=== PATIENT | male | born 1955 | race Caucasian/White ===

== ENCOUNTER 2016-10-07 | Outpatient (CLI) | payer MEDICARE, MEDICAID | END 2016-10-07 17:14 | disposition EMS.NT ==

== ENCOUNTER 2016-11-05 09:55 | Outpatient (CLI) | payer MEDICARE, MEDICAID ==
[2016-11-05] MEDS ORDERED: REGADENOSON 0.4 MG/5 ML SYRINGE IVP ONE (12:13)
== END 2016-11-05 09:56 | disposition home or self-care (01) ==
DX: R93.1 Abnormal findings on diagnostic imaging of heart and coronary circulation (principal); I25.2 Old myocardial infarction; I69.359 Hemiplegia and hemiparesis following cerebral infarction affecting unspecified side; E11.9 Type 2 diabetes mellitus without complications; I10 Essential (primary) hypertension; E78.5 Hyperlipidemia, unspecified; Z87.891 Personal history of nicotine dependence
CPT/HCPCS: 78452; 93017; A9500; J2785

== ENCOUNTER 2017-01-11 21:34 | Outpatient (CLI) | payer MEDICARE, MEDICAID | END 2017-01-11 21:35 | disposition critical access hospital (66) | DX: K59.00 Constipation, unspecified (principal); R11.10 Vomiting, unspecified | CPT/HCPCS: A0425; A0427 ==

== ENCOUNTER 2017-01-11 21:49 | Inpatient (IN) | payer MEDICARE, MEDICAID ==
[2017-01-11] MEDS ORDERED: SODIUM CHLORIDE 0.9% 1,000 ML IV ONE ×2 (21:57→22:25)
[2017-01-11] MEDS ORDERED: ONDANSETRON 4 MG/2 ML VIAL IVP STA (21:57)
[2017-01-11] MEDS ORDERED: INSULIN REGULAR HUMAN 100 UNIT/1 ML 10 ML MDV IVP STA (21:58)
[2017-01-11] MEDS ORDERED: ONDANSETRON 4 MG/2 ML VIAL ONE (22:18)
[2017-01-11] MEDS ORDERED: INSULIN REGULAR HUMAN 100 UNIT/1 ML 10 ML MDV ONE ×2 (22:20→22:33)
[2017-01-11] MEDS ORDERED: INSULIN REGULAR HUMAN 100 UNIT in SODIUM CHLORIDE 0.9% 100ML 99 ML IV STA (22:31)
[2017-01-11] MEDS ORDERED: PIPERACILLIN/TAZOBACTAM 4.5 GM in SODIUM CHLORIDE 0.9% MINIBAG 100 ML IV STA (23:13)
[2017-01-11] MEDS ORDERED: VANCOMYCIN INJ 1 GM in SODIUM CHLORIDE 0.9% 250 ML IV STA (23:14)
[2017-01-11] MEDS ORDERED: PANTOPRAZOLE 80 MG in SODIUM CHLORIDE 0.9% 100ML 100 ML IV STA (23:28)
[2017-01-11] MEDS ORDERED: PANTOPRAZOLE 40 MG VIAL IVP STA (23:28)
[2017-01-11] MEDS ORDERED: PANTOPRAZOLE 40 MG VIAL ONE ×2 (23:44→23:45)
[2017-01-12] MEDS ORDERED: VANCOMYCIN 1 GM VIAL ONE (00:07)
[2017-01-12] MEDS ORDERED: SODIUM CHLORIDE 0.9% 1,000 ML IV ONE (00:17)
[2017-01-12] MEDS ORDERED: ALBUTEROL NEB 2.5 MG/3 ML INH PRN (00:29)
[2017-01-12] MEDS ORDERED: ONDANSETRON 4 MG/2 ML VIAL IVP PRN (00:29)
[2017-01-12] MEDS ORDERED: SODIUM CHLORIDE FLUSH 0.9% 10 ML SYRINGE IVP PRN (00:29)
[2017-01-12] MEDS ORDERED: SODIUM CHLORIDE 0.9% 1,000 ML IV SCH (01:00)
[2017-01-12] MEDS ORDERED: INSULIN REGULAR HUMAN 100 UNIT in SODIUM CHLORIDE 0.9% 100ML 99 ML IV SCH (01:00)
[2017-01-12] MEDS: PANTOPRAZOLE 80 MG in SODIUM CHLORIDE 0.9% 100ML 100 ML IV SCH ×2 (01:32→10:50)
[2017-01-12] MEDS ORDERED: POTASSIUM CHLORIDE INJ 40 MEQ in SODIUM CHLORIDE 0.9% 1,000 ML IV SCH (02:00)
[2017-01-12] MEDS: MORPHINE 2 MG/ML SYRINGE IVP PRN ×4 (02:05→08:10)
[2017-01-12] MEDS: PIPERACILLIN/TAZOBACTAM 4.5 GM in SODIUM CHLORIDE 0.9% MINIBAG 100 ML IV SCH ×2 (02:31→10:55)
[2017-01-12] MEDS ORDERED: NS W/20 MEQ KCL 1,000 ML IV SCH (03:00)
[2017-01-12] MEDS: SODIUM CHLORIDE FLUSH 0.9% 10 ML SYRINGE IVP SCH ×2 (04:56→11:44)
[2017-01-12] MEDS ORDERED: DEXTROSE 5%-0.45% NACL 1,000 ML IV ONE (05:59)
[2017-01-12] MEDS ORDERED: PIPERACILLIN/TAZOBACTAM 4.5 GM in SODIUM CHLORIDE 0.9% MINIBAG 100 ML IV SCH (06:00)
[2017-01-12] MEDS: POTASSIUM CHLOR 10 MEQ/100 ML 100 ML IV SCH ×4 (06:08→09:13)
[2017-01-12] MEDS ORDERED: POTASSIUM PHOSPHATE 21 MMOL in SODIUM CHLORIDE 0.9% 250 ML IV ONE (06:27)
[2017-01-12] MEDS ORDERED: INSULIN GLARGINE 300 UNIT/3 ML PEN SUBQ SCH (08:00)
[2017-01-12] MEDS ORDERED: VANCOMYCIN PER PHARMACY 1 GM in SODIUM CHLORIDE 0.9% 250 ML IV SCH (08:00)
[2017-01-12] MEDS: INSULIN ASPART 300 UNIT/3 ML PEN SUBQ SCH ×4 (08:09→11:41)
[2017-01-12] MEDS ORDERED: LISINOPRIL 5 MG TABLET PO STA (08:50)
[2017-01-12] MEDS ORDERED: ASPIRIN 325 MG TABLET PO STA (08:50)
[2017-01-12] MEDS ORDERED: ATORVASTATIN 40 MG TABLET PO STA (08:59)
[2017-01-12] MEDS ORDERED: METOPROLOL SUCCINATE 50 MG TABLET PO ONE (09:30)
[2017-01-12] MEDS ORDERED: PANTOPRAZOLE 40 MG VIAL IV SCH (12:00)
[2017-01-12] MEDS ORDERED: VANCOMYCIN INJ 1 GM in SODIUM CHLORIDE 0.9% 250 ML IV SCH (17:00)
[2017-01-12] MEDS ORDERED: VANCOMYCIN INJ 0.75 GM in SODIUM CHLORIDE 0.9% 250 ML IV SCH (23:00)
== END 2017-01-12 12:18 | disposition short-term general hospital (02) | DRG 637 ==
DX: E10.10 Type 1 diabetes mellitus with ketoacidosis without coma (principal); D72.829 Elevated white blood cell count, unspecified; E86.0 Dehydration; I21.4 Non-ST elevation (NSTEMI) myocardial infarction; A41.9 Sepsis, unspecified organism; K92.0 Hematemesis; I69.354 Hemiplegia and hemiparesis following cerebral infarction affecting left non-dominant side; G89.29 Other chronic pain; N17.9 Acute kidney failure, unspecified; I11.0 Hypertensive heart disease with heart failure; E03.9 Hypothyroidism, unspecified; F41.8 Other specified anxiety disorders; G89.4 Chronic pain syndrome; Z86.73 Personal history of transient ischemic attack (TIA), and cerebral infarction without residual deficits; K21.9 Gastro-esophageal reflux disease without esophagitis; I25.10 Atherosclerotic heart disease of native coronary artery without angina pectoris; I95.9 Hypotension, unspecified; I50.9 Heart failure, unspecified; K59.00 Constipation, unspecified; F17.200 Nicotine dependence, unspecified, uncomplicated; Z79.891 Long term (current) use of opiate analgesic; Z79.4 Long term (current) use of insulin; Z79.82 Long term (current) use of aspirin; Z98.1 Arthrodesis status

== ENCOUNTER 2017-01-12 12:18 | Outpatient (CLI) | payer MEDICARE, MEDICAID | END 2017-01-12 12:19 | disposition short-term general hospital (02) | DX: E13.10 Other specified diabetes mellitus with ketoacidosis without coma (principal); R79.89 Other specified abnormal findings of blood chemistry | CPT/HCPCS: A0425; A0426 ==

== ENCOUNTER 2017-01-30 19:35 | Outpatient (CLI) | payer MEDICARE, MEDICAID | END 2017-01-30 19:36 | disposition critical access hospital (66) | DX: R53.83 Other fatigue (principal) | CPT/HCPCS: A0425; A0427 ==

== ENCOUNTER 2017-01-30 19:52 | Emergency (ER) | payer MEDICARE, MEDICAID ==
[2017-01-30] MEDS ORDERED: SODIUM CHLORIDE 0.9% 1,000 ML IV ONE ×2 (20:04)
--- NOTE | 2017-01-30 20:07 | ED Physician Documentation ---
History of Present Illness - Stated complaint Stated Complaint: WEAKNESS - Chief complaint Chief Complaint: Neuro - History obtained from History obtained from: Patient, EMS - History of Present Illness Timing: Other (61-year-old gentleman with history of diabetes, CVA, coronary disease. He's living at home now and presents by ambulance, he's fell 2 days ago and has a lot of pain in the ankle on the right there is a concern for DKA. He was admitted with DKA a few weeks ago. He ruled in. He was transferred to [facility]. I'm not sure what happened there. His blood sugar now is high. He denies injuries other than his right ankle, but he is slightly somnolence and generally an unreliable historian.) Review of Systems Unable to obtain: Confused PD PAST MEDICAL HISTORY - Past Medical History Cardiovascular: Hypertension, Coronary artery disease Respiratory: None Neuro: CVA Endocrine/Autoimmune: Type 1 diabetes, HyPOthyroidism GI: GERD, GI bleed, Chronic constipation : None HEENT: None Psych: Depression, Anxiety Musculoskeletal: Chronic back pain Derm: None - Past Surgical History Past Surgical History: Yes Ortho: Spine surgery, Other - Present Medications Home Medications: Ambulatory Orders Medication Instructions Recorded Confirmed Insulin Glargine,Hum.rec.anlog 36 units SUBQ DAILY 03/19/14 01/30/17 [Lantus] Levothyroxine [Synthroid] 50 mcg PO DAILY 03/19/14 01/30/17 Omeprazole [PriLOSEC] 20 mg PO BID PRN 03/19/14 01/30/17 Oxycodone HCl 20 - 30 mg PO Q4HR PRN MDD 150 MG 03/19/14 01/30/17 Metoprolol Succinate 75 mg PO DAILY 06/27/16 01/30/17 Atorvastatin [Lipitor] 80 mg PO QPM #30 tablet 07/01/16 01/30/17 Aspirin [Maria De Jesus] 325 mg PO DAILYWM 09/14/16 01/30/17 Docusate Sodium 250Mg Capsule 250 mg PO BID PRN 09/14/16 01/30/17 [Colace 250Mg Capsule] Insulin Aspart [NovoLOG] 12 units SUBQ TIDWM 09/14/16 01/30/17 Senna [Senokot] 17.2 mg PO BID PRN 09/14/16 01/30/17 Ipratropium [place] 1 - 2 sprays NS TID PRN 01/12/17 01/30/17 [place]-3 Acid Ethyl Esters [Lovaza] 3 gm PO DAILY 01/12/17 01/30/17 Promethazine [Phenergan] 25 mg PO Q4H PRN MDD 100 mg 01/12/17 01/30/17 - Allergies Allergies/Adverse Reactions: Allergies Allergy/AdvReac Type Severity Reaction Status Date / Time No Known Drug Allergies Allergy Verified 01/30/17 20:17 - Social History Does the pt smoke?: No Smoking Status: Current every day smoker Does the pt drink ETOH?: No Does the pt have substance abuse?: No - Family History Family history: reports: Non contributory - Immunizations Immunizations are current?: No - POLST Patient has POLST: No PD ED PE NORMAL - Vitals Vital signs reviewed: Yes - General General: Other (Chronically ill-appearing man laying in bed on his right side, he appears to be in pain he is somewhat somnolence.) - HEENT HEENT: PERRL, EOMI, Other (ppoor dentition) - Neck Neck: Supple, no meningeal sign, No bony TTP, Other (carotid endarterectomy scar ) - Cardiac Cardiac: RRR, No murmur - Respiratory Respiratory: No respiratory distress, Clear bilaterally - Abdomen Abdomen: Normal bowel sounds, Soft, Non tender - Extremities Extremities: No deformity, No tenderness to palpate, Other (Both legs are edematous with venous stasis changes that are mild and some mottling, they are cold but the nurse is able to Doppler pulses in both feet. He is mildly tender and swollen especially around the right ankle and proximal right foot. No deformity.) - Neuro Neuro: No motor deficit, No sensory deficit Results - Vitals Vitals: Vital Signs - 24 hr 01/30/17 01/30/17 01/30/17 19:53 20:15 20:42 Temperature 36.6 C Heart Rate 114 H 114 H 119 H Respiratory 20 18 16 Rate Blood Pressure 129/72 160/83 H 147/113 H O2 Saturation 96 99 99 01/30/17 01/30/17 01/30/17 21:00 21:28 21:52 Temperature Heart Rate 120 H 120 H 125 H Respiratory 21 17 17 Rate Blood Pressure 158/101 H 166/84 H 130/78 O2 Saturation 99 99 98 01/30/17 01/30/17 01/30/17 22:29 22:44 23:33 Temperature 36.5 C Heart Rate 124 H 123 H 122 H Respiratory 16 15 20 Rate Blood Pressure 158/78 H 114/93 H 141/69 H O2 Saturation 100 99 100 Oxygen O2 Source Room air - EKG (time done) 2034 Rate: Rate (enter#) (120) Rhythm: Sinus tachycardia [place]: Normal Intervals: Normal CA QRS: Normal Ischemia: Non specific changes Computer interpretation: Agree with computer - Labs Labs: Laboratory Tests 01/30/17 01/30/17 01/30/17 20:05 20:05 20:05 WBC 20.3 H RBC 4.48 L Hgb 12.8 L Hct 40.9 L MCV 91.2 MCH 28.5 MCHC 31.3 L RDW 13.8 Plt Count 386 MPV 9.6 Neut # Not Reportable Lymph # Not Reportable [place] # Not Reportable Eos # Not Reportable Baso # Not Reportable Absolute Nucleated RBC Not Reportable Band Neuts % (Manual) 2 Metamyelocytes % 1 H Neutrophils # (Manual) 18.3 H Lymphocytes # (Manual) 0.2 L Monocytes # (Manual) 1.6 H Nucleated RBCs Not Reportable Platelet Estimate NORMAL (130-450,000) RBC Morph Micro Appear NORMAL APPEARANCE PT 11.5 INR 1.0 VBG pH VBG pCO2 VBG pO2 VBG HCO3 VBG Total CO2 VBG O2 Saturation VBG Base Excess Sodium 129 L Potassium 5.6 H Chloride 87 L Carbon Dioxide 20 L Anion Gap 22.0 H BUN 63 H Creatinine 2.0 H Estimated GFR (MDRD) 34 L Glucose 759 H* Calcium 10.0 Phosphorus 6.6 H Magnesium 2.2 Total Bilirubin 1.0 AST 76 H ALT 42 Alkaline Phosphatase 139 H Total Creatine Kinase 4730 H* CK-MB (CK-2) Troponin I Total Protein 7.4 Albumin 3.7 Globulin 3.7 Albumin/Globulin Ratio 1.0 Lipase 10 L Ethyl Alcohol < 5.0 Serum Ketones LARGE H 01/30/17 01/30/17 20:05 20:05 WBC RBC Hgb Hct MCV MCH MCHC RDW Plt Count MPV Neut # Lymph # [place] # Eos # Baso # Absolute Nucleated RBC Band Neuts % (Manual) Metamyelocytes % Neutrophils # (Manual) Lymphocytes # (Manual) Monocytes # (Manual) Nucleated RBCs Platelet Estimate RBC Morph Micro Appear PT INR VBG pH 7.188 L VBG pCO2 53.3 H VBG pO2 44.2 VBG HCO3 19.8 L VBG Total CO2 21.4 L VBG O2 Saturation 70.9 VBG Base Excess -8.7 L Sodium Potassium Chloride Carbon Dioxide Anion Gap BUN Creatinine Estimated GFR (MDRD) Glucose Calcium Phosphorus Magnesium Total Bilirubin AST ALT Alkaline Phosphatase Total Creatine Kinase CK-MB (CK-2) 22.5 H Troponin I 0.04 Total Protein Albumin Globulin Albumin/Globulin Ratio Lipase Ethyl Alcohol Serum Ketones - Rads (name of study) R foot/R Ankle XRs Radiology: EMP read contemporaneously (Osteopenia and soft tissue swelling without fracture) R hip 2v Radiology: EMP read contemporaneously (intertroch frx) R knee 4v Radiology: EMP read contemporaneously (Soft tissue swelling, no frx.) PD MEDICAL DECISION MAKING - ED course ED course: 61-year-old gentleman with history of diabetes, living at home. Fell 2 days ago and injured his ankle and now shows evidence of DKA, acute renal failure. Recent transfer to [facility] for non-STEMI, unclear at the outset what transpired there, but will get the discharge summary for the hospitalist. He was given IV fluids and started on an insulin drip here. Spoke with Dr. Vera for admission at 915 p.m. He also has evidence of rhabdomyolysis, the CK isn't that high but given the evidence of acute renal failure and is medically frail gentleman I will start a bicarbonate drip. I am told by the house sup though that due to staffing issues we cannot admit him here and [facility] was called for poss xfer at 2133 [facility] was full and sammie was called Spoke with Dr Eastman at [facility], does not need ICU Accepted to [facility] ICU by Dr Blue at 029, he requests impoved blood sugar before transport, <500, (currently still >600), so bolused 10 units reg and increased gtt - Critical Care Time(min): 43 Time Includes: Direct patient care, Review records, Reassess patient, Document care, Coordinate care, Medical consult Data interpretation: Labs, Pulse ox Procedures included in critical care time: Peripheral IV Procedures excluded from critical care time: EKG Departure - Departure Disposition: 02 Transfer Acute Care Hosp Clinical Impression: Diabetic ketoacidosis Qualifiers: Diabetes mellitus type: type 1 Diabetes mellitus complication detail: without coma Qualified Code(s): E10.10 - Type 1 diabetes mellitus with ketoacidosis without coma Leukocytosis Qualifiers: Leukocytosis type: leukemoid reaction Qualified Code(s): D72.823 - Leukemoid reaction Right ankle sprain Qualifiers: Encounter type: initial encounter Involved ligament of ankle: unspecified ligament Qualified Code(s): S93.401A - Sprain of unspecified ligament of right ankle, initial encounter Right foot sprain Qualifiers: Encounter type: initial encounter Qualified Code(s): S93.601A - Unspecified sprain of right foot, initial encounter Rhabdomyolysis Qualifiers: Rhabdomyolysis type: non-traumatic Qualified Code(s): M62.82 - Rhabdomyolysis Intertrochanteric fracture of right femur Qualifiers: Encounter type: initial encounter Fracture type: closed Qualified Code(s): S72.141A - Displaced intertrochanteric fracture of right femur, initial encounter for closed fracture Condition: Serious
[2017-01-30 20:19] LABS: BASOPHILS % (AUTO) 1.1 %; HCT - HEMATOCRIT 40.9 % (42.0-52.0); HGB - HEMOGLOBIN 12.8 g/dL (14.0-18.0); LYMPHOCYTES % (AUTO) 2.1 %; MEAN CORPUSCULAR HEMOGLOBIN 28.5 pg (27.0-31.0); MEAN CORPUSCULAR HGB CONC 31.3 g/dL (32.0-36.0); MEAN CORPUSCULAR VOLUME 91.2 fL (80.0-94.0); MEAN PLATELET VOLUME 9.6 fL (7.4-11.4); MONOCYTES % (AUTO) 3.5 %; NEUTROPHILS % (AUTO) 93.3 %; RED BLOOD COUNT 4.48 10^6/uL (4.70-6.10); RED CELL DISTRIBUTION WIDTH 13.8 % (12.0-15.0); UNCORRECTED WHITE BLOOD COUNT 20.3 x10^3/uL; WHITE BLOOD COUNT 20.3 x10^3/uL (4.8-10.8)
[2017-01-30 20:25] LABS: VBG PH 7.188 (7.31-7.41)
[2017-01-30 20:26] LABS: VBG BASE EXCESS -8.7 mmol/L (-2 - +2); VBG OXYGEN SATURATION 70.9 % (60-80); VBG TOTAL CO2 21.4 mmol/L (24-29)
[2017-01-30 20:34] LABS: PT - PROTHROMBIN TIME 11.5 secs (9.9-12.6)
[2017-01-30 20:39] LABS: TROPONIN I 0.04 ng/mL (<0.49)
[2017-01-30 20:41] LABS: CREATINE KINASE MB 22.5 ng/mL (0.6-6.3)
--- NOTE | 2017-01-30 20:46 | XRAY Preliminary Report ---
Exam: XR Foot 3 View RT IMPRESSION: 1. The bones are osteopenic. No fracture. 2. Soft tissue swelling along the dorsal aspect of the forefoot. [facility] SITE ID: [id number]
--- NOTE | 2017-01-30 20:46 | XRAY Preliminary Report ---
Exam: XR Ankle 3 View RT IMPRESSION: 1. No fracture identified. 2. Soft tissue swelling along the lateral aspect of the ankle is concerning for soft tissue injury. [facility] SITE ID: [id number]
--- NOTE | 2017-01-30 20:48 | XRAY Report ---
EXAM: RIGHT FOOT RADIOGRAPHY EXAM DATE: 01/30/2017 08:11 PM. CLINICAL HISTORY: Ground level fall with pain and swelling in right foot. COMPARISON: None. TECHNIQUE: 3 views. FINDINGS: Bones: The bones are osteopenic. No fracture. Joints: Normal. No subluxations. Soft Tissues: Soft tissue swelling along the dorsal aspect of the forefoot. IMPRESSION: 1. The bones are osteopenic. No fracture. 2. Soft tissue swelling along the dorsal aspect of the forefoot. [facility] Referring Provider Line: [phone] SITE ID: [id number]
--- NOTE | 2017-01-30 20:49 | XRAY Report ---
EXAM: RIGHT ANKLE RADIOGRAPHY EXAM DATE: 01/30/2017 08:11 PM. CLINICAL HISTORY: Ground-level fall with pain and swelling in the right foot and ankle. COMPARISON: None. TECHNIQUE: 3 views. FINDINGS: Bones: The bones are osteopenic.. No fractures or bone lesions. Joints: Normal. No effusion. No subluxations. The ankle mortise is normally aligned. Soft Tissues: Soft tissue swelling along the lateral aspect of the ankle. IMPRESSION: 1. No fracture identified. 2. Soft tissue swelling along the lateral aspect of the ankle is concerning for soft tissue injury. [facility] Referring Provider Line: [phone] SITE ID: [id number]
[2017-01-30 20:54] LABS: BAND NEUTROPHILS % (MANUAL) 2 %; LYMPHOCYTES % (MANUAL) 1 %; NEUTROPHILS % (MANUAL) 88 %; NP AUTO DIFFERENTIAL? YES; NP MAN DIFFERENTIAL? NO; PLATELET ESTIMATE, MANUAL NORMAL (130-450,000) (NORMAL)
[2017-01-30 21:05] LABS: BUN - BLOOD UREA NITROGEN 63 mg/dL (6-20); CARBON DIOXIDE - CO2 20 mmol/L (21-32); CHLORIDE 87 mmol/L (101-111); GFR - MDRD 34 (>89); LIPASE 10 U/L (22-51); MAGNESIUM 2.2 mg/dL (1.7-2.8); PHOSPHORUS 6.6 mg/dL (2.5-4.6); POTASSIUM 5.6 mmol/L (3.5-5.0); SODIUM 129 mmol/L (135-145); TOTAL PROTEIN 7.4 g/dL (6.7-8.2)
[2017-01-30 21:06] LABS: GLUCOSE 759 mg/dL (70-100)
[2017-01-30] MEDS ORDERED: INSULIN REGULAR HUMAN 100 UNIT in SODIUM CHLORIDE 0.9% 100ML 99 ML IV STA ×2 (21:12→23:56)
[2017-01-30] MEDS ORDERED: ELECTROLYTE-A SOLUTION 1,000 ML IV ONE (21:13)
[2017-01-30] MEDS ORDERED: INSULIN REGULAR HUMAN 100 UNIT/1 ML 10 ML MDV ONE (21:15)
[2017-01-30] MEDS ORDERED: SODIUM BICARBONATE ABBOJECT 50 MEQ/50 ML SYRINGE ONE ×2 (21:34→21:38)
[2017-01-30] MEDS ORDERED: ELECTROLYTE-A SOLUTION 1,000 ML IV SCH (22:00)
[2017-01-30] MEDS ORDERED: SODIUM BICARBONATE 100 MEQ in DEXTROSE 5% 1,000 ML IV SCH (22:00)
[2017-01-30] MEDS ORDERED: INSULIN REGULAR HUMAN 100 UNIT in SODIUM CHLORIDE 0.9% 100ML 99 ML IV SCH (22:00)
--- NOTE | 2017-01-30 22:43 | XRAY Preliminary Report ---
Exam: XR Hip w/Pelvis 2-3V RT IMPRESSION: 1. Mildly comminuted right femur intertrochanteric fracture. 2. No dislocation. [facility] SITE ID: [id number]
--- NOTE | 2017-01-30 22:46 | XRAY Report ---
EXAM: RIGHT HIP AND PELVIS RADIOGRAPHY EXAM DATE: 01/30/2017 10:20 PM. HISTORY: Hip inj. COMPARISONS: None. TECHNIQUE: 1 view of the pelvis and 1 view of the hip. FINDINGS: Bones: Mildly comminuted right femur intertrochanteric fracture. No fracture involving the bony pelvi s is identified. Joints: The bilateral hip, pubis symphysis, and sacroiliac joints are preserved. Soft Tissues: Normal. No soft tissue swelling. Vascular calcifications are noted in the pelvis. IMPRESSION: 1. Mildly comminuted right femur intertrochanteric fracture. 2. No dislocation. [facility] Referring Provider Line: [phone] SITE ID: [id number]
--- NOTE | 2017-01-30 23:16 | XRAY Preliminary Report ---
Exam: XR Knee 4 View RT IMPRESSION: 1. No fracture. 2. Normal alignment. No effusion. 3. Mild soft tissue prominence superficial to the patella. This could represent contusion or swelling . [facility] SITE ID: [id number]
--- NOTE | 2017-01-30 23:19 | XRAY Report ---
EXAM: RIGHT KNEE RADIOGRAPHY EXAM DATE: 01/30/2017 10:32 PM. CLINICAL HISTORY: Knee pain. COMPARISON: None. TECHNIQUE: 4 views. FINDINGS: Bones: Normal. No fractures or bone lesions. Mild osteopenia. Joints: Normal. No effusion. No subluxations. Soft Tissues: Mild soft tissue prominence superior and anterior to the patella. IMPRESSION: 1. No fracture. 2. Normal alignment. No effusion. 3. Mild soft tissue prominence superficial to the patella. This could represent contusion or swelling . [facility] Referring Provider Line: [phone] SITE ID: [id number]
[2017-01-30] MEDS ORDERED: INSULIN REGULAR HUMAN 100 UNIT/1 ML 10 ML MDV IVP STA (23:56)
[2017-01-31] MEDS ORDERED: INSULIN REGULAR HUMAN 100 UNIT/1 ML 10 ML MDV ONE ×2 (00:04→00:49)
[2017-01-31] MEDS ORDERED: INSULIN REGULAR HUMAN 100 UNIT/1 ML 10 ML MDV IVP STA (00:50)
[2017-01-31 04:23] VITALS: BP 125/69
== END 2017-01-31 03:30 | disposition short-term general hospital (02) ==
LOC: EDUNIT# → ED 19:52 → SUPCPDRO 19:52 → ED 01-31 03:30
DX: E10.10 Type 1 diabetes mellitus with ketoacidosis without coma (principal); Z79.4 Long term (current) use of insulin; N17.9 Acute kidney failure, unspecified; M62.82 Rhabdomyolysis; D72.823 Leukemoid reaction; S72.141A Displaced intertrochanteric fracture of right femur, initial encounter for closed fracture; S93.401A Sprain of unspecified ligament of right ankle, initial encounter; S93.601A Unspecified sprain of right foot, initial encounter; W19.XXXA Unspecified fall, initial encounter; R00.0 Tachycardia, unspecified; I10 Essential (primary) hypertension; I87.8 Other specified disorders of veins; M85.871 Other specified disorders of bone density and structure, right ankle and foot; I25.10 Atherosclerotic heart disease of native coronary artery without angina pectoris; E03.9 Hypothyroidism, unspecified; Z86.73 Personal history of transient ischemic attack (TIA), and cerebral infarction without residual deficits; Z79.82 Long term (current) use of aspirin
CPT/HCPCS: 36415; 73502; 73564; 73610; 73630; 80053; 82009; 82550; 82553; 82803; 83690; 83735; 84100; 84484; 85025; 85610; 93005; 93010; 96360; 99285; 99291; G0480; J1815; 80320

== ENCOUNTER 2017-05-02 12:20 | Outpatient (CLI) | payer MEDICARE, MEDICAID | END 2017-05-02 12:21 | disposition critical access hospital (66) | LOC: EMS 12:20 | PROVIDERS: ATTEND Surgery | DX: R41.82 Altered mental status, unspecified (principal); R73.09 Other abnormal glucose; R52 Pain, unspecified; R11.0 Nausea; R53.1 Weakness | CPT/HCPCS: A0425; A0427 ==

== ENCOUNTER 2017-05-02 12:38 | Inpatient (IN) | payer MEDICARE, MEDICAID ==
[2017-05-02] MEDS ORDERED: SODIUM CHLORIDE 0.9% 1,000 ML IV ONE ×4 (12:46→13:30)
[2017-05-02] MEDS ORDERED: SODIUM CHLORIDE FLUSH 0.9% 10 ML SYRINGE IVP ONE ×2 (12:51→21:19)
[2017-05-02 13:12] LABS: VBG PH 7.091 (7.31-7.41)
[2017-05-02 13:13] LABS: VBG BASE EXCESS -19.8 mmol/L (-2 - +2); VBG OXYGEN SATURATION 79.1 % (60-80); VBG TOTAL CO2 9.6 mmol/L (24-29)
[2017-05-02 13:15] LABS: BASOPHILS % (AUTO) 1.3 %; EOSINOPHILS % (AUTO) 0.1 %; HCT - HEMATOCRIT 42.8 % (42.0-52.0); HGB - HEMOGLOBIN 12.7 g/dL (14.0-18.0); LYMPHOCYTES % (AUTO) 4.4 %; MEAN CORPUSCULAR HEMOGLOBIN 26.1 pg (27.0-31.0); MEAN CORPUSCULAR HGB CONC 29.6 g/dL (32.0-36.0); MEAN CORPUSCULAR VOLUME 88.2 fL (80.0-94.0); MEAN PLATELET VOLUME 8.8 fL (7.4-11.4); NEUTROPHILS % (AUTO) 90.2 %; RED BLOOD COUNT 4.86 10^6/uL (4.70-6.10); UNCORRECTED WHITE BLOOD COUNT 26.6 x10^3/uL; WHITE BLOOD COUNT 26.6 x10^3/uL (4.8-10.8)
[2017-05-02 13:19] LABS: BAND NEUTROPHILS % (MANUAL) 0 %
--- NOTE | 2017-05-02 13:21 | ED Physician Documentation ---
History of Present Illness - Stated complaint Stated Complaint: ALOC - Chief complaint Chief Complaint: General - Additonal information Additional information: hx from EMS pt and EMR 61 male diabetic with a hx of DKA HTN CAD VA right hemiplegia, UGIB, thyroid BIBA today for AMS and high blood sugar recent chills but no know cough, was vomiting dark colored emesis en route, no reported diarrhea, no reported urinary sx, has small pressure sore to right heel and 5th toe no fall reported by EMS Review of Systems Constitutional: reports: Chills. denies: Fever Throat: denies: Sore throat Cardiac: denies: Chest pain / pressure Respiratory: denies: Dyspnea, Cough GI: reports: Vomiting. denies: Abdominal Pain, Diarrhea Skin: reports: Lesions Neurologic: reports: Altered mental status Endocrine: denies: Easy bruising / bleeding Immunocompromised: denies: Immunocompromised PD PAST MEDICAL HISTORY - Past Medical History Cardiovascular: Hypertension, Coronary artery disease Respiratory: None Neuro: CVA Endocrine/Autoimmune: Type 1 diabetes, HyPOthyroidism GI: GERD, GI bleed, Chronic constipation : None HEENT: None Psych: Depression, Anxiety Musculoskeletal: Chronic back pain Derm: None - Past Surgical History Past Surgical History: Yes Ortho: Spine surgery, Other - Present Medications Home Medications: Ambulatory Orders Medication Instructions Recorded Confirmed Insulin Glargine,Hum.rec.anlog 36 units SUBQ DAILY 03/19/14 01/30/17 [Lantus] Oxycodone HCl 20 - 30 mg PO Q4HR PRN MDD 150 MG 03/19/14 01/30/17 Atorvastatin [Lipitor] 80 mg PO QPM #30 tablet 07/01/16 01/30/17 Docusate Sodium 250Mg Capsule 250 mg PO BID PRN 09/14/16 01/30/17 [Colace 250Mg Capsule] Insulin Aspart [NovoLOG] 12 units SUBQ TIDWM 09/14/16 01/30/17 Atorvastatin Calcium [Atorvastatin 05/02/17 Calcium] Insulin Aspart [NovoLOG] 05/02/17 Levothyroxine Sodium 05/02/17 [Levothyroxine Sodium] Lisinopril [Lisinopril] 05/02/17 Metoprolol Succinate [Metoprolol 05/02/17 Succinate] Oxycodone HCl [Oxycodone HCl] 05/02/17 Promethazine HCl [Promethazine HCl] 05/02/17 Spironolactone [Spironolactone] 05/02/17 - Allergies Allergies/Adverse Reactions: Allergies Allergy/AdvReac Type Severity Reaction Status Date / Time No Known Drug Allergies Allergy Verified 01/30/17 20:17 - Social History Does the pt smoke?: No Smoking Status: Current every day smoker Does the pt drink ETOH?: No Does the pt have substance abuse?: No - Immunizations Immunizations are current?: No - POLST Patient has POLST: No PD ED PE NORMAL - Vitals Vital signs reviewed: Yes - General General: Other (aorusable) - HEENT HEENT: Atraumatic, PERRL, Other (dried vomit on face, not enough to test for blood, no tongue lac, poor dentition) - Cardiac Cardiac: RRR - Respiratory Respiratory: No respiratory distress, Clear bilaterally - Abdomen Abdomen: Soft, Non tender - Derm Derm: Other (small pressure sore R heel anbd 5th toe, wee dressed upon arrival) - Neuro Neuro: Other (R hemiplegia, arousable, answers some questions, follows commands) Results - Vitals Vitals: Vital Signs - 24 hr 05/02/17 05/02/17 05/02/17 12:40 13:21 14:14 Temperature 36.8 C Heart Rate 116 H 119 H 126 H Respiratory 20 22 27 H Rate Blood Pressure 107/91 H 101/61 94/76 O2 Saturation 100 100 100 Oxygen O2 Source Room air - Labs Labs: Laboratory Tests 05/02/17 05/02/17 05/02/17 12:52 12:52 12:52 WBC 26.6 H RBC 4.86 Hgb 12.7 L Hct 42.8 MCV 88.2 MCH 26.1 L MCHC 29.6 L RDW 16.0 H Plt Count 432 MPV 8.8 Neut # Not Reportable Lymph # Not Reportable [place] # Not Reportable Eos # Not Reportable Baso # Not Reportable Absolute Nucleated RBC Not Reportable Total Counted 100 Band Neuts % (Manual) 0 Neutrophils # (Manual) 23.7 H Lymphocytes # (Manual) 1.9 Monocytes # (Manual) 1.1 H Nucleated RBCs Not Reportable Differential Comment MANUAL DIFFERENTIAL Platelet Estimate NORMAL (130-450,000) Platelet Morphology NORMAL APPEARANCE RBC Morph Micro Appear NORMAL APPEARANCE PT 11.7 INR 1.0 APTT 23.2 L VBG pH VBG pCO2 VBG pO2 VBG HCO3 VBG Total CO2 VBG O2 Saturation VBG Base Excess Sodium 135 Potassium 5.4 H Chloride 89 L Carbon Dioxide 8 L* Anion Gap 38.0 H BUN 51 H Creatinine 2.2 H Estimated GFR (MDRD) 31 L Glucose 943 H* Calcium 9.3 Total Bilirubin 2.3 H AST 30 ALT 40 Alkaline Phosphatase 204 H Troponin I Total Protein 7.0 Albumin 3.7 Globulin 3.3 Albumin/Globulin Ratio 1.1 Lipase 14 L Ethyl Alcohol 6.8 Serum Ketones MODERATE H Blood Type Antibody Screen 05/02/17 05/02/17 05/02/17 12:52 12:52 12:52 WBC RBC Hgb Hct MCV MCH MCHC RDW Plt Count MPV Neut # Lymph # [place] # Eos # Baso # Absolute Nucleated RBC Total Counted Band Neuts % (Manual) Neutrophils # (Manual) Lymphocytes # (Manual) Monocytes # (Manual) Nucleated RBCs Differential Comment Platelet Estimate Platelet Morphology RBC Morph Micro Appear PT INR APTT VBG pH 7.091 L VBG pCO2 29.4 L VBG pO2 52.5 H VBG HCO3 8.7 L VBG Total CO2 9.6 L VBG O2 Saturation 79.1 VBG Base Excess -19.8 L Sodium Potassium Chloride Carbon Dioxide Anion Gap BUN Creatinine Estimated GFR (MDRD) Glucose Calcium Total Bilirubin AST ALT Alkaline Phosphatase Troponin I 0.07 Total Protein Albumin Globulin Albumin/Globulin Ratio Lipase Ethyl Alcohol Serum Ketones Blood Type O NEGATIVE Antibody Screen NEGATIVE - Rads (name of study) CXR Radiology: See rad report (NACPD) PD MEDICAL DECISION MAKING - ED course ED course: severe DKA - given IVF insulin bolus insulin gtt has sore to R foot but dont look infected doubt they are the trigger CXR = NACPD waiting for urine (was incontinent) pt has no CP but last time he had DKA his trop was + so checked that too and it was neg per old reports non compliance and/or lack of insulin supplies has been a factor in the past will admit also he had dark colored vomit on his shirt, no enough to test for blood, no further vomit to test while in the ER Departure - Departure Disposition: 66 [facility] DC/Xfer Clinical Impression: Diabetic ketoacidosis Qualifiers: Diabetes mellitus type: type 1 Diabetes mellitus complication detail: without coma Qualified Code(s): E10.10 - Type 1 diabetes mellitus with ketoacidosis without coma Discharge Date/Time: 05/02/17 15:21
[2017-05-02 13:22] LABS: PT - PROTHROMBIN TIME 11.7 secs (9.9-12.6)
[2017-05-02] MEDS ORDERED: INSULIN REGULAR HUMAN 100 UNIT in SODIUM CHLORIDE 0.9% 100ML 99 ML IV STA (13:23)
[2017-05-02 13:28] LABS: ALBUMIN/GLOBULIN RATIO 1.1 (1.0-2.2); BILIRUBIN,TOTAL 2.3 mg/dL (0.2-1.0); BUN - BLOOD UREA NITROGEN 51 mg/dL (6-20); CALCIUM 9.3 mg/dL (8.5-10.3); CARBON DIOXIDE - CO2 8 mmol/L (21-32); CHLORIDE 89 mmol/L (101-111); CREATININE 2.2 mg/dL (0.6-1.2); GFR - MDRD 31 (>89); LIPASE 14 U/L (22-51); POTASSIUM 5.4 mmol/L (3.5-5.0); SODIUM 135 mmol/L (135-145)
[2017-05-02 13:29] LABS: GLUCOSE 943 mg/dL (70-100); PARTIAL THROMBOPLASTIN TIME 23.2 secs (24.9-33.3)
[2017-05-02] MEDS ORDERED: INSULIN REGULAR HUMAN 100 UNIT/1 ML 10 ML MDV IVP STA (13:29)
[2017-05-02] MEDS ORDERED: INSULIN REGULAR HUMAN 100 UNIT/1 ML 10 ML MDV ONE (13:42)
[2017-05-02 13:46] LABS: LYMPHOCYTES % (MANUAL) 7 %; NEUTROPHILS % (MANUAL) 89 %; NP AUTO DIFFERENTIAL? YES; NP MAN DIFFERENTIAL? NO; PLATELET ESTIMATE, MANUAL NORMAL (130-450,000) (NORMAL); PLATELET MORPHOLOGY NORMAL APPEARANCE (NORMAL); TOTAL CELLS COUNTED 100
--- NOTE | 2017-05-02 14:09 | XRAY Preliminary Report ---
Exam: XR Chest 1 View IMPRESSION: No acute cardiopulmonary abnormality. [facility] SITE ID: [id number]
--- NOTE | 2017-05-02 14:11 | XRAY Report ---
EXAM: CHEST RADIOGRAPHY EXAM DATE: 05/02/2017 01:44 PM. CLINICAL HISTORY: Chills ? Infectious source/trigger for DKA. COMPARISON: 01/11/2017. TECHNIQUE: 1 view. FINDINGS: Lungs/Pleura: No focal opacities evident. No pleural effusion. No pneumothorax. Mediastinum: Within exam limitations, cardiomediastinal contour is normal. Other: There is an old ununited proximal right humerus fracture. IMPRESSION: No acute cardiopulmonary abnormality. [facility] Referring Provider Line: [phone] SITE ID: [id number]
[2017-05-02] MEDS ORDERED: INSULIN REGULAR HUMAN 100 UNIT in SODIUM CHLORIDE 0.9% 100ML 99 ML IV SCH (16:00)
[2017-05-02] MEDS ORDERED: SODIUM BICARBONATE 100 MEQ in DEXTROSE 5% 1,000 ML IV SCH (16:00)
[2017-05-02] MEDS ORDERED: DOCUSATE SODIUM 250 MG CAPSULE PO PRN (16:06)
[2017-05-02 16:48] LABS: BASOPHILS % (AUTO) 0.2 %; EOSINOPHILS % (AUTO) 0.1 %; HCT - HEMATOCRIT 40.3 % (42.0-52.0); HGB - HEMOGLOBIN 12.7 g/dL (14.0-18.0); LYMPHOCYTES % (AUTO) 7.5 %; MEAN CORPUSCULAR HEMOGLOBIN 26.5 pg (27.0-31.0); MEAN CORPUSCULAR HGB CONC 31.4 g/dL (32.0-36.0); MEAN CORPUSCULAR VOLUME 84.5 fL (80.0-94.0); MEAN PLATELET VOLUME 7.7 fL (7.4-11.4); MONOCYTES % (AUTO) 5.4 %; NEUTROPHILS % (AUTO) 86.8 %; RED BLOOD COUNT 4.77 10^6/uL (4.70-6.10); RED CELL DISTRIBUTION WIDTH 15.5 % (12.0-15.0); UNCORRECTED WHITE BLOOD COUNT 26.3 x10^3/uL; WHITE BLOOD COUNT 26.3 x10^3/uL (4.8-10.8)
[2017-05-02 16:52] LABS: VBG PH 7.208 (7.31-7.41); VBG TOTAL CO2 13.3 mmol/L (24-29)
[2017-05-02 16:53] LABS: VBG BASE EXCESS -14.3 mmol/L (-2 - +2); VBG OXYGEN SATURATION 62.6 % (60-80)
[2017-05-02 17:09] LABS: BILIRUBIN,URINE NEGATIVE (NEGATIVE)
[2017-05-02 17:11] LABS: UA w/ MICROSCOPIC CHARGE YES
[2017-05-02 17:12] LABS: UR CULTURE IF IND NOT INDICATED; WBC,URINE 0-3 /HPF (0-3)
[2017-05-02 17:17] LABS: AMYLASE 141 U/L (28-100); LIPASE 15 U/L (22-51)
[2017-05-02 17:18] LABS: GLUCOSE 584 mg/dL (70-100)
[2017-05-02 17:27] LABS: TRIGLYCERIDES 158 mg/dL
[2017-05-02 17:40] LABS: BAND NEUTROPHILS % (MANUAL) 3 %; LYMPHOCYTES % (MANUAL) 8 %; NEUTROPHILS % (MANUAL) 83 %
[2017-05-02 17:41] LABS: NP AUTO DIFFERENTIAL? YES; NP MAN DIFFERENTIAL? NO; PLATELET ESTIMATE, MANUAL NORMAL (130-450,000) (NORMAL)
[2017-05-02 17:42] LABS: HEMOGLOBIN A1C 1.19 g/dL
[2017-05-02 18:16] LABS: BUN - BLOOD UREA NITROGEN 47 mg/dL (6-20); CALCIUM 8.9 mg/dL (8.5-10.3); CARBON DIOXIDE - CO2 15 mmol/L (21-32); CHLORIDE 104 mmol/L (101-111); CREATININE 1.7 mg/dL (0.6-1.2); GFR - MDRD 41 (>89); POTASSIUM 3.7 mmol/L (3.5-5.0); SODIUM 142 mmol/L (135-145)
[2017-05-02 18:17] LABS: GLUCOSE 497 mg/dL (70-100)
[2017-05-02] MEDS: SODIUM CHLORIDE 0.9% 1,000 ML IV SCH ×3 (18:47→23:35)
[2017-05-02] MEDS: METOPROLOL 5 MG/5 ML VIAL IVP SCH (18:47)
[2017-05-02] MEDS: SODIUM CHLORIDE FLUSH 0.9% 10 ML SYRINGE IVP ONE ×2 (19:38→23:35)
[2017-05-02 20:09] LABS: CALCIUM 8.9 mg/dL (8.5-10.3); CREATININE 1.5 mg/dL (0.6-1.2); POTASSIUM 3.6 mmol/L (3.5-5.0)
[2017-05-02 20:27] LABS: MAGNESIUM 2.1 mg/dL (1.7-2.8)
[2017-05-02] MEDS: PANTOPRAZOLE 40 MG VIAL IVP SCH (21:16)
--- NOTE | 2017-05-02 21:32 | HISTORY & PHYSICAL EXAMINATION ---
DATE OF ADMISSION: 05/02/2017 REASON FOR ADMISSION: Obtundation, DKA, positive troponin. The history is obtained from the MR. HISTORY: This is a 61-year-old diabetic male with a history of diabetes, prior DKA, hypertension, cor onary disease, right-sided weakness from an old stroke, history of prior upper GI bleed, history of h ypothyroidism. Today the patient was brought in with altered mental status by EMS and found to have a high blood sugar in the 900 range and a pH of 7.0 with moderate ketones and is being admitted for DK A. The patient is currently mumbling, moving his head and his left side. There is minimal movement ov er the right side. He has received insulin and saline boluses in the emergency room. Apparently there were recent chills but no known cough. There was witnessing of vomiting of dark colored emesis on ro [place]. There was a history of no reported diarrhea, urinary symptoms. He is getting treatment for two s mall decubitus ulcers and a pressure sore to the right heal and the fifth toe. There apparently was n o recent falling, reported by EMS. REVIEW OF SYSTEMS Only as above as no family is available. PAST MEDICAL HISTORY: Includes hypertension, CAD, prior stroke, diabetes, GI bleed, constipation, SIDNEY D, depression, chronic back pain, hypothyroidism. PAST SURGERIES: Include spine surgery. MEDICATIONS BEFORE ADMISSION: 1. Lantus insulin. 2. Synthroid. 3. Prilosec. 4. Oxycodone. 5. Metoprolol succinate 75 mg daily. 6. Lipitor 80 mg every evening. 7. Adult dose aspirin daily. 8. Colace. 9. Novolog insulin. 10. Senokot. 11. Ipratropium. 12. Lovaza. 13. Phenergan. ALLERGIES: NONE. SOCIAL HISTORY: The patient smokes daily and currently there is no alcohol use (both per EMR). There is no POLST. PHYSICAL EXAMINATION GENERAL: Reveals a white male who is in mild distress, moaning. VITAL SIGNS: Blood pressure in a supine position is 107/91 with a pulse of 116 and sinus tachycardia and there is no fever, temperature 36.8. HEENT: Shows a disheveled white male who appears older than his age. He has dry oral mucosa. NECK: Shows no JVD and is supple. CHEST: Clear at the anterior bases. HEART: Sounds are normal, tachycardic. No audible murmur. ABDOMEN: Soft, scaphoid, no rigidity. GENITALIA: The sacral area reveals two bandaged wounds that have no redness noted of the skin or any warmth. EXTREMITIES: Legs show no clubbing, cyanosis or edema. The right small toe has a bandage on it. SKIN: Warm and dry. NEUROLOGIC: He has less movement of the right arm and leg than the left and he can not respond to nam e or respond to answers. LABS: Chest x-ray showed no active pulmonary disease. Sodium 135, potassium 5.4, BUN 51, creatinine o f 2.2 (baseline creatinine is 2.0 from an admission approximately 4 months ago), glucose 943 and then down to 584 four hours later, total bilirubin 2.3, magnesium 2.0. Alkaline phos 204, lipase 14, trig lycerides 158, amylase 141. The first troponin was 0.07, the second troponin was markedly elevated at 4.70. White count 26.6 with a left shift (neutrophils 23.7), hemoglobin 12.7. Platelet count normal at 432. INR 1.0. Toxicology showed moderate serum ketones and a blood alcohol level of 6.8. The urine showed a specific gravity of 1.02 and a pH of 5 with very high glucose, high ketones and small occul t blood and nitrite negative. EKG: Sinus tachycardia at a rate of 123, vertical axis, ST segment depression in leads 1, 2, 3, aVF, V5 and V6. There was no old EKG available for comparison. IMPRESSION 1. Severe diabetic ketoacidosis with marked acidemia and very elevated sugar, history of prior diabet ic ketoacidosis. 2. Diabetes on insulin. 3. Acute non ST elevation myocardial infarction. 4. Possible urinary tract infection by urinalysis. 5. Decubitus ulcer and wound of the right fifth toe. 6. Smoker. 7. Elevated bilirubin and alkaline phosphatase. PLAN: The patient was placed in the ICU. He was started on an IV insulin drip and saline rehydration and bicarbonate, these will be per protocol. This patient will be on IV betablockers for tachycardia and evidence of non ST elevation of [place], which could be from demand ischemia from the severe DKA. No a spirin, heparin, Lovenox will be started because of the potential GI bleed from the witnessed hematem esis. Begin IV proton pump inhibitors. Follow the troponins until they peak and follow his EKG for ch anges. Obtain an ECHO. Begin empiric broad spectrum antibiotics for potential UTI. Continue to monito r his electrolytes, magnesium, creatinine, glucose and ketones. JOB #: [id number] EXT JOB #:[id number]
[2017-05-02 21:49] LABS: GLUCOSE 347 mg/dL (70-100)
[2017-05-02] MEDS ORDERED: KETOROLAC 15 MG/ML VIAL IVP PRN (21:53)
[2017-05-02] MEDS ORDERED: LORazepam 2 MG/ML SYRINGE IVP PRN (21:53)
[2017-05-02] MEDS ORDERED: NITROGLYCERIN SL 0.4 MG TABLET SL PRN (22:05)
[2017-05-02] MEDS: MORPHINE 2 MG/ML SYRINGE IVP PRN (22:16)
[2017-05-02] MEDS ORDERED: MORPHINE 2 MG/ML SYRINGE ONE (22:17)
[2017-05-03 00:15] LABS: GLUCOSE 266 mg/dL (70-100)
[2017-05-03] MEDS: SODIUM CHLORIDE 0.9% 1,000 ML IV SCH ×6 (02:00→21:42)
[2017-05-03] MEDS: METOPROLOL 5 MG/5 ML VIAL IVP SCH ×3 (02:15→18:03)
[2017-05-03 02:19] LABS: GLUCOSE 202 mg/dL (70-100)
[2017-05-03] MEDS ORDERED: A & D OINTMENT 5 GM PACKET TOP PRN (02:22)
[2017-05-03 02:26] LABS: CALCIUM 8.8 mg/dL (8.5-10.3); CREATININE 0.9 mg/dL (0.6-1.2); POTASSIUM 3.1 mmol/L (3.5-5.0)
[2017-05-03] MEDS: MORPHINE 2 MG/ML SYRINGE IVP PRN ×7 (02:30→22:48)
[2017-05-03 03:21] LABS: MAGNESIUM 1.7 mg/dL (1.7-2.8); PHOSPHORUS 1.8 mg/dL (2.5-4.6)
[2017-05-03] MEDS ORDERED: DEXTROSE 5%-0.9% NACL 1,000 ML IV ONE (03:49)
[2017-05-03] MEDS ORDERED: POTASSIUM CHLOR 10 MEQ/100 ML 100 ML IV ONE (03:50)
[2017-05-03] MEDS: POTASSIUM CHLOR 10 MEQ/100 ML 100 ML IV SCH ×4 (03:51→08:46)
[2017-05-03] MEDS: DEXTROSE 5%-0.9% NACL 1,000 ML IV SCH ×4 (03:51→19:35)
[2017-05-03] MEDS ORDERED: POTASSIUM PHOSPHATE 15 MMOL in SODIUM CHLORIDE 0.9% 250 ML IV ONE (04:18)
[2017-05-03] MEDS ORDERED: MAGNESIUM SULFATE 2 GRAM 50 ML IV ONE (04:18)
[2017-05-03 04:23] LABS: BASOPHILS % (AUTO) 0.1 %; HGB - HEMOGLOBIN 12.5 g/dL (14.0-18.0); LYMPHOCYTES # (AUTO) 1.2 10^3/uL (1.5-3.5); LYMPHOCYTES % (AUTO) 3.7 %; MEAN CORPUSCULAR HEMOGLOBIN 26.7 pg (27.0-31.0); MEAN CORPUSCULAR HGB CONC 33.8 g/dL (32.0-36.0); MEAN CORPUSCULAR VOLUME 79.2 fL (80.0-94.0); MEAN PLATELET VOLUME 7.4 fL (7.4-11.4); MONOCYTES # (AUTO) 2.1 10^3/uL (0.0-1.0); MONOCYTES % (AUTO) 6.4 %; NEUTROPHILS # (AUTO) 29.2 10^3/uL (1.5-6.6); NEUTROPHILS % (AUTO) 89.8 %; RED BLOOD COUNT 4.67 10^6/uL (4.70-6.10); RED CELL DISTRIBUTION WIDTH 15.3 % (12.0-15.0); UNCORRECTED WHITE BLOOD COUNT 32.5 x10^3/uL; WHITE BLOOD COUNT 32.5 x10^3/uL (4.8-10.8)
[2017-05-03 04:38] LABS: PHOSPHORUS 1.8 mg/dL (2.5-4.6)
[2017-05-03] MEDS ORDERED: INSULIN REGULAR HUMAN 100 UNIT in SODIUM CHLORIDE 0.9% 100ML 99 ML IV SCH (05:16)
[2017-05-03 05:19] LABS: PLATELET ESTIMATE, MANUAL NORMAL (130-450,000) (NORMAL); PLATELET MORPHOLOGY NORMAL APPEARANCE (NORMAL); WBC MORPHOLOGY (MULTIPLE) NORMAL APPEARANCE (NORMAL)
[2017-05-03 06:30] LABS: ALBUMIN/GLOBULIN RATIO 1.4 (1.0-2.2); BILIRUBIN,TOTAL 0.5 mg/dL (0.2-1.0); BUN - BLOOD UREA NITROGEN 27 mg/dL (6-20); CALCIUM 8.2 mg/dL (8.5-10.3); CARBON DIOXIDE - CO2 32 mmol/L (21-32); CHLORIDE 106 mmol/L (101-111); CREATININE 0.8 mg/dL (0.6-1.2); GFR - MDRD 99 (>89); GLUCOSE 117 mg/dL (70-100); SODIUM 146 mmol/L (135-145); TOTAL PROTEIN 5.9 g/dL (6.7-8.2)
[2017-05-03 07:07] LABS: ABG BASE EXCESS 5.6 mmol/L (-2.0-3.0); ABG HCO3 29.5 mmol/L (22.0-26.0); ABG OXYGEN SATURATION 95 % (94-98); ABG PCO2 40 mmHg (34-45); ABG PH 7.48 (7.35-7.45); ABG PO2 73 mmHg (80-100); ABG TCO2 30.7 MMOL/L (21.0-29.0)
[2017-05-03 07:08] LABS: ABG SATURATION PULSE OXIMETRY% 99 %; ABG SITE OF DRAW RIGHT BRACHIAL
[2017-05-03] MEDS ORDERED: SODIUM CHLORIDE FLUSH 0.9% 10 ML SYRINGE IVP ONE ×2 (08:44→09:07)
[2017-05-03] MEDS: THIAMINE INJ 100 MG in SODIUM CHLORIDE 0.9% 100 ML IV SCH (08:48)
[2017-05-03] MEDS: PANTOPRAZOLE 40 MG VIAL IVP SCH ×2 (09:07→21:11)
[2017-05-03] MEDS ORDERED: SODIUM CHLORIDE 0.9% 1,000 ML IV ONE (09:15)
[2017-05-03 10:50] LABS: CALCIUM 8.3 mg/dL (8.5-10.3); CREATININE 0.7 mg/dL (0.6-1.2); MAGNESIUM 1.9 mg/dL (1.7-2.8); POTASSIUM 3.1 mmol/L (3.5-5.0)
--- NOTE | 2017-05-03 11:47 | XRAY Report ---
FRONTAL CHEST: 05/03/2017 CLINICAL INDICATION: Myocardial infarction. COMPARISON: 05/02/2017. FINDINGS: Frontal view of the chest demonstrates a normal cardiac silhouette. The lungs remain clear . No effusion or pneumothorax is present. IMPRESSION: NO EVIDENCE OF ACUTE CARDIOPULMONARY DISEASE. JOB #: [id number] EXT JOB #:
--- NOTE | 2017-05-03 19:10 | PROVIDER PROGRESS NOTE ---
Assessment/Plan - Problem List (1) Acute non-ST elevation myocardial infarction (NSTEMI) Assessment/Plan: Trop peaked at 19. EKG showed NSSTT changes only. Will use Nitrates, B-blockers, no ASA due to GI bleed (coffee ground emesis) and will obtain Echo. Condition serious. Will need to contact his Spout Positioner Dr Jiménez at [facility] for transfer for coronary angiogram and further cardiac care. (2) Diabetic ketoacidosis Qualifiers: Diabetes mellitus type: type 1 Diabetes mellitus complication detail: without coma Qualified Code(s): E10.10 - Type 1 diabetes mellitus with ketoacidosis without coma Assessment/Plan: Resolved. Begin D5 and saline hydration and SS insulin. (3) GI bleed Assessment/Plan: H/H stable. Continue stress ulcer treatment. - Current Meds Current Meds: Current Medications Generic Name Dose Route Start Last Admin Trade Name Freq PRN Reason Stop Dose Admin Sodium Chloride 1,000 mls @ 250 mls/hr 05/02/17 17:00 05/03/17 18:35 Normal Saline 0.9% IV Not Given .Q4H DAMIEN Thiamine HCl 100 mg/ Sodium 101 mls @ 100 mls/hr 05/03/17 09:00 05/03/17 08:48 Chloride IV 100 mls/hr DAILY DAMIEN Administration Dextrose/Sodium Chloride 1,000 mls @ 150 mls/hr 05/03/17 03:10 05/03/17 18:35 D5ns IV Not Given .Q6H40M DAMIEN Insulin Human Regular 100 unit 100 mls @ 1 mls/hr 05/03/17 05:16 05/03/17 17:17 / Sodium Chloride IV 2 unit/hr .Q72H DAMIEN Titration Protocol 1 UNIT/HR Lorazepam 0.5 mg 05/02/17 21:53 05/03/17 10:56 Ativan Inj IVP 0.5 mg Q4HR PRN Administration Anxiety Metoprolol Tartrate 5 mg 05/02/17 18:00 05/03/17 18:03 Lopressor Inj IVP 5 mg Q8H DAMIEN Administration Morphine Sulfate 2 mg 05/02/17 22:06 05/03/17 18:36 Morphine IVP 2 mg Q2HR PRN Administration PAIN Pantoprazole Sodium 40 mg 05/02/17 21:00 05/03/17 09:07 Protonix IVP 40 mg BID DAMIEN Administration Vitamin A/Vitamin D 1 applic 05/03/17 02:22 05/03/17 02:30 Vitamin A & D Ointment TOP 1 applic PRN PRN Administration Skin Care - Lab Result Fish Bone Diagrams: 05/04/17 05:25 05/04/17 13:20 - Additional Planning My Orders: My Active Orders 05/02/17 21:00 Pantoprazole [Protonix] 40 mg IVP BID 05/02/17 23:06 CUL, WOUND AER/ROBBI (QUEST) [REFLAB] Urgent 05/03/17 02:22 A & D Ointment [Vitamin A & D Ointment] 1 applic TOP PRN PRN 05/03/17 03:10 Dextrose 5%-0.9% NaCl [D5ns] 1,000 ml IV 150 mls/hr 05/03/17 04:01 OSMOLALITY SERUM [REFLAB] DAILYLAB 05/03/17 09:00 Thiamine Inj [Vitamin B-1 Inj] 100 mg Sodium Chloride 0.9% [Normal Saline 0.9% ] 100 ml IV DAILY 05/03/17 09:30 Echo Transthoracic Complete [ECHO] Routine Subjective - Subjective Patient Reports: Other (Moaning, no response to name, moving all extremities) Objective Vital Signs: Vital Signs - 24 hr 05/02/17 05/02/17 05/02/17 19:54 21:00 22:00 Temperature 37.2 C 37.3 C 37.2 C Heart Rate [ 107 H 104 H 97 Monitoring electrodes] Respiratory 21 22 23 Rate Blood Pressure Blood Pressure 143/67 H 136/87 H [Right Brachial artery] O2 Saturation 98 99 98 05/02/17 05/03/17 05/03/17 23:00 00:00 01:00 Temperature 37.0 C Heart Rate [ 86 105 H 102 H Monitoring electrodes] Respiratory 22 22 23 Rate Blood Pressure Blood Pressure 150/76 H 132/66 H 136/69 H [Right Brachial artery] O2 Saturation 100 97 05/03/17 05/03/17 05/03/17 02:00 02:15 03:00 Temperature Heart Rate [ 104 H 92 Monitoring electrodes] Respiratory 20 22 Rate Blood Pressure 143/69 H Blood Pressure 143/69 H 118/67 [Right Brachial artery] O2 Saturation 98 05/03/17 05/03/17 05/03/17 04:24 05:00 06:00 Temperature 37.4 C Heart Rate [ 92 97 94 Monitoring electrodes] Respiratory 20 17 14 Rate Blood Pressure Blood Pressure 135/74 H 117/66 138/70 H [Right Brachial artery] O2 Saturation 99 05/03/17 05/03/17 05/03/17 07:00 08:00 09:00 Temperature 37.5 C Heart Rate [ 99 96 94 Monitoring electrodes] Respiratory 20 20 18 Rate Blood Pressure Blood Pressure 139/73 H 153/64 H 151/74 H [Right Brachial artery] O2 Saturation 99 99 99 05/03/17 05/03/17 05/03/17 10:00 10:12 11:00 Temperature Heart Rate [ 90 87 Monitoring electrodes] Respiratory 20 23 Rate Blood Pressure 165/70 H Blood Pressure 165/70 H 117/62 [Right Brachial artery] O2 Saturation 98 98 05/03/17 05/03/17 05/03/17 12:00 13:00 14:00 Temperature 37.2 C Heart Rate [ 87 89 93 Monitoring electrodes] Respiratory 18 16 15 Rate Blood Pressure Blood Pressure 123/71 110/61 114/63 [Right Brachial artery] O2 Saturation 100 99 20 L 05/03/17 05/03/17 05/03/17 15:00 16:00 17:13 Temperature 36.2 C L Heart Rate [ 94 97 97 Monitoring electrodes] Respiratory 20 20 18 Rate Blood Pressure Blood Pressure 114/78 148/79 H 166/69 H [Right Brachial artery] O2 Saturation 100 05/03/17 05/03/17 18:00 18:03 Temperature Heart Rate [ 100 Monitoring electrodes] Respiratory 20 Rate Blood Pressure 162/130 H Blood Pressure 192/130 H [Right Brachial artery] O2 Saturation 99 Oxygen O2 Source Room air I&O (Last 24 Hrs): Intake and Output Totals x24h 05/01/17 05/02/17 05/03/17 23:59 23:59 23:59 Intake Total 0 5971 Output Total 500 1570 Balance -500 4401 General: Other (Semicomatose) HEENT: Atraumatic Neck: Supple Neuro: Other Cardiovascular: Regular rate, No murmurs Abdomen: Soft Extremities: No edema - Results Results: Laboratory Results WBC 32.5 x10^3/uL (4.8-10.8) H 05/03/17 04:01 RBC 4.67 10^6/uL (4.70-6.10) L 05/03/17 04:01 Hgb 12.5 g/dL (14.0-18.0) L 05/03/17 04:01 Hct 37.0 % (42.0-52.0) L 05/03/17 04:01 MCV 79.2 fL (80.0-94.0) L 05/03/17 04:01 MCH 26.7 pg (27.0-31.0) L 05/03/17 04:01 MCHC 33.8 g/dL (32.0-36.0) 05/03/17 04:01 RDW 15.3 % (12.0-15.0) H 05/03/17 04:01 Plt Count 390 10^3/uL (130-450) 05/03/17 04:01 MPV 7.4 fL (7.4-11.4) 05/03/17 04:01 Neut # 29.2 10^3/uL (1.5-6.6) H 05/03/17 04:01 Lymph # 1.2 10^3/uL (1.5-3.5) L 05/03/17 04:01 Real # 2.1 10^3/uL (0.0-1.0) H 05/03/17 04:01 Eos # 0.0 10^3/uL (0.0-0.7) 05/03/17 04:01 Baso # 0.0 10^3/uL (0.0-0.1) 05/03/17 04:01 Absolute Nucleated RBC 0.00 x10^3/uL 05/03/17 04:01 Total Counted 100 05/02/17 12:52 Band Neuts % (Manual) 3 % (0-10) 05/02/17 16:35 Neutrophils # (Manual) 22.6 10^3/uL (1.5-6.6) H 05/02/17 16:35 Lymphocytes # (Manual) 2.1 10^3/uL (1.5-3.5) 05/02/17 16:35 Monocytes # (Manual) 1.6 10^3/uL (0.0-1.0) H 05/02/17 16:35 Nucleated RBCs 0.0 /100WBC 05/03/17 04:01 Differential Comment MANUAL DIFFERENTIAL 05/02/17 12:52 Manual Slide Review Indicated 05/03/17 04:01 WBC Morphology NORMAL APPEARANCE (NORMAL) 05/03/17 04:01 Platelet Estimate NORMAL (130-450,000) (NORMAL) 05/03/17 04:01 Platelet Morphology NORMAL APPEARANCE (NORMAL) 05/03/17 04:01 RBC Morph Micro Appear NORMAL APPEARANCE (NORMAL) 05/03/17 04:01 PT 11.7 secs (9.9-12.6) 05/02/17 12:52 INR 1.0 (0.8-1.2) 05/02/17 12:52 APTT 23.2 secs (24.9-33.3) L 05/02/17 12:52 Bld Gas Analysis Time 07:00 05/03/17 07:00 Sample Site RIGHT BRACHIAL 05/03/17 07:00 ABG pH 7.48 (7.35-7.45) H 05/03/17 07:00 ABG pCO2 40 mmHg (34-45) 05/03/17 07:00 ABG pO2 73 mmHg (80-100) L 05/03/17 07:00 ABG HCO3 29.5 mmol/L (22.0-26.0) H 05/03/17 07:00 ABG Total CO2 30.7 MMOL/L (21.0-29.0) H 05/03/17 07:00 ABG O2 Saturation 95 % (94-98) 05/03/17 07:00 ABG Oximetry Spot Check 99 % 05/03/17 07:00 ABG Base Excess 5.6 mmol/L (-2.0-3.0) H 05/03/17 07:00 Francis Test NOT APPLICABLE 05/03/17 07:00 VBG pH 7.208 (7.31-7.41) L 05/02/17 16:35 VBG pCO2 31.7 mmHg (41-51) L 05/02/17 16:35 VBG pO2 34.0 mmHg (25-47) 05/02/17 16:35 VBG HCO3 12.3 mmol/L (23-28) L 05/02/17 16:35 VBG Total CO2 13.3 mmol/L (24-29) L 05/02/17 16:35 VBG O2 Saturation 62.6 % (60-80) 05/02/17 16:35 VBG Base Excess -14.3 mmol/L (-2 - +2) L 05/02/17 16:35 Sodium 142 mmol/L (135-145) 05/03/17 10:19 Potassium 3.1 mmol/L (3.5-5.0) L 05/03/17 10:19 Chloride 101 mmol/L (101-111) 05/03/17 10:19 Carbon Dioxide 31 mmol/L (21-32) 05/03/17 10:19 Anion Gap 10.0 (6-13) 05/03/17 10:19 BUN 19 mg/dL (6-20) 05/03/17 10:19 Creatinine 0.7 mg/dL (0.6-1.2) 05/03/17 10:19 Estimated GFR (MDRD) 115 (>89) 05/03/17 10:19 Glucose 198 mg/dL (70-100) H 05/03/17 10:19 POC Whole Bld Glucose 239 mg/dL (70 - 100) H 05/03/17 17:10 Glycated Hemoglobin 11.1 % (4.6-6.2) H 05/02/17 16:35 Estim Average Glucose 272 (70-100) H 05/02/17 16:35 Calcium 8.3 mg/dL (8.5-10.3) L 05/03/17 10:19 Phosphorus 2.0 mg/dL (2.5-4.6) L 05/03/17 10:19 Magnesium 1.9 mg/dL (1.7-2.8) 05/03/17 10:19 Total Bilirubin 0.5 mg/dL (0.2-1.0) 05/03/17 05:52 AST 67 IU/L (10-42) H 05/03/17 05:52 ALT 31 IU/L (10-60) 05/03/17 05:52 Alkaline Phosphatase 155 IU/L (42-121) H 05/03/17 05:52 Troponin I 15.20 ng/mL (<0.49) H* 05/03/17 10:19 Total Protein 5.9 g/dL (6.7-8.2) L 05/03/17 05:52 Albumin 3.4 g/dL (3.2-5.5) 05/03/17 05:52 Globulin 2.5 g/dL (2.1-4.2) 05/03/17 05:52 Albumin/Globulin Ratio 1.4 (1.0-2.2) 05/03/17 05:52 Triglycerides 158 mg/dL (-149) H 05/02/17 16:35 Amylase 141 U/L (28-100) H 05/02/17 16:35 Lipase 15 U/L (22-51) L 05/02/17 16:35 Urine Color YELLOW 05/02/17 16:15 Urine Clarity HAZY (CLEAR) 05/02/17 16:15 Urine pH 5.0 PH (5.0-7.5) 05/02/17 16:15 Ur Specific [place] 1.020 (1.002-1.030) 05/02/17 16:15 Urine Protein NEGATIVE mg/dL (NEGATIVE) 05/02/17 16:15 Urine Glucose (UA) >=1000 mg/dL (NEGATIVE) H 05/02/17 16:15 Urine Ketones >=80 mg/dL (NEGATIVE) H 05/02/17 16:15 Urine Occult Blood SMALL (NEGATIVE) H 05/02/17 16:15 Urine Nitrite NEGATIVE (NEGATIVE) 05/02/17 16:15 Urine Bilirubin NEGATIVE (NEGATIVE) 05/02/17 16:15 Urine Urobilinogen 0.2 (NORMAL) E.U./dL (NORMAL) 05/02/17 16:15 Ur Leukocyte Esterase NEGATIVE (NEGATIVE) 05/02/17 16:15 Urine RBC 0-5 /HPF (0-5) 05/02/17 16:15 Urine WBC 0-3 /HPF (0-3) 05/02/17 16:15 Ur Squamous Epith Cells NONE SEEN (<= Few) 05/02/17 16:15 Amorphous Sediment Few /LPF 05/02/17 16:15 Urine Bacteria None Seen /HPF (None Seen) 05/02/17 16:15 Ur Microscopic Review INDICATED 05/02/17 16:15 Urine Culture Comments NOT INDICATED 05/02/17 16:15 Ethyl Alcohol 6.8 mg/dL 05/02/17 12:52 Serum Ketones SMALL (NEGATIVE) H 05/03/17 14:14 Blood Type O NEGATIVE 05/02/17 12:52 Antibody Screen NEGATIVE 05/02/17 12:52
[2017-05-03] MEDS ORDERED: METOPROLOL SUCCINATE 25 MG TABLET PO SCH (21:00)
[2017-05-03] MEDS: SODIUM CHLORIDE FLUSH 0.9% 10 ML SYRINGE IVP ONE (21:12)
[2017-05-04] MEDS: METOPROLOL 5 MG/5 ML VIAL IVP SCH ×2 (02:02→10:01)
[2017-05-04] MEDS: DEXTROSE 5%-0.9% NACL 1,000 ML IV SCH ×2 (02:20→09:00)
[2017-05-04] MEDS ORDERED: INSULIN REGULAR HUMAN 100 UNIT/1 ML 10 ML MDV SUBQ SCH ×3 (04:25→06:00)
[2017-05-04] MEDS: MORPHINE 2 MG/ML SYRINGE IVP PRN ×4 (04:53→14:05)
[2017-05-04 05:51] LABS: BASOPHILS % (AUTO) 0.1 %; HGB - HEMOGLOBIN 12.7 g/dL (14.0-18.0); LYMPHOCYTES # (AUTO) 1.3 10^3/uL (1.5-3.5); MEAN CORPUSCULAR HEMOGLOBIN 26.4 pg (27.0-31.0); MONOCYTES # (AUTO) 0.9 10^3/uL (0.0-1.0); MONOCYTES % (AUTO) 4.2 %; RED BLOOD COUNT 4.81 10^6/uL (4.70-6.10)
[2017-05-04 05:57] LABS: EOSINOPHILS % (AUTO) 0.1 %; HCT - HEMATOCRIT 38.7 % (42.0-52.0); LYMPHOCYTES % (AUTO) 6.2 %; MAGNESIUM 1.3 mg/dL (1.7-2.8); MEAN CORPUSCULAR HGB CONC 32.8 g/dL (32.0-36.0); MEAN CORPUSCULAR VOLUME 80.5 fL (80.0-94.0); MEAN PLATELET VOLUME 7.9 fL (7.4-11.4); NEUTROPHILS # (AUTO) 18.5 10^3/uL (1.5-6.6); NEUTROPHILS % (AUTO) 89.4 %; PHOSPHORUS 1.7 mg/dL (2.5-4.6); RED CELL DISTRIBUTION WIDTH 15.9 % (12.0-15.0); UNCORRECTED WHITE BLOOD COUNT 20.7 x10^3/uL; WHITE BLOOD COUNT 20.7 x10^3/uL (4.8-10.8)
[2017-05-04 06:11] LABS: ALBUMIN/GLOBULIN RATIO 1.1 (1.0-2.2); BILIRUBIN,TOTAL 0.8 mg/dL (0.2-1.0); BUN - BLOOD UREA NITROGEN 7 mg/dL (6-20); CALCIUM 7.3 mg/dL (8.5-10.3); CARBON DIOXIDE - CO2 33 mmol/L (21-32); CHLORIDE 95 mmol/L (101-111); CREATININE 0.6 mg/dL (0.6-1.2); GFR - MDRD 137 (>89); GLUCOSE 326 mg/dL (70-100); SODIUM 139 mmol/L (135-145); TOTAL PROTEIN 6.1 g/dL (6.7-8.2)
[2017-05-04 06:13] LABS: POTASSIUM 2.5 mmol/L (3.5-5.0)
[2017-05-04] MEDS ORDERED: POTASSIUM PHOSPHATE 15 MMOL in SODIUM CHLORIDE 0.9% 250 ML IV ONE (06:23)
[2017-05-04] MEDS: SODIUM CHLORIDE FLUSH 0.9% 10 ML SYRINGE IVP ONE (06:31)
[2017-05-04] MEDS: PANTOPRAZOLE 40 MG VIAL IVP SCH (06:31)
[2017-05-04] MEDS ORDERED: SODIUM CHLORIDE FLUSH 0.9% 10 ML SYRINGE IVP ONE ×2 (06:32→07:56)
[2017-05-04 06:34] LABS: CALCIUM, IONIZED 0.93 mmol/L (1.15-1.33); VBG PH 7.498 (7.31-7.41)
[2017-05-04] MEDS: POTASSIUM CHLOR 10 MEQ/100 ML 100 ML IV SCH ×8 (06:51→14:05)
[2017-05-04] MEDS: MAGNESIUM SULFATE 2 GRAM 50 ML IV SCH ×2 (06:51→08:08)
[2017-05-04] MEDS ORDERED: LEVOTHYROXINE 25 MCG TABLET PO SCH (07:00)
[2017-05-04] MEDS ORDERED: CALCIUM GLUCONATE 2,000 MG in SODIUM CHLORIDE 0.9% 100ML 100 ML IV ONE (07:06)
[2017-05-04 09:53] LABS: MAGNESIUM 3.3 mg/dL (1.7-2.8); PHOSPHORUS 1.1 mg/dL (2.5-4.6)
[2017-05-04 09:55] LABS: POTASSIUM 2.3 mmol/L (3.5-5.0)
[2017-05-04] MEDS ORDERED: INSULIN GLARGINE HUM REC ANLOG 38 UNIT SUBQ SCH (10:45)
[2017-05-04] MEDS ORDERED: ENOXAPARIN 40 MG/0.4 ML SYRINGE SUBQ SCH (11:00)
[2017-05-04] MEDS ORDERED: THIAMINE 100 MG TABLET PO SCH (11:00)
[2017-05-04] MEDS: THIAMINE INJ 100 MG in SODIUM CHLORIDE 0.9% 100 ML IV SCH (11:11)
[2017-05-04] MEDS ORDERED: INSULIN ASPART 300 UNIT/3 ML PEN SUBQ SCH ×3 (12:00)
--- NOTE | 2017-05-04 12:30 | Discharge Plan ---
Discharge Plan Disposition: 02 Transfer Acute Care Hosp Condition: Poor Diet: Diabetic Activity Restrictions: Bedrest Shower Restrictions: No Driving Restrictions: No Weight Bearing: Full Weight Additional Instructions or Follow Up instructions: Patient being transferred to [facility] in [place] for NSTEMI now that he is medically stable. Presented with DKA. Will need cardiac cath. No Smoking: If you smoke, Please STOP! Call for help.
--- NOTE | 2017-05-04 12:34 | DISCHARGE SUMMARY ---
Discharge Summary Admit Date: 05/02/17 Discharge Date: 05/04/17 (Transferred to [facility] in [place]) Discharging Provider: Feng Vera MD Primary Care Provider: Daria Chávez Code Status: Do Not Attempt Resuscitation Condition at Discharge: Poor Discharge Disposition: 02 Transfer Acute Care Hosp Discharge Facility Name: [facility] - DIAGNOSES Admission Diagnoses: 1. Diabetic Ketoacidosis 2. NSTEMI 3. UTI 4. Tobacco Abuse 5. Elevated LFTs 6. Diabetic foot ulcer and wound on the right fifth toe Discharge Diagnoses with Status of Each Condition: 1. NSTEMI - Guarded needs cardiac cath 2. Systolic Heart Failure with EF of 30% - Compensated and stable 3. Diabetic Ketoacidosis - Resolved 4. Hypokalemia - Continues to require IV potassium 5. Hypophosphatemia - Continues to require replacement 6. Hypomagnesemia - Resolved 7. History of CAD - now with NSTEMI 8. 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 The patient was found to have blood sugar of 900 and a pH of 7.0 with moderate ketones and was admitted to the hospital for diabetic ketoacidosis. Initially workup was done to look for possible sources the patient had normal urinalysis normal chest x-ray although he did have an elevated white blood cell he was not spiked for did not appear to be infected or have sepsis. The patient's initial troponin was 0.07 and his initial EKG did show ST segment depressions in leads 1, 2, 3, aVF, V5 and V6. The patient had serial troponins and troponin peaked at 19.87. The patient's echocardiogram showed an ejection fraction of 30-35% which was decreased from previous study showing an ejection fraction of 40-45% in June of 2016. Patient also was found to have wall motion abnormalities. He had akinesis in the mid anterior, mid anteroseptal, mid inferoseptum and entire apex. He also had hypokinesis of the basal inferolateral septum and basal/mid inferior segments. Patient was admitted initially admitted to the ICU and placed on insulin drip. The patient's DKA resolved patient was more awake and alert. Patient's blood sugars were running in the mid to low 200s. He was placed back on his home dose of Lantus and NovoLog and place on sliding scale insulin. The patient continued to have electrolyte abnormalities potassium was 2.3 magnesium was 1.3 and phosphorus 1.1 the patient did have electrolyte are placed in the ICU. Once patient was stabilized we spoke with cardiology at [facility] by the name of Dr. Khan and he agreed the patient needed to be transferred for cardiac assessment and likely would need a cardiac catheterization. The hand laminator asked that the hospitalist team admit the patient given his medical comorbidities. The patient was accepted at [facility] in [place] by Dr. Montez. The patient was in guarded condition at the time of discharge but appeared to be stable from his medical issues his DKA had resolved and required further cardiac workup. The patient was sent to a telemetry bed at [facility] in [place]. He will be assessed there by cardiology for further workup. The patient was continued on his home dose of Aspirin, metoprolol, lipitor and lisinopril while he was hospitalized. - ALLERGIES Allergies/Adverse Reactions: Allergies Allergy/AdvReac Type Severity Reaction Status Date / Time No Known Drug Allergies Allergy Verified 01/30/17 20:17 - MEDICATIONS Home Medications: Ambulatory Orders Medication Instructions Recorded Confirmed Insulin Glargine,Hum.rec.anlog 38 units SUBQ DAILY 03/19/14 05/03/17 [Lantus] Atorvastatin Calcium 80 mg PO DAILY 05/02/17 05/03/17 Insulin Aspart [NovoLOG] 12 units SUBQ TIDWM 05/02/17 05/03/17 Levothyroxine Sodium 50 mcg PO DAILY 05/02/17 05/03/17 Lisinopril 2.5 mg PO DAILY 05/02/17 05/03/17 Metoprolol Succinate 25 mg PO BID 05/02/17 05/03/17 Oxycodone HCl 15 mg PO Q4H PRN 05/02/17 05/03/17 Spironolactone 12.5 mg PO DAILY 05/02/17 05/03/17 Aspirin 325 mg PO DAILY 05/03/17 05/03/17 Omeprazole 20 mg PO BID PRN 05/03/17 05/03/17 - PHYSICAL EXAM AT DISCHARGE General Appearance: positive: Mild distress (Drowsy but alert, in chronic pain) , Anxious Eyes Bilateral: positive: Normal inspection, PERRL, EOMI, No lid inflammation, Conjunctivae nml, No scleral icterus ENT: positive: ENT inspection nml, Pharynx nml, Dry mucous membranes. negative : Purulent nasal drainage, Pharyngeal erythema, Oral lesions Neck: positive: Nml inspection, Thyroid nml, No JVD, Trachea midline. negative : Thyromegaly, Lymphadenopathy (R), Lymphadenopathy (L), Tracheal deviation Respiratory: positive: Chest non-tender, No respiratory distress, Breath sounds nml. negative: Wheezes, Rales, Rhonchi Cardiovascular: positive: Regular rate & rhythm, No murmur, No gallop Peripheral Pulses: positive: 2+ Abdomen: positive: Non-tender, No organomegaly, Nml bowel sounds, No distention. negative: Guarding, Rebound, Hepatomegaly Back: positive: Nml inspection. negative: CVA tenderness (R), CVA tenderness (L ) Skin: positive: Color nml, No rash, Dry Extremities: positive: Non-tender, Full ROM, Nml appearance, No pedal edema Neurologic/Psychiatric: positive: Oriented x3, CN's nml (2-12), Weakness (Right sided) - LABS Result Diagrams: 05/04/17 05:25 05/04/17 09:16 Other Lab Results: Laboratory Results WBC 20.7 x10^3/uL (4.8-10.8) H 05/04/17 05:25 RBC 4.81 10^6/uL (4.70-6.10) 05/04/17 05:25 Hgb 12.7 g/dL (14.0-18.0) L 05/04/17 05:25 Hct 38.7 % (42.0-52.0) L 05/04/17 05:25 MCV 80.5 fL (80.0-94.0) 05/04/17 05:25 MCH 26.4 pg (27.0-31.0) L 05/04/17 05:25 MCHC 32.8 g/dL (32.0-36.0) 05/04/17 05:25 RDW 15.9 % (12.0-15.0) H 05/04/17 05:25 Plt Count 309 10^3/uL (130-450) 05/04/17 05:25 MPV 7.9 fL (7.4-11.4) 05/04/17 05:25 Neut # 18.5 10^3/uL (1.5-6.6) H 05/04/17 05:25 Lymph # 1.3 10^3/uL (1.5-3.5) L 05/04/17 05:25 [place] # 0.9 10^3/uL (0.0-1.0) 05/04/17 05:25 Eos # 0.0 10^3/uL (0.0-0.7) 05/04/17 05:25 Baso # 0.0 10^3/uL (0.0-0.1) 05/04/17 05:25 Absolute Nucleated RBC 0.00 x10^3/uL 05/04/17 05:25 Total Counted 100 05/02/17 12:52 Band Neuts % (Manual) 3 % (0-10) 05/02/17 16:35 Neutrophils # (Manual) 22.6 10^3/uL (1.5-6.6) H 05/02/17 16:35 Lymphocytes # (Manual) 2.1 10^3/uL (1.5-3.5) 05/02/17 16:35 Monocytes # (Manual) 1.6 10^3/uL (0.0-1.0) H 05/02/17 16:35 Nucleated RBCs 0.0 /100WBC 05/04/17 05:25 Differential Comment MANUAL DIFFERENTIAL 05/02/17 12:52 Manual Slide Review Indicated 05/03/17 04:01 WBC Morphology NORMAL APPEARANCE (NORMAL) 05/03/17 04:01 Platelet Estimate NORMAL (130-450,000) (NORMAL) 05/03/17 04:01 Platelet Morphology NORMAL APPEARANCE (NORMAL) 05/03/17 04:01 RBC Morph Micro Appear NORMAL APPEARANCE (NORMAL) 05/03/17 04:01 PT 11.7 secs (9.9-12.6) 05/02/17 12:52 INR 1.0 (0.8-1.2) 05/02/17 12:52 APTT 23.2 secs (24.9-33.3) L 05/02/17 12:52 Bld Gas Analysis Time 07:00 05/03/17 07:00 Sample Site RIGHT BRACHIAL 05/03/17 07:00 ABG pH 7.48 (7.35-7.45) H 05/03/17 07:00 ABG pCO2 40 mmHg (34-45) 05/03/17 07:00 ABG pO2 73 mmHg (80-100) L 05/03/17 07:00 ABG HCO3 29.5 mmol/L (22.0-26.0) H 05/03/17 07:00 ABG Total CO2 30.7 MMOL/L (21.0-29.0) H 05/03/17 07:00 ABG O2 Saturation 95 % (94-98) 05/03/17 07:00 ABG Oximetry Spot Check 99 % 05/03/17 07:00 ABG Base Excess 5.6 mmol/L (-2.0-3.0) H 05/03/17 07:00 Francis Test NOT APPLICABLE 05/03/17 07:00 VBG pH 7.498 (7.31-7.41) H 05/04/17 06:27 VBG pCO2 31.7 mmHg (41-51) L 05/02/17 16:35 VBG pO2 34.0 mmHg (25-47) 05/02/17 16:35 VBG HCO3 12.3 mmol/L (23-28) L 05/02/17 16:35 VBG Total CO2 13.3 mmol/L (24-29) L 05/02/17 16:35 VBG O2 Saturation 62.6 % (60-80) 05/02/17 16:35 VBG Base Excess -14.3 mmol/L (-2 - +2) L 05/02/17 16:35 Ionized Calcium 0.93 mmol/L (1.15-1.33) L 05/04/17 06:27 Sodium 139 mmol/L (135-145) 05/04/17 05:25 Potassium 2.3 mmol/L (3.5-5.0) L* 05/04/17 09:16 Chloride 95 mmol/L (101-111) L 05/04/17 05:25 Carbon Dioxide 33 mmol/L (21-32) H 05/04/17 05:25 Anion Gap 11.0 (6-13) 05/04/17 05:25 BUN 7 mg/dL (6-20) 05/04/17 05:25 Creatinine 0.6 mg/dL (0.6-1.2) 05/04/17 05:25 Estimated GFR (MDRD) 137 (>89) 05/04/17 05:25 Glucose 326 mg/dL (70-100) H 05/04/17 05:25 POC Whole Bld Glucose 180 mg/dL (70 - 100) H 05/04/17 11:49 Glycated Hemoglobin 11.1 % (4.6-6.2) H 05/02/17 16:35 Estim Average Glucose 272 (70-100) H 05/02/17 16:35 Calcium 7.3 mg/dL (8.5-10.3) L 05/04/17 05:25 Phosphorus 1.1 mg/dL (2.5-4.6) L 05/04/17 09:16 Magnesium 3.3 mg/dL (1.7-2.8) H 05/04/17 09:16 Total Bilirubin 0.8 mg/dL (0.2-1.0) 05/04/17 05:25 AST 46 IU/L (10-42) H 05/04/17 05:25 ALT 31 IU/L (10-60) 05/04/17 05:25 Alkaline Phosphatase 159 IU/L (42-121) H 05/04/17 05:25 Troponin I 6.72 ng/mL (<0.49) H* 05/04/17 05:25 Total Protein 6.1 g/dL (6.7-8.2) L 05/04/17 05:25 Albumin 3.2 g/dL (3.2-5.5) 05/04/17 05:25 Globulin 2.9 g/dL (2.1-4.2) 05/04/17 05:25 Albumin/Globulin Ratio 1.1 (1.0-2.2) 05/04/17 05:25 Triglycerides 158 mg/dL (-149) H 05/02/17 16:35 Amylase 141 U/L (28-100) H 05/02/17 16:35 Lipase 15 U/L (22-51) L 05/02/17 16:35 Urine Color YELLOW 05/02/17 16:15 Urine Clarity HAZY (CLEAR) 05/02/17 16:15 Urine pH 5.0 PH (5.0-7.5) 05/02/17 16:15 Ur Specific [place] 1.020 (1.002-1.030) 05/02/17 16:15 Urine Protein NEGATIVE mg/dL (NEGATIVE) 05/02/17 16:15 Urine Glucose (UA) >=1000 mg/dL (NEGATIVE) H 05/02/17 16:15 Urine Ketones >=80 mg/dL (NEGATIVE) H 05/02/17 16:15 Urine Occult Blood SMALL (NEGATIVE) H 05/02/17 16:15 Urine Nitrite NEGATIVE (NEGATIVE) 05/02/17 16:15 Urine Bilirubin NEGATIVE (NEGATIVE) 05/02/17 16:15 Urine Urobilinogen 0.2 (NORMAL) E.U./dL (NORMAL) 05/02/17 16:15 Ur Leukocyte Esterase NEGATIVE (NEGATIVE) 05/02/17 16:15 Urine RBC 0-5 /HPF (0-5) 05/02/17 16:15 Urine WBC 0-3 /HPF (0-3) 05/02/17 16:15 Ur Squamous Epith Cells NONE SEEN (<= Few) 05/02/17 16:15 Amorphous Sediment Few /LPF 05/02/17 16:15 Urine Bacteria None Seen /HPF (None Seen) 05/02/17 16:15 Ur Microscopic Review INDICATED 05/02/17 16:15 Urine Culture Comments NOT INDICATED 05/02/17 16:15 Ethyl Alcohol 6.8 mg/dL 05/02/17 12:52 Serum Ketones SMALL (NEGATIVE) H 05/04/17 05:25 Blood Type O NEGATIVE 05/02/17 12:52 Antibody Screen NEGATIVE 05/02/17 12:52 - DIAGNOSTIC IMAGING Diagnostic Imaging Results: Final report reviewed Diagnostic Imaging Results Comments: CXR: WNL Echo: EF reduced to 30-35% from 40-45% in Jun 2016. Patient also was found to have wall motion abnormalities. He had akinesis in the mid anterior, mid anteroseptal, mid inferoseptum and entire apex. He also had hypokinesis of the basal inferolateral septum and basal/mid inferior segments - FOLLOW UP Follow Up: Patient being transferred to [facility] in [place] for Cardiology as he presented with DKA secondary to NSTEMI. - TIME SPENT Time Spent in Discharge (Minutes): 70
[2017-05-04] MEDS ORDERED: PHENOL THROAT SPRAY 177 ML MM ONE (12:36)
[2017-05-04] MEDS ORDERED: oxyCODONE 30 MG TABLET PO PRN (12:37)
[2017-05-04] MEDS ORDERED: LISINOPRIL 5 MG TABLET PO SCH (12:45)
[2017-05-04] MEDS ORDERED: ATORVASTATIN 40 MG TABLET PO SCH (12:45)
[2017-05-04] MEDS ORDERED: ASPIRIN 325 MG TABLET PO SCH (13:00)
[2017-05-04 13:43] LABS: CALCIUM 7.7 mg/dL (8.5-10.3); PHOSPHORUS 2.4 mg/dL (2.5-4.6); POTASSIUM 3.3 mmol/L (3.5-5.0)
[2017-05-04 13:48] LABS: HEMOGLOBIN A1C 1.33 g/dL
[2017-05-04 13:54] VITALS: BP 133/82
[2017-05-05] MEDS ORDERED: INSULIN GLARGINE 300 UNIT/3 ML PEN SUBQ SCH (09:00)
[2017-05-05] MEDS ORDERED: SPIRONOLACTONE 25 MG TABLET PO SCH (09:00)
== END 2017-05-04 14:35 | disposition short-term general hospital (02) | DRG 280 ==
LOC: EDUNIT# → ED 12:38 → ICU 15:03
PROVIDERS: ADMIT Internal Medicine; ATTEND Internal Medicine
DX: I21.4 Non-ST elevation (NSTEMI) myocardial infarction (principal); I10 Essential (primary) hypertension; I25.10 Atherosclerotic heart disease of native coronary artery without angina pectoris; E10.10 Type 1 diabetes mellitus with ketoacidosis without coma; K59.09 Other constipation; I50.20 Unspecified systolic (congestive) heart failure; I69.951 Hemiplegia and hemiparesis following unspecified cerebrovascular disease affecting right dominant side; F17.200 Nicotine dependence, unspecified, uncomplicated; L97.419 Non-pressure chronic ulcer of right heel and midfoot with unspecified severity; Z79.4 Long term (current) use of insulin; I11.0 Hypertensive heart disease with heart failure; I25.119 Atherosclerotic heart disease of native coronary artery with unspecified angina pectoris; E78.5 Hyperlipidemia, unspecified; E87.6 Hypokalemia; E83.39 Other disorders of phosphorus metabolism; E83.42 Hypomagnesemia; E03.9 Hypothyroidism, unspecified; G89.29 Other chronic pain; M54.9 Dorsalgia, unspecified; L89.159 Pressure ulcer of sacral region, unspecified stage; E10.621 Type 1 diabetes mellitus with foot ulcer; L97.519 Non-pressure chronic ulcer of other part of right foot with unspecified severity; K21.9 Gastro-esophageal reflux disease without esophagitis; Z87.11 Personal history of peptic ulcer disease; Z79.82 Long term (current) use of aspirin; Z79.891 Long term (current) use of opiate analgesic; Z79.899 Other long term (current) drug therapy; Z66 Do not resuscitate
CPT/HCPCS: 36415; 36600; 51701; 71010; 80048; 80053; 80320; 81001; 81003; 82009; 82040; 82150; 82310; 82330; 82803; 82947; 83036; 83690; 83735; 83930; 84100; 84132; 84478; 84484; 85025; 85610; 85730; 86850; 86900; 86901; 87040; 87086; 87150; 93005; 93306; 96360; 96361; 99284

== ENCOUNTER 2017-07-09 22:15 | Outpatient (CLI) | payer MEDICARE, MEDICAID | END 2017-07-09 22:16 | disposition critical access hospital (66) | LOC: EMS 22:15 | PROVIDERS: ATTEND Surgery | DX: R41.0 Disorientation, unspecified (principal); R53.83 Other fatigue; R11.2 Nausea with vomiting, unspecified; R73.09 Other abnormal glucose; R03.1 Nonspecific low blood-pressure reading ==

== ENCOUNTER 2017-07-09 22:32 | Inpatient (IN) | payer MEDICARE, MEDICAID ==
--- NOTE | 2017-07-09 23:41 | ED Physician Documentation ---
History of Present Illness - Stated complaint Stated Complaint: HIGH BLOOD SUGAR - Chief complaint Chief Complaint: General - History obtained from History obtained from: EMS - History of Present Illness Timing: Unknown - Additonal information Additional information: limited HPI due to AMS. Patient is confused, lethargic and thus HPI is provided by medics. Medics were called to patient's house for AMS and FSBS "high". Patient has been admitted to [facility] in the past for DKA. Review of Systems Unable to obtain: AMS PD PAST MEDICAL HISTORY - Past Medical History Cardiovascular: Hypertension, Coronary artery disease Respiratory: None Neuro: CVA Endocrine/Autoimmune: Type 1 diabetes, HyPOthyroidism GI: GERD, GI bleed, Chronic constipation : None HEENT: None Psych: Depression, Anxiety Musculoskeletal: Chronic back pain Derm: None - Past Surgical History Past Surgical History: Yes Ortho: Spine surgery, Other - Present Medications Home Medications: Ambulatory Orders Medication Instructions Recorded Confirmed Insulin Glargine,Hum.rec.anlog 38 units SUBQ DAILY 03/19/14 05/03/17 [Lantus] Atorvastatin Calcium 80 mg PO DAILY 05/02/17 05/03/17 Insulin Aspart [NovoLOG] 12 units SUBQ TIDWM 05/02/17 05/03/17 Levothyroxine Sodium 50 mcg PO DAILY 05/02/17 05/03/17 Lisinopril 2.5 mg PO DAILY 05/02/17 05/03/17 Metoprolol Succinate 25 mg PO BID 05/02/17 05/03/17 Oxycodone HCl 15 mg PO Q4H PRN 05/02/17 05/03/17 Spironolactone 12.5 mg PO DAILY 05/02/17 05/03/17 Aspirin 325 mg PO DAILY 05/03/17 05/03/17 Omeprazole 20 mg PO BID PRN 05/03/17 05/03/17 - Allergies Allergies/Adverse Reactions: Allergies Allergy/AdvReac Type Severity Reaction Status Date / Time No Known Drug Allergies Allergy Verified 01/30/17 20:17 - Social History Does the pt smoke?: No Smoking Status: Never smoker Does the pt drink ETOH?: No Does the pt have substance abuse?: No - Immunizations Immunizations are current?: No - POLST Patient has POLST: No PD ED PE NORMAL - Vitals Vital signs reviewed: Yes - General General: No acute distress, Well developed/nourished, Other (lethargic, briefly arousable to tactile stimulus, mumbles answers which I find to be unintelligible. He rapidly falls back asleep) - HEENT HEENT: Atraumatic, PERRL, EOMI, Other (dry mucous membranes) - Neck Neck: Supple, no meningeal sign - Cardiac Cardiac: No murmur, Other (regular rhythm, tachycardic rate) - Respiratory Respiratory: No respiratory distress, Clear bilaterally - Abdomen Abdomen: Soft, Non tender - Derm Derm: Normal color, Warm and dry - Extremities Extremities: No edema Results - Vitals Vitals: Vital Signs - 24 hr 07/09/17 07/10/17 22:36 00:44 Temperature 58.2 C H 36.6 C Heart Rate 117 H 115 H Respiratory 25 H 20 Rate Blood Pressure 88/55 L 98/68 O2 Saturation 97 95 Oxygen O2 Source Nasal cannula Oxygen Flow Rate 3 - EKG (time done) No standard instances Rate: Tachy (112) Rhythm: Sinus tachycardia [place]: Normal Intervals: Normal OK QRS: Normal Ischemia: Hyperacute T waves (V2, V3) - Labs Labs: Laboratory Tests 07/09/17 07/09/17 07/09/17 23:20 23:20 23:41 WBC 25.1 H RBC 4.82 Hgb 13.6 L Hct 44.7 MCV 92.6 MCH 28.1 MCHC 30.3 L RDW 16.0 H Plt Count 464 H MPV 9.2 Neut # Not Reportable Lymph # Not Reportable [place] # Not Reportable Eos # Not Reportable Baso # Not Reportable Absolute Nucleated RBC Not Reportable Total Counted 100 Band Neuts % (Manual) 11 H Nucleated RBC % Not Reportable Neutrophils # (Manual) 20.6 H Lymphocytes # (Manual) 2.5 Monocytes # (Manual) 2.0 H Differential Comment MANUAL DIFFERENTIAL Platelet Estimate INCREASED (>450,000) RBC Morph Micro Appear NORMAL APPEARANCE VBG pH 7.117 L VBG pCO2 26.3 L VBG pO2 50.9 H VBG HCO3 8.3 L VBG Total CO2 9.1 L VBG O2 Saturation 78.0 VBG Base Excess -19.6 L Sodium 139 Potassium 5.1 H Chloride 87 L Carbon Dioxide 10 L* Anion Gap 42.0 H BUN 39 H Creatinine 2.5 H Estimated GFR (MDRD) 26 L Glucose 945 H* Lactic Acid Calcium 10.4 H Troponin I Urine Color Urine Clarity Urine pH Ur Specific [place] Urine Protein Urine Glucose (UA) Urine Ketones Urine Occult Blood Urine Nitrite Urine Bilirubin Urine Urobilinogen Ur Leukocyte Esterase Ur Microscopic Review Urine Culture Comments Serum Ketones LARGE H 07/09/17 07/10/17 07/10/17 23:53 00:35 02:10 WBC RBC Hgb Hct MCV MCH MCHC RDW Plt Count MPV Neut # Lymph # [place] # Eos # Baso # Absolute Nucleated RBC Total Counted Band Neuts % (Manual) Nucleated RBC % Neutrophils # (Manual) Lymphocytes # (Manual) Monocytes # (Manual) Differential Comment Platelet Estimate RBC Morph Micro Appear VBG pH VBG pCO2 VBG pO2 VBG HCO3 VBG Total CO2 VBG O2 Saturation VBG Base Excess Sodium Potassium Chloride Carbon Dioxide Anion Gap BUN Creatinine Estimated GFR (MDRD) Glucose Lactic Acid 7.4 H* Calcium Troponin I 0.04 Urine Color YELLOW Urine Clarity CLEAR Urine pH 5.5 Ur Specific [place] 1.020 Urine Protein NEGATIVE Urine Glucose (UA) >=1000 H Urine Ketones 40 H Urine Occult Blood NEGATIVE Urine Nitrite NEGATIVE Urine Bilirubin NEGATIVE Urine Urobilinogen 0.2 (NORMAL) Ur Leukocyte Esterase NEGATIVE Ur Microscopic Review NOT INDICATED Urine Culture Comments NOT INDICATED Serum Ketones PD MEDICAL DECISION MAKING - ED course Complexity details: reviewed old records, reviewed results, re-evaluated patient , considered differential - Critical Care Time(min): 45 Time Includes: Direct patient care, Review records, Reassess patient, Document care, Coordinate care, See progress note Data interpretation: Labs, Pulse ox, See progress note Procedures included in critical care time: See progress note Procedures excluded from critical care time: See progress note Departure - Departure Disposition: [address] [facility] DC/Xfer Clinical Impression: Diabetic ketoacidosis Qualifiers: Diabetes mellitus type: type 1 Diabetes mellitus complication detail: without coma Qualified Code(s): E10.10 - Type 1 diabetes mellitus with ketoacidosis without coma Condition: Serious Discharge Date/Time: 07/10/17 03:53
[2017-07-09] MEDS ORDERED: SODIUM CHLORIDE 0.9% 1,000 ML IV STA (23:42)
[2017-07-10 00:19] LABS: BUN - BLOOD UREA NITROGEN 39 mg/dL (6-20); CALCIUM 10.4 mg/dL (8.5-10.3); CHLORIDE 87 mmol/L (101-111); CREATININE 2.5 mg/dL (0.6-1.2); GFR - MDRD 26 (>89); POTASSIUM 5.1 mmol/L (3.5-5.0); SODIUM 139 mmol/L (135-145)
[2017-07-10 00:30] LABS: VBG BASE EXCESS -19.6 mmol/L (-2 - +2); VBG PH 7.117 (7.31-7.41); VBG TOTAL CO2 9.1 mmol/L (24-29)
[2017-07-10 00:31] LABS: CARBON DIOXIDE - CO2 10 mmol/L (21-32); GLUCOSE 945 mg/dL (70-100)
[2017-07-10 00:49] LABS: PH,URINE 5.5 PH (5.0-7.5); UA CHARGE (STRIP ONLY) YES; UR CULTURE IF IND NOT INDICATED
[2017-07-10 00:52] LABS: BILIRUBIN,URINE NEGATIVE (NEGATIVE)
[2017-07-10 00:57] LABS: BASOPHILS % (AUTO) 0.6 %; HCT - HEMATOCRIT 44.7 % (42.0-52.0); HGB - HEMOGLOBIN 13.6 g/dL (14.0-18.0); MEAN CORPUSCULAR HEMOGLOBIN 28.1 pg (27.0-31.0); MEAN CORPUSCULAR HGB CONC 30.3 g/dL (32.0-36.0); MEAN CORPUSCULAR VOLUME 92.6 fL (80.0-94.0); MEAN PLATELET VOLUME 9.2 fL (7.4-11.4); MONOCYTES % (AUTO) 3.9 %; NEUTROPHILS % (AUTO) 92.5 %; RED BLOOD COUNT 4.82 10^6/uL (4.70-6.10); UNCORRECTED WHITE BLOOD COUNT 25.1 x10^3/uL; WHITE BLOOD COUNT 25.1 x10^3/uL (4.8-10.8)
[2017-07-10 01:15] LABS: BAND NEUTROPHILS % (MANUAL) 11 %; LYMPHOCYTES % (MANUAL) 10 %; NEUTROPHILS % (MANUAL) 71 %; TOTAL CELLS COUNTED 100
[2017-07-10 01:16] LABS: NP AUTO DIFFERENTIAL? YES; NP MAN DIFFERENTIAL? NO; PLATELET ESTIMATE, MANUAL INCREASED (>450,000) (NORMAL)
[2017-07-10] MEDS ORDERED: PROCHLORPERAZINE 10 MG/2 ML VIAL IVP PRN (02:42)
[2017-07-10] MEDS ORDERED: SODIUM CHLORIDE 0.9% 1,000 ML IV SCH ×3 (03:00→19:34)
[2017-07-10 03:24] LABS: MAGNESIUM 2.5 mg/dL (1.7-2.8)
[2017-07-10] MEDS ORDERED: INSULIN REGULAR HUMAN 100 UNIT in SODIUM CHLORIDE 0.9% 100ML 99 ML IV SCH (03:29)
[2017-07-10] MEDS ORDERED: INSULIN REGULAR HUMAN 100 UNIT/1 ML 10 ML MDV ONE (03:39)
[2017-07-10] MEDS ORDERED: SODIUM CHLORIDE 0.9% 100ML 100 ML IV ONE (03:40)
[2017-07-10 03:46] LABS: BASOPHILS % (AUTO) 0.2 %; EOSINOPHILS % (AUTO) 0.1 %; HGB - HEMOGLOBIN 12.5 g/dL (14.0-18.0); LYMPHOCYTES % (AUTO) 3.6 %; MEAN CORPUSCULAR HEMOGLOBIN 28.1 pg (27.0-31.0); MEAN CORPUSCULAR HGB CONC 29.9 g/dL (32.0-36.0); MEAN CORPUSCULAR VOLUME 94.1 fL (80.0-94.0); MEAN PLATELET VOLUME 8.9 fL (7.4-11.4); MONOCYTES % (AUTO) 5.1 %; RED BLOOD COUNT 4.46 10^6/uL (4.70-6.10); RED CELL DISTRIBUTION WIDTH 15.8 % (12.0-15.0); UNCORRECTED WHITE BLOOD COUNT 30.1 x10^3/uL; WHITE BLOOD COUNT 30.1 x10^3/uL (4.8-10.8)
[2017-07-10 03:48] LABS: CALCIUM 9.1 mg/dL (8.5-10.3); CREATININE 2.6 mg/dL (0.6-1.2); MAGNESIUM 2.5 mg/dL (1.7-2.8); POTASSIUM 5.8 mmol/L (3.5-5.0)
[2017-07-10 04:44] LABS: MAGNESIUM 2.6 mg/dL (1.7-2.8)
[2017-07-10 05:00] LABS: GLUCOSE 1013 mg/dL (70-100)
[2017-07-10 05:25] LABS: VBG BASE EXCESS -21.5 mmol/L (-2 - +2); VBG OXYGEN SATURATION 85.6 % (60-80); VBG PH 7.071 (7.31-7.41); VBG TOTAL CO2 7.9 mmol/L (24-29)
[2017-07-10 06:36] LABS: HEMOGLOBIN A1C 1.21 g/dL
[2017-07-10 06:42] LABS: BUN - BLOOD UREA NITROGEN 54 mg/dL (6-20); CALCIUM 9.1 mg/dL (8.5-10.3); CHLORIDE 97 mmol/L (101-111); CREATININE 2.5 mg/dL (0.6-1.2); GFR - MDRD 26 (>89); MAGNESIUM 2.6 mg/dL (1.7-2.8); POTASSIUM 4.3 mmol/L (3.5-5.0); SODIUM 141 mmol/L (135-145)
[2017-07-10 06:56] LABS: CARBON DIOXIDE - CO2 8 mmol/L (21-32); GLUCOSE 871 mg/dL (70-100)
[2017-07-10] MEDS: METOPROLOL 5 MG/5 ML VIAL IVP SCH ×3 (06:56→17:59)
[2017-07-10] MEDS: SODIUM CHLORIDE FLUSH 0.9% 10 ML SYRINGE IVP SCH ×3 (06:57→21:12)
[2017-07-10 07:13] LABS: BAND NEUTROPHILS % (MANUAL) 14 %; LYMPHOCYTES % (MANUAL) 6 %; NEUTROPHILS % (MANUAL) 73 %; TOTAL CELLS COUNTED 100
[2017-07-10 07:14] LABS: NP AUTO DIFFERENTIAL? YES; NP MAN DIFFERENTIAL? NO; PLATELET ESTIMATE, MANUAL NORMAL (130-450,000) (NORMAL)
--- NOTE | 2017-07-10 07:21 | XRAY Preliminary Report ---
Exam: XR CHEST 1 VIEW IMPRESSION: 1. No acute abnormality seen in the chest. [facility] SITE ID: [id number]
--- NOTE | 2017-07-10 07:24 | XRAY Report ---
EXAM: CHEST RADIOGRAPHY EXAM DATE: 07/10/2017 06:55 AM. CLINICAL HISTORY: Chest pain and shortness of breath. COMPARISON: 05/03/2017. TECHNIQUE: 1 view. FINDINGS: Lungs/Pleura: No alveolar consolidation or pleural effusion. No pneumothorax. Mediastinum: Within exam limitations, the cardiomediastinal contour is normal. Other: Osteopenia. Old ununited fracture in the proximal right humerus. IMPRESSION: 1. No acute abnormality seen in the chest. [facility] Referring Provider Line: [phone] SITE ID: [id number]
[2017-07-10 07:37] LABS: GLUCOSE 997 mg/dL (70-100)
[2017-07-10 08:11] LABS: BUN - BLOOD UREA NITROGEN 54 mg/dL (6-20); CALCIUM 9.3 mg/dL (8.5-10.3); CHLORIDE 99 mmol/L (101-111); CREATININE 2.5 mg/dL (0.6-1.2); GFR - MDRD 26 (>89); MAGNESIUM 2.6 mg/dL (1.7-2.8); POTASSIUM 3.9 mmol/L (3.5-5.0); SODIUM 143 mmol/L (135-145)
[2017-07-10] MEDS: PIPERACILLIN/TAZOBACTAM 3.375 GM in SODIUM CHLORIDE 0.9% MINIBAG 100 ML IV SCH ×3 (08:17→21:03)
[2017-07-10 08:25] LABS: CARBON DIOXIDE - CO2 11 mmol/L (21-32); GLUCOSE 781 mg/dL (70-100)
--- NOTE | 2017-07-10 08:32 | HISTORY & PHYSICAL EXAMINATION ---
DATE OF ADMISSION: 07/10/2017 HISTORY OF PRESENT ILLNESS: This is a 61-year-old white male with history of diabetes, prior DKA, cor onary disease, right-sided weakness from TIA, hypothyroidism. Patient was admitted here in April with a DKA event and ruled in for an KS with troponin peaking at 19, and requiring transfer to [facility] in [place]. The results of that cardiac evaluation are not available. The patient presents now with an episode of DKA once again. He was brought to the emergency room (the EHR does not indicate events surrounding the ER presentation and he is unresponsive and no family ar e available in order to get details). Patient was found to have a glucose of over 900, a pH of 7, hig h lactic acid level, high urine ketones, and admitted for a DKA event again. The patient gives no inf ormation, he is unresponsive, breathing comfortably, moaning intermittently minimally, and does respo nd to pain with wincing. MEDICATIONS AT HOME 1. Insulin. 2. Lipitor 80 mg daily. 3. Levothyroxine 50 mcg daily. 4. Lisinopril 2.5 mg daily. 5. Toprol 25 mg p.o. b.i.d. 6. Oxycodone 15 mg p.o. p.r.n. q.4h. 7. Spironolactone 12.5 mg p.o. daily. 8. Adult dose aspirin daily. 9. Omeprazole 20 mg p.o. b.i.d. p.r.n. ALLERGIES: NONE. SOCIAL HISTORY: Obtained from the EHR. He never smoked, drinks no alcohol, and has no illicit drug hi story use. FAMILY HISTORY: Unknown, the patient is not awake and unable to provide this information. REVIEW OF SYSTEMS: Review of systems is also obtained from EHR and includes depression, hypertension, prior history of GI bleed (coffee ground emesis during the admission of April 2017), constipation, chronic back pain. The other organ review of systems is negative. PHYSICAL EXAMINATION GENERAL: Reveals a thin white male in no respiratory distress. He is unresponsive except to pain and he winces. He is moving all extremities spontaneously. VITAL SIGNS: Blood pressure 98/68, pulse is 120 in sinus tachycardia, he is afebrile. HEENT: Reveals dry oral mucosa. NECK: Shows no JVD in the supine position. No carotid bruits. No thyromegaly. No lymphadenopathy. CHEST: Clear. HEART: Heart sounds are normal, but tachycardic. ABDOMEN: Soft, with diminished bowel sounds, nontender. EXTREMITIES: Show no clubbing, cyanosis, or edema. There is a bandage over the left 2nd toe. NEUROLOGIC: As above, obtunded. LABORATORY DATA: Glucose 945, then increased to 987, anion gap 42, then decreased to 34, potassium 5. 1, BUN 39, creatinine 2.5, magnesium 9.5. Two troponins are negative at 0.04. White blood count 25, h emoglobin 13.6, platelet count normal, left shift with 11% bands. No INR is available. Serum ketones are large. Urine has pH of 5.5, with a glucose greater than 1000, and ketones are high at 40. Venous blood gases with pH of 7.117. ECG: Sinus tachycardia, peaked T waves in leads V2 and V3 and V4, bipha sic T waves in lead V5 and flat T waves in all other leads. IMPRESSION/DIAGNOSES 1. Diabetic ketoacidosis. 2. Hypotension. 3. Chronic kidney disease. 4. Ischemic cardiomyopathy with recent myocardial infarction 2 months ago (echo ejection fraction the n was 30%). 5. Unknown coronary anatomy, but probable recent coronary angiogram done. 6. Leukocytosis, which could be reactive versus infectious in etiology. PLAN: Admit the patient to the ICU on telemetry. Bolus of saline, and then start the patient on salin e at 150 mL/hr. Start the patient on an insulin drip per DKA protocol and follow sugars per that prot ocol. Once blood pressure is improved, start the patient on Lopressor IV for rate control with his ta chycardia, and with his recent KS beta isa should be resumed. Hold all other medicines such as li sinopril. Hypothyroidism is on hold, would be restarted when he can take p.o. Follow his troponins an d EKG for changes. Obtain the discharge summary and coronary angiogram from the admission at [facility] in [place] from 2 months ago. Obtain an echo to reestablish LV contractility, given the rapid rate of fluid replacement, to rule out CHF, with cautious administration of fluids. Follow his electrolytes and replace as necessary. Culture blood and urine and rule out infectious source for this episode of DKA. JOB #: [id number] EXT JOB #:[id number]
[2017-07-10] MEDS ORDERED: VANCOMYCIN INJ 1 GM in SODIUM CHLORIDE 0.9% 250 ML IV ONE (09:00)
[2017-07-10] MEDS: HEPARIN 5,000 UNIT/ML VIAL SUBQ SCH ×2 (09:47→21:07)
[2017-07-10] MEDS: PANTOPRAZOLE 40 MG VIAL IVP SCH ×2 (09:48→21:07)
[2017-07-10] MEDS: ASPIRIN 300 MG SUPP PR SCH (09:48)
[2017-07-10 13:03] LABS: GLUCOSE 519 mg/dL (70-100)
[2017-07-10] MEDS ORDERED: DEXTROSE 5%-0.45% NACL 1,000 ML IV SCH ×2 (15:00→20:00)
[2017-07-10 15:47] LABS: CALCIUM 8.9 mg/dL (8.5-10.3); CREATININE 1.5 mg/dL (0.6-1.2); POTASSIUM 3.3 mmol/L (3.5-5.0)
[2017-07-10] MEDS: POTASSIUM CHLOR 10 MEQ/100 ML 10 MEQ/100 ML BAG IV SCH ×3 (16:53→19:29)
[2017-07-10] MEDS ORDERED: POTASSIUM CHLORIDE INJ 40 MEQ in SODIUM CHLORIDE 0.9% 480 ML IV ONE (19:37)
--- NOTE | 2017-07-10 19:47 | PROVIDER PROGRESS NOTE ---
Assessment/Plan - Problem List (1) Diabetic ketoacidosis Qualifiers: Diabetes mellitus type: type 1 Assessment/Plan: the anion gap has closed and the patient is no longer in DKA (anion gap is 12, carbon dioxide is 24, and glucose 169). The patient has been placed on SQ lantus and sliding scale Regular with meals. (2) Sepsis Assessment/Plan: on IV Vancomycin and IV Zosyn (3) Hypotension Assessment/Plan: resolved on IV fluids (4) Chronic renal disease, stage 3, moderately decreased glomerular filtration rate (GFR) between 30-59 mL/min/1.73 square meter Assessment/Plan: will continue to monitor (5) Ischemic cardiomyopathy Assessment/Plan: with recent VT 2 months ago (EF then was 30%) (6) Confusion and disorientation Assessment/Plan: will hold oral home medications until the patient is alert enough to eat with out aspiration. - Current Meds Current Meds: Current Medications Generic Name Dose Route Start Last Admin Trade Name Freq PRN Reason Stop Dose Admin Aspirin 300 mg 07/10/17 09:00 07/10/17 09:48 WY 300 mg DAILY DAMIEN Administration Heparin Sodium (Porcine) 5,000 unit 07/10/17 09:00 07/10/17 09:47 SUBQ 5,000 unit BID DAMIEN Administration Piperacillin Sod/Tazobactam 100 mls @ 200 mls/hr 07/10/17 08:00 07/10/17 14: 16 Sod 3.375 gm/ Sodium Chloride IV Infused Q6H DAMIEN Infusion Potassium Chloride 10 meq in 100 mls @ 100 mls/hr 07/10/17 17:00 07/10/17 19: 29 Potassium Chloride IV 07/10/17 20:59 100 mls/hr Q1H DAMIEN Administration Protocol Metoprolol Tartrate 2.5 mg 07/10/17 06:00 07/10/17 17:59 Lopressor Inj IVP 2.5 mg Q6HR DAMIEN Administration Pantoprazole Sodium 40 mg 07/10/17 09:00 07/10/17 09:48 Protonix IVP 40 mg BID DAMIEN Administration Sodium Chloride 10 ml 07/10/17 06:00 07/10/17 13:44 Normal Saline Flush 0.9% IVP 10 ml Q8HR DAMIEN Administration - Lab Result Lab results reviewed: Yes Fish Bone Diagrams: 07/10/17 03:30 07/10/17 19:26 - Additional Planning Condition/Complexity: Guarded My Orders: My Active Orders 07/10/17 BMP - BASIC METABOLIC PANEL [CHEM] Routine 07/10/17 08:00 Piperacillin/Tazobactam [Zosyn] 3.375 gm Sodium Chloride 0.9% Minibag [Normal Saline 0.9% Minibag] 100 ml IV Q6H 07/10/17 08:27 Blood Culture [CULTURE, BLOOD #1] [RM] Stat 07/10/17 09:20 Blood Culture [CULTURE, BLOOD #2] [RM] Stat 07/10/17 19:34 Sodium Chloride 0.9% [Normal Saline 0.9%] 1,000 ml IV 120 mls/hr 07/10/17 19:35 Blood Glucose Checks - Eating [RC] 0800,1200,1700,2100 Initiate Hypoglycemia Protocol [RC] .protocol A1C [CHEM] Routine 07/10/17 19:37 Potassium Chloride/NS 40MEQ/500ML X 1 Potassium Chloride Inj 40 meq Sodium Chloride 0.9% [Normal Saline 0.9%] 480 ml IV ONCE 07/10/17 19:38 Blood Glucose Checks - Eating [RC] Q4HR 07/10/17 20:00 Insulin Glargine [Lantus Solostar] 23 unit SUBQ QPM 07/10/17 21:00 Insulin Aspart [NovoLOG] 1 - 5 unit SUBQ 0800,1200,1700,2100 07/11/17 05:00 CBC - COMP BLD CT W/AUTO DIFF [HEME] Routine CMP [COMPREHENSIVE METABOLIC PANEL] [CHEM] Routine LACTIC ACID, VENOUS [CHEM] Routine 07/11/17 10:00 Vancomycin Inj [Vancomycin] 0.75 gm Sodium Chloride 0.9% [Normal Saline 0.9%] 250 ml IV Q24H 07/11/17 Breakfast DIET [Carb-controlled Diet] [DIET] Plan Discussed with:: Patient Time Spent: 31-60 minutes Subjective - Subjective Patient Reports: Feeling Better, Other (He remains confused and not following commands.) Objective Vital Signs: Vital Signs - 24 hr 07/10/17 07/10/17 07/10/17 02:57 04:02 05:00 Temperature 36.5 C Heart Rate 113 H Heart Rate [ 116 H 131 H Monitoring electrodes] Respiratory 24 28 H 22 Rate Blood Pressure 89/47 L Blood Pressure 149/99 H 123/67 [Left Brachial artery] O2 Saturation 95 100 100 07/10/17 07/10/17 07/10/17 06:00 06:56 07:55 Temperature 37 C Heart Rate Heart Rate [ 129 H 119 H 109 H Monitoring electrodes] Respiratory 21 16 16 Rate Blood Pressure 106/70 Blood Pressure 97/46 L 106/70 114/60 [Left Brachial artery] O2 Saturation 100 100 100 07/10/17 07/10/17 07/10/17 09:00 10:00 11:00 Temperature 37.2 C 37.6 C H 37.5 C Heart Rate Heart Rate [ 114 H 113 H 114 H Monitoring electrodes] Respiratory 22 18 20 Rate Blood Pressure Blood Pressure 115/59 L 104/60 93/84 H [Left Brachial artery] O2 Saturation 99 100 100 07/10/17 07/10/17 07/10/17 12:00 12:16 13:00 Temperature 37.6 C H 37.4 C Heart Rate Heart Rate [ 112 H 104 H Monitoring electrodes] Respiratory 18 20 Rate Blood Pressure 135/58 H Blood Pressure 135/58 H 101/56 L [Left Brachial artery] O2 Saturation 99 99 07/10/17 07/10/17 07/10/17 14:00 15:00 16:00 Temperature 37.9 C H 37.6 C H 37.5 C Heart Rate Heart Rate [ 114 H 111 H 111 H Monitoring electrodes] Respiratory 24 24 22 Rate Blood Pressure Blood Pressure 100/53 L 92/57 L 109/52 L [Left Brachial artery] O2 Saturation 99 97 99 07/10/17 07/10/17 07/10/17 17:00 17:59 18:00 Temperature 37.6 C H 37.5 C Heart Rate Heart Rate [ 111 H 92 Monitoring electrodes] Respiratory 22 20 Rate Blood Pressure 101/55 L Blood Pressure 103/56 L 122/61 [Left Brachial artery] O2 Saturation 98 99 07/10/17 19:00 Temperature 37.7 C H Heart Rate Heart Rate [ 113 H Monitoring electrodes] Respiratory 26 H Rate Blood Pressure Blood Pressure 106/57 L [Left Brachial artery] O2 Saturation 99 Oxygen O2 Source Room air I&O (Last 24 Hrs): Intake and Output Totals x24h 07/08/17 07/09/17 07/10/17 23:59 23:59 23:59 Intake Total 2845.785 Output Total 1305 Balance 1540.785 General: Alert, Other (confused and unable to follow most commands) HEENT: Atraumatic, PERRLA, EOMI Neck: Supple, No JVD Neuro: Disoriented, Speech Slurred Cardiovascular: Regular rate, Normal S1, Normal S2 Respiratory: Chest non-tender, No respiratory distress, Breath sounds nml Abdomen: Normal bowel sounds, Soft, No tenderness Extremities: No edema - Results Results: Laboratory Results WBC 30.1 x10^3/uL (4.8-10.8) H 07/10/17 03:30 RBC 4.46 10^6/uL (4.70-6.10) L 07/10/17 03:30 Hgb 12.5 g/dL (14.0-18.0) L 07/10/17 03:30 Hct 42.0 % (42.0-52.0) 07/10/17 03:30 MCV 94.1 fL (80.0-94.0) H 07/10/17 03:30 MCH 28.1 pg (27.0-31.0) 07/10/17 03:30 MCHC 29.9 g/dL (32.0-36.0) L 07/10/17 03:30 RDW 15.8 % (12.0-15.0) H 07/10/17 03:30 Plt Count 422 10^3/uL (130-450) 07/10/17 03:30 MPV 8.9 fL (7.4-11.4) 07/10/17 03:30 Neut # Not Reportable 07/10/17 03:30 Lymph # Not Reportable 07/10/17 03:30 [place] # Not Reportable 07/10/17 03:30 Eos # Not Reportable 07/10/17 03:30 Baso # Not Reportable 07/10/17 03:30 Absolute Nucleated RBC Not Reportable 07/10/17 03:30 Total Counted 100 07/10/17 03:30 Band Neuts % (Manual) 14 % (0-10) H 07/10/17 03:30 Nucleated RBC % Not Reportable 07/10/17 03:30 Neutrophils # (Manual) 26.2 10^3/uL (1.5-6.6) H 07/10/17 03:30 Lymphocytes # (Manual) 1.8 10^3/uL (1.5-3.5) 07/10/17 03:30 Monocytes # (Manual) 2.1 10^3/uL (0.0-1.0) H 07/10/17 03:30 Differential Comment MANUAL DIFFERENTIAL 07/10/17 03:30 Platelet Estimate NORMAL (130-450,000) (NORMAL) 07/10/17 03:30 RBC Morph Micro Appear NORMAL APPEARANCE (NORMAL) 07/10/17 03:30 VBG pH 7.071 (7.31-7.41) L 07/10/17 03:30 VBG pCO2 25.1 mmHg (41-51) L 07/10/17 03:30 VBG pO2 63.0 mmHg (25-47) H 07/10/17 03:30 VBG HCO3 7.1 mmol/L (23-28) L 07/10/17 03:30 VBG Total CO2 7.9 mmol/L (24-29) L 07/10/17 03:30 VBG O2 Saturation 85.6 % (60-80) H 07/10/17 03:30 VBG Base Excess -21.5 mmol/L (-2 - +2) L 07/10/17 03:30 Sodium 149 mmol/L (135-145) H 07/10/17 15:26 Potassium 3.3 mmol/L (3.5-5.0) L 07/10/17 15:26 Chloride 113 mmol/L (101-111) H 07/10/17 15:26 Carbon Dioxide 24 mmol/L (21-32) 07/10/17 15:26 Anion Gap 12.0 (6-13) 07/10/17 15:26 BUN 50 mg/dL (6-20) H 07/10/17 15:26 Creatinine 1.5 mg/dL (0.6-1.2) H 07/10/17 15:26 Estimated GFR (MDRD) 48 (>89) L 07/10/17 15:26 Glucose 291 mg/dL (70-100) H 07/10/17 15:26 POC Whole Bld Glucose 169 mg/dL (70 - 100) H 07/10/17 18:41 Glycated Hemoglobin 10.4 % (4.6-6.2) H 07/10/17 06:13 Estim Average Glucose 252 (70-100) H 07/10/17 06:13 Lactic Acid 2.7 mmol/L (0.5-2.2) H 07/10/17 15:26 Calcium 8.9 mg/dL (8.5-10.3) 07/10/17 15:26 Magnesium 2.6 mg/dL (1.7-2.8) 07/10/17 07:41 Troponin I 0.06 ng/mL (<0.49) 07/10/17 15:26 B-Natriuretic Peptide 154 pg/mL (5-100) H 07/10/17 08:27 Urine Color YELLOW 07/10/17 00:35 Urine Clarity CLEAR (CLEAR) 07/10/17 00:35 Urine pH 5.5 PH (5.0-7.5) 07/10/17 00:35 Ur Specific [place] 1.020 (1.002-1.030) 07/10/17 00:35 Urine Protein NEGATIVE mg/dL (NEGATIVE) 07/10/17 00:35 Urine Glucose (UA) >=1000 mg/dL (NEGATIVE) H 07/10/17 00:35 Urine Ketones 40 mg/dL (NEGATIVE) H 07/10/17 00:35 Urine Occult Blood NEGATIVE (NEGATIVE) 07/10/17 00:35 Urine Nitrite NEGATIVE (NEGATIVE) 07/10/17 00:35 Urine Bilirubin NEGATIVE (NEGATIVE) 07/10/17 00:35 Urine Urobilinogen 0.2 (NORMAL) E.U./dL (NORMAL) 07/10/17 00:35 Ur Leukocyte Esterase NEGATIVE (NEGATIVE) 07/10/17 00:35 Ur Microscopic Review NOT INDICATED 07/10/17 00:35 Urine Culture Comments NOT INDICATED 07/10/17 00:35 Serum Ketones SMALL (NEGATIVE) H 07/10/17 15:26
[2017-07-10 20:04] LABS: CALCIUM 8.8 mg/dL (8.5-10.3); CREATININE 1.3 mg/dL (0.6-1.2); POTASSIUM 4.5 mmol/L (3.5-5.0)
[2017-07-10] MEDS: INSULIN GLARGINE 300 UNIT/3 ML PEN SUBQ SCH ×2 (20:14→20:32)
[2017-07-10] MEDS ORDERED: POTASSIUM CHLOR 20 MEQ/100 ML 20 MEQ/100 ML BAG IV SCH (21:00)
[2017-07-10] MEDS ORDERED: INSULIN ASPART 300 UNIT/3 ML PEN SUBQ SCH (21:00)
[2017-07-10] MEDS: SODIUM CHLORIDE 0.9% 1,000 ML IV SCH (21:07)
[2017-07-11] MEDS: INSULIN REGULAR HUMAN 100 UNIT/1 ML 10 ML MDV SUBQ SCH ×5 (00:10→23:51)
[2017-07-11] MEDS: METOPROLOL 5 MG/5 ML VIAL IVP SCH ×4 (00:10→17:39)
[2017-07-11] MEDS: PIPERACILLIN/TAZOBACTAM 3.375 GM in SODIUM CHLORIDE 0.9% MINIBAG 100 ML IV SCH ×2 (02:23→09:10)
[2017-07-11 05:02] LABS: BASOPHILS % (AUTO) 0.1 %; HCT - HEMATOCRIT 36.6 % (42.0-52.0); LYMPHOCYTES % (AUTO) 4.6 %; MEAN CORPUSCULAR HEMOGLOBIN 28.1 pg (27.0-31.0); MEAN CORPUSCULAR HGB CONC 32.7 g/dL (32.0-36.0); MEAN CORPUSCULAR VOLUME 85.8 fL (80.0-94.0); MEAN PLATELET VOLUME 7.8 fL (7.4-11.4); MONOCYTES % (AUTO) 5.1 %; NEUTROPHILS % (AUTO) 90.2 %; RED BLOOD COUNT 4.27 10^6/uL (4.70-6.10); UNCORRECTED WHITE BLOOD COUNT 31.8 x10^3/uL; WHITE BLOOD COUNT 31.8 x10^3/uL (4.8-10.8)
[2017-07-11 05:12] LABS: BILIRUBIN,TOTAL 0.4 mg/dL (0.2-1.0); CALCIUM 8.3 mg/dL (8.5-10.3); POTASSIUM 3.3 mmol/L (3.5-5.0); TOTAL PROTEIN 5.5 g/dL (6.7-8.2)
[2017-07-11 05:33] LABS: BAND NEUTROPHILS % (MANUAL) 8 %; LYMPHOCYTES % (MANUAL) 7 %; NEUTROPHILS % (MANUAL) 80 %; NP AUTO DIFFERENTIAL? YES; NP MAN DIFFERENTIAL? NO; PLATELET ESTIMATE, MANUAL NORMAL (130-450,000) (NORMAL); TOTAL CELLS COUNTED 100
[2017-07-11] MEDS: SODIUM CHLORIDE FLUSH 0.9% 10 ML SYRINGE IVP SCH ×3 (06:20→21:51)
[2017-07-11] MEDS: SODIUM CHLORIDE 0.9% 1,000 ML IV SCH (06:49)
[2017-07-11] MEDS: POTASSIUM CHLOR 10 MEQ/100 ML 10 MEQ/100 ML BAG IV SCH ×6 (06:50→16:47)
[2017-07-11] MEDS ORDERED: DEXTROSE 5%-0.45% NACL 1,000 ML IV SCH (08:00)
[2017-07-11] MEDS ORDERED: POTASSIUM CHLOR 10 MEQ/100 ML 10 MEQ/100 ML BAG IV SCH (08:15)
[2017-07-11] MEDS ORDERED: IOPAMIDOL-300 100 ML VIAL IVP ONE ×2 (08:38)
[2017-07-11] MEDS: SODIUM CHLORIDE 0.45% 1,000 ML IV SCH ×3 (08:42→22:27)
--- NOTE | 2017-07-11 09:00 | CT Preliminary Report ---
Exam: CT HEAD W/ Impression: 1. There is no acute intracranial abnormality and the noncontrast CT scan of the head. There is a mil [id number]-bh-[id number] degree of chronic small vessel ischemia and generalized volume loss. There has been pro gression of the volume loss since the prior CT of 2010 which previously was only mild. 2. There is no abnormal enhancement on the postcontrast images. If the patient has persistent symptom s or additional imaging is desired for the evaluation for cerebral abscess, then further evaluation w ith MRI of the brain without and with contrast can be obtained as deemed clinically appropriate. SITE ID: [id number]
[2017-07-11] MEDS: HEPARIN 5,000 UNIT/ML VIAL SUBQ SCH ×2 (09:10→21:10)
--- NOTE | 2017-07-11 09:17 | CT Report ---
EXAM: CT HEAD WITHOUT AND WITH CONTRAST. EXAM DATE: 07/11/2017 08:38 AM. CLINICAL HISTORY: ?brain abscess. COMPARISON: CT scan of the head without contrast 05/06/2011 and MRI of the brain 01/18/2008.. TECHNIQUE: Multiaxial CT images were obtained from the foramen magnum to the vertex. IV contrast: 80 mL Isovue 300. Reformats: Coronal. In accordance with CT protocol optimization, one or more of the following dose reduction techniques w ere utilized for this exam: automated exposure control, adjustment of mA and/or KV based on patient s ize, or use of iterative reconstructive technique. FINDINGS: CT scan of the head without contrast: The bilateral paranasal sinuses are normally aerated. The mastoid air cells are normally aerated. There is calcific plaquing of the intracranial internal carotid arteries bilaterally. There is no chapo dence of acute fracture of the calvaria. There is periventricular, subcortical and deep white matter hypodensities. There is hypodensity again demonstrated in the left thalamus, consistent with an area of unchanged chronic ischemia. There is enlargement of the lateral ventricles and the third ventricle but not of proportion to the c oncomitant enlargement of the cerebral sulci. However, there has been interval enlargement of the ed tricles since the 2010 CT of the head. There has been concomitant volume loss within the sulci. This would be consistent with progression of generalized volume loss. Overall there is a mild/moderate deg ree of generalized volume loss. CT scan of the head with contrast: There is normal enhancement within the deep venous sinuses. There is normal enhancement within the brain parenchyma. IMPRESSION: 1. There is no acute intracranial abnormality on the noncontrast CT scan of the head. There is a mild -to-moderate degree of chronic small vessel ischemia and generalized volume loss. There has been prog ression of the volume loss since the prior CT of 2010 which previously was only mild. 2. There is no abnormal enhancement on the postcontrast images. If the patient has persistent symptom s or additional imaging is desired for the evaluation for cerebral abscess, then further evaluation w ith MRI of the brain without and with contrast can be obtained as deemed clinically appropriate. Referring Provider Line: [phone] SITE ID: [id number]
[2017-07-11] MEDS: ASPIRIN 300 MG SUPP PR SCH (09:27)
[2017-07-11] MEDS: PANTOPRAZOLE 40 MG VIAL IVP SCH ×2 (09:27→21:13)
[2017-07-11] MEDS: VANCOMYCIN INJ 0.75 GM in SODIUM CHLORIDE 0.9% 250 ML IV SCH (10:09)
[2017-07-11 11:19] LABS: CSF - GLUCOSE 131 mg/dL (45-70)
[2017-07-11 11:22] LABS: CLARITY,CSF CLEAR (CLEAR); COLOR,CSF COLORLESS (COLORLESS)
[2017-07-11 11:23] LABS: WHITE BLOOD CELL,CSF 0 /mm^3 (0-5)
[2017-07-11] MEDS: cefTRIAXone 2 GM in SODIUM CHLORIDE 0.9% MINIBAG 100 ML IV SCH ×2 (11:24→21:11)
[2017-07-11 11:35] LABS: CALCIUM 8.7 mg/dL (8.5-10.3); POTASSIUM 3.3 mmol/L (3.5-5.0)
[2017-07-11] MEDS: AMPICILLIN 2 GM in SODIUM CHLORIDE 0.9% MINIBAG 100 ML IV SCH ×3 (11:56→23:58)
[2017-07-11] MEDS ORDERED: DEXTROSE 5% 250 ML IV ONE (14:00)
[2017-07-11] MEDS: ACYCLOVIR INJ 500 MG in SODIUM CHLORIDE 0.9% 250 ML IV SCH ×2 (14:05→21:21)
[2017-07-11] MEDS: ACETAMINOPHEN 325 MG TABLET PO PRN (21:09)
--- NOTE | 2017-07-11 21:10 | PROVIDER PROGRESS NOTE ---
Assessment/Plan - Problem List (1) Diabetic ketoacidosis Qualifiers: Diabetes mellitus type: type 1 Assessment/Plan: resolved (2) Sepsis Assessment/Plan: improved on IV Rocephin, IV Ampicillin, IV Vancomycin, ans IV Acyclovir (3) Hypotension Assessment/Plan: resolved on IV fluids (4) Chronic renal disease, stage 3, moderately decreased glomerular filtration rate (GFR) between 30-59 mL/min/1.73 square meter Assessment/Plan: will continue to monitor (5) Ischemic cardiomyopathy Assessment/Plan: with recent CA 2 months ago(EF then was 30%) (6) Confusion and disorientation Assessment/Plan: improved. He is now oriented to person and place. He is following directions. (7) Hypothyroidism Assessment/Plan: on levothyroxine (8) Hyperlipidemia Assessment/Plan: on atorvastatin (9) Essential (primary) hypertension Assessment/Plan: on lisinopril and metoprolol succinate - Current Meds Current Meds: Current Medications Generic Name Dose Route Start Last Admin Trade Name Freq PRN Reason Stop Dose Admin Aspirin 300 mg 07/10/17 09:00 07/11/17 09:27 [place] 300 mg DAILY DAMIEN Administration Heparin Sodium (Porcine) 5,000 unit 07/10/17 09:00 07/11/17 09:10 SUBQ 5,000 unit BID DAMIEN Administration Vancomycin HCl 0.75 gm/ Sodium 250 mls @ 167 mls/hr 07/11/17 10:00 07/11/17 11:40 Chloride IV Infused Q24H DAMIEN Infusion Sodium Chloride 1,000 mls @ 175 mls/hr 07/11/17 08:00 07/11/17 18:00 Normal Saline 0.45% IV 175 mls/hr .Q5H43M DAMIEN Infusion Dextrose/Sodium Chloride 1,000 mls @ 0 mls/hr 07/11/17 08:00 07/11/17 18:00 D5.45ns IV 40 mls/hr .Q0M DAMIEN Infusion TKO Ceftriaxone Sodium 2 gm/ 100 mls @ 200 mls/hr 07/11/17 11:00 07/11/17 11:57 Sodium Chloride IV Infused BID DAMIEN Infusion Ampicillin Sodium 2 gm/ Sodium 100 mls @ 100 mls/hr 07/11/17 12:00 07/11/17 18:55 Chloride IV Infused Q6HR DAMIEN Infusion Acyclovir 500 mg/ Sodium 260 mls @ 250 mls/hr 07/11/17 14:00 07/11/17 16:45 Chloride IV Infused TID DAMIEN Infusion Insulin Glargine 23 unit 07/10/17 20:00 07/10/17 20:32 Lantus Solostar SUBQ Not Given QPM DAMIEN Insulin Human Regular 1 - 5 unit 07/11/17 00:00 07/11/17 18:05 Novolin R SUBQ 1 unit Q6HR DAMIEN Administration Protocol Metoprolol Tartrate 2.5 mg 07/10/17 06:00 07/11/17 17:39 Lopressor Inj IVP 2.5 mg Q6HR DAMIEN Administration Pantoprazole Sodium 40 mg 07/10/17 09:00 07/11/17 09:27 Protonix IVP 40 mg BID DAMIEN Administration Sodium Chloride 10 ml 07/10/17 06:00 07/11/17 14:05 Normal Saline Flush 0.9% IVP 10 ml Q8HR DAMIEN Administration - Lab Result Lab results reviewed: Yes Fish Bone Diagrams: 07/11/17 04:51 07/11/17 11:20 - Additional Planning Condition/Complexity: Improved (He is much more alert and is following directions.) My Orders: My Active Orders 07/11/17 BMP - BASIC METABOLIC PANEL [CHEM] Stat 07/11/17 00:00 Insulin Regular Human [NovoLIN R] 1 - 5 unit SUBQ Q6HR 07/11/17 08:00 Dextrose 5%-0.45% NaCl [D5.45ns] 1,000 ml IV TKO Sodium Chloride 0.45% [Normal Saline 0.45%] 1,000 ml IV 175 mls/hr 07/11/17 09:21 Anesthesia Consult [CONS] Routine 07/11/17 10:00 Vancomycin Inj [Vancomycin] 0.75 gm Sodium Chloride 0.9% [Normal Saline 0.9%] 250 ml IV Q24H 07/11/17 10:37 CUL,CSF (AEROBIC) [RM] Stat 07/11/17 11:00 cefTRIAXone [Rocephin] 2 gm Sodium Chloride 0.9% Minibag [Normal Saline 0.9% Minibag] 100 ml IV BID 07/11/17 12:00 Ampicillin 2 gm Sodium Chloride 0.9% Minibag [Normal Saline 0.9% Minibag] 100 ml IV Q6HR 07/11/17 14:00 Acyclovir Inj [Zovirax Inj] 500 mg Sodium Chloride 0.9% [Normal Saline 0.9%] 250 ml IV TID 07/11/17 Breakfast DIET [Carb-controlled Diet] [DIET] 07/12/17 05:00 CBC - COMP BLD CT W/AUTO DIFF [HEME] Routine CMP [COMPREHENSIVE METABOLIC PANEL] [CHEM] Routine Subjective - Subjective Patient Reports: Feeling Better, No Complaints Objective Vital Signs: Vital Signs - 24 hr 07/10/17 07/10/17 07/11/17 22:00 22:55 00:00 Temperature 37.6 C H 37.9 C H Heart Rate [ 112 H 110 H 113 H Monitoring electrodes] Respiratory 22 17 16 Rate Blood Pressure Blood Pressure 136/61 H 147/73 H 139/62 H [Left Brachial artery] O2 Saturation 100 99 99 07/11/17 07/11/17 07/11/17 00:10 01:00 02:00 Temperature Heart Rate [ 101 H 109 H Monitoring electrodes] Respiratory 15 23 Rate Blood Pressure 139/62 H Blood Pressure 120/57 L 146/65 H [Left Brachial artery] O2 Saturation 100 100 07/11/17 07/11/17 07/11/17 03:00 04:00 05:00 Temperature 37.4 C Heart Rate [ 108 H 104 H 105 H Monitoring electrodes] Respiratory 19 22 21 Rate Blood Pressure Blood Pressure 129/86 H 123/55 L 114/55 L [Left Brachial artery] O2 Saturation 98 99 99 07/11/17 07/11/17 07/11/17 06:00 06:19 06:58 Temperature 37.4 C Heart Rate [ 103 H 101 H Monitoring electrodes] Respiratory 23 18 Rate Blood Pressure 136/57 H Blood Pressure 136/57 H 130/59 L [Left Brachial artery] O2 Saturation 100 100 07/11/17 07/11/17 07/11/17 07:30 08:00 09:00 Temperature 37.2 C 37.2 C 37 C Heart Rate [ 98 98 96 Monitoring electrodes] Respiratory 19 21 20 Rate Blood Pressure Blood Pressure 145/68 H 119/64 161/72 H [Left Brachial artery] O2 Saturation 99 98 100 07/11/17 07/11/17 07/11/17 10:00 11:00 11:47 Temperature 37.0 C 36.9 C Heart Rate [ 101 H 94 Monitoring electrodes] Respiratory 13 20 Rate Blood Pressure 179/81 H Blood Pressure 166/65 H 160/66 H [Left Brachial artery] O2 Saturation 100 100 07/11/17 07/11/17 07/11/17 12:00 13:00 14:00 Temperature 37.4 C 37.4 C Heart Rate [ 95 94 98 Monitoring electrodes] Respiratory 26 H 21 25 H Rate Blood Pressure Blood Pressure 171/70 H 168/74 H 162/77 H [Left Brachial artery] O2 Saturation 100 100 100 07/11/17 07/11/17 07/11/17 15:00 16:00 17:00 Temperature 37.3 C 37 C Heart Rate [ 97 106 H 104 H Monitoring electrodes] Respiratory 16 16 26 H Rate Blood Pressure Blood Pressure 171/87 H 167/66 H 174/65 H [Left Brachial artery] O2 Saturation 100 100 100 07/11/17 07/11/17 07/11/17 17:39 18:00 19:48 Temperature 37.2 C 36.9 C Heart Rate [ 98 97 Monitoring electrodes] Respiratory 12 19 Rate Blood Pressure 174/65 H Blood Pressure 159/88 H [Left Brachial artery] O2 Saturation 99 100 07/11/17 07/11/17 20:00 21:00 Temperature Heart Rate [ 102 H 105 H Monitoring electrodes] Respiratory 19 22 Rate Blood Pressure Blood Pressure 184/78 H 183/79 H [Left Brachial artery] O2 Saturation 100 100 Oxygen O2 Source Room air I&O (Last 24 Hrs): Intake and Output Totals x24h 07/09/17 07/10/17 07/11/17 23:59 23:59 23:59 Intake Total 3513.333 5453.999 Output Total 1415 3131 Balance 2098.333 2322.999 General: Alert, No acute distress, Other (Oriented to person and place. He is following directions.) HEENT: Atraumatic, PERRLA, EOMI Neck: Supple Neuro: Alert, CN 2-12 Grossly Intact Cardiovascular: Regular rate, Normal S1, Normal S2 Respiratory: Chest non-tender, No respiratory distress, Breath sounds nml Abdomen: Normal bowel sounds, Soft, No tenderness Extremities: No edema - Results Results: Laboratory Results WBC 31.8 x10^3/uL (4.8-10.8) H 07/11/17 04:51 RBC 4.27 10^6/uL (4.70-6.10) L 07/11/17 04:51 Hgb 12.0 g/dL (14.0-18.0) L 07/11/17 04:51 Hct 36.6 % (42.0-52.0) L 07/11/17 04:51 MCV 85.8 fL (80.0-94.0) 07/11/17 04:51 MCH 28.1 pg (27.0-31.0) 07/11/17 04:51 MCHC 32.7 g/dL (32.0-36.0) 07/11/17 04:51 RDW 15.0 % (12.0-15.0) 07/11/17 04:51 Plt Count 326 10^3/uL (130-450) 07/11/17 04:51 MPV 7.8 fL (7.4-11.4) 07/11/17 04:51 Neut # Not Reportable 07/11/17 04:51 Lymph # Not Reportable 07/11/17 04:51 [place] # Not Reportable 07/11/17 04:51 Eos # Not Reportable 07/11/17 04:51 Baso # Not Reportable 07/11/17 04:51 Absolute Nucleated RBC Not Reportable 07/11/17 04:51 Total Counted 100 07/11/17 04:51 Band Neuts % (Manual) 8 % (0-10) 07/11/17 04:51 Nucleated RBC % Not Reportable 07/11/17 04:51 Neutrophils # (Manual) 28.0 10^3/uL (1.5-6.6) H 07/11/17 04:51 Lymphocytes # (Manual) 2.2 10^3/uL (1.5-3.5) 07/11/17 04:51 Monocytes # (Manual) 1.6 10^3/uL (0.0-1.0) H 07/11/17 04:51 Differential Comment MANUAL DIFFERENTIAL 07/11/17 04:51 Platelet Estimate NORMAL (130-450,000) (NORMAL) 07/11/17 04:51 RBC Morph Micro Appear NORMAL APPEARANCE (NORMAL) 07/11/17 04:51 VBG pH 7.071 (7.31-7.41) L 07/10/17 03:30 VBG pCO2 25.1 mmHg (41-51) L 07/10/17 03:30 VBG pO2 63.0 mmHg (25-47) H 07/10/17 03:30 VBG HCO3 7.1 mmol/L (23-28) L 07/10/17 03:30 VBG Total CO2 7.9 mmol/L (24-29) L 07/10/17 03:30 VBG O2 Saturation 85.6 % (60-80) H 07/10/17 03:30 VBG Base Excess -21.5 mmol/L (-2 - +2) L 07/10/17 03:30 Sodium 148 mmol/L (135-145) H 07/11/17 11:20 Potassium 3.3 mmol/L (3.5-5.0) L 07/11/17 11:20 Chloride 114 mmol/L (101-111) H 07/11/17 11:20 Carbon Dioxide 26 mmol/L (21-32) 07/11/17 11:20 Anion Gap 8.0 (6-13) 07/11/17 11:20 BUN 30 mg/dL (6-20) H 07/11/17 11:20 Creatinine 1.0 mg/dL (0.6-1.2) 07/11/17 11:20 Estimated GFR (MDRD) 76 (>89) L 07/11/17 11:20 Glucose 96 mg/dL (70-100) 07/11/17 11:20 POC Whole Bld Glucose 169 mg/dL (70 - 100) H 07/11/17 17:58 Glycated Hemoglobin 10.4 % (4.6-6.2) H 07/10/17 06:13 Estim Average Glucose 252 (70-100) H 07/10/17 06:13 Lactic Acid 2.3 mmol/L (0.5-2.2) H 07/11/17 04:51 Calcium 8.7 mg/dL (8.5-10.3) 07/11/17 11:20 Magnesium 2.6 mg/dL (1.7-2.8) 07/10/17 07:41 Total Bilirubin 0.4 mg/dL (0.2-1.0) 07/11/17 04:51 AST 26 IU/L (10-42) 07/11/17 04:51 ALT 21 IU/L (10-60) 07/11/17 04:51 Alkaline Phosphatase 101 IU/L (42-121) 07/11/17 04:51 Troponin I 0.06 ng/mL (<0.49) 07/10/17 15:26 B-Natriuretic Peptide 154 pg/mL (5-100) H 07/10/17 08:27 Total Protein 5.5 g/dL (6.7-8.2) L 07/11/17 04:51 Albumin 2.8 g/dL (3.2-5.5) L 07/11/17 04:51 Globulin 2.7 g/dL (2.1-4.2) 07/11/17 04:51 Albumin/Globulin Ratio 1.0 (1.0-2.2) 07/11/17 04:51 Urine Color YELLOW 07/10/17 00:35 Urine Clarity CLEAR (CLEAR) 07/10/17 00:35 Urine pH 5.5 PH (5.0-7.5) 07/10/17 00:35 Ur Specific [place] 1.020 (1.002-1.030) 07/10/17 00:35 Urine Protein NEGATIVE mg/dL (NEGATIVE) 07/10/17 00:35 Urine Glucose (UA) >=1000 mg/dL (NEGATIVE) H 07/10/17 00:35 Urine Ketones 40 mg/dL (NEGATIVE) H 07/10/17 00:35 Urine Occult Blood NEGATIVE (NEGATIVE) 07/10/17 00:35 Urine Nitrite NEGATIVE (NEGATIVE) 07/10/17 00:35 Urine Bilirubin NEGATIVE (NEGATIVE) 07/10/17 00:35 Urine Urobilinogen 0.2 (NORMAL) E.U./dL (NORMAL) 07/10/17 00:35 Ur Leukocyte Esterase NEGATIVE (NEGATIVE) 07/10/17 00:35 Ur Microscopic Review NOT INDICATED 07/10/17 00:35 Urine Culture Comments NOT INDICATED 07/10/17 00:35 CSF Color COLORLESS (COLORLESS) 07/11/17 10:53 CSF Clarity CLEAR (CLEAR) 07/11/17 10:53 Xanthrochromic Not Reportable 07/11/17 10:53 CSF WBC 0 /mm^3 (0-5) 07/11/17 10:53 CSF RBC 5 /mm^3 (0-1) H 07/11/17 10:53 CSF Cell Count Tube # CSF TUBE# 3 07/11/17 10:53 CSF Glucose 131 mg/dL (45-70) H 07/11/17 10:53 CSF Total Protein 74 mg/dL (15-45) H 07/11/17 10:53 Serum Ketones SMALL (NEGATIVE) H 07/10/17 19:26
[2017-07-11] MEDS: INSULIN GLARGINE 300 UNIT/3 ML PEN SUBQ SCH (21:11)
[2017-07-11 21:41] LABS: CALCIUM 7.8 mg/dL (8.5-10.3); CREATININE 0.7 mg/dL (0.6-1.2)
[2017-07-11 21:42] LABS: POTASSIUM 2.4 mmol/L (3.5-5.0)
[2017-07-11] MEDS ORDERED: POTASSIUM CHLORIDE 20 MEQ/15 ML UDC ONE (22:07)
[2017-07-11] MEDS: LISINOPRIL 5 MG TABLET PO SCH (22:13)
[2017-07-11] MEDS: LEVOTHYROXINE 25 MCG TABLET PO SCH (22:13)
[2017-07-11] MEDS: SPIRONOLACTONE 25 MG TABLET PO SCH (22:14)
[2017-07-11] MEDS: POTASSIUM CHLORIDE 20 MEQ/15 ML UDC PO SCH (22:19)
[2017-07-11] MEDS: ATORVASTATIN 40 MG TABLET PO SCH (22:19)
[2017-07-11] MEDS ORDERED: POTASSIUM CHLORIDE 20 MEQ TABLET PO SCH (22:30)
[2017-07-11] MEDS ORDERED: POTASSIUM CHLORIDE 20 MEQ TABLET PO ONE (22:39)
[2017-07-11] MEDS ORDERED: A & D OINTMENT 5 GM PACKET TOP PRN (23:24)
[2017-07-12] MEDS: POTASSIUM CHLORIDE 20 MEQ/15 ML UDC PO SCH ×2 (00:45→03:32)
[2017-07-12] MEDS: SODIUM CHLORIDE 0.45% 1,000 ML IV SCH ×4 (01:33→18:50)
[2017-07-12] MEDS: ZINC OXIDE 20% OINT 28.35 GM TUBE TOP PRN ×2 (01:34→04:18)
[2017-07-12] MEDS: ACETAMINOPHEN 325 MG TABLET PO PRN ×3 (01:56→14:00)
[2017-07-12] MEDS ORDERED: MAGNESIUM SULFATE 2 GRAM 2 GM/50 ML BAG IV ONE (03:17)
[2017-07-12] MEDS ORDERED: POTASSIUM CHLORIDE 20 MEQ TABLET PO ONE (03:18)
[2017-07-12] MEDS ORDERED: SODIUM CHLORIDE 0.9% 250 ML IV ONE (03:45)
[2017-07-12] MEDS: POTASSIUM PHOSPHATE 15 MMOL in SODIUM CHLORIDE 0.9% 250 ML IV SCH ×2 (03:54→08:17)
[2017-07-12] MEDS: ACYCLOVIR INJ 500 MG in SODIUM CHLORIDE 0.9% 250 ML IV SCH ×2 (05:18→14:02)
[2017-07-12 05:22] LABS: BASOPHILS # (AUTO) 0.1 10^3/uL (0.0-0.1); BASOPHILS % (AUTO) 0.7 %; HCT - HEMATOCRIT 30.9 % (42.0-52.0); HGB - HEMOGLOBIN 10.3 g/dL (14.0-18.0); LYMPHOCYTES # (AUTO) 1.3 10^3/uL (1.5-3.5); LYMPHOCYTES % (AUTO) 7.3 %; MEAN CORPUSCULAR HEMOGLOBIN 28.3 pg (27.0-31.0); MEAN CORPUSCULAR HGB CONC 33.4 g/dL (32.0-36.0); MEAN CORPUSCULAR VOLUME 84.7 fL (80.0-94.0); MEAN PLATELET VOLUME 8.2 fL (7.4-11.4); MONOCYTES # (AUTO) 0.8 10^3/uL (0.0-1.0); MONOCYTES % (AUTO) 4.7 %; NEUTROPHILS # (AUTO) 15.5 10^3/uL (1.5-6.6); NEUTROPHILS % (AUTO) 87.3 %; RED BLOOD COUNT 3.64 10^6/uL (4.70-6.10); RED CELL DISTRIBUTION WIDTH 15.3 % (12.0-15.0); UNCORRECTED WHITE BLOOD COUNT 17.8 x10^3/uL; WHITE BLOOD COUNT 17.8 x10^3/uL (4.8-10.8)
[2017-07-12] MEDS: SODIUM CHLORIDE FLUSH 0.9% 10 ML SYRINGE IVP SCH ×3 (05:22→22:14)
[2017-07-12 05:54] LABS: ALBUMIN/GLOBULIN RATIO 1.1 (1.0-2.2); BILIRUBIN,TOTAL 0.4 mg/dL (0.2-1.0); BUN - BLOOD UREA NITROGEN 11 mg/dL (6-20); CALCIUM 7.9 mg/dL (8.5-10.3); CARBON DIOXIDE - CO2 24 mmol/L (21-32); CHLORIDE 104 mmol/L (101-111); CREATININE 0.6 mg/dL (0.6-1.2); GFR - MDRD 137 (>89); GLUCOSE 167 mg/dL (70-100); MAGNESIUM 2.1 mg/dL (1.7-2.8); POTASSIUM 4.1 mmol/L (3.5-5.0); SODIUM 139 mmol/L (135-145); TOTAL PROTEIN 5.5 g/dL (6.7-8.2)
[2017-07-12 05:55] LABS: PHOSPHORUS < 1.0 mg/dL (2.5-4.6)
[2017-07-12] MEDS: LEVOTHYROXINE 25 MCG TABLET PO SCH (06:22)
[2017-07-12] MEDS: AMPICILLIN 2 GM in SODIUM CHLORIDE 0.9% MINIBAG 100 ML IV SCH ×3 (06:22→18:17)
[2017-07-12] MEDS ORDERED: SODIUM PHOSPHATE 20 MMOL in SODIUM CHLORIDE 0.9% 250 ML IV ONE (07:24)
[2017-07-12] MEDS: INSULIN ASPART 300 UNIT/3 ML PEN SUBQ SCH ×4 (07:58→20:54)
[2017-07-12] MEDS ORDERED: INSULIN ASPART 300 UNIT/3 ML PEN SUBQ SCH (08:00)
--- NOTE | 2017-07-12 08:56 | PROVIDER PROGRESS NOTE ---
Assessment/Plan - Problem List (1) Diabetic ketoacidosis Qualifiers: Diabetes mellitus type: type 1 Assessment/Plan: resolved (2) Sepsis Assessment/Plan: improved on IV Rocephin, IV ampicillin, IV Vancomycin and IV Acyclovir (3) Hypotension Assessment/Plan: resolved on IV fluids (4) Chronic renal disease, stage 3, moderately decreased glomerular filtration rate (GFR) between 30-59 mL/min/1.73 square meter Assessment/Plan: will continue to monitor (5) Ischemic cardiomyopathy Assessment/Plan: with recent NH 2 months ago (EF then was 30%) (7) Hypothyroidism Assessment/Plan: improved. He is now oriented to person, place, and time. He is following directions. (8) Hyperlipidemia Assessment/Plan: on atorvastatin (9) Essential (primary) hypertension Assessment/Plan: 0n lisinopril and metoprolol succinate - Current Meds Current Meds: Current Medications Generic Name Dose Route Start Last Admin Trade Name Freq PRN Reason Stop Dose Admin Acetaminophen 650 mg 07/10/17 02:42 07/12/17 01:56 Tylenol PO 650 mg Q4HR PRN Administration Pain 1 to 4 Atorvastatin Calcium 40 mg 07/11/17 22:00 07/11/17 22:19 Lipitor PO 40 mg QPM DAMIEN Administration Heparin Sodium (Porcine) 5,000 unit 07/10/17 09:00 07/11/17 21:10 SUBQ 5,000 unit BID DAMIEN Administration Vancomycin HCl 0.75 gm/ Sodium 250 mls @ 167 mls/hr 07/11/17 10:00 07/11/17 11:40 Chloride IV Infused Q24H DAMIEN Infusion Sodium Chloride 1,000 mls @ 175 mls/hr 07/11/17 08:00 07/12/17 07:01 Normal Saline 0.45% IV 175 mls/hr .Q5H43M DAMIEN Administration Dextrose/Sodium Chloride 1,000 mls @ 0 mls/hr 07/11/17 08:00 07/11/17 18:00 D5.45ns IV 40 mls/hr .Q0M DAMIEN Infusion TKO Ceftriaxone Sodium 2 gm/ 100 mls @ 200 mls/hr 07/11/17 11:00 07/11/17 21:41 Sodium Chloride IV Infused BID DAMIEN Infusion Ampicillin Sodium 2 gm/ Sodium 100 mls @ 100 mls/hr 07/11/17 12:00 07/12/17 07:22 Chloride IV Infused Q6HR [facility] Infusion Acyclovir 500 mg/ Sodium 260 mls @ 250 mls/hr 07/11/17 14:00 07/12/17 06:29 Chloride IV Infused TID [facility] Infusion Potassium Phosphate 15 mmol/ 255 mls @ 63 mls/hr 07/12/17 04:00 07/12/17 08: 17 Sodium Chloride IV 07/12/17 11:59 63 mls/hr Q4H DAMIEN Administration Insulin Aspart 1 - 5 unit 07/12/17 08:00 07/12/17 07:58 Novolog SUBQ Not Given 0800,1200,1700,2100 [facility] Protocol Insulin Glargine 23 unit 07/10/17 20:00 07/11/17 21:11 Lantus Solostar SUBQ 23 unit QPM DAMIEN Administration Levothyroxine Sodium 50 mcg 07/11/17 22:00 07/12/17 06:22 Synthroid PO 50 mcg QDAC DAMIEN Administration Lisinopril 2.5 mg 07/11/17 22:00 07/11/17 22:13 Zestril PO 2.5 mg DAILY DAMIEN Administration Multi-Ingredient Ointment 1 applic 07/11/17 23:24 07/12/17 04:18 Zinc Oxide TOP 1 applic PRN PRN Administration Skin Care Pantoprazole Sodium 40 mg 07/10/17 09:00 07/11/17 21:13 Protonix IVP 40 mg BID DAMIEN Administration Sodium Chloride 10 ml 07/10/17 06:00 07/12/17 05:22 Normal Saline Flush 0.9% IVP Not Given Q8HR [facility] Spironolactone 12.5 mg 07/11/17 22:00 07/11/17 22:14 Aldactone PO 12.5 mg DAILY DAMIEN Administration Vitamin A/Vitamin D 1 applic 07/11/17 23:24 07/11/17 23:45 Vitamin A & D Ointment TOP 1 applic PRN PRN Administration Skin Care - Lab Result Lab results reviewed: Yes Fish Bone Diagrams: 07/12/17 04:45 07/12/17 04:45 - Additional Planning Condition/Complexity: Improved (The patient is alert and oriented to person, place, and time. He is following orders. He is able to take his oral medications. He will be encouraged to eat. He will need PT. He is still lethargic.) My Orders: My Active Orders 07/11/17 08:00 Dextrose 5%-0.45% NaCl [D5.45ns] 1,000 ml IV TKO Sodium Chloride 0.45% [Normal Saline 0.45%] 1,000 ml IV 175 mls/hr 07/11/17 09:21 Anesthesia Consult [CONS] Routine 07/11/17 10:00 Vancomycin Inj [Vancomycin] 0.75 gm Sodium Chloride 0.9% [Normal Saline 0.9%] 250 ml IV Q24H 07/11/17 10:37 CUL,CSF (AEROBIC) [RM] Stat 07/11/17 11:00 cefTRIAXone [Rocephin] 2 gm Sodium Chloride 0.9% Minibag [Normal Saline 0.9% Minibag] 100 ml IV BID 07/11/17 12:00 Ampicillin 2 gm Sodium Chloride 0.9% Minibag [Normal Saline 0.9% Minibag] 100 ml IV Q6HR 07/11/17 14:00 Acyclovir Inj [Zovirax Inj] 500 mg Sodium Chloride 0.9% [Normal Saline 0.9%] 250 ml IV TID 07/11/17 21:22 Blood Glucose Checks - Eating [RC] 0800,1200,1700,2100 Blood Glucose Checks - Eating [RC] 0800,1200,1700,2100 Initiate Hypoglycemia Protocol [RC] .protocol 07/11/17 22:00 Atorvastatin [Lipitor] 40 mg PO QPM Levothyroxine [Synthroid] 50 mcg PO QDAC Lisinopril [Zestril] 2.5 mg PO DAILY Spironolactone [Aldactone] 12.5 mg PO DAILY 07/12/17 09:00 Aspirin [Maria De Jesus] 325 mg PO DAILY Metoprolol Succinate [Toprol Xl] 25 mg PO BID 07/12/17 Breakfast DIET [Carb-controlled Diet] [DIET] 07/13/17 05:00 CBC - COMP BLD CT W/AUTO DIFF [HEME] Routine Time Spent: 15-30 minutes Subjective - Subjective Patient Reports: Feeling Better, No Complaints, Fatigue, Other (He is improved. He is oriented to person, place, and time. He follows commands. He will be encouraged to eat. He will get PT today.) Objective Vital Signs: Vital Signs - 24 hr 07/11/17 07/11/17 07/11/17 09:00 10:00 11:00 Temperature 37 C 37.0 C 36.9 C Heart Rate [ 96 101 H 94 Monitoring electrodes] Respiratory 20 13 20 Rate Blood Pressure Blood Pressure 161/72 H 166/65 H 160/66 H [Left Brachial artery] O2 Saturation 100 100 100 07/11/17 07/11/17 07/11/17 11:47 12:00 13:00 Temperature 37.4 C Heart Rate [ 95 94 Monitoring electrodes] Respiratory 26 H 21 Rate Blood Pressure 179/81 H Blood Pressure 171/70 H 168/74 H [Left Brachial artery] O2 Saturation 100 100 07/11/17 07/11/17 07/11/17 14:00 15:00 16:00 Temperature 37.4 C 37.3 C 37 C Heart Rate [ 98 97 106 H Monitoring electrodes] Respiratory 25 H 16 16 Rate Blood Pressure Blood Pressure 162/77 H 171/87 H 167/66 H [Left Brachial artery] O2 Saturation 100 100 100 07/11/17 07/11/17 07/11/17 17:00 17:39 18:00 Temperature 37.2 C Heart Rate [ 104 H 98 Monitoring electrodes] Respiratory 26 H 12 Rate Blood Pressure 174/65 H Blood Pressure 174/65 H 159/88 H [Left Brachial artery] O2 Saturation 100 99 07/11/17 07/11/17 07/11/17 19:48 20:00 21:00 Temperature 36.9 C Heart Rate [ 97 102 H 105 H Monitoring electrodes] Respiratory 19 19 22 Rate Blood Pressure Blood Pressure 184/78 H 183/79 H [Left Brachial artery] O2 Saturation 100 100 100 07/11/17 07/11/17 07/12/17 22:08 23:00 00:00 Temperature 37.1 C Heart Rate [ 94 111 H 109 H Monitoring electrodes] Respiratory 23 22 17 Rate Blood Pressure Blood Pressure 155/78 H 167/94 H 93/80 [Left Brachial artery] O2 Saturation 100 99 100 07/12/17 07/12/17 07/12/17 01:00 02:00 03:00 Temperature Heart Rate [ 113 H 121 H 112 H Monitoring electrodes] Respiratory 15 14 22 Rate Blood Pressure Blood Pressure 125/56 L 168/69 H 119/64 [Left Brachial artery] O2 Saturation 100 100 100 07/12/17 07/12/17 07/12/17 04:19 05:04 06:09 Temperature 37.3 C Heart Rate [ 103 H 104 H 122 H Monitoring electrodes] Respiratory 25 H 14 27 H Rate Blood Pressure Blood Pressure 131/76 H 127/61 116/92 H [Left Brachial artery] O2 Saturation 100 99 99 07/12/17 07/12/17 07:00 08:00 Temperature 36.8 C Heart Rate [ 102 H 102 H Monitoring electrodes] Respiratory 19 18 Rate Blood Pressure Blood Pressure 107/77 136/80 H [Left Brachial artery] O2 Saturation 99 100 Oxygen O2 Source Room air I&O (Last 24 Hrs): Intake and Output Totals x24h 07/10/17 07/11/17 07/12/17 23:59 23:59 23:59 Intake Total 3513.333 6593.999 2365 Output Total 1415 3636 1717 Balance 2098.333 2957.999 648 General: Alert, Oriented x3, Cooperative, Mild distress HEENT: Atraumatic, PERRLA, EOMI Neck: Supple Neuro: Alert, CN 2-12 Grossly Intact, Oriented Times 3 Cardiovascular: Regular rate, Normal S1, Normal S2 Respiratory: Chest non-tender, No respiratory distress, Breath sounds nml Abdomen: Normal bowel sounds, Soft, No tenderness Extremities: No edema - Results Results: Laboratory Results WBC 17.8 x10^3/uL (4.8-10.8) H 07/12/17 04:45 RBC 3.64 10^6/uL (4.70-6.10) L 07/12/17 04:45 Hgb 10.3 g/dL (14.0-18.0) L 07/12/17 04:45 Hct 30.9 % (42.0-52.0) L 07/12/17 04:45 MCV 84.7 fL (80.0-94.0) 07/12/17 04:45 MCH 28.3 pg (27.0-31.0) 07/12/17 04:45 MCHC 33.4 g/dL (32.0-36.0) 07/12/17 04:45 RDW 15.3 % (12.0-15.0) H 07/12/17 04:45 Plt Count 235 10^3/uL (130-450) 07/12/17 04:45 MPV 8.2 fL (7.4-11.4) 07/12/17 04:45 Neut # 15.5 10^3/uL (1.5-6.6) H 07/12/17 04:45 Lymph # 1.3 10^3/uL (1.5-3.5) L 07/12/17 04:45 Carbon # 0.8 10^3/uL (0.0-1.0) 07/12/17 04:45 Eos # 0.0 10^3/uL (0.0-0.7) 07/12/17 04:45 Baso # 0.1 10^3/uL (0.0-0.1) 07/12/17 04:45 Absolute Nucleated RBC 0.00 x10^3/uL 07/12/17 04:45 Total Counted 100 07/11/17 04:51 Band Neuts % (Manual) 8 % (0-10) 07/11/17 04:51 Nucleated RBC % 0.0 /100WBC 07/12/17 04:45 Neutrophils # (Manual) 28.0 10^3/uL (1.5-6.6) H 07/11/17 04:51 Lymphocytes # (Manual) 2.2 10^3/uL (1.5-3.5) 07/11/17 04:51 Monocytes # (Manual) 1.6 10^3/uL (0.0-1.0) H 07/11/17 04:51 Differential Comment MANUAL DIFFERENTIAL 07/11/17 04:51 Platelet Estimate NORMAL (130-450,000) (NORMAL) 07/11/17 04:51 RBC Morph Micro Appear NORMAL APPEARANCE (NORMAL) 07/11/17 04:51 VBG pH 7.071 (7.31-7.41) L 07/10/17 03:30 VBG pCO2 25.1 mmHg (41-51) L 07/10/17 03:30 VBG pO2 63.0 mmHg (25-47) H 07/10/17 03:30 VBG HCO3 7.1 mmol/L (23-28) L 07/10/17 03:30 VBG Total CO2 7.9 mmol/L (24-29) L 07/10/17 03:30 VBG O2 Saturation 85.6 % (60-80) H 07/10/17 03:30 VBG Base Excess -21.5 mmol/L (-2 - +2) L 07/10/17 03:30 Sodium 139 mmol/L (135-145) 07/12/17 04:45 Potassium 4.1 mmol/L (3.5-5.0) 07/12/17 04:45 Chloride 104 mmol/L (101-111) 07/12/17 04:45 Carbon Dioxide 24 mmol/L (21-32) 07/12/17 04:45 Anion Gap 11.0 (6-13) 07/12/17 04:45 BUN 11 mg/dL (6-20) 07/12/17 04:45 Creatinine 0.6 mg/dL (0.6-1.2) 07/12/17 04:45 Estimated GFR (MDRD) 137 (>89) 07/12/17 04:45 Glucose 167 mg/dL (70-100) H 07/12/17 04:45 POC Whole Bld Glucose 137 mg/dL (70 - 100) H 07/12/17 07:54 Glycated Hemoglobin 10.4 % (4.6-6.2) H 07/10/17 06:13 Estim Average Glucose 252 (70-100) H 07/10/17 06:13 Lactic Acid 2.3 mmol/L (0.5-2.2) H 07/11/17 04:51 Calcium 7.9 mg/dL (8.5-10.3) L 07/12/17 04:45 Phosphorus < 1.0 mg/dL (2.5-4.6) L* 07/12/17 04:45 Magnesium 2.1 mg/dL (1.7-2.8) 07/12/17 04:45 Total Bilirubin 0.4 mg/dL (0.2-1.0) 07/12/17 04:45 AST 27 IU/L (10-42) 07/12/17 04:45 ALT 20 IU/L (10-60) 07/12/17 04:45 Alkaline Phosphatase 96 IU/L (42-121) 07/12/17 04:45 Troponin I 0.06 ng/mL (<0.49) 07/10/17 15:26 B-Natriuretic Peptide 154 pg/mL (5-100) H 07/10/17 08:27 Total Protein 5.5 g/dL (6.7-8.2) L 07/12/17 04:45 Albumin 2.9 g/dL (3.2-5.5) L 07/12/17 04:45 Globulin 2.6 g/dL (2.1-4.2) 07/12/17 04:45 Albumin/Globulin Ratio 1.1 (1.0-2.2) 07/12/17 04:45 Urine Color YELLOW 07/10/17 00:35 Urine Clarity CLEAR (CLEAR) 07/10/17 00:35 Urine pH 5.5 PH (5.0-7.5) 07/10/17 00:35 Ur Specific [place] 1.020 (1.002-1.030) 07/10/17 00:35 Urine Protein NEGATIVE mg/dL (NEGATIVE) 07/10/17 00:35 Urine Glucose (UA) >=1000 mg/dL (NEGATIVE) H 07/10/17 00:35 Urine Ketones 40 mg/dL (NEGATIVE) H 07/10/17 00:35 Urine Occult Blood NEGATIVE (NEGATIVE) 07/10/17 00:35 Urine Nitrite NEGATIVE (NEGATIVE) 07/10/17 00:35 Urine Bilirubin NEGATIVE (NEGATIVE) 07/10/17 00:35 Urine Urobilinogen 0.2 (NORMAL) E.U./dL (NORMAL) 07/10/17 00:35 Ur Leukocyte Esterase NEGATIVE (NEGATIVE) 07/10/17 00:35 Ur Microscopic Review NOT INDICATED 07/10/17 00:35 Urine Culture Comments NOT INDICATED 07/10/17 00:35 CSF Color COLORLESS (COLORLESS) 07/11/17 10:53 CSF Clarity CLEAR (CLEAR) 07/11/17 10:53 Xanthrochromic Not Reportable 07/11/17 10:53 CSF WBC 0 /mm^3 (0-5) 07/11/17 10:53 CSF RBC 5 /mm^3 (0-1) H 07/11/17 10:53 CSF Cell Count Tube # CSF TUBE# 3 07/11/17 10:53 CSF Glucose 131 mg/dL (45-70) H 07/11/17 10:53 CSF Total Protein 74 mg/dL (15-45) H 07/11/17 10:53 Serum Ketones SMALL (NEGATIVE) H 07/10/17 19:26
[2017-07-12] MEDS: cefTRIAXone 2 GM in SODIUM CHLORIDE 0.9% MINIBAG 100 ML IV SCH ×2 (09:00→20:48)
[2017-07-12] MEDS: SPIRONOLACTONE 25 MG TABLET PO SCH (09:02)
[2017-07-12] MEDS: ASPIRIN 325 MG TABLET PO SCH (09:03)
[2017-07-12] MEDS: LISINOPRIL 5 MG TABLET PO SCH (09:03)
[2017-07-12] MEDS: METOPROLOL SUCCINATE 25 MG TABLET PO SCH ×2 (09:03→20:50)
[2017-07-12] MEDS: PANTOPRAZOLE 40 MG VIAL IVP SCH (09:04)
[2017-07-12] MEDS: HEPARIN 5,000 UNIT/ML VIAL SUBQ SCH ×2 (09:04→20:50)
[2017-07-12] MEDS ORDERED: SENNA 8.6 MG TABLET ONE (09:12)
[2017-07-12] MEDS ORDERED: DOCUSATE SODIUM 250 MG CAPSULE PO ONE (09:12)
[2017-07-12] MEDS: POLYETHYLENE GLYCOL 3350 17 GM PACKET PO SCH (09:18)
[2017-07-12] MEDS: SENNA 8.6 MG TABLET PO SCH (09:19)
[2017-07-12] MEDS: DOCUSATE SODIUM 250 MG CAPSULE PO SCH (09:19)
[2017-07-12] MEDS: VANCOMYCIN INJ 0.75 GM in SODIUM CHLORIDE 0.9% 250 ML IV SCH (10:27)
[2017-07-12] MEDS ORDERED: SODIUM CHLORIDE 0.45% 1,000 ML IV ONE (12:56)
[2017-07-12] MEDS: MORPHINE 2 MG/ML SYRINGE IVP PRN ×2 (15:53→19:37)
[2017-07-12] MEDS ORDERED: clonazePAM 0.5 MG TABLET PO PRN (16:21)
[2017-07-12] MEDS: NEUTRA-PHOS 250 MG TABLET PO SCH ×2 (17:10→19:37)
[2017-07-12] MEDS: ATORVASTATIN 40 MG TABLET PO SCH (20:50)
[2017-07-12] MEDS: INSULIN GLARGINE 300 UNIT/3 ML PEN SUBQ SCH (20:55)
[2017-07-13] MEDS: AMPICILLIN 2 GM in SODIUM CHLORIDE 0.9% MINIBAG 100 ML IV SCH ×4 (00:15→18:28)
[2017-07-13] MEDS: SODIUM CHLORIDE FLUSH 0.9% 10 ML SYRINGE IVP PRN (00:15)
[2017-07-13] MEDS: ACETAMINOPHEN 325 MG TABLET PO PRN ×2 (00:26→18:25)
[2017-07-13] MEDS: MORPHINE 2 MG/ML SYRINGE IVP PRN ×2 (00:26→04:33)
[2017-07-13] MEDS ORDERED: CARBOXYMETHYLCELLULOSE OPHTH DROPS EACHEYE PRN (01:49)
[2017-07-13] MEDS ORDERED: CARBOXYMETHYLCELLULOSE OPHTH DROPS ONE (01:57)
[2017-07-13 05:47] LABS: BASOPHILS % (AUTO) 0.6 %; EOSINOPHILS % (AUTO) 0.4 %; HCT - HEMATOCRIT 31.1 % (42.0-52.0); HGB - HEMOGLOBIN 10.5 g/dL (14.0-18.0); LYMPHOCYTES # (AUTO) 1.7 10^3/uL (1.5-3.5); LYMPHOCYTES % (AUTO) 21.6 %; MEAN CORPUSCULAR HEMOGLOBIN 28.3 pg (27.0-31.0); MEAN CORPUSCULAR HGB CONC 33.7 g/dL (32.0-36.0); MEAN PLATELET VOLUME 8.3 fL (7.4-11.4); MONOCYTES # (AUTO) 0.5 10^3/uL (0.0-1.0); MONOCYTES % (AUTO) 6.4 %; NEUTROPHILS # (AUTO) 5.6 10^3/uL (1.5-6.6); RED CELL DISTRIBUTION WIDTH 14.7 % (12.0-15.0); UNCORRECTED WHITE BLOOD COUNT 7.9 x10^3/uL; WHITE BLOOD COUNT 7.9 x10^3/uL (4.8-10.8)
[2017-07-13] MEDS: SODIUM CHLORIDE FLUSH 0.9% 10 ML SYRINGE IVP SCH ×3 (05:50→18:29)
[2017-07-13 06:03] LABS: MAGNESIUM 1.7 mg/dL (1.7-2.8)
[2017-07-13] MEDS ORDERED: MAGNESIUM SULFATE 2 GRAM 2 GM/50 ML BAG IV ONE (06:21)
[2017-07-13 06:39] LABS: ALBUMIN/GLOBULIN RATIO 1.2 (1.0-2.2); BILIRUBIN,TOTAL 0.4 mg/dL (0.2-1.0); BUN - BLOOD UREA NITROGEN 7 mg/dL (6-20); CALCIUM 7.7 mg/dL (8.5-10.3); CARBON DIOXIDE - CO2 26 mmol/L (21-32); CHLORIDE 100 mmol/L (101-111); CREATININE 0.4 mg/dL (0.6-1.2); GFR - MDRD 219 (>89); SODIUM 137 mmol/L (135-145); TOTAL PROTEIN 5.6 g/dL (6.7-8.2)
[2017-07-13 06:41] LABS: GLUCOSE 29 mg/dL (70-100); POTASSIUM 2.5 mmol/L (3.5-5.0)
[2017-07-13] MEDS ORDERED: DEXTROSE 50% ABBOJECT 25 GM/50 ML SYRINGE ONE (06:56)
[2017-07-13] MEDS ORDERED: DEXTROSE 5% 500 ML IV ONE (06:57)
[2017-07-13] MEDS: NEUTRA-PHOS 250 MG TABLET PO SCH ×2 (07:55→09:54)
[2017-07-13] MEDS: PANTOPRAZOLE 40 MG TABLET PO SCH (07:56)
[2017-07-13] MEDS: INSULIN ASPART 300 UNIT/3 ML PEN SUBQ SCH ×4 (07:57→21:11)
[2017-07-13] MEDS: POTASSIUM CHLOR 10 MEQ/100 ML 10 MEQ/100 ML BAG IV SCH ×4 (08:10→11:40)
[2017-07-13] MEDS ORDERED: SODIUM CHLORIDE 0.9% 250 ML IV ONE (08:30)
[2017-07-13] MEDS ORDERED: SODIUM CHLORIDE FLUSH 0.9% 10 ML SYRINGE IVP ONE (08:31)
[2017-07-13] MEDS: DOCUSATE SODIUM 250 MG CAPSULE PO SCH (08:41)
[2017-07-13] MEDS: cefTRIAXone 2 GM in SODIUM CHLORIDE 0.9% MINIBAG 100 ML IV SCH ×2 (08:41→21:14)
[2017-07-13] MEDS: ASPIRIN 325 MG TABLET PO SCH (08:41)
[2017-07-13] MEDS: SPIRONOLACTONE 25 MG TABLET PO SCH (09:05)
[2017-07-13] MEDS: LEVOTHYROXINE 25 MCG TABLET PO SCH (09:07)
[2017-07-13] MEDS: POLYETHYLENE GLYCOL 3350 17 GM PACKET PO SCH (09:08)
[2017-07-13] MEDS: LISINOPRIL 5 MG TABLET PO SCH (09:08)
[2017-07-13] MEDS: SENNA 8.6 MG TABLET PO SCH (09:08)
--- NOTE | 2017-07-13 09:13 | XRAY Report ---
FRONTAL CHEST: 07/13/2017 CLINICAL INDICATION: Fever, shortness of breath. COMPARISON: 07/10/2017 FINDINGS: Frontal view of the chest demonstrates a normal cardiac silhouette. The lungs remain lady r. No effusion or pneumothorax is present. 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 IMPRESSION: NO EVIDENCE OF ACUTE CARDIOPULMONARY DISEASE. JOB #: [id number] EXT JOB #:[id number]
[2017-07-13] MEDS: METOPROLOL SUCCINATE 25 MG TABLET PO SCH ×2 (09:40→21:15)
[2017-07-13] MEDS: HEPARIN 5,000 UNIT/ML VIAL SUBQ SCH ×2 (09:41→21:11)
[2017-07-13 09:47] LABS: VBG PH 7.421 (7.31-7.41)
[2017-07-13 09:48] LABS: CALCIUM, IONIZED 1.03 mmol/L (1.15-1.33)
[2017-07-13] MEDS: VANCOMYCIN INJ 1 GM in SODIUM CHLORIDE 0.9% 250 ML IV SCH ×2 (11:32→23:08)
[2017-07-13] MEDS ORDERED: INSULIN ASPART 300 UNIT/3 ML PEN SUBQ ONE (12:13)
[2017-07-13] MEDS: CALCIUM CITRATE 250 MG TABLET PO SCH ×3 (13:24→21:13)
[2017-07-13] MEDS ORDERED: clonazePAM 0.5 MG TABLET PO PRN (14:24)
[2017-07-13] MEDS ORDERED: POTASSIUM CHLORIDE 20 MEQ TABLET PO ONE (16:34)
--- NOTE | 2017-07-13 17:03 | PROVIDER PROGRESS NOTE ---
Subjective - Prog Note Date Prog Note Date: 07/13/17 Prog Note Time: 17:01 - Subjective Pt reports feeling: Improved Subjective: I am new hospitalist on service. he had DKA with sepsis, hypotension, BRODERICK . So far his blood cultures and CXR were negative. Not clear where the source of infection is from He is off insulin drip. On his usual lantus but bottomed out this am to 26. Needed D5 for a while. eating all of his breakfast. he has chronic pain and is on MS Contin 30 mg tid. Is asking to be resumed on that. he lives with a roommate. But that roommate doesn't help with ADL's etc. Just someone to share costs with. He has MAUREEN 3 times a week. but not bathed by them ? He has had a few strokes and is wheelchair bound with weakness on one side worse than the other. He is responsible for taking his own meds. Current Medications - Current Medications Current Medications: Active Medications Acetaminophen (Tylenol) 650 mg PO Q4HR PRN PRN Reason: Pain 1 to 4 Last Admin: 07/13/17 00:26 Dose: 650 mg Aspirin (Maria De Jesus) 325 mg PO DAILY [facility] Atorvastatin Calcium (Lipitor) 80 mg PO 2100 [facility] Calcium Citrate () 500 mg PO QID [facility] PRN Reason: Protocol Stop: 07/14/17 09:01 Last Admin: 07/13/17 13:24 Dose: 500 mg Carboxymethylcellulose (Refresh 1% Ophth Drops) 1 drops EACHEYE PRN PRN PRN Reason: Dry Eye Clonazepam (Klonopin) 0.5 mg PO BID PRN PRN Reason: Anxiety Docusate Sodium (Colace 250mg Capsule) 250 - 500 mg PO DAILY [facility] Last Admin: 07/13/17 08:41 Dose: Not Given Duloxetine HCl (Cymbalta) 60 mg PO 2100 [facility] Heparin Sodium (Porcine) () 5,000 unit SUBQ BID [facility] Last Admin: 07/13/17 09:41 Dose: 5,000 unit Ceftriaxone Sodium 2 gm/ (Sodium Chloride) 100 mls @ 200 mls/hr IV BID [facility] Last Infusion: 07/13/17 09:15 Dose: Infused Ampicillin Sodium 2 gm/ Sodium (Chloride) 100 mls @ 100 mls/hr IV Q6HR [facility] Last Infusion: 07/13/17 14:37 Dose: Infused Vancomycin HCl 1 gm/ Sodium (Chloride) 250 mls @ 167 mls/hr IV Q12H [facility] Last Infusion: 07/13/17 14:06 Dose: Infused Insulin Aspart (Novolog) 1 - 5 unit SUBQ 0800,1200,1700,2100 DAMIEN PRN Reason: Protocol Last Admin: 07/13/17 12:30 Dose: Not Given Insulin Glargine (Lantus Solostar) 23 unit SUBQ QPM [facility] Last Admin: 07/12/17 20:55 Dose: 23 unit Levothyroxine Sodium (Synthroid) 50 mcg PO DAILY [facility] Lisinopril (Zestril) 2.5 mg PO DAILY [facility] Metoprolol Succinate (Toprol Xl) 25 mg PO BID [facility] Morphine Sulfate (Morphine) 2 mg IVP Q4H PRN PRN Reason: PAIN Last Admin: 07/13/17 04:33 Dose: 2 mg Morphine Sulfate () 30 mg PO TID PRN PRN Reason: PAIN Multi-Ingredient Ointment (Zinc Oxide) 1 applic TOP PRN PRN PRN Reason: Skin Care Last Admin: 07/12/17 04:18 Dose: 1 applic Pantoprazole Sodium (Protonix) 40 mg PO QDAC [facility] Last Admin: 07/13/17 07:56 Dose: 40 mg Polyethylene Glycol (Miralax) 17 gm PO DAILY [facility] Last Admin: 07/13/17 09:08 Dose: Not Given Prochlorperazine Edisylate (Compazine Inj) 10 mg IVP Q6HR PRN PRN Reason: Nausea / Vomiting Last Admin: 07/12/17 10:29 Dose: 10 mg Senna (Senokot) 8.6 - 17.2 mg PO DAILY [facility] Last Admin: 07/13/17 09:08 Dose: Not Given Sodium Chloride (Normal Saline Flush 0.9%) 10 ml IVP Q8HR [facility] Last Admin: 07/13/17 14:37 Dose: 10 ml Sodium Chloride (Normal Saline Flush 0.9%) 10 ml IVP PRN PRN PRN Reason: NEEDED PER PROVIDER ORDERS Last Admin: 07/13/17 00:15 Dose: 10 ml Spironolactone (Aldactone) 12.5 mg PO DAILY [facility] Last Admin: 07/13/17 09:05 Dose: 12.5 mg Vitamin A/Vitamin D (Vitamin A & D Ointment) 1 applic TOP PRN PRN PRN Reason: Skin Care Last Admin: 07/11/17 23:45 Dose: 1 applic Insulin Glargine,Hum.rec.anlog [Lantus] 30 units SUBQ DAILY 03/19/14 Atorvastatin Calcium 80 mg PO DAILY PM 05/02/17 Insulin Aspart [NovoLOG] 12 units SUBQ TIDWM 05/02/17 Levothyroxine Sodium 50 mcg PO DAILY 05/02/17 Lisinopril 2.5 mg PO DAILY 05/02/17 Metoprolol Succinate 25 mg PO BID 05/02/17 Spironolactone 12.5 mg PO DAILY 05/02/17 Aspirin 325 mg PO DAILY 05/03/17 Omeprazole 20 mg PO BID PRN 05/03/17 Clonazepam [Clonazepam] 0.5 mg PO BID PRN 07/12/17 Clopidogrel Bisulfate [Clopidogrel] 75 mg PO DAILY 07/12/17 Duloxetine HCl [Duloxetine HCl] 60 mg PO DAILY PM 07/12/17 Morphine Sulfate [Morphine Sulfate] 30 mg PO TID PRN 07/12/17 Objective - Vital Signs/Intake & Output Reviewed Vital Signs: Yes Vital Signs: Vital Signs Temp Pulse Resp BP Pulse Ox 07/13/17 16:00 104 H 25 H 109/66 99 07/13/17 15:00 36.7 C 105 H 25 H 125/67 99 07/13/17 14:00 105 H 26 H 114/57 L 100 Intake & Output: Intake & Output 07/10/17 07/11/17 07/12/17 07/13/17 23:59 23:59 23:59 23:59 Intake Total 3513.333 6593.999 6805 4540.667 Output Total 1415 3636 6392 2300 Balance 2098.333 2957.327 060 0104.667 - Objective General Appearance: positive: No acute distress, Other (he is more alert than reported the last few days. he speaks in sentences, asks for pain meds. Thin disheveled white male who looks older than stated age.) Eyes Bilateral: positive: PERRL ENT: positive: Other (bad dentition) Neck: positive: No JVD. negative: Stiff neck, Carotid bruit, Swelling/bruising Respiratory: positive: Chest non-tender. negative: Wheezes, Rales, Rhonchi Cardiovascular: positive: Regular rate & rhythm. negative: Systolic murmur, Gallop/S4, Friction rub Abdomen: positive: Non-tender, No organomegaly, Nml bowel sounds, No distention Skin: positive: Warm, Dry Extremities: positive: Full ROM. negative: No pedal edema Neurologic/Psychiatric: positive: Oriented x3, CN's nml (2-12). negative: Motor nml (genralized weakness. 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) - Lab Results Fish Bones: 07/13/17 04:58 07/13/17 16:14 Other Labs: Lab Results x24hrs 07/13/17 07/13/17 07/13/17 Range/Units 16:49 16:14 11:38 WBC (4.8-10.8) x10^3/uL RBC (4.70-6.10) 10^6/uL Hgb (14.0-18.0) g/dL Hct (42.0-52.0) % MCV (80.0-94.0) fL MCH (27.0-31.0) pg MCHC (32.0-36.0) g/dL RDW (12.0-15.0) % Plt Count (130-450) 10^3/uL MPV (7.4-11.4) fL Neut # (1.5-6.6) 10^3/uL Lymph # (1.5-3.5) 10^3/uL [place] # (0.0-1.0) 10^3/uL Eos # (0.0-0.7) 10^3/uL Baso # (0.0-0.1) 10^3/uL Absolute Nucleated RBC x10^3/uL Nucleated RBC % /100WBC VBG pH (7.31-7.41) Ionized Calcium (1.15-1.33) mmol/L Sodium (135-145) mmol/L Potassium 3.5 (3.5-5.0) mmol/L Chloride (101-111) mmol/L Carbon Dioxide (21-32) mmol/L Anion Gap (6-13) BUN (6-20) mg/dL Creatinine (0.6-1.2) mg/dL Estimated GFR (MDRD) (>89) Glucose (70-100) mg/dL POC Whole Bld Glucose 132 H 250 H (70 - 100) mg/dL Calcium (8.5-10.3) mg/dL Phosphorus (2.5-4.6) mg/dL Magnesium (1.7-2.8) mg/dL Total Bilirubin (0.2-1.0) mg/dL AST (10-42) IU/L ALT (10-60) IU/L Alkaline Phosphatase (42-121) IU/L Total Protein (6.7-8.2) g/dL Albumin (3.2-5.5) g/dL Globulin (2.1-4.2) g/dL Albumin/Globulin Ratio (1.0-2.2) Last Dose Date Last Dose Time Vancomycin Trough (5.0-15.0) ug/mL 07/13/17 07/13/17 07/13/17 Range/Units 09:39 07:43 07:15 WBC (4.8-10.8) x10^3/uL RBC (4.70-6.10) 10^6/uL Hgb (14.0-18.0) g/dL Hct (42.0-52.0) % MCV (80.0-94.0) fL MCH (27.0-31.0) pg MCHC (32.0-36.0) g/dL RDW (12.0-15.0) % Plt Count (130-450) 10^3/uL MPV (7.4-11.4) fL Neut # (1.5-6.6) 10^3/uL Lymph # (1.5-3.5) 10^3/uL [place] # (0.0-1.0) 10^3/uL Eos # (0.0-0.7) 10^3/uL Baso # (0.0-0.1) 10^3/uL Absolute Nucleated RBC x10^3/uL Nucleated RBC % /100WBC VBG pH (7.31-7.41) Ionized Calcium (1.15-1.33) mmol/L Sodium (135-145) mmol/L Potassium (3.5-5.0) mmol/L Chloride (101-111) mmol/L Carbon Dioxide (21-32) mmol/L Anion Gap (6-13) BUN (6-20) mg/dL Creatinine (0.6-1.2) mg/dL Estimated GFR (MDRD) (>89) Glucose (70-100) mg/dL POC Whole Bld Glucose 107 H 102 H (70 - 100) mg/dL Calcium (8.5-10.3) mg/dL Phosphorus (2.5-4.6) mg/dL Magnesium (1.7-2.8) mg/dL Total Bilirubin (0.2-1.0) mg/dL AST (10-42) IU/L ALT (10-60) IU/L Alkaline Phosphatase (42-121) IU/L Total Protein (6.7-8.2) g/dL Albumin (3.2-5.5) g/dL Globulin (2.1-4.2) g/dL Albumin/Globulin Ratio (1.0-2.2) Last Dose Date 07/11/2017 Last Dose Time 10:00 Vancomycin Trough < 3.5 L (5.0-15.0) ug/mL 07/13/17 07/13/17 07/13/17 Range/Units 06:42 04:58 04:58 WBC (4.8-10.8) x10^3/uL RBC (4.70-6.10) 10^6/uL Hgb (14.0-18.0) g/dL Hct (42.0-52.0) % MCV (80.0-94.0) fL MCH (27.0-31.0) pg MCHC (32.0-36.0) g/dL RDW (12.0-15.0) % Plt Count (130-450) 10^3/uL MPV (7.4-11.4) fL Neut # (1.5-6.6) 10^3/uL Lymph # (1.5-3.5) 10^3/uL [place] # (0.0-1.0) 10^3/uL Eos # (0.0-0.7) 10^3/uL Baso # (0.0-0.1) 10^3/uL Absolute Nucleated RBC x10^3/uL Nucleated RBC % /100WBC VBG pH 7.421 H (7.31-7.41) Ionized Calcium 1.03 L YES (1.15-1.33) mmol/L Sodium 137 (135-145) mmol/L Potassium 2.5 L* (3.5-5.0) mmol/L Chloride 100 L (101-111) mmol/L Carbon Dioxide 26 (21-32) mmol/L Anion Gap 11.0 (6-13) BUN 7 (6-20) mg/dL Creatinine 0.4 L (0.6-1.2) mg/dL Estimated GFR (MDRD) 219 (>89) Glucose 29 L* (70-100) mg/dL POC Whole Bld Glucose 22 L* (70 - 100) mg/dL Calcium 7.7 L (8.5-10.3) mg/dL Phosphorus (2.5-4.6) mg/dL Magnesium (1.7-2.8) mg/dL Total Bilirubin 0.4 (0.2-1.0) mg/dL AST 24 (10-42) IU/L ALT 20 (10-60) IU/L Alkaline Phosphatase 93 (42-121) IU/L Total Protein 5.6 L (6.7-8.2) g/dL Albumin 3.0 L (3.2-5.5) g/dL Globulin 2.6 (2.1-4.2) g/dL Albumin/Globulin Ratio 1.2 (1.0-2.2) Last Dose Date Last Dose Time Vancomycin Trough (5.0-15.0) ug/mL 07/13/17 07/13/17 07/12/17 Range/Units 04:58 04:58 20:50 WBC 7.9 (4.8-10.8) x10^3/uL RBC 3.70 L (4.70-6.10) 10^6/uL Hgb 10.5 L (14.0-18.0) g/dL Hct 31.1 L (42.0-52.0) % MCV 84.0 (80.0-94.0) fL MCH 28.3 (27.0-31.0) pg MCHC 33.7 (32.0-36.0) g/dL RDW 14.7 (12.0-15.0) % Plt Count 252 (130-450) 10^3/uL MPV 8.3 (7.4-11.4) fL Neut # 5.6 (1.5-6.6) 10^3/uL Lymph # 1.7 (1.5-3.5) 10^3/uL [place] # 0.5 (0.0-1.0) 10^3/uL Eos # 0.0 (0.0-0.7) 10^3/uL Baso # 0.0 (0.0-0.1) 10^3/uL Absolute Nucleated RBC 0.00 x10^3/uL Nucleated RBC % 0.0 /100WBC VBG pH (7.31-7.41) Ionized Calcium (1.15-1.33) mmol/L Sodium (135-145) mmol/L Potassium (3.5-5.0) mmol/L Chloride (101-111) mmol/L Carbon Dioxide (21-32) mmol/L Anion Gap (6-13) BUN (6-20) mg/dL Creatinine (0.6-1.2) mg/dL Estimated GFR (MDRD) (>89) Glucose (70-100) mg/dL POC Whole Bld Glucose 203 H (70 - 100) mg/dL Calcium (8.5-10.3) mg/dL Phosphorus 2.0 L (2.5-4.6) mg/dL Magnesium 1.7 (1.7-2.8) mg/dL Total Bilirubin (0.2-1.0) mg/dL AST (10-42) IU/L ALT (10-60) IU/L Alkaline Phosphatase (42-121) IU/L Total Protein (6.7-8.2) g/dL Albumin (3.2-5.5) g/dL Globulin (2.1-4.2) g/dL Albumin/Globulin Ratio (1.0-2.2) Last Dose Date Last Dose Time Vancomycin Trough (5.0-15.0) ug/mL Assessment/Plan - Problem List (1) Type 2 diabetes mellitus with ketoacidosis without coma, with long-term current use of insulin Impression: resolved he is off insulin drip. AG normal. I've given him a large dose of novolog with lunch to cover the high lunch rebound from this am's 26. will lower his pm lantus to avoid next am low and change to bid coverage. (2) Sepsis Impression: resolved. He had tachycardia, hypotension, elevated WBC but no source identified. CXR neg. Blood Cultures neg. Ceftriaxone, Vancomycin, Ampicillin Day #3. WBC is now nml today. This is empiric tx and I hesitate to stop the tx since he responded. Qualifiers: Sepsis type: sepsis due to unspecified organism Qualified Code(s): A41.9 - Sepsis, unspecified organism (3) Ischemic cardiomyopathy Impression: Dr. Camp referred to geting old records from [facility]. [facility] reports none received. I will have the [facility] reach out again to get the old angio and ECHO from >2 months ago. So far exam without CHF. 5 troponins checked over 2 days and all <0.06. Continue MONA, Diuretic (spironolactone/lasix), Betablocker (metoprolol), Statin (lipitor) (4) Generalized muscle weakness Impression: he already had a baseline that was with diminished strength, ambulation, and ability to do ADL's. With this illness he has been immobile and even weaker. PT: Pt. is a cooperative, pleasant 61 y.o. w/ decreased independence, strength and safety w/all mobiltiy; he is showing good improvement today from yesterday' s session; he was able to tolerate ~ 2.0 hrs up in b/s chair but shows some obvious fatigue w/afternoon session upon returning to bed. He will benefit from continued PT in hospital and at SNF after hospital d/c toward improving his safety and independence w/functional tasks. Continue w/PT in hospital 1-2x/ day for functional and gait training.
[2017-07-13] MEDS ORDERED: INSULIN GLARGINE 300 UNIT/3 ML PEN SUBQ SCH (17:26)
[2017-07-13] MEDS: MORPHINE ER 15 MG TABLET PO PRN (19:30)
[2017-07-13] MEDS: DULoxetine 30 MG CAPSULE PO SCH (21:14)
[2017-07-13] MEDS: ATORVASTATIN 40 MG TABLET PO SCH (21:14)
[2017-07-14] MEDS: MORPHINE 2 MG/ML SYRINGE IVP PRN (00:18)
[2017-07-14] MEDS: SODIUM CHLORIDE FLUSH 0.9% 10 ML SYRINGE IVP PRN ×4 (00:18→23:52)
[2017-07-14] MEDS: AMPICILLIN 2 GM in SODIUM CHLORIDE 0.9% MINIBAG 100 ML IV SCH ×4 (00:24→18:05)
[2017-07-14] MEDS: MORPHINE ER 15 MG TABLET PO PRN ×3 (03:42→19:45)
[2017-07-14] MEDS: ACETAMINOPHEN 325 MG TABLET PO PRN (03:43)
[2017-07-14 05:28] LABS: BASOPHILS % (AUTO) 0.2 %; EOSINOPHILS # (AUTO) 0.1 10^3/uL (0.0-0.7); EOSINOPHILS % (AUTO) 1.4 %; HCT - HEMATOCRIT 26.5 % (42.0-52.0); HGB - HEMOGLOBIN 8.9 g/dL (14.0-18.0); LYMPHOCYTES # (AUTO) 1.8 10^3/uL (1.5-3.5); LYMPHOCYTES % (AUTO) 21.8 %; MEAN CORPUSCULAR HEMOGLOBIN 28.4 pg (27.0-31.0); MEAN CORPUSCULAR HGB CONC 33.7 g/dL (32.0-36.0); MEAN CORPUSCULAR VOLUME 84.5 fL (80.0-94.0); MEAN PLATELET VOLUME 7.8 fL (7.4-11.4); MONOCYTES # (AUTO) 0.5 10^3/uL (0.0-1.0); MONOCYTES % (AUTO) 5.7 %; NEUTROPHILS # (AUTO) 5.9 10^3/uL (1.5-6.6); NEUTROPHILS % (AUTO) 70.9 %; RED BLOOD COUNT 3.13 10^6/uL (4.70-6.10); RED CELL DISTRIBUTION WIDTH 14.6 % (12.0-15.0); UNCORRECTED WHITE BLOOD COUNT 8.4 x10^3/uL; WHITE BLOOD COUNT 8.4 x10^3/uL (4.8-10.8)
[2017-07-14 05:38] LABS: MAGNESIUM 1.7 mg/dL (1.7-2.8); PHOSPHORUS 2.3 mg/dL (2.5-4.6)
[2017-07-14 05:42] LABS: ALBUMIN/GLOBULIN RATIO 0.9 (1.0-2.2); BILIRUBIN,TOTAL 0.4 mg/dL (0.2-1.0); BUN - BLOOD UREA NITROGEN 11 mg/dL (6-20); CALCIUM 7.7 mg/dL (8.5-10.3); CARBON DIOXIDE - CO2 27 mmol/L (21-32); CHLORIDE 102 mmol/L (101-111); CREATININE 0.5 mg/dL (0.6-1.2); GFR - MDRD 170 (>89); GLUCOSE 61 mg/dL (70-100); POTASSIUM 3.3 mmol/L (3.5-5.0); SODIUM 134 mmol/L (135-145); TOTAL PROTEIN 4.8 g/dL (6.7-8.2)
[2017-07-14 05:46] LABS: CALCIUM, IONIZED 1.14 mmol/L (1.15-1.33); VBG PH 7.477 (7.31-7.41)
[2017-07-14] MEDS ORDERED: POTASSIUM CHLORIDE 20 MEQ TABLET PO ONE (06:14)
[2017-07-14] MEDS ORDERED: MAGNESIUM SULFATE 2 GRAM 2 GM/50 ML BAG IV ONE (06:14)
[2017-07-14] MEDS: SODIUM CHLORIDE FLUSH 0.9% 10 ML SYRINGE IVP SCH ×3 (06:17→18:06)
[2017-07-14] MEDS: PANTOPRAZOLE 40 MG TABLET PO SCH (06:43)
[2017-07-14] MEDS: NEUTRA-PHOS 250 MG TABLET PO SCH ×2 (06:43→08:58)
[2017-07-14] MEDS ORDERED: INSULIN GLARGINE 300 UNIT/3 ML PEN SUBQ SCH ×3 (08:00→20:00)
[2017-07-14] MEDS: INSULIN ASPART 300 UNIT/3 ML PEN SUBQ SCH ×4 (08:12→20:27)
[2017-07-14] MEDS: ASPIRIN 325 MG TABLET PO SCH (08:54)
[2017-07-14] MEDS: CALCIUM CITRATE 250 MG TABLET PO SCH (08:55)
[2017-07-14] MEDS: HEPARIN 5,000 UNIT/ML VIAL SUBQ SCH ×2 (08:55→20:31)
[2017-07-14] MEDS: cefTRIAXone 2 GM in SODIUM CHLORIDE 0.9% MINIBAG 100 ML IV SCH ×2 (08:55→20:25)
[2017-07-14] MEDS: DOCUSATE SODIUM 250 MG CAPSULE PO SCH (08:55)
[2017-07-14] MEDS: LISINOPRIL 5 MG TABLET PO SCH (08:56)
[2017-07-14] MEDS: LEVOTHYROXINE 25 MCG TABLET PO SCH (08:56)
[2017-07-14] MEDS: METOPROLOL SUCCINATE 25 MG TABLET PO SCH ×2 (08:57→20:28)
[2017-07-14] MEDS: POLYETHYLENE GLYCOL 3350 17 GM PACKET PO SCH (08:58)
[2017-07-14] MEDS: SENNA 8.6 MG TABLET PO SCH (08:58)
[2017-07-14] MEDS: SPIRONOLACTONE 25 MG TABLET PO SCH (08:58)
[2017-07-14] MEDS: VANCOMYCIN INJ 1 GM in SODIUM CHLORIDE 0.9% 250 ML IV SCH ×2 (11:24→23:51)
[2017-07-14] MEDS: VANCOMYCIN INJ 0.75 GM in SODIUM CHLORIDE 0.9% 250 ML IV SCH (12:47)
--- NOTE | 2017-07-14 13:32 | PROVIDER PROGRESS NOTE ---
Subjective - Prog Note Date Prog Note Date: 07/14/17 Prog Note Time: 13:30 - Subjective Pt reports feeling: Improved Subjective: he had another low glucose this am. He reminds me that he usually takes his lantus in the morning and we've been giving it to him at night. he denies cp, sob no abd complaints, and is feeding self slowly with use of special utensils and left hand Current Medications - Current Medications Current Medications: Active Medications Acetaminophen (Tylenol) 650 mg PO Q4HR PRN PRN Reason: Pain 1 to 4 Last Admin: 07/14/17 03:43 Dose: 650 mg Aspirin (Maria De Jesus) 325 mg PO DAILY [facility] Last Admin: 07/14/17 08:54 Dose: 325 mg Atorvastatin Calcium (Lipitor) 80 mg PO 2100 [facility] Last Admin: 07/13/17 21:14 Dose: 80 mg Carboxymethylcellulose (Refresh 1% Ophth Drops) 1 drops EACHEYE PRN PRN PRN Reason: Dry Eye Last Admin: 07/13/17 21:13 Dose: 1 applic Clonazepam (Klonopin) 0.5 mg PO BID PRN PRN Reason: Anxiety Docusate Sodium (Colace 250mg Capsule) 250 - 500 mg PO DAILY [facility] Last Admin: 07/14/17 08:55 Dose: 250 mg Duloxetine HCl (Cymbalta) 60 mg PO 2100 [facility] Last Admin: 07/13/17 21:14 Dose: 60 mg Heparin Sodium (Porcine) () 5,000 unit SUBQ BID [facility] Last Admin: 07/14/17 08:55 Dose: 5,000 unit Ceftriaxone Sodium 2 gm/ (Sodium Chloride) 100 mls @ 200 mls/hr IV BID [facility] Last Infusion: 07/14/17 09:30 Dose: Infused Ampicillin Sodium 2 gm/ Sodium (Chloride) 100 mls @ 100 mls/hr IV Q6HR [facility] Last Infusion: 07/14/17 12:44 Dose: Infused Vancomycin HCl 1 gm/ Sodium (Chloride) 250 mls @ 167 mls/hr IV Q12H [facility] Last Infusion: 07/14/17 12:46 Dose: Infused Insulin Aspart (Novolog) 1 - 5 unit SUBQ 0800,1200,1700,2100 DAMIEN PRN Reason: Protocol Last Admin: 07/14/17 11:56 Dose: 3 unit Insulin Glargine (Lantus Solostar) 18 unit SUBQ QPM [facility] Last Admin: 07/14/17 08:14 Dose: 18 unit Insulin Glargine (Lantus Solostar) 5 unit SUBQ DAILY [facility] Levothyroxine Sodium (Synthroid) 50 mcg PO DAILY [facility] Last Admin: 07/14/17 08:56 Dose: 50 mcg Lisinopril (Zestril) 2.5 mg PO DAILY [facility] Last Admin: 07/14/17 08:56 Dose: 2.5 mg Metoprolol Succinate (Toprol Xl) 25 mg PO BID [facility] Last Admin: 07/14/17 08:57 Dose: 25 mg Morphine Sulfate (Morphine) 2 mg IVP Q4H PRN PRN Reason: PAIN Last Admin: 07/14/17 00:18 Dose: 2 mg Morphine Sulfate () 30 mg PO TID PRN PRN Reason: PAIN Last Admin: 07/14/17 11:15 Dose: 30 mg Multi-Ingredient Ointment (Zinc Oxide) 1 applic TOP PRN PRN PRN Reason: Skin Care Last Admin: 07/12/17 04:18 Dose: 1 applic Pantoprazole Sodium (Protonix) 40 mg PO QDAC [facility] Last Admin: 07/14/17 06:43 Dose: 40 mg Polyethylene Glycol (Miralax) 17 gm PO DAILY [facility] Last Admin: 07/14/17 08:58 Dose: Not Given Prochlorperazine Edisylate (Compazine Inj) 10 mg IVP Q6HR PRN PRN Reason: Nausea / Vomiting Last Admin: 07/12/17 10:29 Dose: 10 mg Senna (Senokot) 8.6 - 17.2 mg PO DAILY [facility] Last Admin: 07/14/17 08:58 Dose: 8.6 mg Sodium Chloride (Normal Saline Flush 0.9%) 10 ml IVP Q8HR [facility] Last Admin: 07/14/17 11:37 Dose: 10 ml Sodium Chloride (Normal Saline Flush 0.9%) 10 ml IVP PRN PRN PRN Reason: NEEDED PER PROVIDER ORDERS Last Admin: 07/14/17 07:01 Dose: 10 ml Spironolactone (Aldactone) 12.5 mg PO DAILY [facility] Last Admin: 07/14/17 08:58 Dose: 12.5 mg Vitamin A/Vitamin D (Vitamin A & D Ointment) 1 applic TOP PRN PRN PRN Reason: Skin Care Last Admin: 07/11/17 23:45 Dose: 1 applic Insulin Glargine,Hum.rec.anlog [Lantus] 30 units SUBQ DAILY 03/19/14 Atorvastatin Calcium 80 mg PO DAILY PM 05/02/17 Insulin Aspart [NovoLOG] 12 units SUBQ TIDWM 05/02/17 Levothyroxine Sodium 50 mcg PO DAILY 05/02/17 Lisinopril 2.5 mg PO DAILY 05/02/17 Metoprolol Succinate 25 mg PO BID 05/02/17 Spironolactone 12.5 mg PO DAILY 05/02/17 Aspirin 325 mg PO DAILY 05/03/17 Omeprazole 20 mg PO BID PRN 05/03/17 Clonazepam [Clonazepam] 0.5 mg PO BID PRN 07/12/17 Clopidogrel Bisulfate [Clopidogrel] 75 mg PO DAILY 07/12/17 Duloxetine HCl [Duloxetine HCl] 60 mg PO DAILY PM 07/12/17 Morphine Sulfate [Morphine Sulfate] 30 mg PO TID PRN 07/12/17 Objective - Vital Signs/Intake & Output Reviewed Vital Signs: Yes Vital Signs: Vital Signs x48h Temp Pulse Resp BP Pulse Ox 07/14/17 07:59 36.3 C L 80 14 89/45 L 98 07/14/17 07:00 80 21 93/45 L 100 07/14/17 06:00 83 14 129/63 98 Intake & Output: Intake & Output 07/11/17 07/12/17 07/13/17 07/14/17 23:59 23:59 23:59 23:59 Intake Total 6593.999 6805 5709.000 2356.667 Output Total 3636 6392 3100 769 Balance 2957.695 177 4406.000 1587.667 - Objective General Appearance: positive: No acute distress, Alert, Other (slow psychomotor response in speech and movement but that appears to be his baseline) Eyes Bilateral: positive: EOMI, No scleral icterus ENT: positive: Other (poor dentition) Neck: positive: No JVD. negative: Lymphadenopathy (R), Lymphadenopathy (L), Stiff neck, Carotid bruit Respiratory: positive: Chest non-tender. negative: Wheezes, Rales, Rhonchi Cardiovascular: positive: Regular rate & rhythm, Systolic murmur. negative: Gallop/S4, Friction rub Abdomen: positive: Non-tender, No organomegaly, Nml bowel sounds, No distention Skin: positive: Warm, Dry Extremities: positive: No pedal edema Neurologic/Psychiatric: positive: Oriented x3, Slurred/abnml speech. negative: CN's nml (2-12) (facial droop mild), Motor nml (weakness of right with arm 1-2/ 5 and right leg 2+/5) - Lab Results Fish Bones: 07/14/17 05:04 07/14/17 05:04 Other Labs: Lab Results x24hrs 07/14/17 07/14/17 07/14/17 Range/Units 11:39 08:06 06:35 WBC (4.8-10.8) x10^3/uL RBC (4.70-6.10) 10^6/uL Hgb (14.0-18.0) g/dL Hct (42.0-52.0) % MCV (80.0-94.0) fL MCH (27.0-31.0) pg MCHC (32.0-36.0) g/dL RDW (12.0-15.0) % Plt Count (130-450) 10^3/uL MPV (7.4-11.4) fL Neut # (1.5-6.6) 10^3/uL Lymph # (1.5-3.5) 10^3/uL Yell # (0.0-1.0) 10^3/uL Eos # (0.0-0.7) 10^3/uL Baso # (0.0-0.1) 10^3/uL Absolute Nucleated RBC x10^3/uL Nucleated RBC % /100WBC VBG pH (7.31-7.41) Ionized Calcium (1.15-1.33) mmol/L Sodium (135-145) mmol/L Potassium (3.5-5.0) mmol/L Chloride (101-111) mmol/L Carbon Dioxide (21-32) mmol/L Anion Gap (6-13) BUN (6-20) mg/dL Creatinine (0.6-1.2) mg/dL Estimated GFR (MDRD) (>89) Glucose (70-100) mg/dL POC Whole Bld Glucose 242 H 185 H 106 H (70 - 100) mg/dL Calcium (8.5-10.3) mg/dL Phosphorus (2.5-4.6) mg/dL Magnesium (1.7-2.8) mg/dL Total Bilirubin (0.2-1.0) mg/dL AST (10-42) IU/L ALT (10-60) IU/L Alkaline Phosphatase (42-121) IU/L Total Protein (6.7-8.2) g/dL Albumin (3.2-5.5) g/dL Globulin (2.1-4.2) g/dL Albumin/Globulin Ratio (1.0-2.2) 07/14/17 07/14/17 07/14/17 Range/Units 06:19 05:55 05:04 WBC (4.8-10.8) x10^3/uL RBC (4.70-6.10) 10^6/uL Hgb (14.0-18.0) g/dL Hct (42.0-52.0) % MCV (80.0-94.0) fL MCH (27.0-31.0) pg MCHC (32.0-36.0) g/dL RDW (12.0-15.0) % Plt Count (130-450) 10^3/uL MPV (7.4-11.4) fL Neut # (1.5-6.6) 10^3/uL Lymph # (1.5-3.5) 10^3/uL Yell # (0.0-1.0) 10^3/uL Eos # (0.0-0.7) 10^3/uL Baso # (0.0-0.1) 10^3/uL Absolute Nucleated RBC x10^3/uL Nucleated RBC % /100WBC VBG pH 7.477 H (7.31-7.41) Ionized Calcium 1.14 L (1.15-1.33) mmol/L Sodium (135-145) mmol/L Potassium (3.5-5.0) mmol/L Chloride (101-111) mmol/L Carbon Dioxide (21-32) mmol/L Anion Gap (6-13) BUN (6-20) mg/dL Creatinine (0.6-1.2) mg/dL Estimated GFR (MDRD) (>89) Glucose (70-100) mg/dL POC Whole Bld Glucose 60 L* 46 L* (70 - 100) mg/dL Calcium (8.5-10.3) mg/dL Phosphorus (2.5-4.6) mg/dL Magnesium (1.7-2.8) mg/dL Total Bilirubin (0.2-1.0) mg/dL AST (10-42) IU/L ALT (10-60) IU/L Alkaline Phosphatase (42-121) IU/L Total Protein (6.7-8.2) g/dL Albumin (3.2-5.5) g/dL Globulin (2.1-4.2) g/dL Albumin/Globulin Ratio (1.0-2.2) 07/14/17 07/14/17 07/14/17 Range/Units 05:04 05:04 05:04 WBC 8.4 (4.8-10.8) x10^3/uL RBC 3.13 L (4.70-6.10) 10^6/uL Hgb 8.9 L (14.0-18.0) g/dL Hct 26.5 L (42.0-52.0) % MCV 84.5 (80.0-94.0) fL MCH 28.4 (27.0-31.0) pg MCHC 33.7 (32.0-36.0) g/dL RDW 14.6 (12.0-15.0) % Plt Count 192 (130-450) 10^3/uL MPV 7.8 (7.4-11.4) fL Neut # 5.9 (1.5-6.6) 10^3/uL Lymph # 1.8 (1.5-3.5) 10^3/uL Yell # 0.5 (0.0-1.0) 10^3/uL Eos # 0.1 (0.0-0.7) 10^3/uL Baso # 0.0 (0.0-0.1) 10^3/uL Absolute Nucleated RBC 0.00 x10^3/uL Nucleated RBC % 0.0 /100WBC VBG pH (7.31-7.41) Ionized Calcium YES (1.15-1.33) mmol/L Sodium 134 L (135-145) mmol/L Potassium 3.3 L (3.5-5.0) mmol/L Chloride 102 (101-111) mmol/L Carbon Dioxide 27 (21-32) mmol/L Anion Gap 5.0 L (6-13) BUN 11 (6-20) mg/dL Creatinine 0.5 L (0.6-1.2) mg/dL Estimated GFR (MDRD) 170 (>89) Glucose 61 L (70-100) mg/dL POC Whole Bld Glucose (70 - 100) mg/dL Calcium 7.7 L (8.5-10.3) mg/dL Phosphorus 2.3 L (2.5-4.6) mg/dL Magnesium 1.7 (1.7-2.8) mg/dL Total Bilirubin 0.4 (0.2-1.0) mg/dL AST 16 (10-42) IU/L ALT 16 (10-60) IU/L Alkaline Phosphatase 81 (42-121) IU/L Total Protein 4.8 L (6.7-8.2) g/dL Albumin 2.3 L (3.2-5.5) g/dL Globulin 2.5 (2.1-4.2) g/dL Albumin/Globulin Ratio 0.9 L (1.0-2.2) 07/13/17 07/13/17 07/13/17 Range/Units 21:00 16:49 16:14 WBC (4.8-10.8) x10^3/uL RBC (4.70-6.10) 10^6/uL Hgb (14.0-18.0) g/dL Hct (42.0-52.0) % MCV (80.0-94.0) fL MCH (27.0-31.0) pg MCHC (32.0-36.0) g/dL RDW (12.0-15.0) % Plt Count (130-450) 10^3/uL MPV (7.4-11.4) fL Neut # (1.5-6.6) 10^3/uL Lymph # (1.5-3.5) 10^3/uL Yell # (0.0-1.0) 10^3/uL Eos # (0.0-0.7) 10^3/uL Baso # (0.0-0.1) 10^3/uL Absolute Nucleated RBC x10^3/uL Nucleated RBC % /100WBC VBG pH (7.31-7.41) Ionized Calcium (1.15-1.33) mmol/L Sodium (135-145) mmol/L Potassium 3.5 (3.5-5.0) mmol/L Chloride (101-111) mmol/L Carbon Dioxide (21-32) mmol/L Anion Gap (6-13) BUN (6-20) mg/dL Creatinine (0.6-1.2) mg/dL Estimated GFR (MDRD) (>89) Glucose (70-100) mg/dL POC Whole Bld Glucose 374 H 132 H (70 - 100) mg/dL Calcium (8.5-10.3) mg/dL Phosphorus (2.5-4.6) mg/dL Magnesium (1.7-2.8) mg/dL Total Bilirubin (0.2-1.0) mg/dL AST (10-42) IU/L ALT (10-60) IU/L Alkaline Phosphatase (42-121) IU/L Total Protein (6.7-8.2) g/dL Albumin (3.2-5.5) g/dL Globulin (2.1-4.2) g/dL Albumin/Globulin Ratio (1.0-2.2) Assessment/Plan - Problem List (1) Generalized muscle weakness Impression: superimposed on his hx of stroke with right body residual. uses a walker and a wheelchair at home. working with PT. will SNF for rehab once his diabetes has been stabilized and K supplemented. I anticipate dc tomorrow (2) Ischemic cardiomyopathy Impression: Dr. Camp referred to geting old records from [facility]. [facility] reports none received. I had the [facility] reach out again to get the old angio and ECHO from >2 months ago. So far exam without CHF. 5 troponins checked over 2 days and all <0.06. Continue MONA, Diuretic (spironolactone/lasix), Betablocker (metoprolol), Statin (lipitor) Review of the medical record [facility], cardiology from [facility] shows him to been hospitalized there for heart failure, acute kidney injury, and non-ST elevation MN with severe disease of his right coronary artery and a percutaneous intervention to his right coronary artery in early April 2017. He underwent FFR at that time because he was noted to have a lesion in his proximal to mid LAD which was physiologically significant by FFR. He then underwent a second angiogram with ultrasound-guided access of the left femoral artery on May 11. And a percutaneous stent to the proximal to mid LAD coronary artery. Recommendations are for him to be on Plavix and aspirin for minimum of a year. Findings of that coronary angiogram showed him to have a left main large caliber vessel, bifurcating into the LAD and circumflex arteries. Mild calcification through its course, no significant stenosis. LAD descending artery was a moderate caliber vessel. Diffuse disease throughout the LAD. Tapering stenosis of the proximal LAD to the takeoff of a small diagonal branch that was angiographically estimated at 60-70% with mild disease throughout the small diagonal branch. The mid LAD thereafter had diffuse mild to moderate diffuse disease to the distal segment where there is diffuse moderate disease. The proximal LAD stenosis was physiologically significant by FFR during previous angiography and intervention. Left circumflex artery was of moderate caliber vessel. Had diffuse mild to moderate stenosis throughout the proximal to mid segments. Gave rise to a signal marginal branch which gave rise to several subbranches. The remainder of the circumflex ran in the AV groove and it was not a significant vessel. The proximal segment of the large marginal branch had mild to moderate stenosis on the order of 50%. He did have an echocardiogram dated May 05, with his end STEMI and previous intervention. That echocardiogram showed apical akinesis with severe global LV hypokinesis and an LVEF of 30%. Regional wall motion abnormalities worse consistent with coronary artery disease and prior MN. Normal RV size and systolic function. Normal atrial sizes. Mitral valve sclerosis with mild regurgitation. Aortic valve sclerosis with trace aortic valve insufficiency. Trace tricuspid insufficiency. (3) Decubital ulcer Impression: he has been identified by nursing as having bilateral gluteal fold decub. Some were present in April 2017 admit. Sent home. R heel noted 07/10 and bilateal gluteal fold ulcers as well that pm 07/10. Patient admitted 07/10 so ulcers present on admission. human resources hr generalist saw him 07/12 and protocol being followed. (4) Type 2 diabetes mellitus with ketoacidosis without coma, with long-term current use of insulin Impression: resolved he is off insulin drip. AG normal. I had adjusted his lantus yesterday by lowering the pm and add small dose am to avoid low glucose in am. This am he is still low. So will change to his usual home regimen and given him am lantus 18 units but add pm lantus 5 units. (5) Sepsis Impression: resolved. He had tachycardia, hypotension, elevated WBC but no source identified. CXR neg. Blood Cultures neg. Ceftriaxone, Vancomycin, Ampicillin Day #4. WBC is now nml on 07/13 This is empiric tx and I hesitate to stop the tx since he responded. Will give him abx until dc and that would give him 5 days. no outpt meds since I don't know source. will need to be watched carefully at [facility]. Qualifiers: Sepsis type: sepsis due to unspecified organism Qualified Code(s): A41.9 - Sepsis, unspecified organism
[2017-07-14] MEDS: ATORVASTATIN 40 MG TABLET PO SCH (20:27)
[2017-07-14] MEDS: DULoxetine 30 MG CAPSULE PO SCH (20:27)
[2017-07-15] MEDS: SODIUM CHLORIDE FLUSH 0.9% 10 ML SYRINGE IVP PRN ×4 (01:35→10:40)
[2017-07-15] MEDS: AMPICILLIN 2 GM in SODIUM CHLORIDE 0.9% MINIBAG 100 ML IV SCH ×3 (01:35→13:15)
[2017-07-15 05:19] LABS: BASOPHILS % (AUTO) 0.4 %; EOSINOPHILS # (AUTO) 0.4 10^3/uL (0.0-0.7); EOSINOPHILS % (AUTO) 4.8 %; HCT - HEMATOCRIT 29.2 % (42.0-52.0); HGB - HEMOGLOBIN 9.6 g/dL (14.0-18.0); LYMPHOCYTES # (AUTO) 1.8 10^3/uL (1.5-3.5); LYMPHOCYTES % (AUTO) 23.1 %; MEAN CORPUSCULAR HEMOGLOBIN 28.3 pg (27.0-31.0); MEAN CORPUSCULAR HGB CONC 32.9 g/dL (32.0-36.0); MEAN PLATELET VOLUME 8.3 fL (7.4-11.4); MONOCYTES # (AUTO) 0.6 10^3/uL (0.0-1.0); MONOCYTES % (AUTO) 7.3 %; NEUTROPHILS % (AUTO) 64.4 %; RED BLOOD COUNT 3.39 10^6/uL (4.70-6.10); RED CELL DISTRIBUTION WIDTH 15.1 % (12.0-15.0); UNCORRECTED WHITE BLOOD COUNT 7.7 x10^3/uL; WHITE BLOOD COUNT 7.7 x10^3/uL (4.8-10.8)
[2017-07-15 05:24] LABS: BILIRUBIN,TOTAL 0.5 mg/dL (0.2-1.0); BUN - BLOOD UREA NITROGEN 14 mg/dL (6-20); CALCIUM 7.6 mg/dL (8.5-10.3); CARBON DIOXIDE - CO2 27 mmol/L (21-32); CHLORIDE 99 mmol/L (101-111); CREATININE 0.5 mg/dL (0.6-1.2); GFR - MDRD 170 (>89); GLUCOSE 195 mg/dL (70-100); POTASSIUM 3.9 mmol/L (3.5-5.0); SODIUM 134 mmol/L (135-145); TOTAL PROTEIN 4.9 g/dL (6.7-8.2)
[2017-07-15 05:26] LABS: CALCIUM, IONIZED 1.12 mmol/L (1.15-1.33); VBG PH 7.435 (7.31-7.41)
[2017-07-15] MEDS: SODIUM CHLORIDE FLUSH 0.9% 10 ML SYRINGE IVP SCH ×2 (05:36→12:45)
[2017-07-15 05:37] LABS: MAGNESIUM 1.9 mg/dL (1.7-2.8); PHOSPHORUS 2.9 mg/dL (2.5-4.6)
[2017-07-15] MEDS: PANTOPRAZOLE 40 MG TABLET PO SCH (06:00)
--- NOTE | 2017-07-15 06:30 | Discharge Plan ---
"Discharge Plan for SNF - DC Plan and Transition Orders Disposition: SNF DC/Xfer Condition: Good SNF Transition Orders: Admit to: under the care of Daria Chávez Discharge Diagnosis: 1. Type 1 DM with DKA, metabolic derangement 2. Sepsis, unknown source with negative blood cultures, negative CXR, negative UA. s/p 5 days of ampicillin, vancomycin, rocephin 3. Generalized weakness superimposed on Residual right body weakness due to stroke 1984 4. bilateral gluteal fold decubitis present on admission 5. right heel ulcer present on admission 6. chronic pain syndrome on chronic opioids 7. Ischemic cardiomyopathy LVEF 30% with segmental wall abnormalities; s/p NSTEMI 04/2017; s/p coronary angiogram with single PCI. To be on plavix and statin for 1 year 8. Hypothyroid 9. Hypertension 10. Hyperlipidemia Medicare Certification: I certify that [facility] care is medically necessary on a continuing basis for any of the conditions for which she/he is receiving care during hospitalization. Notify PCP of admission and forward orders to primary provider for signature. Weight on admission and Weekly. Call PCP immediately if weight increases by 5 pounds or if patient develops dyspnea, chest pain/tightness or edema. House Bowel Program: yes If no BM after 2 days, nurse may give M.O.M. 30ml PO PRN and /or ducolax Supp 1 LA and /or BENJA 250mg P.O., and/or senna 1-2 tabs PO. On day 3 nurse may give repeat above order until residents constipation is resolved. Immunizations: Annual Influenza Vaccine: yes. (between May 28 and December 25.) Unless allergy or already given Two-Step PPD: yes per [place] [id number] or appropriate documentation of approved exceptions Treatments & Other Orders: xeroform dressing to gluteal fold ulcers daily after cleaning , lift heel off of bed Oxygen Orders: none Lab Tests or X-Rays Orders: none Orthopedic Orders: Medications: SEE ATTACHED MEDICATION AND DIAGNOSIS LIST. Insulin Orders? Yes Diagnosis: Diabetes Initiate hypo and hyperglycemia protocols for BG <70 and BG >375. May check BG prn for signs/symptoms of dysglycemia. Frequency of BG checks: [AC/Meal/HS] Basal Insulin: X Lantus 100 units / ml inject subq as follows: 30 units SQ qam ac Correction Insulin: - Select the type of insulin below Novolog 100 units /ml insulin inject subq per orders indicated: Novolog 12 units SQ ac tid and used low dose sliding scale as below X LOW DOSE [] MODERATE DOSE [] MODERATE/HIGH DOSE [] HIGH DOSE GB UNITS GB UNITS GB UNITS GB UNITS 61-140 0 UNITS 61-140 0 UNITS 61-140 0 UNITS 61-140 0 UNITS 141-175 1 UNITS 141-175 1 UNITS 141-175 2 UNITS 141-175 3 UNITS 176-225 2 UNITS 176-225 3 UNITS 176-225 4 UNITS 176-225 5 UNITS 226-275 3 UNITS 226-275 5 UNITS 226-275 6 UNITS 226-275 7 UNITS 276-325 4 UNITS 276-325 7 UNITS 276-325 8 UNITS 276-325 9 UNITS 326-375 5 UNITS 326-375 9 UNITS 326-375 10 UNITS 326-375 11 UNITS >375 CONTACT MD >375 CONTACT MD >375 CONTACT MD >375 CONTACT MD Custom Dosing: [Choose: None/Novolog/Humalog] 100 units/ml Insulin inject subq as follows: GB Units 61-140 [] Units 141-175 [] Units 176-225 [] Units 226-275 [] Units 276-325 []Units 326-375 [] Units >375 Contact MD Allergies and Adverse Reactions: Allergies Allergy/AdvReac Type Severity Reaction Status Date / Time No Known Drug Allergies Allergy Verified 01/30/17 20:17 - Medications New Prescriptions: clonazePAM [KlonoPIN] 0.5 mg PO BID PRN #14 tablet PRN Reason: Anxiety Morphine Sulfate 30 mg PO TID PRN #21 tablet PRN Reason: Pain - Diet Type: No added sugar Texture: Regular - Therapies | Activity Therapy: Evaluation | Treat if indicated: Speech, PT, OT Rehabilitation Potential: Maximize functional status, Return to independent living Activity: Activity as Tolerated Assistance Devices: Wheelchair, Walker"
[2017-07-15 08:16] LABS: TEST RESULT REPORT
[2017-07-15] MEDS: cefTRIAXone 2 GM in SODIUM CHLORIDE 0.9% MINIBAG 100 ML IV SCH (08:17)
[2017-07-15] MEDS: DOCUSATE SODIUM 250 MG CAPSULE PO SCH (08:19)
[2017-07-15] MEDS: SPIRONOLACTONE 25 MG TABLET PO SCH (08:19)
[2017-07-15] MEDS: LISINOPRIL 5 MG TABLET PO SCH (08:19)
[2017-07-15] MEDS: ASPIRIN 325 MG TABLET PO SCH (08:19)
[2017-07-15] MEDS: SENNA 8.6 MG TABLET PO SCH (08:20)
[2017-07-15] MEDS: METOPROLOL SUCCINATE 25 MG TABLET PO SCH (08:20)
[2017-07-15] MEDS: LEVOTHYROXINE 25 MCG TABLET PO SCH (08:20)
[2017-07-15] MEDS: INSULIN ASPART 300 UNIT/3 ML PEN SUBQ SCH ×2 (08:20→12:14)
[2017-07-15] MEDS: HEPARIN 5,000 UNIT/ML VIAL SUBQ SCH (08:22)
[2017-07-15] MEDS: INSULIN GLARGINE 300 UNIT/3 ML PEN SUBQ SCH ×2 (08:22→08:30)
[2017-07-15] MEDS: POLYETHYLENE GLYCOL 3350 17 GM PACKET PO SCH (08:28)
[2017-07-15] MEDS ORDERED: CLOPIDOGREL 75 MG TABLET PO SCH (09:00)
[2017-07-15] MEDS: MORPHINE 2 MG/ML SYRINGE IVP PRN (10:40)
[2017-07-15] MEDS: VANCOMYCIN INJ 1 GM in SODIUM CHLORIDE 0.9% 250 ML IV SCH (11:17)
--- NOTE | 2017-07-15 12:22 | Discharge Plan ---
Discharge Plan Disposition: 06 Home Health Service Condition: Good Diet: Diabetic Activity Restrictions: Activity as Tolerated Shower Restrictions: No Driving Restrictions: Yes (no driving) Assistance Devices: Wheelchair, Walker Additional Instructions or Follow Up instructions: You were admitted to the hospital in critical condition because of diabetic ketoacidosis. We can only stress to you that you must be strictly compliant with taking your Lantus and your short acting insulin on a regular basis. If your sugars get too high on a consistent basis this will tip you into diabetic ketoacidosis. The other causes of diabetic ketoacidosis are heart attack, dehydration, or infection. We did not find those issues. We did treat you as if you had an infection but your chest x-ray was normal, urinalysis was normal, and blood cultures looking for bacteria in your blood was negative. You already have the residuals of a stroke which leaves you very weak on one side of your body. This current illness left you even weaker. We strongly feel that you should go to a shelter facility for rehabilitation but you disagree. You would prefer to go home with home health. You are very firm in stating that you are safe with a roommate who is there all the time. The roommate does not take care of you but the roommate can look out for you and make sure you are not getting sick. You also have a care provider that comes help take care of you during the week. Make sure that you tell your care provider to give you a bath at least 3 times a week. That they check your sugars and review your numbers. You have healing decubitus ulcers in the folds of your buttocks. You tell us that that started when you were at [facility] for your heart attack. You also tell me that you developed a right heel ulcer at that time. As such, we are sending you home with a home health nurse to make sure that your wounds are healing. We will order physical therapy and Occupational Therapy to make sure that you are getting your strength exercises. As time goes on and you get older, I am advising you to start thinking of another place to live. You will be getting weaker, and it will be harder and harder to take care of yourself even with a care provider in your apartment. Please investigate other places to live such as would be [facility]. We would like you to see your primary care provider, Daria Chávez in the next 1- 2 weeks. Write down your sugars and make sure you taking your glucose diary so she can adjust her insulin as needed. Follow-Up Care: Home Health - RN (for gluteal fold and right heel ulcers), Home Health - PT, Home Health - OT No Smoking: If you smoke, Please STOP! Call for help. Follow-up with: Daria Chávez PA-C [Primary Care Provider] -
[2017-07-15 15:38] VITALS: BP 130/65
[2017-07-15] MEDS: MORPHINE ER 15 MG TABLET PO PRN (15:49)
--- NOTE | 2017-07-16 03:52 | DISCHARGE SUMMARY ---
DATE OF ADMISSION: 07/10/2017 DATE OF DISCHARGE: 07/15/2017 DISCHARGE DIAGNOSES 1. Type 2 diabetes mellitus with ketosis with long-term use of insulin. 2. Sepsis. 3. Decubitus ulcer of the gluteal fold and right heel. 4. Ischemic cardiomyopathy. 5. Acute generalized weakness. 6. History of stroke with residual right body weakness. DISCHARGE MEDICATIONS Unchanged from the admitting medications. 1. Tylenol 650 mg p.o. q.4h. p.r.n. 2. Aspirin 325 mg p.o. daily. 3. Atorvastatin 80 mg p.o. daily. 4. Clonazepam 0.5 mg p.o. b.i.d. 5. Plavix 75 mg daily. 6. Duloxetine 60 mg daily. 7. NovoLog 12 units subcu t.i.d. a.c. 8. Lantus 30 units subcutaneous q.a.m. 9. Levothyroxine 50 mcg daily. 10. Lisinopril 2.5 mg daily. 11. Metoprolol succinate 25 mg p.o. b.i.d. 12. Omeprazole 20 mg p.o. b.i.d. 13. Spironolactone 12.5 mg daily. PRINCIPAL PROCEDURES 1. Chest x-ray without pneumonia. 2. Head CT with normal enhancement within the deep venous sinuses, normal enhancement of the brain pa renchyma. No acute intracranial abnormality. He has had progression in the volume loss since his last head CT in 2010. 3. Chest x-ray on 07/13 without any active cardiopulmonary process. 4. Blood cultures x2 negative. 5. CSF culture negative. 6. Lumbar puncture. HOSPITAL COURSE: The patient is a 61-year-old man who lives a tenuous existence in his own apartment. He has a roommate, but the roommate is only there for company and to keep an eye on him. The patient has had several in and out episodes of acute care with intermittent SNF placement in the last few mo nths. He is usually at [facility]. He does like [facility] because they do not let him smoke. He was last admitted in 04/2017 with DKA and had an NSTEMI. He was transferred to [facility] where he underwent a coronary angiogram and a percutaneous intervention with stent. He is supposed to be on Plavix and aspirin. From there, he went to a SNF, and from the SNF he went home, and he has only been a home a few days. He says that he is compliant with medications once he was more alert an d not comatose. In any case, he became gradually more lethargic. History is sketchy in that the roommate was not pres ent to give us a history, but ambulance was called and he was a comatose, moaning, disheveled, middle aged man who looked much older than stated age. Evaluation found him to be in severe diabetic ketoacidosis with coma, severe electrolyte abnormalitie s, probable sepsis. After he was more awake, he was able to explain that the bilateral gluteal fold d ecubitus ulcers and the right heel ulcer had been present since his admission to [facility], but on initial assessment his skin was not felt to be infected. UA was negative and chest x-ray wa s negative for pneumonia. It was not clear where the source of infection was and an LP was done. He h ad colorless fluid, 0 white cells, 5 red cells. He had moderate serum ketones and a white cell count to 30.1 thousand. Lactic acid was 7.4. The patient was admitted to the ICU and started on an IV insulin drip. Aggressive fluid resuscitation occurred. He was also placed on empiric antibiotic therapy with ampicillin, Rocephin and vancomycin. Over the next 48 hours, the patient gradually improved with increasing alertness and mentation. Lact ic acid was down to 2.3 by 07/11. He was able to come off the insulin drip and he was transitioned to Lantus. Unfortunately, his Lantus was given at night before bedtime, and on 2 occasions he bottomed out into the 20s and 40s on 07/13 and 07/14. As such, we switched his Lantus around to give him back the daytime Lantus that he is used to with the rainbow coverage before each meal. Over the course of his stay, he gradually improved his mentation, and he was quite able to communicat e his needs and his desires. On physical exam, he had right body weakness, psychomotor delay, slightl y slurred speech, generalized weakness, superimposed on his right body weakness, but nevertheless men tation eddy he was alert and oriented, able to correct us when we were giving him his medication inco rrectly, and able to state his wishes. Physical therapy really felt that he would benefit from rehabilitation again. However, the patient re fused. [facility] declined accepting him in transfer. They are worried about his discharge plans overall . [facility] accepted him, but the patient refused to go there because they charge him 800 do llars a month the last time he was there. I spoke to him twice over the course of the day of discharge, explaining to him that I think he reall y should go to rehabilitation. He declined. He himself called his case management worker with regard to [facility] and his care provider and negotiated the care provider to pick him up and take him home. I t old him that when he does get home, to make sure he takes a bath 3 times a week, that he keep a gluco se diary, document when he takes his insulin and what his sugars before he takes it. I have opted not to continue antibiotics and I do not know where the source of infection was. He is n ot felt to have meningitis, UTI, or pneumonia. Although he had bilateral gluteal fold decubitus ulcer s and a right heel ulcer, none of them were red, hot, swollen and tender. None of them were oozing fl uid. None of the surrounding skin was fluctuant. He was discharged to home in stable condition. However, his social situation is definitely tenuous. T emperature is 37.3, pulse 87, blood pressure is 130/65, respirations 17, he is 97% on room air. He is a lean, lanky white male, looks older than stated age. Slightly slurred slowed speech. Slightly slow thought process with psychomotor retardation. He has a slight right facial droop. Poor dentition. Sc ar tissue in the right neck. A right body that is weaker with the legs weaker than the arms, but lung s are clear, he had a regular rate and rhythm. Pictures of the decubitus ulcers of his bilateral glut eal folds and right heel are in the EMR per nursing. At one point, he did develop low blood pressure the day before discharge and nitroglycerin patch was removed. He is reminded to make sure he takes hi s Plavix and his aspirin because of his recent stent. That has to be given to him for at least a year and I reminded him of that. He was reminded to make sure he follows up with his primary care provider, Daria Chávez. He says he so metimes sees Tomy Franklin. Again, to keep a glucose diary and share that with his primary care provider . I also explained to him that as he has gotten older and has had more events happen with multiple ho spitalizations, one of these times he will not be able to return to home. I have asked him to strongl y consider moving to a home situation that would provide him with more support, would he consider mov ing to [facility]. JOB #: [id number] EXT JOB #:[id number]
[2017-07-17 16:31] LABS: TEST RESULT REPORT
== END 2017-07-15 15:58 | disposition home health service (06) | DRG 637 ==
LOC: EDUNIT# → ED 22:32 → ICU 07-10 02:42 → MS2 07-14 13:46
PROVIDERS: ADMIT Internal Medicine; ATTEND Specialist
PROC: 009U3ZX Drainage of Spinal Canal, Percutaneous Approach, Diagnostic (ICD-10-PCS; principal; 2017-07-11)
DX: E10.10 Type 1 diabetes mellitus with ketoacidosis without coma (principal); I10 Essential (primary) hypertension; I25.10 Atherosclerotic heart disease of native coronary artery without angina pectoris; E11.11 Type 2 diabetes mellitus with ketoacidosis with coma; K21.9 Gastro-esophageal reflux disease without esophagitis; A41.9 Sepsis, unspecified organism; I69.351 Hemiplegia and hemiparesis following cerebral infarction affecting right dominant side; Z86.73 Personal history of transient ischemic attack (TIA), and cerebral infarction without residual deficits; N17.9 Acute kidney failure, unspecified; I95.9 Hypotension, unspecified; I25.5 Ischemic cardiomyopathy; E11.22 Type 2 diabetes mellitus with diabetic chronic kidney disease; I12.9 Hypertensive chronic kidney disease with stage 1 through stage 4 chronic kidney disease, or unspecified chronic kidney disease; N18.3 Chronic kidney disease, stage 3 (moderate); L89.310 Pressure ulcer of right buttock, unstageable; L89.610 Pressure ulcer of right heel, unstageable; L89.320 Pressure ulcer of left buttock, unstageable; I69.392 Facial weakness following cerebral infarction; E03.9 Hypothyroidism, unspecified; G89.29 Other chronic pain; M54.9 Dorsalgia, unspecified; E78.5 Hyperlipidemia, unspecified; I25.2 Old myocardial infarction; Z60.8 Other problems related to social environment; Z79.4 Long term (current) use of insulin; Z79.82 Long term (current) use of aspirin; Z79.02 Long term (current) use of antithrombotics/antiplatelets; Z95.5 Presence of coronary angioplasty implant and graft; Z79.891 Long term (current) use of opiate analgesic; Z99.3 Dependence on wheelchair
CPT/HCPCS: 36415; 51702; 70460; 71010; 80048; 80053; 81001; 81003; 81599; 82009; 82040; 82330; 82803; 82945; 82947; 83036; 83605; 83735; 83880; 84100; 84132; 84157; 84484; 85025; 86695; 86696; 87040; 87070; 87086; 87150; 87205; 87252; 87529; 89051; 93005; 96360; 99284; 99291

== ENCOUNTER 2017-08-16 14:57 | Outpatient (CLI) | payer MEDICARE, MEDICAID | END 2017-08-16 14:58 | disposition critical access hospital (66) | LOC: EMS 14:57 | PROVIDERS: ATTEND Surgery | DX: R53.1 Weakness (principal) | CPT/HCPCS: A0425; A0427 ==

== ENCOUNTER 2017-08-16 15:13 | Observation (INO) | payer MEDICARE, MEDICAID ==
[2017-08-16] MEDS ORDERED: SODIUM CHLORIDE 0.9% 1,000 ML IV ONE (15:41)
--- NOTE | 2017-08-16 15:43 | ED Physician Documentation ---
History of Present Illness - Stated complaint Stated Complaint: AMS - Chief complaint Chief Complaint: General - History obtained from History obtained from: Patient, EMS - History of Present Illness Timing: Other (This is a 61-year-old gentleman with brittle diabetes who presents by ambulance. He lives alone with visiting caregivers. Reportedly for the last few days blood sugars have been in the 500s. Today he was obtunded and his blood sugar was 19. He was administered D50 in route with resolution of his altered mental status. He complains only of chronic neck pain.) Review of Systems Ten Systems: 10 systems reviewed and negative Constitutional: reports: Chills. denies: Fever Respiratory: denies: Dyspnea, Cough GI: denies: Abdominal Pain, Nausea, Vomiting Musculoskeletal: reports: Neck pain, Back pain PD PAST MEDICAL HISTORY - Past Medical History Cardiovascular: Hypertension, Coronary artery disease, [place] Respiratory: None Neuro: CVA, TIA Endocrine/Autoimmune: Type 1 diabetes, HyPOthyroidism GI: GERD, GI bleed, Chronic constipation : None HEENT: None Psych: Depression, Anxiety Musculoskeletal: Chronic back pain Derm: None - Past Surgical History Past Surgical History: Yes Ortho: Spine surgery, Other - Present Medications Home Medications: Ambulatory Orders Medication Instructions Recorded Confirmed Insulin Glargine,Hum.rec.anlog 30 units SUBQ DAILY 03/19/14 07/12/17 [Lantus] Atorvastatin Calcium 80 mg PO DAILY PM 05/02/17 07/12/17 Metoprolol Succinate 25 mg PO BID 05/02/17 07/12/17 Acetaminophen [Tylenol] 650 mg PO Q4HR PRN tablet 07/15/17 Aspirin 325 mg PO DAILY #0 07/15/17 07/12/17 Clopidogrel Bisulfate [Clopidogrel] 75 mg PO DAILY #0 07/15/17 07/12/17 Duloxetine HCl 60 mg PO DAILY PM #0 07/15/17 07/12/17 Insulin Aspart [NovoLOG] 12 units SUBQ TIDWM #0 07/15/17 07/12/17 Levothyroxine Sodium 50 mcg PO DAILY #0 07/15/17 07/12/17 Lisinopril 2.5 mg PO DAILY #0 07/15/17 07/12/17 Omeprazole 20 mg PO BID PRN #0 07/15/17 07/12/17 Spironolactone 12.5 mg PO DAILY #0 07/15/17 07/12/17 clonazePAM [Clonazepam] 0.5 mg PO BID PRN #0 07/15/17 07/12/17 - Allergies Allergies/Adverse Reactions: Allergies Allergy/AdvReac Type Severity Reaction Status Date / Time No Known Drug Allergies Allergy Verified 01/30/17 20:17 - Social History Does the pt smoke?: No Smoking Status: Never smoker Does the pt drink ETOH?: No Does the pt have substance abuse?: No - Family History Family history: reports: Non contributory - Immunizations Immunizations are current?: No - POLST Patient has POLST: No PD ED PE NORMAL - Vitals Vital signs reviewed: Yes - General General: Alert and oriented X 3, No acute distress, Other (Disheveled, covered in urine) - HEENT HEENT: PERRL, EOMI - Neck Neck: Supple, no meningeal sign, No bony TTP - Cardiac Cardiac: RRR, No murmur - Respiratory Respiratory: No respiratory distress, Clear bilaterally - Abdomen Abdomen: Non tender - Back Back: No CVA TTP, No spinal TTP - Derm Derm: Other (Mild redness to the top of the right foot and some small ulcers on the tops of a few toes) - Extremities Extremities: No edema, No calf tenderness / cord - Neuro Neuro: Alert and oriented X 3, Normal speech - Psych Psych: Normal mood, Normal affect Results - Vitals Vitals: Vital Signs - 24 hr 08/16/17 08/16/17 08/16/17 15:18 16:30 18:00 Temperature 35.9 C L Heart Rate 81 100 90 Respiratory 12 18 18 Rate Blood Pressure 134/83 H 118/70 O2 Saturation 100 96 96 08/16/17 19:33 Temperature Heart Rate 88 Respiratory 16 Rate Blood Pressure 127/65 O2 Saturation 98 Oxygen O2 Source Room air - Labs Labs: Laboratory Tests 08/16/17 08/16/17 08/16/17 15:54 15:54 16:02 WBC 16.6 H RBC 3.90 L Hgb 10.9 L Hct 33.4 L MCV 85.5 MCH 28.0 MCHC 32.7 RDW 14.9 Plt Count 366 MPV 7.5 Neut # Not Reportable Lymph # Not Reportable Harlan # Not Reportable Eos # Not Reportable Baso # Not Reportable Absolute Nucleated RBC Not Reportable Total Counted 100 Band Neuts % (Manual) 5 Nucleated RBC % Not Reportable Neutrophils # (Manual) 15.9 H Lymphocytes # (Manual) 0.3 L Monocytes # (Manual) 0.3 Differential Comment MANUAL DIFFERENTIAL Manual Slide Review Indicated Platelet Estimate NORMAL (130-450,000) Platelet Morphology NORMAL APPEARANCE RBC Morph Micro Appear NORMAL APPEARANCE VBG pH 7.386 VBG pCO2 54.0 H VBG pO2 25.0 VBG HCO3 31.7 H VBG Total CO2 33.3 H VBG O2 Saturation 45.4 L VBG Base Excess 5.4 H Sodium 132 L Potassium 3.7 Chloride 94 L Carbon Dioxide 30 Anion Gap 8.0 BUN 18 Creatinine 0.5 L Estimated GFR (MDRD) 170 Glucose 102 H Calcium 8.5 Total Bilirubin 0.4 AST 29 ALT 28 Alkaline Phosphatase 116 Total Protein 6.4 L Albumin 3.2 Globulin 3.2 Albumin/Globulin Ratio 1.0 Lipase 34 Serum Ketones NEGATIVE PD MEDICAL DECISION MAKING - ED course ED course: 61-year-old gentleman with an episode of hypoglycemia today. He is on Lantus. His blood sugar remained borderline low despite receiving D50 in route probably deserves a full night of observation given the long-acting nature of the Lantus. Call to Dr. Vera for observation at 7:30 PM. Just prior to admission his blood sugar dropped again to 39, D50 was readministered and he was started on D10. Departure - Departure Disposition: ED Place in Observation Clinical Impression: Hypoglycemia Condition: Stable
[2017-08-16 16:03] LABS: VBG BASE EXCESS 5.4 mmol/L (-2 - +2); VBG OXYGEN SATURATION 45.4 % (60-80); VBG PH 7.386 (7.31-7.41); VBG TOTAL CO2 33.3 mmol/L (24-29)
[2017-08-16 16:06] LABS: BASOPHILS % (AUTO) 0.1 %; EOSINOPHILS % (AUTO) 0.4 %; HCT - HEMATOCRIT 33.4 % (42.0-52.0); HGB - HEMOGLOBIN 10.9 g/dL (14.0-18.0); LYMPHOCYTES % (AUTO) 2.5 %; MEAN CORPUSCULAR HGB CONC 32.7 g/dL (32.0-36.0); MEAN CORPUSCULAR VOLUME 85.5 fL (80.0-94.0); MEAN PLATELET VOLUME 7.5 fL (7.4-11.4); MONOCYTES % (AUTO) 3.6 %; NEUTROPHILS % (AUTO) 93.4 %; RED CELL DISTRIBUTION WIDTH 14.9 % (12.0-15.0); UNCORRECTED WHITE BLOOD COUNT 16.6 x10^3/uL; WHITE BLOOD COUNT 16.6 x10^3/uL (4.8-10.8)
[2017-08-16 16:13] LABS: BILIRUBIN,TOTAL 0.4 mg/dL (0.2-1.0); BUN - BLOOD UREA NITROGEN 18 mg/dL (6-20); CALCIUM 8.5 mg/dL (8.5-10.3); CARBON DIOXIDE - CO2 30 mmol/L (21-32); CHLORIDE 94 mmol/L (101-111); CREATININE 0.5 mg/dL (0.6-1.2); GFR - MDRD 170 (>89); GLUCOSE 102 mg/dL (70-100); LIPASE 34 U/L (22-51); POTASSIUM 3.7 mmol/L (3.5-5.0); SODIUM 132 mmol/L (135-145); TOTAL PROTEIN 6.4 g/dL (6.7-8.2)
[2017-08-16 17:03] LABS: BAND NEUTROPHILS % (MANUAL) 5 %; LYMPHOCYTES % (MANUAL) 2 %; NEUTROPHILS % (MANUAL) 91 %; NP AUTO DIFFERENTIAL? YES; NP MAN DIFFERENTIAL? NO; PLATELET ESTIMATE, MANUAL NORMAL (130-450,000) (NORMAL); PLATELET MORPHOLOGY NORMAL APPEARANCE (NORMAL); TOTAL CELLS COUNTED 100
[2017-08-16] MEDS ORDERED: MORPHINE IR 15 MG TABLET PO STA (19:35)
[2017-08-16] MEDS ORDERED: PROCHLORPERAZINE 10 MG/2 ML VIAL IVP PRN (19:41)
[2017-08-16] MEDS ORDERED: ONDANSETRON 4 MG/2 ML VIAL IVP PRN (19:41)
[2017-08-16] MEDS ORDERED: ACETAMINOPHEN 325 MG TABLET PO PRN (19:41)
[2017-08-16] MEDS ORDERED: MORPHINE IR 15 MG TABLET PO ONE (19:43)
[2017-08-16] MEDS ORDERED: DEXTROSE 50% ABBOJECT 25 GM/50 ML SYRINGE IVP STA (19:48)
[2017-08-16] MEDS ORDERED: DEXTROSE 10% 1,000 ML IV STA (19:48)
[2017-08-16] MEDS ORDERED: DEXTROSE 50% ABBOJECT 25 GM/50 ML SYRINGE ONE (19:55)
[2017-08-16] MEDS ORDERED: DEXTROSE 10% 1,000 ML IV SCH ×2 (20:00→23:54)
--- NOTE | 2017-08-16 20:29 | HISTORY & PHYSICAL EXAMINATION ---
Chief Complaint - Chief Complaint Chief Complaint: Altered Mental Status History of Present Illness - Admitted From Admitted From:: Emergency Department - History Obtained From Records Reviewed: Yes History obtained from: Patients mother, patient and medical records Exam Limitations: None - History of Present Illness HPI Comment/Other: Patient is a 61-year-old gentleman with a past medical history significant for type 1 diabetes with multiple hospitalizations with DKA, CVA with residual right -sided weakness, coronary artery disease status post 3 stents, ischemic cardiomyopathy with ejection fraction of 30%, CKD stage III, depression, chronic back pain, hypertension and hypothyroidism who presented to the emergency department with altered mental status. According to history from the emergency room, EMS and the patient, the patient was found to have decreased level of consciousness on the floor and his home by the patient's roommate. At that time the patient's blood glucose was checked and it was 19 the patient was given D50 by EMS and D5 in route to the emergency department. The patient states that over the last few days he has had fluctuating blood sugars that he states have been up and down. He states that his blood glucose has been as low as 32 just yesterday. He has been having several episodes of hypoglycemia but he states he is just changed how much he eats. He states he has been eating more to try to bring his blood glucose up. The patient states he has not made any changes in his insulin regimen. He states that he takes 30 units of Lantus and 10 units of NovoLog with meals. The patient denies any recent fevers, chills, chest pain, shortness of air, cough, abdominal pain, nausea, vomiting, diarrhea, urinary urgency, urinary frequency, dysuria, joint pain, muscle aches , joint swelling, back pain, neck stiffness, recent unintentional weight loss, changes in his appetite or any focal neurologic deficits. On presentation to the emergency department the patient was afebrile and vital signs were within normal limits. By the time the patient arrived in the emergency department he was much more alert. The patient was able to answer questions in the emergency department and just complained of some neck pain. The patient was placed on D5 in the emergency department and given his home dose of oral morphine for his pain. While the patient was in the emergency department his blood glucose initially was in the 70s-80s but then prior to being admitted it dropped again down to 39 therefore he was given another amp of D50 and placed on a D10 drip. Patient was placed in observation for hypoglycemia that was persistent in the emergency department. The remainder of the patient's lab work did reveal a leukocytosis of 16.6 however patient does have chronic leukocytosis he also had a hyponatremia with a sodium of 132 otherwise the remainder of the electrolytes were within normal limits. The patient did not undergo any imaging. History - Past Medical History Cardiovascular: reports: Congestive heart failure, Hypertension, High cholesterol, Coronary artery disease, MS Respiratory: reports: None Neuro: reports: CVA (Residual right-sided weakness), TIA Endocrine/Autoimmune: reports: Type 1 diabetes, HyPOthyroidism GI: reports: GERD, GI bleed, Chronic constipation : reports: None HEENT: reports: None Psych: reports: Depression, Anxiety Musculoskeletal: reports: Chronic back pain Derm: reports: None MRSA Hx?: No - Past Surgical History Ortho: reports: Spine surgery, Other - Family & Social History Family History: Mother: (Mom of multiple myeloma), Asthma, Father : , Hypertension Living arrangement: At home Living Situation: With friend(s) Social History Notes: The patient was born in [place] but grew [place] [facility]. He is he does have 2 children they are both boys but do not live on [facility]. He does not have any family on the [place] anymore he has 1 brother that lives in [place]. The patient lives with a roommate and cares for himself. He is wheelchair-bound. The patient quit smoking 6 months ago prior to that he smoked 1 pack a day for more than 40 years. He does not drink alcohol and denies any illicit drug use. - POLST Patient has POLST: No POLST Status: Full Code Meds/Allgy - Home Medications Home Medications: Ambulatory Orders Medication Instructions Recorded Confirmed Insulin Glargine,Hum.rec.anlog 30 units SUBQ DAILY 03/19/14 07/12/17 [Lantus] Atorvastatin Calcium 80 mg PO DAILY PM 05/02/17 07/12/17 Metoprolol Succinate 25 mg PO BID 05/02/17 07/12/17 Acetaminophen [Tylenol] 650 mg PO Q4HR PRN tablet 07/15/17 Aspirin 325 mg PO DAILY #0 07/15/17 07/12/17 Clopidogrel Bisulfate [Clopidogrel] 75 mg PO DAILY #0 07/15/17 07/12/17 Duloxetine HCl 60 mg PO DAILY PM #0 07/15/17 07/12/17 Insulin Aspart [NovoLOG] 12 units SUBQ TIDWM #0 07/15/17 07/12/17 Levothyroxine Sodium 50 mcg PO DAILY #0 07/15/17 07/12/17 Lisinopril 2.5 mg PO DAILY #0 07/15/17 07/12/17 Omeprazole 20 mg PO BID PRN #0 07/15/17 07/12/17 Spironolactone 12.5 mg PO DAILY #0 07/15/17 07/12/17 clonazePAM [Clonazepam] 0.5 mg PO BID PRN #0 07/15/17 07/12/17 - Allergies Allergies/Adverse Reactions: Allergies Allergy/AdvReac Type Severity Reaction Status Date / Time No Known Drug Allergies Allergy Verified 01/30/17 20:17 Review of Systems - Other Findings Other Findings: A comprehensive review of systems was performed the pertinent positives and negatives are stated above in the HPI and the remainder of the review of systems is negative. Exam - Vital Signs Reviewed Vital Signs: Yes - Physical Exam General Appearance: positive: No acute distress, Alert, Other (Desheveled looking) Eyes Bilateral: positive: Normal inspection, PERRL, EOMI, No lid inflammation, Conjunctivae nml, No scleral icterus ENT: positive: ENT inspection nml, Pharynx nml, Dry mucous membranes. negative : Purulent nasal drainage, Pharyngeal erythema, Oral lesions Neck: positive: Nml inspection, Thyroid nml, No JVD, Trachea midline. negative : Thyromegaly, Lymphadenopathy (R), Lymphadenopathy (L), Carotid bruit, Tracheal deviation Respiratory: positive: Chest non-tender, No respiratory distress, Breath sounds nml. negative: Wheezes, Rales, Rhonchi Cardiovascular: positive: Regular rate & rhythm, No murmur, No gallop Peripheral Pulses: positive: 2+ Abdomen: positive: Non-tender, No organomegaly, Nml bowel sounds, No distention. negative: Guarding, Rebound, Hepatomegaly Back: positive: Nml inspection. negative: CVA tenderness (R), CVA tenderness (L ) Skin: positive: No rash, Dry, Other (Right heel has a pressure wound with erythema but does not appear infected). negative: Cyanosis, Pallor Extremities: positive: Nml appearance, No pedal edema. negative: Joint swelling Neurologic/Psychiatric: positive: Oriented x3, CN's nml (2-12), Weakness (Right sided paresis), Sensory loss (decreased sensations in his feet) Conclusion/Plan - Problem List (1) Hypoglycemia Conclusion/Plan: The patient presented with altered mental status and was found to have a blood glucose of 19 at home. The patient states that he has been having fluctuating blood sugars at home. He states that sometimes his blood sugar will be 300 and then it will be 30. He states that he has not changed his regimen and states that the only thing he does for 1 it does get low is he eats more. He states that yesterday his blood glucose was as low as 32. The patient has been on the same regimen of 30 units of Lantus and 10 units of NovoLog with meals for some time now. The patient has not been exercising any more than normal he does not appear to have any signs or symptoms of infection. The patient states that his blood glucose is always very volatilie and difficult to control. In the emergency department the patient was placed on D5 drip but blood glucose dropped down to 39 in the emergency department and patient had to be given D50 and placed on a D10 drip and placed in observation. Given the history the patient's cause of hypoglycemia is not completely clear. We will check a cortisol level in the morning to see that patient has not developed adrenal insufficiency. The patient does not appear to be septic and does not appear to have hepatic or renal failure at this time. Plan: Patient will be continued on a D10 drip at 100 mL's per hour We will monitor patient's blood glucose every 2 hours When blood glucose is greater than 200 for greater than 2 readings we will stop the D10 drip Patient will be started back on Lantus at a lower dose Patient will be placed on diabetic diet (2) Diabetes Conclusion/Plan: Patient has a history of type 1 diabetes with multiple admissions for DKA however this time he presents with hypoglycemia. The patient states that his blood glucose has been volatile at home despite not having made any changes in his insulin regimen or having had any changes in his medical status. The patient presented this time with hypoglycemia. Patient's blood glucose was as low as 19 at home and down to 39 in the emergency department. The patient required a D10 drip and placement in observation. It appears the patient is having a very difficult time taking care of himself as he does have multiple hospitalizations over the last year and he should consider going to a facility where he can get assistance with his medications however patient is refusing this. Plan: Continue patient on D10 drip until blood glucose is greater than 200 Reduced dose of patient's Lantus to 15 units subcu Placed on sliding scale insulin Place on diabetic diet Check hemoglobin A1c Qualifiers: Diabetes mellitus type: type 1 (3) Leukocytosis Conclusion/Plan: Patient has leukocytosis on presentation. The patient's blood glucose is 16.6 the patient's WBC is 16.6 on presentation. The patient does tend to have elevated WBC on previous hospitalizations however it does return to normal. It appears the patient likely has a reactive leukocytosis due to his hypoglycemia. The patient does not show any signs or symptoms of infection. We will continue to monitor his CBC daily. Qualifiers: Leukocytosis type: leukemoid reaction Qualified Code(s): D72.823 - Leukemoid reaction (4) CHF (congestive heart failure) Conclusion/Plan: Patient has cardiomyopathy with an ejection fraction of 30-35% on most recent echocardiogram. The patient is on optimal medication with metoprolol, lisinopril and spironolactone. Currently the patient's fluid status appears to be stable. Patient will need to be given a D10 drip at 100 mL's per hour and will need to be monitored carefully for fluid overload. Qualifiers: Congestive heart failure type: systolic (5) History of coronary artery disease Conclusion/Plan: Patient has history of coronary artery disease and is on optimal treatment with aspirin, Plavix, Lipitor and metoprolol. The patient had 3 stents placed in the last year and therefore will need to continue on his Plavix. We will continue his home medications while he is hospitalized. (6) Hypothyroidism Conclusion/Plan: Patient has a history of hypothyroidism and he appears stable. Patient will be continued on his home dose of Synthroid - Lab Results Lab results reviewed: Yes Fish Bones: 08/16/17 16:02 08/16/17 15:54 Other Lab Results: Laboratory Results WBC 16.6 x10^3/uL (4.8-10.8) H 08/16/17 16:02 RBC 3.90 10^6/uL (4.70-6.10) L 08/16/17 16:02 Hgb 10.9 g/dL (14.0-18.0) L 08/16/17 16:02 Hct 33.4 % (42.0-52.0) L 08/16/17 16:02 MCV 85.5 fL (80.0-94.0) 08/16/17 16:02 MCH 28.0 pg (27.0-31.0) 08/16/17 16:02 MCHC 32.7 g/dL (32.0-36.0) 08/16/17 16:02 RDW 14.9 % (12.0-15.0) 08/16/17 16:02 Plt Count 366 10^3/uL (130-450) 08/16/17 16:02 MPV 7.5 fL (7.4-11.4) 08/16/17 16:02 Neut # Not Reportable 08/16/17 16:02 Lymph # Not Reportable 08/16/17 16:02 [place] # Not Reportable 08/16/17 16:02 Eos # Not Reportable 08/16/17 16:02 Baso # Not Reportable 08/16/17 16:02 Absolute Nucleated RBC Not Reportable 08/16/17 16:02 Total Counted 100 08/16/17 16:02 Band Neuts % (Manual) 5 % (0-10) 08/16/17 16:02 Nucleated RBC % Not Reportable 08/16/17 16:02 Neutrophils # (Manual) 15.9 10^3/uL (1.5-6.6) H 08/16/17 16:02 Lymphocytes # (Manual) 0.3 10^3/uL (1.5-3.5) L 08/16/17 16:02 Monocytes # (Manual) 0.3 10^3/uL (0.0-1.0) 08/16/17 16:02 Differential Comment MANUAL DIFFERENTIAL 08/16/17 16:02 Manual Slide Review Indicated 08/16/17 16:02 Platelet Estimate NORMAL (130-450,000) (NORMAL) 08/16/17 16:02 Platelet Morphology NORMAL APPEARANCE (NORMAL) 08/16/17 16:02 RBC Morph Micro Appear NORMAL APPEARANCE (NORMAL) 08/16/17 16:02 VBG pH 7.386 (7.31-7.41) 08/16/17 15:54 VBG pCO2 54.0 mmHg (41-51) H 08/16/17 15:54 VBG pO2 25.0 mmHg (25-47) 08/16/17 15:54 VBG HCO3 31.7 mmol/L (23-28) H 08/16/17 15:54 VBG Total CO2 33.3 mmol/L (24-29) H 08/16/17 15:54 VBG O2 Saturation 45.4 % (60-80) L 08/16/17 15:54 VBG Base Excess 5.4 mmol/L (-2 - +2) H 08/16/17 15:54 Sodium 132 mmol/L (135-145) L 08/16/17 15:54 Potassium 3.7 mmol/L (3.5-5.0) 08/16/17 15:54 Chloride 94 mmol/L (101-111) L 08/16/17 15:54 Carbon Dioxide 30 mmol/L (21-32) 08/16/17 15:54 Anion Gap 8.0 (6-13) 08/16/17 15:54 BUN 18 mg/dL (6-20) 08/16/17 15:54 Creatinine 0.5 mg/dL (0.6-1.2) L 08/16/17 15:54 Estimated GFR (MDRD) 170 (>89) 08/16/17 15:54 Glucose 102 mg/dL (70-100) H 08/16/17 15:54 Calcium 8.5 mg/dL (8.5-10.3) 08/16/17 15:54 Total Bilirubin 0.4 mg/dL (0.2-1.0) 08/16/17 15:54 AST 29 IU/L (10-42) 08/16/17 15:54 ALT 28 IU/L (10-60) 08/16/17 15:54 Alkaline Phosphatase 116 IU/L (42-121) 08/16/17 15:54 Total Protein 6.4 g/dL (6.7-8.2) L 08/16/17 15:54 Albumin 3.2 g/dL (3.2-5.5) 08/16/17 15:54 Globulin 3.2 g/dL (2.1-4.2) 08/16/17 15:54 Albumin/Globulin Ratio 1.0 (1.0-2.2) 08/16/17 15:54 Lipase 34 U/L (22-51) 08/16/17 15:54 Serum Ketones NEGATIVE (NEGATIVE) 08/16/17 15:54 Issues/Core Measures - Anticipated LOS Anticipated Stay Length: Less than 2 midnights - DVT/VTE - Prophylaxis VTE/DVT Prophylaxis med ordered at admit?: Yes
[2017-08-16] MEDS: ATORVASTATIN 40 MG TABLET PO SCH (21:34)
[2017-08-16] MEDS: METOPROLOL SUCCINATE 25 MG TABLET PO SCH (21:34)
[2017-08-16] MEDS: DULoxetine 30 MG CAPSULE PO SCH (21:34)
[2017-08-16] MEDS: INSULIN ASPART 300 UNIT/3 ML PEN SUBQ SCH (21:37)
[2017-08-16] MEDS: SODIUM CHLORIDE FLUSH 0.9% 10 ML SYRINGE IVP SCH (22:25)
[2017-08-17] MEDS: oxyCODONE 5 MG TABLET PO PRN ×2 (01:22→16:15)
[2017-08-17] MEDS: SODIUM CHLORIDE FLUSH 0.9% 10 ML SYRINGE IVP PRN (03:24)
[2017-08-17 06:11] LABS: HCT - HEMATOCRIT 28.3 % (42.0-52.0); HGB - HEMOGLOBIN 9.3 g/dL (14.0-18.0); MEAN CORPUSCULAR HGB CONC 32.6 g/dL (32.0-36.0); MEAN CORPUSCULAR VOLUME 85.8 fL (80.0-94.0); MEAN PLATELET VOLUME 7.5 fL (7.4-11.4); RED BLOOD COUNT 3.3 10^6/uL (4.70-6.10); RED CELL DISTRIBUTION WIDTH 15.2 % (12.0-15.0); WHITE BLOOD COUNT 9.2 x10^3/uL (4.8-10.8)
[2017-08-17 06:23] LABS: ALBUMIN/GLOBULIN RATIO 0.9 (1.0-2.2); BILIRUBIN,TOTAL 0.3 mg/dL (0.2-1.0); BUN - BLOOD UREA NITROGEN 14 mg/dL (6-20); CALCIUM 7.8 mg/dL (8.5-10.3); CARBON DIOXIDE - CO2 30 mmol/L (21-32); CHLORIDE 92 mmol/L (101-111); CREATININE 0.5 mg/dL (0.6-1.2); GFR - MDRD 170 (>89); GLUCOSE 244 mg/dL (70-100); POTASSIUM 3.6 mmol/L (3.5-5.0); SODIUM 129 mmol/L (135-145); TOTAL PROTEIN 5.2 g/dL (6.7-8.2)
[2017-08-17 06:34] LABS: CALCIUM, IONIZED 1.06 mmol/L (1.15-1.33); VBG PH 7.468 (7.31-7.41)
[2017-08-17] MEDS: SODIUM CHLORIDE FLUSH 0.9% 10 ML SYRINGE IVP SCH ×3 (07:07→22:52)
[2017-08-17] MEDS: LEVOTHYROXINE 25 MCG TABLET PO SCH (07:07)
[2017-08-17] MEDS: PANTOPRAZOLE 40 MG TABLET PO SCH (07:07)
[2017-08-17 07:18] LABS: HEMOGLOBIN A1C 0.77 g/dL
[2017-08-17] MEDS: CLOPIDOGREL 75 MG TABLET PO SCH (08:47)
[2017-08-17] MEDS: ASPIRIN 325 MG TABLET PO SCH (08:47)
[2017-08-17] MEDS: SPIRONOLACTONE 25 MG TABLET PO SCH (08:47)
[2017-08-17] MEDS: METOPROLOL SUCCINATE 25 MG TABLET PO SCH ×2 (08:51→21:39)
[2017-08-17] MEDS: INSULIN ASPART 300 UNIT/3 ML PEN SUBQ SCH ×4 (08:52→22:07)
[2017-08-17] MEDS: INSULIN GLARGINE 300 UNIT/3 ML PEN SUBQ SCH (08:52)
[2017-08-17] MEDS: POLYETHYLENE GLYCOL 3350 17 GM PACKET PO SCH (08:53)
[2017-08-17] MEDS: ENOXAPARIN 40 MG/0.4 ML SYRINGE SUBQ SCH (08:55)
[2017-08-17] MEDS: LISINOPRIL 5 MG TABLET PO SCH (09:00)
--- NOTE | 2017-08-17 11:39 | PROVIDER PROGRESS NOTE ---
Subjective - Prog Note Date Prog Note Date: 08/17/17 Prog Note Time: 11:24 - Subjective Pt reports feeling: Improved Subjective: His sugars have been back up again. He ate a sandwich last night in the middle of the night and now he wants a full breakfast. Denies chest pain palpitations shortness of breath. Current Medications - Current Medications Current Medications: Active Medications Acetaminophen (Tylenol) 650 mg PO Q4HR PRN PRN Reason: Pain 1 to 4 Aspirin (Maria De Jesus) 325 mg PO DAILY [facility] Last Admin: 08/17/17 08:47 Dose: 325 mg Atorvastatin Calcium (Lipitor) 80 mg PO HS [facility] Last Admin: 08/16/17 21:34 Dose: 80 mg Clonazepam (Klonopin) 0.5 mg PO BID PRN PRN Reason: Anxiety Clopidogrel Bisulfate (Plavix) 75 mg PO DAILY [facility] Last Admin: 08/17/17 08:47 Dose: 75 mg Duloxetine HCl (Cymbalta) 60 mg PO HS [facility] Last Admin: 08/16/17 21:34 Dose: 60 mg Enoxaparin Sodium (Lovenox) 40 mg SUBQ DAILY [facility] Last Admin: 08/17/17 08:55 Dose: 40 mg Insulin Aspart (Novolog) 1 - 5 unit SUBQ 0800,1200,1700,2100 [facility] PRN Reason: Protocol Last Admin: 08/17/17 08:52 Dose: 1 unit Insulin Glargine (Lantus Solostar) 15 unit SUBQ DAILY [facility] Last Admin: 08/17/17 08:52 Dose: 15 unit Levothyroxine Sodium (Synthroid) 50 mcg PO QDAC [facility] Last Admin: 08/17/17 07:07 Dose: 50 mcg Lisinopril (Zestril) 2.5 mg PO DAILY [facility] Last Admin: 08/17/17 09:00 Dose: 2.5 mg Metoprolol Succinate (Toprol Xl) 25 mg PO BID [facility] Last Admin: 08/17/17 08:51 Dose: 25 mg Ondansetron HCl (Zofran Inj) 4 mg IVP Q6HR PRN PRN Reason: Nausea / Vomiting Oxycodone HCl (Roxicodone) 5 mg PO Q4HR PRN PRN Reason: Pain 5 to 7 Last Admin: 08/17/17 01:22 Dose: 5 mg Oxycodone HCl (Roxicodone) 10 mg PO Q4HR PRN PRN Reason: Pain 8 to 10 Pantoprazole Sodium (Protonix) 40 mg PO QDAC [facility] Last Admin: 08/17/17 07:07 Dose: 40 mg Polyethylene Glycol (Miralax) 17 gm PO DAILY [facility] Last Admin: 08/17/17 08:53 Dose: 17 gm Prochlorperazine Edisylate (Compazine Inj) 10 mg IVP Q6HR PRN PRN Reason: Nausea / Vomiting Sodium Chloride (Normal Saline Flush 0.9%) 10 ml IVP PRN PRN PRN Reason: NEEDED PER PROVIDER ORDERS Last Admin: 08/17/17 03:24 Dose: 10 ml Sodium Chloride (Normal Saline Flush 0.9%) 10 ml IVP Q8HR [facility] Last Admin: 08/17/17 07:07 Dose: 10 ml Spironolactone (Aldactone) 12.5 mg PO DAILY [facility] Last Admin: 08/17/17 08:47 Dose: 12.5 mg Zolpidem Tartrate (Ambien) 5 mg PO QPM PRN PRN Reason: Insomnia Insulin Glargine,Hum.rec.anlog [Lantus] 30 units SUBQ DAILY 03/19/14 Atorvastatin Calcium 80 mg PO DAILY PM 05/02/17 Metoprolol Succinate 25 mg PO DAILY 05/02/17 Insulin Aspart [NovoLOG] 10 unit SQ TIDWM 08/17/17 Morphine Sulfate [Morphine Sulfate] 30 mg PO TID PRN 08/17/17 Senna [Senokot] 8.6 mg PO DAILY PRN 08/17/17 clonazePAM [Clonazepam] 0.5 mg PO DAILY PRN 08/17/17 Objective - Vital Signs/Intake & Output Reviewed Vital Signs: Yes Vital Signs: Vital Signs x48h Temp Pulse Resp BP Pulse Ox 08/17/17 08:06 36.8 C 81 18 105/56 L 98 08/17/17 05:00 36.8 C 82 16 92/49 L 95 Intake & Output: Intake & Output 08/14/17 08/15/17 08/16/17 08/17/17 23:59 23:59 23:59 23:59 Intake Total 200 1579.667 Output Total 1323 Balance 200 256.667 - Objective General Appearance: positive: No acute distress, Alert ENT: positive: Other (left facial droop, ojeda, poor dentition) Neck: positive: No JVD. negative: Stiff neck, Carotid bruit Respiratory: positive: Chest non-tender, Other (shallow unlabored breathing). negative: Wheezes, Rales, Rhonchi Cardiovascular: positive: Regular rate & rhythm, Systolic murmur. negative: Gallop/S4, Friction rub Abdomen: positive: Non-tender, No organomegaly, Nml bowel sounds, No distention Skin: positive: Warm, Dry Neurologic/Psychiatric: positive: Oriented x3, Slurred/abnml speech. negative: Motor nml (hemiplegia partial on right), Sensation nml (feet with peripheral neuropathy) - Lab Results Fish Bones: 08/17/17 05:40 08/17/17 05:40 Other Labs: Lab Results x24hrs 08/17/17 08/17/17 08/17/17 Range/Units 07:54 05:40 05:40 WBC (4.8-10.8) x10^3/uL RBC (4.70-6.10) 10^6/uL Hgb (14.0-18.0) g/dL Hct (42.0-52.0) % MCV (80.0-94.0) fL MCH (27.0-31.0) pg MCHC (32.0-36.0) g/dL RDW (12.0-15.0) % Plt Count (130-450) 10^3/uL MPV (7.4-11.4) fL VBG pH 7.468 H (7.31-7.41) Ionized Calcium 1.06 L (1.15-1.33) mmol/L Sodium (135-145) mmol/L Potassium (3.5-5.0) mmol/L Chloride (101-111) mmol/L Carbon Dioxide (21-32) mmol/L Anion Gap (6-13) BUN (6-20) mg/dL Creatinine (0.6-1.2) mg/dL Estimated GFR (MDRD) (>89) Glucose (70-100) mg/dL Glycated Hemoglobin (4.6-6.2) % Estim Average Glucose (70-100) Calcium (8.5-10.3) mg/dL Total Bilirubin (0.2-1.0) mg/dL AST (10-42) IU/L ALT (10-60) IU/L Alkaline Phosphatase (42-121) IU/L Total Protein (6.7-8.2) g/dL Albumin (3.2-5.5) g/dL Globulin (2.1-4.2) g/dL Albumin/Globulin Ratio (1.0-2.2) TSH 3.82 (0.34-5.60) uIU/mL Cortisol AM Sample 15.2 ug/dL 08/17/17 08/17/17 08/17/17 Range/Units 05:40 05:40 05:40 WBC 9.2 (4.8-10.8) x10^3/uL RBC 3.30 L (4.70-6.10) 10^6/uL Hgb 9.3 L (14.0-18.0) g/dL Hct 28.3 L (42.0-52.0) % MCV 85.8 (80.0-94.0) fL MCH 28.0 (27.0-31.0) pg MCHC 32.6 (32.0-36.0) g/dL RDW 15.2 H (12.0-15.0) % Plt Count 310 (130-450) 10^3/uL MPV 7.5 (7.4-11.4) fL VBG pH (7.31-7.41) Ionized Calcium YES (1.15-1.33) mmol/L Sodium 129 L (135-145) mmol/L Potassium 3.6 (3.5-5.0) mmol/L Chloride 92 L (101-111) mmol/L Carbon Dioxide 30 (21-32) mmol/L Anion Gap 7.0 (6-13) BUN 14 (6-20) mg/dL Creatinine 0.5 L (0.6-1.2) mg/dL Estimated GFR (MDRD) 170 (>89) Glucose 244 H (70-100) mg/dL Glycated Hemoglobin 9.7 H (4.6-6.2) % Estim Average Glucose 232 H (70-100) Calcium 7.8 L (8.5-10.3) mg/dL Total Bilirubin 0.3 (0.2-1.0) mg/dL AST 19 (10-42) IU/L ALT 22 (10-60) IU/L Alkaline Phosphatase 92 (42-121) IU/L Total Protein 5.2 L (6.7-8.2) g/dL Albumin 2.4 L (3.2-5.5) g/dL Globulin 2.8 (2.1-4.2) g/dL Albumin/Globulin Ratio 0.9 L (1.0-2.2) TSH (0.34-5.60) uIU/mL Cortisol AM Sample ug/dL Assessment/Plan - Problem List (1) Hypoglycemia Impression: The patient presented with altered mental status and was found to have a blood glucose of 19 at home. The patient states that he has been having fluctuating blood sugars at home. He states that sometimes his blood sugar will be 300 and then it will be 30. He states that he has not changed his regimen and states that the only thing he does for 1 it does get low is he eats more. He states that yesterday his blood glucose was as low as 32. The patient has been on the same regimen of 30 units of Lantus and 10 units of NovoLog with meals for some time now. The patient has not been exercising any more than normal he does not appear to have any signs or symptoms of infection. The patient states that his blood glucose is always very volatilie and difficult to control. In the emergency department the patient was placed on D5 drip but blood glucose dropped down to 39 in the emergency department and patient had to be given D50 and placed on a D10 drip and placed in observation. Given the history the patient's cause of hypoglycemia is not completely clear. We will check a cortisol level in the morning to see that patient has not developed adrenal insufficiency. The patient does not appear to be septic and does not appear to have hepatic or renal failure at this time. Plan: Patient will be continued on a D10 drip at 100 mL's per hour We will monitor patient's blood glucose every 2 hours When blood glucose is greater than 200 for greater than 2 readings we will stop the D10 drip Patient will be started back on Lantus at a lower dose Patient will be placed on diabetic diet Will monitor today to see if bottoms out again. (2) Diabetes Conclusion/Plan: Uncontrolled with complications of neuropathy and stroke. A1c is 9.7% Patient has a history of type 1 diabetes with multiple admissions for DKA however this time he presents with hypoglycemia. The patient states that his blood glucose has been volatile at home despite not having made any changes in his insulin regimen or having had any changes in his medical status. The patient presented this time with hypoglycemia. Patient's blood glucose was as low as 19 at home and down to 39 in the emergency department. The patient required a D10 drip and placement in observation. It appears the patient is having a very difficult time taking care of himself as he does have multiple hospitalizations over the last year and he should consider going to a facility where he can get assistance with his medications however patient is refusing this. He has reponded to treatment and is now 176-250's since midnight. Wants to eat. Plan: D10 stopped Reduced dose of patient's Lantus to 15 units subcu Placed on sliding scale insulin Place on diabetic diet Qualifiers: Diabetes mellitus type: type 1 (3) Leukocytosis Conclusion/Plan: Patient has leukocytosis on presentation. The patient's blood glucose is 16.6 the patient's WBC is 16.6 on presentation. The patient does tend to have elevated WBC on previous hospitalizations however it does return to normal. It appears the patient likely has a reactive leukocytosis due to his hypoglycemia. The patient does not show any signs or symptoms of infection. He is 9.2 this am. No further monitoring needed. Qualifiers: Leukocytosis type: leukemoid reaction Qualified Code(s): D72.823 - Leukemoid reaction (4) CHF (congestive heart failure) Conclusion/Plan: Patient has cardiomyopathy with an ejection fraction of 30-35% on most recent echocardiogram. The patient is on optimal medication with metoprolol, lisinopril and spironolactone. Currently the patient's fluid status appears to be stable. No fluid overload noted with his D10 drip. e Qualifiers: Congestive heart failure type: systolic (5) History of coronary artery disease Conclusion/Plan: Patient has history of coronary artery disease and is on optimal treatment with aspirin, Plavix, Lipitor and metoprolol. The patient had 3 stents placed in the last year and therefore will need to continue on his Plavix. We will continue his home medications while he is hospitalized. (6) Hypothyroidism Conclusion/Plan: Patient has a history of hypothyroidism and he appears stable. TSH 3.82. Patient will be continued on his home dose of synthroid. (7) Safety awareness deficit Impression: It appears the patient is having a very difficult time taking care of himself as he does have multiple hospitalizations over the last year and he should consider going to a facility where he can get assistance with his medications however patient is refusing this.He doesn't seem to grasp the need for more supervised care than he is receiving. Social Service Consult requested.
[2017-08-17] MEDS ORDERED: BACITRACIN OINT TOP PRN (20:32)
[2017-08-17] MEDS: ATORVASTATIN 40 MG TABLET PO SCH (21:39)
[2017-08-17] MEDS: DULoxetine 30 MG CAPSULE PO SCH (21:39)
[2017-08-18] MEDS: oxyCODONE 5 MG TABLET PO PRN ×5 (03:14→23:54)
[2017-08-18] MEDS: LEVOTHYROXINE 25 MCG TABLET PO SCH (06:39)
[2017-08-18] MEDS: PANTOPRAZOLE 40 MG TABLET PO SCH (06:39)
[2017-08-18] MEDS: SODIUM CHLORIDE FLUSH 0.9% 10 ML SYRINGE IVP SCH ×4 (06:40→22:21)
[2017-08-18] MEDS: SODIUM CHLORIDE FLUSH 0.9% 10 ML SYRINGE IVP PRN (06:40)
[2017-08-18] MEDS: INSULIN ASPART 300 UNIT/3 ML PEN SUBQ SCH ×4 (07:56→20:35)
[2017-08-18] MEDS: INSULIN GLARGINE 300 UNIT/3 ML PEN SUBQ SCH ×3 (07:56→21:15)
[2017-08-18] MEDS ORDERED: INSULIN ASPART 300 UNIT/3 ML PEN SUBQ ONE ×2 (08:17→20:11)
[2017-08-18] MEDS: METOPROLOL SUCCINATE 25 MG TABLET PO SCH ×3 (08:22→22:43)
[2017-08-18] MEDS: CLOPIDOGREL 75 MG TABLET PO SCH (08:22)
[2017-08-18] MEDS: SPIRONOLACTONE 25 MG TABLET PO SCH (08:22)
[2017-08-18] MEDS: LISINOPRIL 5 MG TABLET PO SCH (08:22)
[2017-08-18] MEDS: POLYETHYLENE GLYCOL 3350 17 GM PACKET PO SCH (08:23)
[2017-08-18] MEDS: ASPIRIN 325 MG TABLET PO SCH (08:23)
[2017-08-18] MEDS: ENOXAPARIN 40 MG/0.4 ML SYRINGE SUBQ SCH (08:23)
--- NOTE | 2017-08-18 11:24 | Discharge Plan ---
"Discharge Plan for SNF / [facility] - DC Plan and Transition Orders Disposition: SNF DC/Xfer Condition: Stable SNF Transition Orders: Admit to: [facility] under the care of Flora Shi MD Discharge Diagnosis: 1. Hypoglycemia to 19 2. type 1 DM,uncontrolled, with complications of nephropathy and retinopathy 3. Chronic systolic congestive heart failure from ischemic cardiomyopathy, EF 30 % 4. hypothyroid 5. right hemiplegia as residual of stroke 6. CAD, s/p 3 coronary artery stents 7. CKD Stage III 8. depression 9. chronic back pain 10. HTN 11. Hyperlipidemia 12. chronic constipation 13. GERD 14. tobacco abuser, quit Medicare Certification: I certify that [facility] care is medically necessary on a continuing basis for any of the conditions for which she/he is receiving care during hospitalization. Notify PCP of admission and forward orders to primary provider for signature. Weight on admission and monthly. Call PCP immediately if weight increases by 7 pounds or if patient develops dyspnea, chest pain/tightness or edema. House Bowel Program: yes If no BM after 2 days, nurse may give M.O.M. 30ml PO PRN and /or ducolax Supp 1 [place] and /or BENJA 250mg P.O., and/or senna 1-2 tabs PO. On day 3 nurse may give repeat above order until residents constipation is resolved. Immunizations: Annual Influenza Vaccine: yes. (between May 28 and December 25.) Unless allergy or already given Two-Step PPD: yes per [facility] [id number] or appropriate documentation of approved exceptions Treatments & Other Orders: none Oxygen Orders: none, room air O2 sat is 96-98% Lab Tests or X-Rays Orders: In 2 weeks, CBC, CMP, U/A with microalbumin, A1c then every 3 months thereafter. A1c is 9/7 % on 08/17/17 Hgb 9.3 to 10.9 creat is 0.5 Orthopedic Orders: none. Medications: PLEASE REFER TO THE DISCHARGE MEDICATION LIST. Insulin Orders? yes Diagnosis: Diabetes Initiate hypo and hyperglycemia protocols for BG <70 and BG >375. May check BG prn for signs/symptoms of dysglycemia. Frequency of BG checks: [AC/Meal/HS] Basal Insulin: Lantus 100 units / ml inject subq as follows: 10 units SQ at pm and 30 units SQ qamac. Other: Novolog is 10 units SQ ac tid Correction Insulin: - Select the type of insulin below Novolo units /ml insulin inject subq per orders indicate below [] LOW DOSE [] MODERATE DOSE [] MODERATE/HIGH DOSE [+] HIGH DOSE GB UNITS GB UNITS GB UNITS GB UNITS 61-140 0 UNITS 61-140 0 UNITS 61-140 0 UNITS 61-140 0 UNITS 141-175 1 UNITS 141-175 1 UNITS 141-175 2 UNITS 141-175 3 UNITS 176-225 2 UNITS 176-225 3 UNITS 176-225 4 UNITS 176-225 5 UNITS 226-275 3 UNITS 226-275 5 UNITS 226-275 6 UNITS 226-275 7 UNITS 276-325 4 UNITS 276-325 7 UNITS 276-325 8 UNITS 276-325 9 UNITS 326-375 5 UNITS 326-375 9 UNITS 326-375 10 UNITS 326-375 11 UNITS >375 CONTACT MD >375 CONTACT MD >375 CONTACT MD >375 CONTACT MD Custom Dosing: [Choose: None/Novolog/Humalog] 100 units/ml Insulin inject subq as follows: GB Units 61-140 [] Units 141-175 [] Units 176-225 [] Units 226-275 [] Units 276-325 []Units 326-375 [] Units >375 Contact MD Allergies and Adverse Reactions: Allergies Allergy/AdvReac Type Severity Reaction Status Date / Time No Known Drug Allergies Allergy Verified 01/30/17 20:17 - Medications New Prescriptions: clonazePAM [KlonoPIN] 0.5 mg PO BID PRN #15 tablet PRN Reason: Anxiety Morphine Sulfate 30 mg PO TID PRN #25 tablet PRN Reason: Pain - Diet Type: No added sugar Texture: Regular Liquids: Thin May have monthly special meal: Yes - Therapies | Activity Therapy: Evaluation | Treat if indicated: PT, OT, Swallowing / ST Rehabilitation Potential: Maximize functional status Activity: Activity as Tolerated Weight Bearing: Full Weight Assistance Devices: Wheelchair"
--- NOTE | 2017-08-18 15:30 | PROVIDER PROGRESS NOTE ---
Subjective - Prog Note Date Prog Note Date: 08/18/17 Prog Note Time: 15:29 - Subjective Subjective: No new complaints. No chest pain palpitations or shortness of breath. Eating everything in sight. Current Medications - Current Medications Current Medications: Active Medications Acetaminophen (Tylenol) 650 mg PO Q4HR PRN PRN Reason: Pain 1 to 4 Aspirin (Maria De Jesus) 325 mg PO DAILY [facility] Last Admin: 08/18/17 08:23 Dose: 325 mg Atorvastatin Calcium (Lipitor) 80 mg PO HS [facility] Last Admin: 08/17/17 21:39 Dose: 80 mg Bacitracin (Bacitracin Zinc Oint) 1 gm TOP PRN PRN PRN Reason: Skin Care Clonazepam (Klonopin) 0.5 mg PO BID PRN PRN Reason: Anxiety Clopidogrel Bisulfate (Plavix) 75 mg PO DAILY [facility] Last Admin: 08/18/17 08:22 Dose: 75 mg Duloxetine HCl (Cymbalta) 60 mg PO HS [facility] Last Admin: 08/17/17 21:39 Dose: 60 mg Enoxaparin Sodium (Lovenox) 40 mg SUBQ DAILY [facility] Last Admin: 08/18/17 08:23 Dose: 40 mg Insulin Aspart (Novolog) 2 - 10 unit SUBQ 0800,1200,1700,2100 [facility] PRN Reason: Protocol Insulin Glargine (Lantus Solostar) 15 unit SUBQ DAILY [facility] Last Admin: 08/18/17 07:56 Dose: 15 unit Levothyroxine Sodium (Synthroid) 50 mcg PO QDAC [facility] Last Admin: 08/18/17 06:39 Dose: 50 mcg Lisinopril (Zestril) 2.5 mg PO DAILY [facility] Last Admin: 08/18/17 08:22 Dose: 2.5 mg Metoprolol Succinate (Toprol Xl) 25 mg PO BID [facility] Last Admin: 08/18/17 08:22 Dose: 25 mg Ondansetron HCl (Zofran Inj) 4 mg IVP Q6HR PRN PRN Reason: Nausea / Vomiting Oxycodone HCl (Roxicodone) 5 mg PO Q4HR PRN PRN Reason: Pain 5 to 7 Last Admin: 08/18/17 06:47 Dose: 5 mg Oxycodone HCl (Roxicodone) 10 mg PO Q4HR PRN PRN Reason: Pain 8 to 10 Last Admin: 08/18/17 11:11 Dose: 10 mg Pantoprazole Sodium (Protonix) 40 mg PO QDAC [facility] Last Admin: 08/18/17 06:39 Dose: 40 mg Polyethylene Glycol (Miralax) 17 gm PO DAILY [facility] Last Admin: 08/18/17 08:23 Dose: 17 gm Prochlorperazine Edisylate (Compazine Inj) 10 mg IVP Q6HR PRN PRN Reason: Nausea / Vomiting Sodium Chloride (Normal Saline Flush 0.9%) 10 ml IVP PRN PRN PRN Reason: NEEDED PER PROVIDER ORDERS Last Admin: 08/18/17 06:40 Dose: 10 ml Sodium Chloride (Normal Saline Flush 0.9%) 10 ml IVP Q8HR [facility] Last Admin: 08/18/17 14:44 Dose: Not Given Spironolactone (Aldactone) 12.5 mg PO DAILY [facility] Last Admin: 08/18/17 08:22 Dose: 12.5 mg Zolpidem Tartrate (Ambien) 5 mg PO QPM PRN PRN Reason: Insomnia Insulin Glargine,Hum.rec.anlog [Lantus] 30 units SUBQ DAILY 03/19/14 Atorvastatin Calcium 80 mg PO DAILY PM 05/02/17 Metoprolol Succinate 25 mg PO DAILY 05/02/17 Insulin Aspart [NovoLOG] 10 unit SQ TIDWM 08/17/17 Senna [Senokot] 8.6 mg PO DAILY PRN 08/17/17 clonazePAM [Clonazepam] 0.5 mg PO DAILY PRN 08/17/17 Objective - Vital Signs/Intake & Output Reviewed Vital Signs: Yes Vital Signs: Vital Signs x48h Temp Pulse Resp BP Pulse Ox 08/18/17 12:18 38.0 C H 82 19 137/67 H 99 08/18/17 07:43 36.9 C 83 16 127/61 96 Intake & Output: Intake & Output 08/15/17 08/16/17 08/17/17 08/18/17 23:59 23:59 23:59 23:59 Intake Total 200 2659.667 1400 Output Total 2923 1750 Balance 200 -263.333 -350 - Objective General Appearance: positive: No acute distress, Alert ENT: positive: Other (Left facial droop Poor dentition) Neck: positive: No JVD. negative: Stiff neck, Carotid bruit Respiratory: positive: Chest non-tender, Rhonchi (That clear with a cough. I think he just retains phlegm). negative: Wheezes, Rales Cardiovascular: positive: Regular rate & rhythm. negative: Gallop/S4, Friction rub Abdomen: positive: Non-tender, No organomegaly, Nml bowel sounds, No distention Skin: positive: Warm, Dry Extremities: positive: No pedal edema Neurologic/Psychiatric: positive: Oriented x3, Motor nml (Right hemiplegia, partial). negative: CN's nml (2-12) (Right facial droop, slightly slurred speech) - Lab Results Fish Bones: 08/17/17 05:40 08/17/17 05:40 Other Labs: Lab Results x24hrs 08/18/17 08/18/17 08/17/17 Range/Units 11:36 07:41 20:25 POC Whole Bld Glucose 324 H 350 H 206 H (70 - 100) mg/dL 08/17/17 08/17/17 08/17/17 Range/Units 16:59 11:41 07:40 POC Whole Bld Glucose 266 H 205 H 176 H (70 - 100) mg/dL 08/17/17 08/17/17 08/17/17 Range/Units 05:31 02:59 00:58 POC Whole Bld Glucose 254 H 229 H 198 H (70 - 100) mg/dL 08/16/17 08/16/17 08/16/17 Range/Units 23:00 21:00 20:11 POC Whole Bld Glucose 204 H 156 H 136 H (70 - 100) mg/dL 08/16/17 Range/Units 19:47 POC Whole Bld Glucose 31 L* (70 - 100) mg/dL Assessment/Plan - Problem List (1) Type 1 diabetes mellitus with complication, uncontrolled Impression: Uncontrolled with complications of neuropathy and stroke. A1c is 9.7% Patient has a history of type 1 diabetes with multiple admissions for DKA however this time he presents with hypoglycemia. The patient states that his blood glucose has been volatile at home despite not having made any changes in his insulin regimen or having had any changes in his medical status. The patient presented this time with hypoglycemia. Patient's blood glucose was as low as 19 at home and down to 39 in the emergency department. The patient required a D10 drip and placement in observation. It appears the patient is having a very difficult time taking care of himself as he does have multiple hospitalizations over the last year and he should consider going to a facility where he can get assistance with his medications however patient was refusing this. He has reponded to treatment and is now 176-250's the first night. Eating. Plan: D10 stopped Reduced dose of patient's Lantus to 15 units subcu Since then glucose too high and I will go back to original 30 he was on I think he made a mistake at home at took too much insulin because here he has been too high on the reduced dose. Placed on high sliding scale insulin On diabetic diet Qualifiers: Diabetes mellitus type: type 1 (3) Leukocytosis Conclusion/Plan: Patient has leukocytosis on presentation. Resolved. the patient's WBC is 16.6 on presentation. The patient does tend to have elevated WBC on previous hospitalizations however it does return to normal. It appears the patient likely has a reactive leukocytosis due to his hypoglycemia. The patient does not show any signs or symptoms of infection. He is 9.2 0n 08/17. No further monitoring needed. Qualifiers: Leukocytosis type: leukemoid reaction Qualified Code(s): D72.823 - Leukemoid reaction (4) CHF (congestive heart failure) Conclusion/Plan: Patient has cardiomyopathy with an ejection fraction of 30-35% on most recent echocardiogram. The patient is on optimal medication with metoprolol, lisinopril and spironolactone. Currently the patient's fluid status appears to be stable. No fluid overload noted with his D10 drip. Qualifiers: Congestive heart failure type: systolic (5) History of coronary artery disease Conclusion/Plan: Patient has history of coronary artery disease and is on optimal treatment with aspirin, Plavix, Lipitor and metoprolol. The patient had 3 stents placed in the last year and therefore will need to continue on his Plavix. We will continue his home medications while he is hospitalized. (6) Hypothyroidism Conclusion/Plan: Patient has a history of hypothyroidism and he appears stable. TSH 3.82. continue synthroid. (7) Hypoglycemia Impression: resolved. While here definitely NOT a problem. so he may have accidentally taken too much at home. The patient presented with altered mental status and was found to have a blood glucose of 19 at home. The patient states that he has been having fluctuating blood sugars at home. He states that sometimes his blood sugar will be 300 and then it will be 30. He states that he has not changed his regimen and states that the only thing he does for 1 it does get low is he eats more. He states that yesterday his blood glucose was as low as 32. The patient has been on the same regimen of 30 units of Lantus and 10 units of NovoLog with meals for some time now. The patient has not been exercising any more than normal he does not appear to have any signs or symptoms of infection. The patient states that his blood glucose is always very volatilie and difficult to control. In the emergency department the patient was placed on D5 drip but blood glucose dropped down to 39 in the emergency department and patient had to be given D50 and placed on a D10 drip and placed in observation. Given the history the patient's cause of hypoglycemia is not completely clear. We will check a cortisol level in the morning to see that patient has not developed adrenal insufficiency. The patient does not appear to be septic and does not appear to have hepatic or renal failure at this time. Off of D10 and eating well. no further episodes. (8) History of hemorrhagic stroke with residual hemiplegia Impression: and poor safety awareness. We are attempting yet again to place this unfortunate male who lives with MAUREEN with high participation rate who he hasn' t wanted to pay, and a roommate who really doesn't help him. he's just a roommate. He states he's willing to move to [place] for permanent placement and Social Service is working on that. But tentative date for transfer is 08/23.
[2017-08-18] MEDS ORDERED: INSULIN ASPART 300 UNIT/3 ML PEN SUBQ SCH (20:43)
[2017-08-18] MEDS: BACITRACIN ZINC OINT 28.4 GM TUBE TOP PRN (20:45)
[2017-08-18] MEDS: ATORVASTATIN 40 MG TABLET PO SCH (21:26)
[2017-08-18] MEDS: DULoxetine 30 MG CAPSULE PO SCH (21:27)
[2017-08-18] MEDS ORDERED: SODIUM CHLORIDE 0.9% 500 ML IV ONE ×3 (21:59→22:13)
[2017-08-19] MEDS: oxyCODONE 5 MG TABLET PO PRN ×4 (06:10→21:46)
[2017-08-19] MEDS: PANTOPRAZOLE 40 MG TABLET PO SCH (06:10)
[2017-08-19] MEDS: LEVOTHYROXINE 25 MCG TABLET PO SCH (06:10)
[2017-08-19] MEDS: SODIUM CHLORIDE FLUSH 0.9% 10 ML SYRINGE IVP SCH ×3 (06:11→21:38)
[2017-08-19] MEDS: SODIUM CHLORIDE FLUSH 0.9% 10 ML SYRINGE IVP PRN (06:11)
[2017-08-19] MEDS: POLYETHYLENE GLYCOL 3350 17 GM PACKET PO SCH (08:06)
[2017-08-19] MEDS: ASPIRIN 325 MG TABLET PO SCH (08:06)
[2017-08-19] MEDS: CLOPIDOGREL 75 MG TABLET PO SCH (08:07)
[2017-08-19] MEDS: LISINOPRIL 5 MG TABLET PO SCH (08:07)
[2017-08-19] MEDS: SPIRONOLACTONE 25 MG TABLET PO SCH (08:07)
[2017-08-19] MEDS: METOPROLOL SUCCINATE 25 MG TABLET PO SCH ×2 (08:07→21:38)
[2017-08-19] MEDS ORDERED: INSULIN ASPART 300 UNIT/3 ML PEN SUBQ SCH (08:15)
[2017-08-19] MEDS: INSULIN ASPART 300 UNIT/3 ML PEN SUBQ SCH ×6 (08:36→17:40)
[2017-08-19] MEDS: INSULIN GLARGINE 300 UNIT/3 ML PEN SUBQ SCH ×2 (08:37→21:40)
[2017-08-19] MEDS: ENOXAPARIN 40 MG/0.4 ML SYRINGE SUBQ SCH (08:37)
--- NOTE | 2017-08-19 13:12 | PROVIDER PROGRESS NOTE ---
Subjective - Prog Note Date Prog Note Date: 08/19/17 Prog Note Time: 13:16 - Subjective Pt reports feeling: No change Subjective: no new complaints. glucose high. no cp, no sob. Current Medications - Current Medications Current Medications: Active Medications Acetaminophen (Tylenol) 650 mg PO Q4HR PRN PRN Reason: Pain 1 to 4 Aspirin (Maria De Jesus) 325 mg PO DAILY [facility] Last Admin: 08/19/17 08:06 Dose: 325 mg Atorvastatin Calcium (Lipitor) 80 mg PO HS [facility] Last Admin: 08/18/17 21:26 Dose: 80 mg Bacitracin (Bacitracin Zinc Oint) 1 gm TOP PRN PRN PRN Reason: Skin Care Last Admin: 08/18/17 20:45 Dose: 1 gm Clonazepam (Klonopin) 0.5 mg PO BID PRN PRN Reason: Anxiety Clopidogrel Bisulfate (Plavix) 75 mg PO DAILY [facility] Last Admin: 08/19/17 08:07 Dose: 75 mg Duloxetine HCl (Cymbalta) 60 mg PO HS [facility] Last Admin: 08/18/17 21:27 Dose: 60 mg Enoxaparin Sodium (Lovenox) 40 mg SUBQ DAILY [facility] Last Admin: 08/19/17 08:37 Dose: 40 mg Insulin Aspart (Novolog) 3 - 11 unit SUBQ 0800,1200,1700,2100 [facility] PRN Reason: Protocol Last Admin: 08/19/17 11:56 Dose: 9 unit Insulin Aspart (Novolog) 10 unit SUBQ TIDWM [facility] PRN Reason: Protocol Last Admin: 08/19/17 11:56 Dose: 10 unit Insulin Glargine (Lantus Solostar) 5 unit SUBQ QPM [facility] Last Admin: 08/18/17 21:15 Dose: Not Given Insulin Glargine (Lantus Solostar) 30 unit SUBQ DAILY [facility] Last Admin: 08/19/17 08:37 Dose: 30 unit Levothyroxine Sodium (Synthroid) 50 mcg PO QDAC [facility] Last Admin: 08/19/17 06:10 Dose: 50 mcg Lisinopril (Zestril) 2.5 mg PO DAILY [facility] Last Admin: 08/19/17 08:07 Dose: 2.5 mg Metoprolol Succinate (Toprol Xl) 25 mg PO BID [facility] Last Admin: 08/19/17 08:07 Dose: 25 mg Ondansetron HCl (Zofran Inj) 4 mg IVP Q6HR PRN PRN Reason: Nausea / Vomiting Oxycodone HCl (Roxicodone) 5 mg PO Q4HR PRN PRN Reason: Pain 5 to 7 Last Admin: 08/19/17 06:54 Dose: 5 mg Oxycodone HCl (Roxicodone) 10 mg PO Q4HR PRN PRN Reason: Pain 8 to 10 Last Admin: 08/19/17 11:10 Dose: 10 mg Pantoprazole Sodium (Protonix) 40 mg PO QDAC [facility] Last Admin: 08/19/17 06:10 Dose: 40 mg Polyethylene Glycol (Miralax) 17 gm PO DAILY [facility] Last Admin: 08/19/17 08:06 Dose: 17 gm Prochlorperazine Edisylate (Compazine Inj) 10 mg IVP Q6HR PRN PRN Reason: Nausea / Vomiting Sodium Chloride (Normal Saline Flush 0.9%) 10 ml IVP PRN PRN PRN Reason: NEEDED PER PROVIDER ORDERS Last Admin: 08/19/17 06:11 Dose: 10 ml Sodium Chloride (Normal Saline Flush 0.9%) 10 ml IVP Q8HR [facility] Last Admin: 08/19/17 06:11 Dose: 10 ml Spironolactone (Aldactone) 12.5 mg PO DAILY [facility] Last Admin: 08/19/17 08:07 Dose: 12.5 mg Zolpidem Tartrate (Ambien) 5 mg PO QPM PRN PRN Reason: Insomnia Insulin Glargine,Hum.rec.anlog [Lantus] 30 units SUBQ DAILY 03/19/14 Atorvastatin Calcium 80 mg PO DAILY PM 05/02/17 Metoprolol Succinate 25 mg PO DAILY 05/02/17 Insulin Aspart [NovoLOG] 10 unit SQ TIDWM 08/17/17 Senna [Senokot] 8.6 mg PO DAILY PRN 08/17/17 clonazePAM [Clonazepam] 0.5 mg PO DAILY PRN 08/17/17 Objective - Vital Signs/Intake & Output Reviewed Vital Signs: Yes Vital Signs: Vital Signs x48h Temp Pulse Resp BP Pulse Ox 08/19/17 11:36 36.6 C 82 19 126/106 H 99 08/19/17 08:31 36.3 C L 08/19/17 08:00 84 18 138/84 H 97 Intake & Output: Intake & Output 08/16/17 08/17/17 08/18/17 08/19/17 23:59 23:59 23:59 23:59 Intake Total 200 2659.667 2620 1530 Output Total 2923 3400 2150 Balance 200 -263.333 -780 -620 - Objective General Appearance: positive: No acute distress, Alert, Other (disheveled,) Eyes Bilateral: positive: PERRL ENT: positive: Other (poor dentition) Neck: positive: No JVD. negative: Stiff neck Respiratory: positive: Chest non-tender. negative: Wheezes, Rales, Rhonchi Cardiovascular: positive: Regular rate & rhythm. negative: Gallop/S4, Friction rub Abdomen: positive: Non-tender, No organomegaly, Nml bowel sounds, No distention Skin: positive: Warm, Dry Extremities: positive: No pedal edema Neurologic/Psychiatric: positive: Oriented x3, Motor nml (right partial hemiplegia), Facial droop, Slurred/abnml speech. negative: CN's nml (2-12) - Lab Results Fish Bones: 08/17/17 05:40 08/17/17 05:40 Other Labs: Lab Results x24hrs 08/19/17 08/19/17 08/18/17 Range/Units 11:26 07:50 21:57 POC Whole Bld Glucose 316 H 406 H 356 H (70 - 100) mg/dL 08/18/17 08/18/17 Range/Units 19:46 16:57 POC Whole Bld Glucose 408 H 344 H (70 - 100) mg/dL Assessment/Plan - Problem List (1) Type 1 diabetes mellitus with complication, uncontrolled Impression: Uncontrolled with complications of neuropathy and stroke. A1c is 9.7% Patient has a history of type 1 diabetes with multiple admissions for DKA however this time he presents with hypoglycemia. The patient states that his blood glucose has been volatile at home despite not having made any changes in his insulin regimen or having had any changes in his medical status. The patient presented this time with hypoglycemia. Patient's blood glucose was as low as 19 at home and down to 39 in the emergency department. The patient required a D10 drip and placement in observation. It appears the patient is having a very difficult time taking care of himself as he does have multiple hospitalizations over the last year and he should consider going to a facility where he can get assistance with his medications however patient was refusing this. He has reponded to treatment and is now 176-250's the first night. Eating. Plan: D10 stopped after 24 hours. Initially on a reduced dose of lantus to 15 units but Since then glucose too high and I went back to original 30 he was on 08/18 I think he made a mistake at home at took too much insulin because here he has been too high on the reduced dose. Placed on high sliding scale insulin and still 350's this am. On diabetic diet I will add 10 units of fixed dose novolog ac and give 25 units novolog this morning for the glucose Qualifiers: Diabetes mellitus type: type 1 (2) Leukocytosis Conclusion/Plan: Patient has leukocytosis on presentation. Resolved. the patient's WBC is 16.6 on presentation. The patient does tend to have elevated WBC on previous hospitalizations however it does return to normal. It appears the patient likely has a reactive leukocytosis due to his hypoglycemia. The patient does not show any signs or symptoms of infection. He is 9.2 0n 08/17. No further monitoring needed. Qualifiers: Leukocytosis type: leukemoid reaction Qualified Code(s): D72.823 - Leukemoid reaction (3) CHF (congestive heart failure) Conclusion/Plan: Patient has cardiomyopathy with an ejection fraction of 30-35% on most recent echocardiogram. The patient is on optimal medication with metoprolol, lisinopril and spironolactone. Currently the patient's fluid status appears to be stable. No fluid overload noted with his D10 drip. Qualifiers: Congestive heart failure type: systolic (4) History of coronary artery disease Conclusion/Plan: Patient has history of coronary artery disease and is on optimal treatment with aspirin, Plavix, Lipitor and metoprolol. The patient had 3 stents placed in the last year and therefore will need to continue on his Plavix. We will continue his home medications while he is hospitalized. (5) Hypothyroidism Conclusion/Plan: Patient has a history of hypothyroidism and he appears stable. TSH 3.82. continue synthroid. (6) Hypoglycemia Impression: resolved. Reason for his admission. While here definitely NOT a problem. so he may have accidentally taken too much at home. The patient presented with altered mental status and was found to have a blood glucose of 19 at home. The patient states that he has been having fluctuating blood sugars at home. He states that sometimes his blood sugar will be 300 and then it will be 30. He states that he has not changed his regimen and states that the only thing he does forit when it does get low is he eats more. He states that day before admission his blood glucose was as low as 32. The patient has been on the same regimen of 30 units of Lantus and 10 units of NovoLog with meals for some time now. The patient has not been exercising any more than normal he does not appear to have any signs or symptoms of infection. The patient states that his blood glucose is always very volatilie and difficult to control. In the emergency department the patient was placed on D5 drip but blood glucose dropped down to 39 in the emergency department and patient had to be given D50 and placed on a D10 drip and placed in observation. Given the history the patient's cause of hypoglycemia is not completely clear. We checked a cortisol level in the morning to see that patient had not developed adrenal insufficiency. Cortisol was normal. The patient did not appear to be septic and does not appear to have hepatic or renal failure at this time. Off of D10 and eating well. no further episodes. (7) History of hemorrhagic stroke with residual hemiplegia Impression: and poor safety awareness. 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 he's just a roommate. He states he's willing to move to [place] for permanent placement and Social Service is working on that. But tentative date for transfer is 08/23.
[2017-08-19] MEDS: clonazePAM 0.5 MG TABLET PO PRN (13:20)
[2017-08-19] MEDS ORDERED: POLYETHYLENE GLYCOL 3350 17 GM PACKET PO SCH (16:40)
[2017-08-19] MEDS ORDERED: DEXTROSE 5% 1,000 ML IV SCH (18:00)
[2017-08-19] MEDS ORDERED: MAGNESIUM HYDROXIDE 2,400 MG/30 ML UDC PO ONE (18:31)
[2017-08-19] MEDS ORDERED: MAGNESIUM HYDROXIDE 2,400 MG/30 ML UDC PO SCH (18:57)
[2017-08-19] MEDS: DOCUSATE SODIUM 250 MG CAPSULE PO SCH (20:23)
[2017-08-19] MEDS: SENNA 8.6 MG TABLET PO SCH (20:23)
[2017-08-19] MEDS: ATORVASTATIN 40 MG TABLET PO SCH (20:24)
[2017-08-19] MEDS: DULoxetine 30 MG CAPSULE PO SCH (20:24)
[2017-08-19 22:10] LABS: HEMOGLOBIN A1C 0.89 g/dL
[2017-08-20] MEDS: oxyCODONE 5 MG TABLET PO PRN ×5 (03:45→19:44)
[2017-08-20] MEDS: PANTOPRAZOLE 40 MG TABLET PO SCH (07:05)
[2017-08-20] MEDS: SODIUM CHLORIDE FLUSH 0.9% 10 ML SYRINGE IVP SCH ×3 (07:05→21:44)
[2017-08-20] MEDS: LEVOTHYROXINE 25 MCG TABLET PO SCH (07:05)
[2017-08-20] MEDS: INSULIN ASPART 300 UNIT/3 ML PEN SUBQ SCH ×7 (08:55→21:35)
[2017-08-20] MEDS: INSULIN GLARGINE 300 UNIT/3 ML PEN SUBQ SCH ×2 (08:57→21:36)
[2017-08-20] MEDS: ASPIRIN 325 MG TABLET PO SCH (08:58)
[2017-08-20] MEDS: ENOXAPARIN 40 MG/0.4 ML SYRINGE SUBQ SCH (08:58)
[2017-08-20] MEDS: DOCUSATE SODIUM 250 MG CAPSULE PO SCH (08:59)
[2017-08-20] MEDS: SENNA 8.6 MG TABLET PO SCH (08:59)
[2017-08-20] MEDS: SPIRONOLACTONE 25 MG TABLET PO SCH (08:59)
[2017-08-20] MEDS: CLOPIDOGREL 75 MG TABLET PO SCH (08:59)
[2017-08-20] MEDS: POLYETHYLENE GLYCOL 3350 17 GM PACKET PO SCH (09:00)
[2017-08-20] MEDS: LISINOPRIL 5 MG TABLET PO SCH (09:02)
[2017-08-20] MEDS: METOPROLOL SUCCINATE 25 MG TABLET PO SCH ×2 (09:03→20:08)
[2017-08-20] MEDS: clonazePAM 0.5 MG TABLET PO PRN ×2 (13:49→19:44)
[2017-08-20] MEDS: NICOTINE 14 MG PATCH TOP SCH (15:36)
--- NOTE | 2017-08-20 16:32 | PROVIDER PROGRESS NOTE ---
Assessment/Plan - Problem List (1) Hypoglycemia Assessment/Plan: No further dangerously low glu levels Continue wirh Carb-controlled diet but will allow 5 carb choices (2) Type 1 diabetes mellitus with complication, uncontrolled Assessment/Plan: Continue to adjust diet and meds. Folow glu levels (3) Ischemic cardiomyopathy Assessment/Plan: No CP and meds continued (4) History of coronary artery disease Assessment/Plan: No evidence of fluid overload at present. Meds continued (5) Shoulder pain, right Assessment/Plan: R sided, suggestive of ?frozen shoulder vs overuse due to hemiplegia. Will get PT consult to help and allow pain meds (6) History of hemorrhagic stroke with residual hemiplegia Assessment/Plan: Unchanged neuro exam. Will get Physical Therapy input. - Current Meds Current Meds: Current Medications Generic Name Dose Route Start Last Admin Trade Name Freq PRN Reason Stop Dose Admin Acetaminophen 650 mg 08/16/17 19:41 08/20/17 13:50 Tylenol PO 650 mg Q4HR PRN Administration Pain 1 to 4 Aspirin 325 mg 08/17/17 09:00 08/20/17 08:58 Maria De Jesus PO 325 mg DAILY DAMIEN Administration Atorvastatin Calcium 80 mg 08/16/17 21:00 08/19/17 20:24 Lipitor PO 80 mg HS DAMIEN Administration Bacitracin 1 gm 08/18/17 10:09 08/18/17 20:45 Bacitracin Zinc Oint TOP 1 gm PRN PRN Administration Skin Care Clonazepam 0.5 mg 08/16/17 19:40 08/20/17 13:49 Klonopin PO 0.5 mg BID PRN Administration Anxiety Clopidogrel Bisulfate 75 mg 08/17/17 09:00 08/20/17 08:59 Plavix PO 75 mg DAILY DAMIEN Administration Docusate Sodium 250 - 500 mg 08/19/17 21:00 08/20/17 08:59 Colace 250mg Capsule PO 250 mg DAILY DAMIEN Administration Duloxetine HCl 60 mg 08/16/17 21:00 08/19/17 20:24 Cymbalta PO 60 mg HS DAMIEN Administration Enoxaparin Sodium 40 mg 08/17/17 09:00 08/20/17 08:58 Lovenox SUBQ 40 mg DAILY DAMIEN Administration Insulin Aspart 10 unit 08/19/17 09:00 08/20/17 12:05 Novolog SUBQ 10 unit TIDWM DAMIEN Administration Protocol Insulin Aspart 1 - 9 unit 08/20/17 08:00 08/20/17 12:05 Novolog SUBQ 3 unit 0800,1200,1700,2100 DAMIEN Administration Protocol Insulin Glargine 5 unit 08/18/17 17:00 08/19/17 21:40 Lantus Solostar SUBQ 5 unit QPM DAMIEN Administration Insulin Glargine 30 unit 08/18/17 16:06 08/20/17 08:57 Lantus Solostar SUBQ 30 unit DAILY DAMIEN Administration Levothyroxine Sodium 50 mcg 08/17/17 07:00 08/20/17 07:05 Synthroid PO 50 mcg QDAC DAMIEN Administration Lisinopril 2.5 mg 08/17/17 09:00 08/20/17 09:02 Zestril PO 2.5 mg DAILY DAMIEN Administration Metoprolol Succinate 25 mg 08/16/17 21:00 08/20/17 09:03 Toprol Xl PO 25 mg BID DAMIEN Administration Nicotine 1 patch 08/20/17 16:00 08/20/17 15:36 Nicoderm TOP 1 patch DAILY DAMIEN Administration Oxycodone HCl 5 mg 08/16/17 19:41 08/20/17 03:45 Roxicodone PO 5 mg Q4HR PRN Administration Pain 5 to 7 Oxycodone HCl 10 mg 08/16/17 19:41 08/20/17 15:10 Roxicodone PO 10 mg Q4HR PRN Administration Pain 8 to 10 Pantoprazole Sodium 40 mg 08/17/17 07:00 08/20/17 07:05 Protonix PO 40 mg QDAC DAMIEN Administration Polyethylene Glycol 17 gm 08/17/17 09:00 08/20/17 09:00 Miralax PO Not Given DAILY DAMIEN Senna 8.6 - 17.2 mg 08/19/17 21:00 08/20/17 08:59 Senokot PO 8.6 mg DAILY DAMIEN Administration Sodium Chloride 10 ml 08/16/17 19:41 08/19/17 06:11 Normal Saline Flush 0.9% IVP 10 ml PRN PRN Administration NEEDED PER PROVIDER ORDERS Sodium Chloride 10 ml 08/16/17 22:00 08/20/17 13:49 Normal Saline Flush 0.9% IVP 10 ml Q8HR DAMIEN Administration Spironolactone 12.5 mg 08/17/17 09:00 08/20/17 08:59 Aldactone PO 12.5 mg DAILY DAMIEN Administration - Lab Result Fish Bone Diagrams: 08/17/17 05:40 08/17/17 05:40 - Additional Planning My Orders: My Active Orders 08/20/17 Evaluate and Treat PT [PT] Routine 08/20/17 16:00 Nicotine 14 mg Patch [Nicoderm] 1 patch TOP DAILY Subjective - Subjective Patient Reports: Other (R arm "spasm" and pain, near shoulder) Nursing Reports: Other (needed pain meds several times today) Objective Vital Signs: Vital Signs - 24 hr 08/19/17 08/19/17 08/20/17 20:10 23:40 04:06 Temperature 36.6 C 37.2 C 37.2 C Heart Rate [ 94 94 84 Brachial] Respiratory 18 15 16 Rate Blood Pressure 105/52 L 130/66 106/61 [Right Brachial artery] O2 Saturation 100 98 98 08/20/17 08/20/17 08/20/17 07:52 09:02 13:00 Temperature 36.9 C 36.7 C Heart Rate [ 87 90 88 Brachial] Respiratory 19 19 Rate Blood Pressure 89/43 L 105/53 L 116/62 [Right Brachial artery] O2 Saturation 99 99 Oxygen O2 Source Room air I&O (Last 24 Hrs): Intake and Output Totals x24h 08/18/17 08/19/17 08/20/17 23:59 23:59 23:59 Intake Total 2620 2888.75 1590 Output Total 3400 3000 375 Balance -780 -111.25 1215 General: Oriented x3 HEENT: Mucous membr. moist/pink Neck: Supple Neuro: Focal Deficits (Weakness L > R) Cardiovascular: Regular rate, No murmurs Respiratory: No respiratory distress Abdomen: Soft Extremities: No edema - Results Results: Laboratory Results WBC 9.2 x10^3/uL (4.8-10.8) 08/17/17 05:40 RBC 3.30 10^6/uL (4.70-6.10) L 08/17/17 05:40 Hgb 9.3 g/dL (14.0-18.0) L 08/17/17 05:40 Hct 28.3 % (42.0-52.0) L 08/17/17 05:40 MCV 85.8 fL (80.0-94.0) 08/17/17 05:40 MCH 28.0 pg (27.0-31.0) 08/17/17 05:40 MCHC 32.6 g/dL (32.0-36.0) 08/17/17 05:40 RDW 15.2 % (12.0-15.0) H 08/17/17 05:40 Plt Count 310 10^3/uL (130-450) 08/17/17 05:40 MPV 7.5 fL (7.4-11.4) 08/17/17 05:40 Neut # Not Reportable 08/16/17 16:02 Lymph # Not Reportable 08/16/17 16:02 [place] # Not Reportable 08/16/17 16:02 Eos # Not Reportable 08/16/17 16:02 Baso # Not Reportable 08/16/17 16:02 Absolute Nucleated RBC Not Reportable 08/16/17 16:02 Total Counted 100 08/16/17 16:02 Band Neuts % (Manual) 5 % (0-10) 08/16/17 16:02 Nucleated RBC % Not Reportable 08/16/17 16:02 Neutrophils # (Manual) 15.9 10^3/uL (1.5-6.6) H 08/16/17 16:02 Lymphocytes # (Manual) 0.3 10^3/uL (1.5-3.5) L 08/16/17 16:02 Monocytes # (Manual) 0.3 10^3/uL (0.0-1.0) 08/16/17 16:02 Differential Comment MANUAL DIFFERENTIAL 08/16/17 16:02 Manual Slide Review Indicated 08/16/17 16:02 Platelet Estimate NORMAL (130-450,000) (NORMAL) 08/16/17 16:02 Platelet Morphology NORMAL APPEARANCE (NORMAL) 08/16/17 16:02 RBC Morph Micro Appear NORMAL APPEARANCE (NORMAL) 08/16/17 16:02 VBG pH 7.468 (7.31-7.41) H 08/17/17 05:40 VBG pCO2 54.0 mmHg (41-51) H 08/16/17 15:54 VBG pO2 25.0 mmHg (25-47) 08/16/17 15:54 VBG HCO3 31.7 mmol/L (23-28) H 08/16/17 15:54 VBG Total CO2 33.3 mmol/L (24-29) H 08/16/17 15:54 VBG O2 Saturation 45.4 % (60-80) L 08/16/17 15:54 VBG Base Excess 5.4 mmol/L (-2 - +2) H 08/16/17 15:54 Ionized Calcium 1.06 mmol/L (1.15-1.33) L 08/17/17 05:40 Sodium 129 mmol/L (135-145) L 08/17/17 05:40 Potassium 3.6 mmol/L (3.5-5.0) 08/17/17 05:40 Chloride 92 mmol/L (101-111) L 08/17/17 05:40 Carbon Dioxide 30 mmol/L (21-32) 08/17/17 05:40 Anion Gap 7.0 (6-13) 08/17/17 05:40 BUN 14 mg/dL (6-20) 08/17/17 05:40 Creatinine 0.5 mg/dL (0.6-1.2) L 08/17/17 05:40 Estimated GFR (MDRD) 170 (>89) 08/17/17 05:40 Glucose 244 mg/dL (70-100) H 08/17/17 05:40 POC Whole Bld Glucose 224 mg/dL (70 - 100) H 08/20/17 11:46 Glycated Hemoglobin 9.8 % (4.6-6.2) H 08/19/17 21:48 Estim Average Glucose 235 (70-100) H 08/19/17 21:48 Calcium 7.8 mg/dL (8.5-10.3) L 08/17/17 05:40 Ionized Calcium YES 08/17/17 05:40 Total Bilirubin 0.3 mg/dL (0.2-1.0) 08/17/17 05:40 AST 19 IU/L (10-42) 08/17/17 05:40 ALT 22 IU/L (10-60) 08/17/17 05:40 Alkaline Phosphatase 92 IU/L (42-121) 08/17/17 05:40 Total Protein 5.2 g/dL (6.7-8.2) L 08/17/17 05:40 Albumin 2.4 g/dL (3.2-5.5) L 08/17/17 05:40 Globulin 2.8 g/dL (2.1-4.2) 08/17/17 05:40 Albumin/Globulin Ratio 0.9 (1.0-2.2) L 08/17/17 05:40 Lipase 34 U/L (22-51) 08/16/17 15:54 TSH 3.82 uIU/mL (0.34-5.60) 08/17/17 05:40 Cortisol AM Sample 15.2 ug/dL 08/17/17 07:54 Serum Ketones NEGATIVE (NEGATIVE) 08/16/17 15:54 - Procedures Procedures: Procedures DRAINAGE OF SPINAL CANAL, PERCUTANEOUS APPROACH, DIAGNOSTIC (07/10/17)
[2017-08-20] MEDS: ATORVASTATIN 40 MG TABLET PO SCH (20:08)
[2017-08-20] MEDS: DULoxetine 30 MG CAPSULE PO SCH (21:44)
[2017-08-20] MEDS: BACITRACIN ZINC OINT 28.4 GM TUBE TOP PRN (21:52)
[2017-08-21] MEDS: oxyCODONE 5 MG TABLET PO PRN ×5 (04:27→16:29)
[2017-08-21] MEDS: SODIUM CHLORIDE FLUSH 0.9% 10 ML SYRINGE IVP SCH ×3 (06:34→20:39)
[2017-08-21] MEDS: LEVOTHYROXINE 25 MCG TABLET PO SCH (06:34)
[2017-08-21] MEDS: PANTOPRAZOLE 40 MG TABLET PO SCH (06:34)
[2017-08-21] MEDS: INSULIN ASPART 300 UNIT/3 ML PEN SUBQ SCH ×7 (07:43→20:38)
[2017-08-21] MEDS: METOPROLOL SUCCINATE 25 MG TABLET PO SCH ×2 (08:26→20:36)
[2017-08-21] MEDS: CLOPIDOGREL 75 MG TABLET PO SCH (08:26)
[2017-08-21] MEDS: SPIRONOLACTONE 25 MG TABLET PO SCH (08:26)
[2017-08-21] MEDS: POLYETHYLENE GLYCOL 3350 17 GM PACKET PO SCH (08:26)
[2017-08-21] MEDS: ASPIRIN 325 MG TABLET PO SCH (08:27)
[2017-08-21] MEDS: DOCUSATE SODIUM 250 MG CAPSULE PO SCH (08:27)
[2017-08-21] MEDS: LISINOPRIL 5 MG TABLET PO SCH (08:29)
[2017-08-21] MEDS: SENNA 8.6 MG TABLET PO SCH (08:29)
[2017-08-21] MEDS: NICOTINE 14 MG PATCH TOP SCH (08:32)
[2017-08-21] MEDS: ENOXAPARIN 40 MG/0.4 ML SYRINGE SUBQ SCH (08:33)
[2017-08-21] MEDS: INSULIN GLARGINE 300 UNIT/3 ML PEN SUBQ SCH ×2 (08:39→20:42)
[2017-08-21] MEDS: clonazePAM 0.5 MG TABLET PO PRN (16:29)
--- NOTE | 2017-08-21 18:31 | PROVIDER PROGRESS NOTE ---
Assessment/Plan - Problem List (1) Hypoglycemia Assessment/Plan: Resolved (2) Type 1 diabetes mellitus with complication, uncontrolled Assessment/Plan: Managing DM with diet and meds (3) Ischemic cardiomyopathy Assessment/Plan: Stable without CHF symptoms (4) History of coronary artery disease Assessment/Plan: Stable with no complaints of chest pain (5) Shoulder pain, right Assessment/Plan: Pain improved. Pt was seen by PT who evaluated and discerned that pain is from position of arm in bed in a pt with previous fracture. Appropriate positioned were advised. (6) History of hemorrhagic stroke with residual hemiplegia Assessment/Plan: PT also worked with pt due to his deconditioning. The PT note states that Pt no longer wants to be placed in a SNF, but that is incorrect. I confirmed with Pt that he does want placement. - Current Meds Current Meds: Current Medications Generic Name Dose Route Start Last Admin Trade Name Freq PRN Reason Stop Dose Admin Acetaminophen 650 mg 08/16/17 19:41 08/20/17 13:50 Tylenol PO 650 mg Q4HR PRN Administration Pain 1 to 4 Aspirin 325 mg 08/17/17 09:00 08/21/17 08:27 Maria De Jesus PO 325 mg DAILY DAMIEN Administration Atorvastatin Calcium 80 mg 08/16/17 21:00 08/20/17 20:08 Lipitor PO 80 mg HS DAMIEN Administration Bacitracin 1 gm 08/18/17 10:09 08/20/17 21:52 Bacitracin Zinc Oint TOP 1 gm PRN PRN Administration Skin Care Clonazepam 0.5 mg 08/16/17 19:40 08/21/17 16:29 Klonopin PO 0.5 mg BID PRN Administration Anxiety Clopidogrel Bisulfate 75 mg 08/17/17 09:00 08/21/17 08:26 Plavix PO 75 mg DAILY DAMIEN Administration Docusate Sodium 250 - 500 mg 08/19/17 21:00 08/21/17 08:27 Colace 250mg Capsule PO 500 mg DAILY DAMIEN Administration Duloxetine HCl 60 mg 08/16/17 21:00 08/20/17 21:44 Cymbalta PO 60 mg HS DAMIEN Administration Enoxaparin Sodium 40 mg 08/17/17 09:00 08/21/17 08:33 Lovenox SUBQ 40 mg DAILY DAMIEN Administration Insulin Aspart 10 unit 08/19/17 09:00 08/21/17 16:36 Novolog SUBQ 10 unit TIDWM DAMIEN Administration Protocol Insulin Aspart 1 - 9 unit 08/20/17 08:00 08/21/17 16:37 Novolog SUBQ 3 unit 0800,1200,1700,2100 DAMIEN Administration Protocol Insulin Glargine 5 unit 08/18/17 17:00 08/20/17 21:36 Lantus Solostar SUBQ 5 unit QPM DAMIEN Administration Insulin Glargine 30 unit 08/18/17 16:06 08/21/17 08:39 Lantus Solostar SUBQ 30 unit DAILY DAMIEN Administration Levothyroxine Sodium 50 mcg 08/17/17 07:00 08/21/17 06:34 Synthroid PO 50 mcg QDAC DAMIEN Administration Lisinopril 2.5 mg 08/17/17 09:00 08/21/17 08:29 Zestril PO 2.5 mg DAILY DAMIEN Administration Metoprolol Succinate 25 mg 08/16/17 21:00 08/21/17 08:26 Toprol Xl PO 25 mg BID DAMIEN Administration Nicotine 1 patch 08/20/17 16:00 08/21/17 08:32 Nicoderm TOP 1 patch DAILY DAMIEN Administration Oxycodone HCl 5 mg 08/16/17 19:41 08/21/17 12:29 Roxicodone PO 5 mg Q4HR PRN Administration Pain 5 to 7 Oxycodone HCl 10 mg 08/16/17 19:41 08/21/17 16:29 Roxicodone PO 10 mg Q4HR PRN Administration Pain 8 to 10 Pantoprazole Sodium 40 mg 08/17/17 07:00 08/21/17 06:34 Protonix PO 40 mg QDAC DAMIEN Administration Polyethylene Glycol 17 gm 08/17/17 09:00 08/21/17 08:26 Miralax PO 17 gm DAILY DAMIEN Administration Senna 8.6 - 17.2 mg 08/19/17 21:00 08/21/17 08:29 Senokot PO 17.2 mg DAILY DMAIEN Administration Sodium Chloride 10 ml 08/16/17 19:41 08/19/17 06:11 Normal Saline Flush 0.9% IVP 10 ml PRN PRN Administration NEEDED PER PROVIDER ORDERS Sodium Chloride 10 ml 08/16/17 22:00 08/21/17 13:40 Normal Saline Flush 0.9% IVP 10 ml Q8HR DAMIEN Administration Spironolactone 12.5 mg 08/17/17 09:00 08/21/17 08:26 Aldactone PO 12.5 mg DAILY DAMIEN Administration - Lab Result Fish Bone Diagrams: 08/17/17 05:40 08/17/17 05:40 Subjective - Subjective Patient Reports: Feeling Better, Resting Comfortably Objective Vital Signs: Vital Signs - 24 hr 08/20/17 08/21/17 08/21/17 19:27 04:08 07:39 Temperature 37.4 C 36.9 C 37.1 C Heart Rate [ 88 81 82 Brachial] Respiratory 16 18 18 Rate Blood Pressure 94/46 L 134/65 H 120/58 L [Right Brachial artery] O2 Saturation 98 97 98 08/21/17 12:10 Temperature 36.6 C Heart Rate [ 87 Brachial] Respiratory 20 Rate Blood Pressure 104/66 [Right Brachial artery] O2 Saturation 100 Oxygen O2 Source Room air I&O (Last 24 Hrs): Intake and Output Totals x24h 08/19/17 08/20/17 08/21/17 23:59 23:59 23:59 Intake Total 2888.75 2820 1890 Output Total 3000 675 1400 Balance -111.25 2145 490 General: Alert HEENT: Mucous membr. moist/pink Neck: Supple Cardiovascular: Regular rate Respiratory: No respiratory distress Extremities: No edema - Results Results: Laboratory Results WBC 9.2 x10^3/uL (4.8-10.8) 08/17/17 05:40 RBC 3.30 10^6/uL (4.70-6.10) L 08/17/17 05:40 Hgb 9.3 g/dL (14.0-18.0) L 08/17/17 05:40 Hct 28.3 % (42.0-52.0) L 08/17/17 05:40 MCV 85.8 fL (80.0-94.0) 08/17/17 05:40 MCH 28.0 pg (27.0-31.0) 08/17/17 05:40 MCHC 32.6 g/dL (32.0-36.0) 08/17/17 05:40 RDW 15.2 % (12.0-15.0) H 08/17/17 05:40 Plt Count 310 10^3/uL (130-450) 08/17/17 05:40 MPV 7.5 fL (7.4-11.4) 08/17/17 05:40 Neut # Not Reportable 08/16/17 16:02 Lymph # Not Reportable 08/16/17 16:02 [place] # Not Reportable 08/16/17 16:02 Eos # Not Reportable 08/16/17 16:02 Baso # Not Reportable 08/16/17 16:02 Absolute Nucleated RBC Not Reportable 08/16/17 16:02 Total Counted 100 08/16/17 16:02 Band Neuts % (Manual) 5 % (0-10) 08/16/17 16:02 Nucleated RBC % Not Reportable 08/16/17 16:02 Neutrophils # (Manual) 15.9 10^3/uL (1.5-6.6) H 08/16/17 16:02 Lymphocytes # (Manual) 0.3 10^3/uL (1.5-3.5) L 08/16/17 16:02 Monocytes # (Manual) 0.3 10^3/uL (0.0-1.0) 08/16/17 16:02 Differential Comment MANUAL DIFFERENTIAL 08/16/17 16:02 Manual Slide Review Indicated 08/16/17 16:02 Platelet Estimate NORMAL (130-450,000) (NORMAL) 08/16/17 16:02 Platelet Morphology NORMAL APPEARANCE (NORMAL) 08/16/17 16:02 RBC Morph Micro Appear NORMAL APPEARANCE (NORMAL) 08/16/17 16:02 VBG pH 7.468 (7.31-7.41) H 08/17/17 05:40 VBG pCO2 54.0 mmHg (41-51) H 08/16/17 15:54 VBG pO2 25.0 mmHg (25-47) 08/16/17 15:54 VBG HCO3 31.7 mmol/L (23-28) H 08/16/17 15:54 VBG Total CO2 33.3 mmol/L (24-29) H 08/16/17 15:54 VBG O2 Saturation 45.4 % (60-80) L 08/16/17 15:54 VBG Base Excess 5.4 mmol/L (-2 - +2) H 08/16/17 15:54 Ionized Calcium 1.06 mmol/L (1.15-1.33) L 08/17/17 05:40 Sodium 129 mmol/L (135-145) L 08/17/17 05:40 Potassium 3.6 mmol/L (3.5-5.0) 08/17/17 05:40 Chloride 92 mmol/L (101-111) L 08/17/17 05:40 Carbon Dioxide 30 mmol/L (21-32) 08/17/17 05:40 Anion Gap 7.0 (6-13) 08/17/17 05:40 BUN 14 mg/dL (6-20) 08/17/17 05:40 Creatinine 0.5 mg/dL (0.6-1.2) L 08/17/17 05:40 Estimated GFR (MDRD) 170 (>89) 08/17/17 05:40 Glucose 244 mg/dL (70-100) H 08/17/17 05:40 POC Whole Bld Glucose 221 mg/dL (70 - 100) H 08/21/17 16:34 Glycated Hemoglobin 9.8 % (4.6-6.2) H 08/19/17 21:48 Estim Average Glucose 235 (70-100) H 08/19/17 21:48 Calcium 7.8 mg/dL (8.5-10.3) L 08/17/17 05:40 Ionized Calcium YES 08/17/17 05:40 Total Bilirubin 0.3 mg/dL (0.2-1.0) 08/17/17 05:40 AST 19 IU/L (10-42) 08/17/17 05:40 ALT 22 IU/L (10-60) 08/17/17 05:40 Alkaline Phosphatase 92 IU/L (42-121) 08/17/17 05:40 Total Protein 5.2 g/dL (6.7-8.2) L 08/17/17 05:40 Albumin 2.4 g/dL (3.2-5.5) L 08/17/17 05:40 Globulin 2.8 g/dL (2.1-4.2) 08/17/17 05:40 Albumin/Globulin Ratio 0.9 (1.0-2.2) L 08/17/17 05:40 Lipase 34 U/L (22-51) 08/16/17 15:54 TSH 3.82 uIU/mL (0.34-5.60) 08/17/17 05:40 Cortisol AM Sample 15.2 ug/dL 08/17/17 07:54 Serum Ketones NEGATIVE (NEGATIVE) 08/16/17 15:54 - Procedures Procedures: Procedures DRAINAGE OF SPINAL CANAL, PERCUTANEOUS APPROACH, DIAGNOSTIC (07/10/17)
[2017-08-21] MEDS: ATORVASTATIN 40 MG TABLET PO SCH (20:36)
[2017-08-21] MEDS: DULoxetine 30 MG CAPSULE PO SCH (20:36)
[2017-08-22] MEDS: oxyCODONE 5 MG TABLET PO PRN ×5 (00:13→22:41)
[2017-08-22] MEDS: clonazePAM 0.5 MG TABLET PO PRN ×2 (00:13→21:26)
[2017-08-22] MEDS: LEVOTHYROXINE 25 MCG TABLET PO SCH (06:35)
[2017-08-22] MEDS: PANTOPRAZOLE 40 MG TABLET PO SCH (06:36)
[2017-08-22] MEDS: SODIUM CHLORIDE FLUSH 0.9% 10 ML SYRINGE IVP SCH ×3 (06:38→21:30)
[2017-08-22] MEDS: INSULIN GLARGINE 300 UNIT/3 ML PEN SUBQ SCH ×2 (08:47→21:29)
[2017-08-22] MEDS: INSULIN ASPART 300 UNIT/3 ML PEN SUBQ SCH ×7 (08:48→21:27)
[2017-08-22] MEDS: CLOPIDOGREL 75 MG TABLET PO SCH (09:26)
[2017-08-22] MEDS: ASPIRIN 325 MG TABLET PO SCH (09:26)
[2017-08-22] MEDS: SENNA 8.6 MG TABLET PO SCH (09:26)
[2017-08-22] MEDS: METOPROLOL SUCCINATE 25 MG TABLET PO SCH ×2 (09:26→21:27)
[2017-08-22] MEDS: DOCUSATE SODIUM 250 MG CAPSULE PO SCH (09:26)
[2017-08-22] MEDS: SPIRONOLACTONE 25 MG TABLET PO SCH (09:27)
[2017-08-22] MEDS: POLYETHYLENE GLYCOL 3350 17 GM PACKET PO SCH (09:29)
[2017-08-22] MEDS: NICOTINE 14 MG PATCH TOP SCH (09:29)
[2017-08-22] MEDS: ENOXAPARIN 40 MG/0.4 ML SYRINGE SUBQ SCH (09:29)
[2017-08-22] MEDS: SODIUM CHLORIDE FLUSH 0.9% 10 ML SYRINGE IVP PRN (09:29)
[2017-08-22] MEDS: LISINOPRIL 5 MG TABLET PO SCH (09:33)
--- NOTE | 2017-08-22 11:48 | PROVIDER PROGRESS NOTE ---
Assessment/Plan - Problem List (1) Type 1 diabetes mellitus with complication, uncontrolled Assessment/Plan: Continue DM meds and diet (2) Ischemic cardiomyopathy Assessment/Plan: Stable. (3) History of coronary artery disease Assessment/Plan: Stable (4) Shoulder pain, right Assessment/Plan: Resolved (5) History of hemorrhagic stroke with residual hemiplegia Assessment/Plan: Unchanged neurological deficit. Pt awaiting long-term placement. (6) Hypoglycemia Assessment/Plan: Resolved - Current Meds Current Meds: Current Medications Generic Name Dose Route Start Last Admin Trade Name Freq PRN Reason Stop Dose Admin Acetaminophen 650 mg 08/16/17 19:41 08/20/17 13:50 Tylenol PO 650 mg Q4HR PRN Administration Pain 1 to 4 Aspirin 325 mg 08/17/17 09:00 08/22/17 09:26 Maria De Jesus PO 325 mg DAILY DAMIEN Administration Atorvastatin Calcium 80 mg 08/16/17 21:00 08/21/17 20:36 Lipitor PO 80 mg HS DAMIEN Administration Bacitracin 1 gm 08/18/17 10:09 08/20/17 21:52 Bacitracin Zinc Oint TOP 1 gm PRN PRN Administration Skin Care Clonazepam 0.5 mg 08/16/17 19:40 08/22/17 00:13 Klonopin PO 0.5 mg BID PRN Administration Anxiety Clopidogrel Bisulfate 75 mg 08/17/17 09:00 08/22/17 09:26 Plavix PO 75 mg DAILY DAMIEN Administration Docusate Sodium 250 - 500 mg 08/19/17 21:00 08/22/17 09:26 Colace 250mg Capsule PO 250 mg DAILY DAMIEN Administration Duloxetine HCl 60 mg 08/16/17 21:00 08/21/17 20:36 Cymbalta PO 60 mg HS DAMIEN Administration Enoxaparin Sodium 40 mg 08/17/17 09:00 08/22/17 09:29 Lovenox SUBQ 40 mg DAILY DAMIEN Administration Insulin Aspart 10 unit 08/19/17 09:00 08/22/17 08:48 Novolog SUBQ 10 unit TIDWM DAMIEN Administration Protocol Insulin Aspart 1 - 9 unit 08/20/17 08:00 08/22/17 08:48 Novolog SUBQ 9 unit 0800,1200,1700,2100 DAMIEN Administration Protocol Insulin Glargine 5 unit 08/18/17 17:00 08/21/17 20:42 Lantus Solostar SUBQ 5 unit QPM DAMIEN Administration Insulin Glargine 30 unit 08/18/17 16:06 08/22/17 08:47 Lantus Solostar SUBQ 30 unit DAILY DAMIEN Administration Levothyroxine Sodium 50 mcg 08/17/17 07:00 08/22/17 06:35 Synthroid PO 50 mcg QDAC DAMIEN Administration Lisinopril 2.5 mg 08/17/17 09:00 08/22/17 09:33 Zestril PO 2.5 mg DAILY DAMIEN Administration Metoprolol Succinate 25 mg 08/16/17 21:00 08/22/17 09:26 Toprol Xl PO 25 mg BID DAMIEN Administration Nicotine 1 patch 08/20/17 16:00 08/22/17 09:29 Nicoderm TOP 1 patch DAILY DAMIEN Administration Oxycodone HCl 5 mg 08/16/17 19:41 08/21/17 12:29 Roxicodone PO 5 mg Q4HR PRN Administration Pain 5 to 7 Oxycodone HCl 10 mg 08/16/17 19:41 08/22/17 10:37 Roxicodone PO 10 mg Q4HR PRN Administration Pain 8 to 10 Pantoprazole Sodium 40 mg 08/17/17 07:00 08/22/17 06:36 Protonix PO 40 mg QDAC DAMIEN Administration Polyethylene Glycol 17 gm 08/17/17 09:00 08/22/17 09:29 Miralax PO 17 gm DAILY DAMIEN Administration Senna 8.6 - 17.2 mg 08/19/17 21:00 08/22/17 09:26 Senokot PO 8.6 mg DAILY DAMIEN Administration Sodium Chloride 10 ml 08/16/17 19:41 08/22/17 09:29 Normal Saline Flush 0.9% IVP 10 ml PRN PRN Administration NEEDED PER PROVIDER ORDERS Sodium Chloride 10 ml 08/16/17 22:00 08/22/17 06:38 Normal Saline Flush 0.9% IVP 10 ml Q8HR DAMIEN Administration Spironolactone 12.5 mg 08/17/17 09:00 08/22/17 09:27 Aldactone PO 12.5 mg DAILY DAMIEN Administration - Lab Result Fish Bone Diagrams: 08/17/17 05:40 08/17/17 05:40 Subjective - Subjective Patient Reports: No Complaints Nursing Reports: No Complaints Objective Vital Signs: Vital Signs - 24 hr 08/21/17 08/21/17 08/21/17 12:10 16:00 20:00 Temperature 36.6 C 37.0 C 36.9 C Heart Rate [ 87 93 84 Brachial] Respiratory 20 18 17 Rate Blood Pressure 104/66 115/57 L 114/56 L [Right Brachial artery] O2 Saturation 100 98 99 08/22/17 08/22/17 06:00 09:24 Temperature 36.7 C 37.1 C Heart Rate [ 86 85 Brachial] Respiratory 18 16 Rate Blood Pressure 117/62 123/64 [Right Brachial artery] O2 Saturation 98 99 Oxygen O2 Source Room air I&O (Last 24 Hrs): Intake and Output Totals x24h 08/20/17 08/21/17 08/22/17 23:59 23:59 23:59 Intake Total 2820 1890 1180 Output Total 675 1750 1000 Balance 2145 140 180 General: Alert HEENT: Mucous membr. moist/pink Neck: Supple Cardiovascular: No murmurs Respiratory: No respiratory distress Extremities: No edema - Results Results: Laboratory Results WBC 9.2 x10^3/uL (4.8-10.8) 08/17/17 05:40 RBC 3.30 10^6/uL (4.70-6.10) L 08/17/17 05:40 Hgb 9.3 g/dL (14.0-18.0) L 08/17/17 05:40 Hct 28.3 % (42.0-52.0) L 08/17/17 05:40 MCV 85.8 fL (80.0-94.0) 08/17/17 05:40 MCH 28.0 pg (27.0-31.0) 08/17/17 05:40 MCHC 32.6 g/dL (32.0-36.0) 08/17/17 05:40 RDW 15.2 % (12.0-15.0) H 08/17/17 05:40 Plt Count 310 10^3/uL (130-450) 08/17/17 05:40 MPV 7.5 fL (7.4-11.4) 08/17/17 05:40 Neut # Not Reportable 08/16/17 16:02 Lymph # Not Reportable 08/16/17 16:02 [place] # Not Reportable 08/16/17 16:02 Eos # Not Reportable 08/16/17 16:02 Baso # Not Reportable 08/16/17 16:02 Absolute Nucleated RBC Not Reportable 08/16/17 16:02 Total Counted 100 08/16/17 16:02 Band Neuts % (Manual) 5 % (0-10) 08/16/17 16:02 Nucleated RBC % Not Reportable 08/16/17 16:02 Neutrophils # (Manual) 15.9 10^3/uL (1.5-6.6) H 08/16/17 16:02 Lymphocytes # (Manual) 0.3 10^3/uL (1.5-3.5) L 08/16/17 16:02 Monocytes # (Manual) 0.3 10^3/uL (0.0-1.0) 08/16/17 16:02 Differential Comment MANUAL DIFFERENTIAL 08/16/17 16:02 Manual Slide Review Indicated 08/16/17 16:02 Platelet Estimate NORMAL (130-450,000) (NORMAL) 08/16/17 16:02 Platelet Morphology NORMAL APPEARANCE (NORMAL) 08/16/17 16:02 RBC Morph Micro Appear NORMAL APPEARANCE (NORMAL) 08/16/17 16:02 VBG pH 7.468 (7.31-7.41) H 08/17/17 05:40 VBG pCO2 54.0 mmHg (41-51) H 08/16/17 15:54 VBG pO2 25.0 mmHg (25-47) 08/16/17 15:54 VBG HCO3 31.7 mmol/L (23-28) H 08/16/17 15:54 VBG Total CO2 33.3 mmol/L (24-29) H 08/16/17 15:54 VBG O2 Saturation 45.4 % (60-80) L 08/16/17 15:54 VBG Base Excess 5.4 mmol/L (-2 - +2) H 08/16/17 15:54 Ionized Calcium 1.06 mmol/L (1.15-1.33) L 08/17/17 05:40 Sodium 129 mmol/L (135-145) L 08/17/17 05:40 Potassium 3.6 mmol/L (3.5-5.0) 08/17/17 05:40 Chloride 92 mmol/L (101-111) L 08/17/17 05:40 Carbon Dioxide 30 mmol/L (21-32) 08/17/17 05:40 Anion Gap 7.0 (6-13) 08/17/17 05:40 BUN 14 mg/dL (6-20) 08/17/17 05:40 Creatinine 0.5 mg/dL (0.6-1.2) L 08/17/17 05:40 Estimated GFR (MDRD) 170 (>89) 08/17/17 05:40 Glucose 244 mg/dL (70-100) H 08/17/17 05:40 POC Whole Bld Glucose 360 mg/dL (70 - 100) H 08/22/17 08:36 Glycated Hemoglobin 9.8 % (4.6-6.2) H 08/19/17 21:48 Estim Average Glucose 235 (70-100) H 08/19/17 21:48 Calcium 7.8 mg/dL (8.5-10.3) L 08/17/17 05:40 Ionized Calcium YES 08/17/17 05:40 Total Bilirubin 0.3 mg/dL (0.2-1.0) 08/17/17 05:40 AST 19 IU/L (10-42) 08/17/17 05:40 ALT 22 IU/L (10-60) 08/17/17 05:40 Alkaline Phosphatase 92 IU/L (42-121) 08/17/17 05:40 Total Protein 5.2 g/dL (6.7-8.2) L 08/17/17 05:40 Albumin 2.4 g/dL (3.2-5.5) L 08/17/17 05:40 Globulin 2.8 g/dL (2.1-4.2) 08/17/17 05:40 Albumin/Globulin Ratio 0.9 (1.0-2.2) L 08/17/17 05:40 Lipase 34 U/L (22-51) 08/16/17 15:54 TSH 3.82 uIU/mL (0.34-5.60) 08/17/17 05:40 Cortisol AM Sample 15.2 ug/dL 08/17/17 07:54 Serum Ketones NEGATIVE (NEGATIVE) 08/16/17 15:54 - Procedures Procedures: Procedures DRAINAGE OF SPINAL CANAL, PERCUTANEOUS APPROACH, DIAGNOSTIC (07/10/17)
[2017-08-22] MEDS: ATORVASTATIN 40 MG TABLET PO SCH (21:26)
[2017-08-22] MEDS: DULoxetine 30 MG CAPSULE PO SCH (21:27)
[2017-08-22] MEDS: ZINC OXIDE 20% OINT 28.35 GM TUBE TOP SCH (21:29)
[2017-08-22] MEDS: ZOLPIDEM 5 MG TABLET PO PRN (23:34)
[2017-08-23] MEDS: LEVOTHYROXINE 25 MCG TABLET PO SCH (06:34)
[2017-08-23] MEDS: PANTOPRAZOLE 40 MG TABLET PO SCH (06:34)
[2017-08-23] MEDS: SODIUM CHLORIDE FLUSH 0.9% 10 ML SYRINGE IVP SCH ×2 (06:35→14:21)
[2017-08-23] MEDS: INSULIN GLARGINE 300 UNIT/3 ML PEN SUBQ SCH ×2 (08:30→20:41)
[2017-08-23] MEDS: INSULIN ASPART 300 UNIT/3 ML PEN SUBQ SCH ×7 (08:30→20:42)
[2017-08-23] MEDS: NICOTINE 14 MG PATCH TOP SCH (08:37)
[2017-08-23] MEDS: METOPROLOL SUCCINATE 25 MG TABLET PO SCH ×2 (08:37→20:37)
[2017-08-23] MEDS: SPIRONOLACTONE 25 MG TABLET PO SCH (08:37)
[2017-08-23] MEDS: ASPIRIN 325 MG TABLET PO SCH (08:38)
[2017-08-23] MEDS: LISINOPRIL 5 MG TABLET PO SCH (08:39)
[2017-08-23] MEDS: CLOPIDOGREL 75 MG TABLET PO SCH (08:39)
[2017-08-23] MEDS: ENOXAPARIN 40 MG/0.4 ML SYRINGE SUBQ SCH (08:39)
--- NOTE | 2017-08-23 08:42 | PROVIDER PROGRESS NOTE ---
Assessment/Plan - Problem List (1) Type 1 diabetes mellitus with complication, uncontrolled Assessment/Plan: Am glu 500. Will increase SS coverage to moder-high. Will increase pm Lantus from 5 to 10 U. (2) Ischemic cardiomyopathy Assessment/Plan: Stable (3) History of coronary artery disease Assessment/Plan: Stable (4) Shoulder pain, right Assessment/Plan: Stable (5) History of hemorrhagic stroke with residual hemiplegia Assessment/Plan: Stable with neurologic impairment. Awaiting placement. - Current Meds Current Meds: Current Medications Generic Name Dose Route Start Last Admin Trade Name Freq PRN Reason Stop Dose Admin Acetaminophen 650 mg 08/16/17 19:41 08/20/17 13:50 Tylenol PO 650 mg Q4HR PRN Administration Pain 1 to 4 Aspirin 325 mg 08/17/17 09:00 08/23/17 08:38 Maria De Jesus PO 325 mg DAILY DAMIEN Administration Atorvastatin Calcium 80 mg 08/16/17 21:00 08/22/17 21:26 Lipitor PO 80 mg HS DAMIEN Administration Bacitracin 1 gm 08/18/17 10:09 08/20/17 21:52 Bacitracin Zinc Oint TOP 1 gm PRN PRN Administration Skin Care Clonazepam 0.5 mg 08/16/17 19:40 08/22/17 21:26 Klonopin PO 0.5 mg BID PRN Administration Anxiety Clopidogrel Bisulfate 75 mg 08/17/17 09:00 08/23/17 08:39 Plavix PO 75 mg DAILY DAMIEN Administration Docusate Sodium 250 - 500 mg 08/19/17 21:00 08/22/17 09:26 Colace 250mg Capsule PO 250 mg DAILY DAMIEN Administration Duloxetine HCl 60 mg 08/16/17 21:00 08/22/17 21:27 Cymbalta PO 60 mg HS DAMIEN Administration Enoxaparin Sodium 40 mg 08/17/17 09:00 08/23/17 08:39 Lovenox SUBQ 40 mg DAILY DAMIEN Administration Insulin Aspart 10 unit 08/19/17 09:00 08/22/17 17:13 Novolog SUBQ 10 unit TIDWM DAMIEN Administration Protocol Insulin Glargine 30 unit 08/18/17 16:06 08/22/17 08:47 Lantus Solostar SUBQ 30 unit DAILY DAMIEN Administration Levothyroxine Sodium 50 mcg 08/17/17 07:00 08/23/17 06:34 Synthroid PO 50 mcg QDAC DAMIEN Administration Lisinopril 2.5 mg 08/17/17 09:00 08/23/17 08:39 Zestril PO 2.5 mg DAILY DAMIEN Administration Metoprolol Succinate 25 mg 08/16/17 21:00 08/23/17 08:37 Toprol Xl PO 25 mg BID DAMIEN Administration Multi-Ingredient Ointment 1 applic 08/22/17 21:00 08/22/17 21:29 Zinc Oxide TOP 1 applic BID DAMIEN Administration Nicotine 1 patch 08/20/17 16:00 08/23/17 08:37 Nicoderm TOP 1 patch DAILY DAMIEN Administration Oxycodone HCl 5 mg 08/16/17 19:41 08/21/17 12:29 Roxicodone PO 5 mg Q4HR PRN Administration Pain 5 to 7 Oxycodone HCl 10 mg 08/16/17 19:41 08/22/17 22:41 Roxicodone PO 10 mg Q4HR PRN Administration Pain 8 to 10 Pantoprazole Sodium 40 mg 08/17/17 07:00 08/23/17 06:34 Protonix PO 40 mg QDAC DAMIEN Administration Polyethylene Glycol 17 gm 08/17/17 09:00 08/22/17 09:29 Miralax PO 17 gm DAILY DAMIEN Administration Senna 8.6 - 17.2 mg 08/19/17 21:00 08/22/17 09:26 Senokot PO 8.6 mg DAILY DAMIEN Administration Sodium Chloride 10 ml 08/16/17 19:41 08/22/17 09:29 Normal Saline Flush 0.9% IVP 10 ml PRN PRN Administration NEEDED PER PROVIDER ORDERS Sodium Chloride 10 ml 08/16/17 22:00 08/23/17 06:35 Normal Saline Flush 0.9% IVP Not Given Q8HR DAMIEN Spironolactone 12.5 mg 08/17/17 09:00 08/23/17 08:37 Aldactone PO 12.5 mg DAILY DAMIEN Administration Zolpidem Tartrate 5 mg 08/16/17 19:41 08/22/17 23:34 Ambien PO 5 mg QPM PRN Administration Insomnia - Lab Result Fish Bone Diagrams: 08/17/17 05:40 08/17/17 05:40 - Additional Planning My Orders: My Active Orders 08/22/17 21:00 Zinc Oxide 20% Oint [Zinc Oxide] 1 applic TOP BID 08/23/17 08:36 Insulin Glargine [Lantus Solostar] 10 unit SUBQ QPM Subjective - Subjective Patient Reports: No Complaints Nursing Reports: Other (Am glucoses are rising) Objective Vital Signs: Vital Signs - 24 hr 08/22/17 08/22/17 08/22/17 09:24 15:43 20:05 Temperature 37.1 C 36.9 C 36.9 C Heart Rate [ 85 88 84 Brachial] Respiratory 16 17 18 Rate Blood Pressure 123/64 119/57 L 116/56 L [Right Brachial artery] O2 Saturation 99 98 97 08/23/17 08/23/17 05:45 08:19 Temperature 36.6 C 36.9 C Heart Rate [ 85 85 Brachial] Respiratory 18 19 Rate Blood Pressure 118/63 115/63 [Right Brachial artery] O2 Saturation 97 99 Oxygen O2 Source Room air I&O (Last 24 Hrs): Intake and Output Totals x24h 08/21/17 08/22/17 08/23/17 23:59 23:59 23:59 Intake Total 1890 2140 500 Output Total 1750 1400 1750 Balance 140 740 -1250 General: Alert HEENT: Mucous membr. moist/pink Respiratory: No respiratory distress - Results Results: Laboratory Results WBC 9.2 x10^3/uL (4.8-10.8) 08/17/17 05:40 RBC 3.30 10^6/uL (4.70-6.10) L 08/17/17 05:40 Hgb 9.3 g/dL (14.0-18.0) L 08/17/17 05:40 Hct 28.3 % (42.0-52.0) L 08/17/17 05:40 MCV 85.8 fL (80.0-94.0) 08/17/17 05:40 MCH 28.0 pg (27.0-31.0) 08/17/17 05:40 MCHC 32.6 g/dL (32.0-36.0) 08/17/17 05:40 RDW 15.2 % (12.0-15.0) H 08/17/17 05:40 Plt Count 310 10^3/uL (130-450) 08/17/17 05:40 MPV 7.5 fL (7.4-11.4) 08/17/17 05:40 Neut # Not Reportable 08/16/17 16:02 Lymph # Not Reportable 08/16/17 16:02 [place] # Not Reportable 08/16/17 16:02 Eos # Not Reportable 08/16/17 16:02 Baso # Not Reportable 08/16/17 16:02 Absolute Nucleated RBC Not Reportable 08/16/17 16:02 Total Counted 100 08/16/17 16:02 Band Neuts % (Manual) 5 % (0-10) 08/16/17 16:02 Nucleated RBC % Not Reportable 08/16/17 16:02 Neutrophils # (Manual) 15.9 10^3/uL (1.5-6.6) H 08/16/17 16:02 Lymphocytes # (Manual) 0.3 10^3/uL (1.5-3.5) L 08/16/17 16:02 Monocytes # (Manual) 0.3 10^3/uL (0.0-1.0) 08/16/17 16:02 Differential Comment MANUAL DIFFERENTIAL 08/16/17 16:02 Manual Slide Review Indicated 08/16/17 16:02 Platelet Estimate NORMAL (130-450,000) (NORMAL) 08/16/17 16:02 Platelet Morphology NORMAL APPEARANCE (NORMAL) 08/16/17 16:02 RBC Morph Micro Appear NORMAL APPEARANCE (NORMAL) 08/16/17 16:02 VBG pH 7.468 (7.31-7.41) H 08/17/17 05:40 VBG pCO2 54.0 mmHg (41-51) H 08/16/17 15:54 VBG pO2 25.0 mmHg (25-47) 08/16/17 15:54 VBG HCO3 31.7 mmol/L (23-28) H 08/16/17 15:54 VBG Total CO2 33.3 mmol/L (24-29) H 08/16/17 15:54 VBG O2 Saturation 45.4 % (60-80) L 08/16/17 15:54 VBG Base Excess 5.4 mmol/L (-2 - +2) H 08/16/17 15:54 Ionized Calcium 1.06 mmol/L (1.15-1.33) L 08/17/17 05:40 Sodium 129 mmol/L (135-145) L 08/17/17 05:40 Potassium 3.6 mmol/L (3.5-5.0) 08/17/17 05:40 Chloride 92 mmol/L (101-111) L 08/17/17 05:40 Carbon Dioxide 30 mmol/L (21-32) 08/17/17 05:40 Anion Gap 7.0 (6-13) 08/17/17 05:40 BUN 14 mg/dL (6-20) 08/17/17 05:40 Creatinine 0.5 mg/dL (0.6-1.2) L 08/17/17 05:40 Estimated GFR (MDRD) 170 (>89) 08/17/17 05:40 Glucose 244 mg/dL (70-100) H 08/17/17 05:40 POC Whole Bld Glucose 505 mg/dL (70 - 100) H* 08/23/17 07:50 Glycated Hemoglobin 9.8 % (4.6-6.2) H 08/19/17 21:48 Estim Average Glucose 235 (70-100) H 08/19/17 21:48 Calcium 7.8 mg/dL (8.5-10.3) L 08/17/17 05:40 Ionized Calcium YES 08/17/17 05:40 Total Bilirubin 0.3 mg/dL (0.2-1.0) 08/17/17 05:40 AST 19 IU/L (10-42) 08/17/17 05:40 ALT 22 IU/L (10-60) 08/17/17 05:40 Alkaline Phosphatase 92 IU/L (42-121) 08/17/17 05:40 Total Protein 5.2 g/dL (6.7-8.2) L 08/17/17 05:40 Albumin 2.4 g/dL (3.2-5.5) L 08/17/17 05:40 Globulin 2.8 g/dL (2.1-4.2) 08/17/17 05:40 Albumin/Globulin Ratio 0.9 (1.0-2.2) L 08/17/17 05:40 Lipase 34 U/L (22-51) 08/16/17 15:54 TSH 3.82 uIU/mL (0.34-5.60) 08/17/17 05:40 Cortisol AM Sample 15.2 ug/dL 08/17/17 07:54 Serum Ketones NEGATIVE (NEGATIVE) 08/16/17 15:54 - Procedures Procedures: Procedures DRAINAGE OF SPINAL CANAL, PERCUTANEOUS APPROACH, DIAGNOSTIC (07/10/17)
[2017-08-23] MEDS: POLYETHYLENE GLYCOL 3350 17 GM PACKET PO SCH (08:46)
[2017-08-23] MEDS: DOCUSATE SODIUM 250 MG CAPSULE PO SCH (08:46)
[2017-08-23] MEDS: SENNA 8.6 MG TABLET PO SCH (08:46)
[2017-08-23] MEDS: ZINC OXIDE 20% OINT 28.35 GM TUBE TOP SCH ×2 (10:09→20:36)
[2017-08-23] MEDS: oxyCODONE 5 MG TABLET PO PRN ×3 (12:00→20:36)
[2017-08-23] MEDS: SODIUM CHLORIDE FLUSH 0.9% 10 ML SYRINGE IVP PRN (14:22)
[2017-08-23] MEDS: DULoxetine 30 MG CAPSULE PO SCH (20:35)
[2017-08-23] MEDS: ATORVASTATIN 40 MG TABLET PO SCH (20:35)
[2017-08-23] MEDS: ZOLPIDEM 5 MG TABLET PO PRN (23:39)
[2017-08-24] MEDS: PANTOPRAZOLE 40 MG TABLET PO SCH (06:22)
[2017-08-24] MEDS: oxyCODONE 5 MG TABLET PO PRN ×2 (06:22→11:20)
[2017-08-24] MEDS: LEVOTHYROXINE 25 MCG TABLET PO SCH (06:22)
[2017-08-24] MEDS: NICOTINE 14 MG PATCH TOP SCH (08:52)
[2017-08-24] MEDS: DOCUSATE SODIUM 250 MG CAPSULE PO SCH (08:52)
[2017-08-24] MEDS: SENNA 8.6 MG TABLET PO SCH (08:52)
[2017-08-24] MEDS: LISINOPRIL 5 MG TABLET PO SCH (08:53)
[2017-08-24] MEDS: SPIRONOLACTONE 25 MG TABLET PO SCH (08:53)
[2017-08-24] MEDS: ASPIRIN 325 MG TABLET PO SCH (08:53)
[2017-08-24] MEDS: ENOXAPARIN 40 MG/0.4 ML SYRINGE SUBQ SCH (08:54)
[2017-08-24] MEDS: POLYETHYLENE GLYCOL 3350 17 GM PACKET PO SCH (08:54)
[2017-08-24] MEDS: CLOPIDOGREL 75 MG TABLET PO SCH (08:55)
[2017-08-24] MEDS: METOPROLOL SUCCINATE 25 MG TABLET PO SCH ×2 (08:55→21:18)
[2017-08-24] MEDS: ZINC OXIDE 20% OINT 28.35 GM TUBE TOP SCH ×2 (08:56→21:16)
[2017-08-24] MEDS: INSULIN ASPART 300 UNIT/3 ML PEN SUBQ SCH ×7 (08:58→21:17)
[2017-08-24] MEDS: INSULIN GLARGINE 300 UNIT/3 ML PEN SUBQ SCH ×2 (08:59→21:16)
--- NOTE | 2017-08-24 11:56 | PROVIDER PROGRESS NOTE ---
Subjective - Prog Note Date Prog Note Date: 08/24/17 Prog Note Time: 11:54 - Subjective Subjective: his main concern this am is his pain meds. He states he takes morphine IR 30 mg tid at home and we've switched him from [place] IR to oxycodone 10 mg tid prn. He would like to go back to [place] for his chronic back pain otherwise no new complaints. anxious to get to [place]. Current Medications - Current Medications Current Medications: Active Medications Acetaminophen (Tylenol) 650 mg PO Q4HR PRN PRN Reason: Pain 1 to 4 Last Admin: 08/20/17 13:50 Dose: 650 mg Aspirin (Maria De Jesus) 325 mg PO DAILY [facility] Last Admin: 08/24/17 08:53 Dose: 325 mg Atorvastatin Calcium (Lipitor) 80 mg PO HS [facility] Last Admin: 08/23/17 20:35 Dose: 80 mg Bacitracin (Bacitracin Zinc Oint) 1 gm TOP PRN PRN PRN Reason: Skin Care Last Admin: 08/20/17 21:52 Dose: 1 gm Clonazepam (Klonopin) 0.5 mg PO BID PRN PRN Reason: Anxiety Last Admin: 08/22/17 21:26 Dose: 0.5 mg Clopidogrel Bisulfate (Plavix) 75 mg PO DAILY [facility] Last Admin: 08/24/17 08:55 Dose: 75 mg Docusate Sodium (Colace 250mg Capsule) 250 - 500 mg PO DAILY [facility] Last Admin: 08/24/17 08:52 Dose: 250 mg Duloxetine HCl (Cymbalta) 60 mg PO HS [facility] Last Admin: 08/23/17 20:35 Dose: 60 mg Enoxaparin Sodium (Lovenox) 40 mg SUBQ DAILY [facility] Last Admin: 08/24/17 08:54 Dose: 40 mg Insulin Aspart (Novolog) 10 unit SUBQ TIDWM DAMIEN PRN Reason: Protocol Last Admin: 08/24/17 08:58 Dose: 10 unit Insulin Aspart (Novolog) 3 - 11 unit SUBQ 0800,1200,1700,2100 DAMIEN PRN Reason: Protocol Last Admin: 08/24/17 11:25 Dose: Not Given Insulin Glargine (Lantus Solostar) 30 unit SUBQ DAILY [facility] Last Admin: 08/24/17 08:59 Dose: 30 unit Insulin Glargine (Lantus Solostar) 10 unit SUBQ QPM [facility] Last Admin: 08/23/17 20:41 Dose: 10 unit Levothyroxine Sodium (Synthroid) 50 mcg PO QDAC [facility] Last Admin: 08/24/17 06:22 Dose: 50 mcg Lisinopril (Zestril) 2.5 mg PO DAILY [facility] Last Admin: 08/24/17 08:53 Dose: 2.5 mg Metoprolol Succinate (Toprol Xl) 25 mg PO BID [facility] Last Admin: 08/24/17 08:55 Dose: 25 mg Morphine Sulfate (Ms Ir) 15 mg PO Q4HR PRN PRN Reason: PAIN Multi-Ingredient Ointment (Zinc Oxide) 1 applic TOP BID [facility] Last Admin: 08/24/17 08:56 Dose: 1 applic Nicotine (Nicoderm) 1 patch TOP DAILY [facility] Last Admin: 08/24/17 08:52 Dose: 1 patch Ondansetron HCl (Zofran Inj) 4 mg IVP Q6HR PRN PRN Reason: Nausea / Vomiting Pantoprazole Sodium (Protonix) 40 mg PO QDAC [facility] Last Admin: 08/24/17 06:22 Dose: 40 mg Polyethylene Glycol (Miralax) 17 gm PO DAILY [facility] Last Admin: 08/24/17 08:54 Dose: 17 gm Prochlorperazine Edisylate (Compazine Inj) 10 mg IVP Q6HR PRN PRN Reason: Nausea / Vomiting Senna (Senokot) 8.6 - 17.2 mg PO DAILY [facility] Last Admin: 08/24/17 08:52 Dose: 17.2 mg Spironolactone (Aldactone) 12.5 mg PO DAILY [facility] Last Admin: 08/24/17 08:53 Dose: 12.5 mg Zolpidem Tartrate (Ambien) 5 mg PO QPM PRN PRN Reason: Insomnia Last Admin: 08/23/17 23:39 Dose: 5 mg Insulin Glargine,Hum.rec.anlog [Lantus] 30 units SUBQ DAILY 03/19/14 Atorvastatin Calcium 80 mg PO DAILY PM 05/02/17 Metoprolol Succinate 25 mg PO DAILY 05/02/17 Insulin Aspart [NovoLOG] 10 unit SQ TIDWM 08/17/17 Senna [Senokot] 8.6 mg PO DAILY PRN 08/17/17 clonazePAM [Clonazepam] 0.5 mg PO DAILY PRN 08/17/17 Objective - Vital Signs/Intake & Output Reviewed Vital Signs: Yes Vital Signs: Vital Signs x48h Temp Pulse Resp BP Pulse Ox 08/24/17 07:34 37.3 C 83 19 104/59 L 100 08/24/17 05:00 37.0 C 90 16 95/40 L 99 Intake & Output: Intake & Output 08/21/17 08/22/17 08/23/17 08/24/17 23:59 23:59 23:59 23:59 Intake Total 1890 2140 3050 1020 Output Total 1750 1400 1750 1495 Balance [phone] -475 - Objective General Appearance: positive: No acute distress, Alert, Other (bearded well groomed thin middle aged white male who looks older than stated age.) Eyes Bilateral: positive: PERRL Neck: positive: No JVD. negative: Lymphadenopathy (R), Lymphadenopathy (L), Stiff neck Respiratory: positive: Chest non-tender. negative: Wheezes, Rales, Rhonchi Cardiovascular: positive: Regular rate & rhythm, Systolic murmur. negative: Gallop/S4, Friction rub Abdomen: positive: Non-tender, No organomegaly, Nml bowel sounds, No distention Skin: positive: Warm, Dry Extremities: positive: No pedal edema Neurologic/Psychiatric: positive: Oriented x3, Facial droop. negative: CN's nml (2-12) (right facial droop), Motor nml - Lab Results Fish Bones: 08/17/17 05:40 08/17/17 05:40 Other Labs: Lab Results x24hrs 08/24/17 08/24/17 08/23/17 Range/Units 11:24 07:26 20:23 POC Whole Bld Glucose 126 H 299 H 163 H (70 - 100) mg/dL 08/23/17 Range/Units 16:57 POC Whole Bld Glucose 162 H (70 - 100) mg/dL Assessment/Plan - Problem List (1) Chronic back pain Impression: he has had it for years. I asked for a pharmacy rx review and since 09/2016 he had been on oxycodone 10- 30mg until 04/2017. Then tried on morphine sulfate ER 30 mg for 30 tabs on . The oxycodone 10 mg plus [place] ER 60 mg 30 tabs, then [place] ER 80 mg on 06/25 amd back to [place] IR 07/02/17 30 mg tid prn. So will resume the IR tid prn. Qualifiers: Back pain location: low back pain (2) Type 1 diabetes mellitus with complication, uncontrolled Impression: Uncontrolled with complications of neuropathy and stroke. A1c is 9.7% Patient has a history of type 1 diabetes with multiple admissions for DKA however this time he presents with hypoglycemia. The patient states that his blood glucose has been volatile at home despite not having made any changes in his insulin regimen or having had any changes in his medical status. The patient presented this time with hypoglycemia. Patient's blood glucose was as low as 19 at home and down to 39 in the emergency department. The patient required a D10 drip and placement in observation. It appears the patient is having a very difficult time taking care of himself as he does have multiple hospitalizations over the last year and he should consider going to a facility where he can get assistance with his medications however patient was refusing this. He has reponded to treatment and is now 176-250's the first night. Eating. Plan: D10 stopped after 24 hours. Initially on a reduced dose of lantus to 15 units but glucose too high and I went back to original 30 he was on 08/18 I think he made a mistake at home at took too much insulin because here he has been too high on the reduced dose. Placed on high sliding scale insulin and still 350's On diabetic diet by 08/19 is on lantus 30 in am and 10 units in pm and fixed sliding novolog 10 units actid 08/23 he was 484, 202, 168 and 163 08/24 so far he is 299 and 126. Qualifiers: Diabetes mellitus type: type 1 (3) Leukocytosis Conclusion/Plan: Patient has leukocytosis on presentation. Resolved. the patient's WBC is 16.6 on presentation. The patient does tend to have elevated WBC on previous hospitalizations however it does return to normal. It appears the patient likely has a reactive leukocytosis due to his hypoglycemia. The patient does not show any signs or symptoms of infection. He is 9.2 0n 08/17. No further monitoring needed. Qualifiers: Leukocytosis type: leukemoid reaction Qualified Code(s): D72.823 - Leukemoid reaction (4) CHF (congestive heart failure) Conclusion/Plan: Patient has cardiomyopathy with an ejection fraction of 30-35% on most recent echocardiogram. The patient is on optimal medication with metoprolol, lisinopril and spironolactone. Currently the patient's fluid status appears to be stable. No fluid overload noted with his D10 drip. Qualifiers: Congestive heart failure type: systolic (5) History of coronary artery disease Conclusion/Plan: Patient has history of coronary artery disease and is on optimal treatment with aspirin, Plavix, Lipitor and metoprolol. The patient had 3 stents placed in the last year and therefore will need to continue on his Plavix. We will continue his home medications while he is hospitalized. (6) Hypothyroidism Conclusion/Plan: Patient has a history of hypothyroidism and he appears stable. TSH 3.82. continue synthroid. (7) Hypoglycemia Impression: resolved. Reason for his admission. While here definitely NOT a problem. so he may have accidentally taken too much at home. The patient presented with altered mental status and was found to have a blood glucose of 19 at home. The patient states that he has been having fluctuating blood sugars at home. He states that sometimes his blood sugar will be 300 and then it will be 30. He states that he has not changed his regimen and states that the only thing he does forit when it does get low is he eats more. He states that day before admission his blood glucose was as low as 32. The patient has been on the same regimen of 30 units of Lantus and 10 units of NovoLog with meals for some time now. The patient has not been exercising any more than normal he does not appear to have any signs or symptoms of infection. The patient states that his blood glucose is always very volatilie and difficult to control. In the emergency department the patient was placed on D5 drip but blood glucose dropped down to 39 in the emergency department and patient had to be given D50 and placed on a D10 drip and placed in observation. Given the history the patient's cause of hypoglycemia is not completely clear. We checked a cortisol level one morning to see that patient had not developed adrenal insufficiency. Cortisol was normal. The patient did not appear to be septic and does not appear to have hepatic or renal failure at this time. Off of D10 and eating well. no further episodes. (8) History of hemorrhagic stroke with residual hemiplegia Impression: and poor safety awareness. 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 he's just a roommate. He states he's willing to move to [place] for permanent placement and Social Service is working on that. But tentative date for transfer is 08/23.
[2017-08-24] MEDS: MORPHINE IR 15 MG TABLET PO PRN ×2 (12:56→21:15)
[2017-08-24] MEDS: ATORVASTATIN 40 MG TABLET PO SCH (21:15)
[2017-08-24] MEDS: DULoxetine 30 MG CAPSULE PO SCH (21:15)
[2017-08-24] MEDS: ZOLPIDEM 5 MG TABLET PO PRN (23:55)
[2017-08-25] MEDS: MORPHINE IR 15 MG TABLET PO PRN ×4 (06:25→21:06)
[2017-08-25] MEDS: PANTOPRAZOLE 40 MG TABLET PO SCH (06:25)
[2017-08-25] MEDS: LEVOTHYROXINE 25 MCG TABLET PO SCH (06:25)
[2017-08-25] MEDS: POLYETHYLENE GLYCOL 3350 17 GM PACKET PO SCH (10:14)
[2017-08-25] MEDS: DOCUSATE SODIUM 250 MG CAPSULE PO SCH (10:15)
[2017-08-25] MEDS: ZINC OXIDE 20% OINT 28.35 GM TUBE TOP SCH ×2 (10:15→21:07)
[2017-08-25] MEDS: NICOTINE 14 MG PATCH TOP SCH (10:15)
[2017-08-25] MEDS: ENOXAPARIN 40 MG/0.4 ML SYRINGE SUBQ SCH (10:15)
[2017-08-25] MEDS: METOPROLOL SUCCINATE 25 MG TABLET PO SCH ×2 (10:16→21:06)
[2017-08-25] MEDS: CLOPIDOGREL 75 MG TABLET PO SCH (10:16)
[2017-08-25] MEDS: SPIRONOLACTONE 25 MG TABLET PO SCH (10:16)
[2017-08-25] MEDS: ASPIRIN 325 MG TABLET PO SCH (10:16)
[2017-08-25] MEDS: SENNA 8.6 MG TABLET PO SCH (10:16)
[2017-08-25] MEDS: LISINOPRIL 5 MG TABLET PO SCH (10:16)
[2017-08-25] MEDS: INSULIN GLARGINE 300 UNIT/3 ML PEN SUBQ SCH ×2 (10:21→21:17)
[2017-08-25] MEDS: INSULIN ASPART 300 UNIT/3 ML PEN SUBQ SCH ×7 (10:22→21:18)
--- NOTE | 2017-08-25 13:59 | PROVIDER PROGRESS NOTE ---
Subjective - Prog Note Date Prog Note Date: 08/25/17 Prog Note Time: 16:54 - Subjective Pt reports feeling: No change Subjective: he had hypoglycemia this afternoon and needed amp D50. otherwie no other changes. Current Medications - Current Medications Current Medications: Active Medications Acetaminophen (Tylenol) 650 mg PO Q4HR PRN PRN Reason: Pain 1 to 4 Last Admin: 08/20/17 13:50 Dose: 650 mg Aspirin (Maria De Jesus) 325 mg PO DAILY [facility] Last Admin: 08/25/17 10:16 Dose: 325 mg Atorvastatin Calcium (Lipitor) 80 mg PO HS [facility] Last Admin: 08/24/17 21:15 Dose: 80 mg Bacitracin (Bacitracin Zinc Oint) 1 gm TOP PRN PRN PRN Reason: Skin Care Last Admin: 08/20/17 21:52 Dose: 1 gm Clonazepam (Klonopin) 0.5 mg PO BID PRN PRN Reason: Anxiety Last Admin: 08/22/17 21:26 Dose: 0.5 mg Clopidogrel Bisulfate (Plavix) 75 mg PO DAILY [facility] Last Admin: 08/25/17 10:16 Dose: 75 mg Docusate Sodium (Colace 250mg Capsule) 250 - 500 mg PO DAILY [facility] Last Admin: 08/25/17 10:15 Dose: 500 mg Duloxetine HCl (Cymbalta) 60 mg PO HS [facility] Last Admin: 08/24/17 21:15 Dose: 60 mg Enoxaparin Sodium (Lovenox) 40 mg SUBQ DAILY [facility] Last Admin: 08/25/17 10:15 Dose: 40 mg Insulin Aspart (Novolog) 10 unit SUBQ TIDWM DAMIEN PRN Reason: Protocol Last Admin: 08/25/17 12:13 Dose: 10 unit Insulin Aspart (Novolog) 3 - 11 unit SUBQ 0800,1200,1700,2100 DAMIEN PRN Reason: Protocol Last Admin: 08/25/17 12:14 Dose: 5 unit Insulin Glargine (Lantus Solostar) 30 unit SUBQ DAILY [facility] Last Admin: 08/25/17 10:21 Dose: 30 unit Insulin Glargine (Lantus Solostar) 10 unit SUBQ QPM [facility] Last Admin: 08/24/17 21:16 Dose: 10 unit Levothyroxine Sodium (Synthroid) 50 mcg PO QDAC [facility] Last Admin: 08/25/17 06:25 Dose: 50 mcg Lisinopril (Zestril) 2.5 mg PO DAILY [facility] Last Admin: 08/25/17 10:16 Dose: 2.5 mg Metoprolol Succinate (Toprol Xl) 25 mg PO BID [facility] Last Admin: 08/25/17 10:16 Dose: 25 mg Morphine Sulfate (Ms Ir) 15 mg PO Q4HR PRN PRN Reason: PAIN Last Admin: 08/25/17 15:43 Dose: 15 mg Multi-Ingredient Ointment (Zinc Oxide) 1 applic TOP BID [facility] Last Admin: 08/25/17 10:15 Dose: 1 applic Nicotine (Nicoderm) 1 patch TOP DAILY [facility] Last Admin: 08/25/17 10:15 Dose: 1 patch Ondansetron HCl (Zofran Inj) 4 mg IVP Q6HR PRN PRN Reason: Nausea / Vomiting Pantoprazole Sodium (Protonix) 40 mg PO QDAC [facility] Last Admin: 08/25/17 06:25 Dose: 40 mg Polyethylene Glycol (Miralax) 17 gm PO DAILY [facility] Last Admin: 08/25/17 10:14 Dose: 17 gm Prochlorperazine Edisylate (Compazine Inj) 10 mg IVP Q6HR PRN PRN Reason: Nausea / Vomiting Senna (Senokot) 8.6 - 17.2 mg PO DAILY [facility] Last Admin: 08/25/17 10:16 Dose: 17.2 mg Spironolactone (Aldactone) 12.5 mg PO DAILY [facility] Last Admin: 08/25/17 10:16 Dose: 12.5 mg Zolpidem Tartrate (Ambien) 5 mg PO QPM PRN PRN Reason: Insomnia Last Admin: 08/24/17 23:55 Dose: 5 mg Insulin Glargine,Hum.rec.anlog [Lantus] 30 units SUBQ DAILY 03/19/14 Atorvastatin Calcium 80 mg PO DAILY PM 05/02/17 Metoprolol Succinate 25 mg PO DAILY 05/02/17 Insulin Aspart [NovoLOG] 10 unit SQ TIDWM 08/17/17 Senna [Senokot] 8.6 mg PO DAILY PRN 08/17/17 clonazePAM [Clonazepam] 0.5 mg PO DAILY PRN 08/17/17 Objective - Vital Signs/Intake & Output Vital Signs: Vital Signs x48h Temp Pulse Resp BP BP Pulse Ox 08/25/17 12:06 37.0 C 99 18 108/59 L 98 08/25/17 07:39 36.9 C 96 18 118/63 100 Intake & Output: Intake & Output 08/22/17 08/23/17 08/24/17 08/25/17 23:59 23:59 23:59 23:59 Intake Total 2140 3050 1800 960 Output Total 1400 1750 2445 1650 Balance 740 1300 -645 -690 - Objective General Appearance: positive: No acute distress, Alert Eyes Bilateral: positive: PERRL, EOMI ENT: positive: Other (bearded) Neck: positive: No JVD. negative: Stiff neck, Carotid bruit Respiratory: positive: Chest non-tender. negative: Wheezes, Rales, Rhonchi Cardiovascular: positive: Regular rate & rhythm. negative: Gallop/S4, Friction rub Abdomen: positive: Non-tender, No organomegaly, Nml bowel sounds, No distention Skin: positive: Warm, Dry Extremities: positive: No pedal edema Neurologic/Psychiatric: positive: Oriented x3, Facial droop. negative: Motor nml (right body weakness) - Lab Results Fish Bones: 08/17/17 05:40 08/17/17 05:40 Other Labs: Lab Results x24hrs 08/25/17 08/25/17 08/24/17 Range/Units 11:54 07:43 20:53 POC Whole Bld Glucose 200 H 211 H 121 H (70 - 100) mg/dL 08/24/17 Range/Units 16:57 POC Whole Bld Glucose 88 (70 - 100) mg/dL Assessment/Plan - Problem List (1) Chronic back pain Impression: he has had it for years. I asked for a pharmacy rx review and since 09/2016 he had been on oxycodone 10- 30mg until 04/2017. Then tried on morphine sulfate ER 30 mg for 30 tabs on . The oxycodone 10 mg plus MS ER 60 mg 30 tabs, then MS ER 80 mg on 06/25 amd back to MS IR 07/02/17 30 mg tid prn. So will resume the IR tid prn on 08/24. Qualifiers: Back pain location: low back pain (2) Type 1 diabetes mellitus with complication, uncontrolled Impression: Uncontrolled with complications of neuropathy and stroke. A1c is 9.7% Patient has a history of type 1 diabetes with multiple admissions for DKA however this time he presents with hypoglycemia. The patient states that his blood glucose has been volatile at home despite not having made any changes in his insulin regimen or having had any changes in his medical status. The patient presented this time with hypoglycemia. Patient's blood glucose was as low as 19 at home and down to 39 in the emergency department. The patient required a D10 drip and placement in observation. It appears the patient is having a very difficult time taking care of himself as he does have multiple hospitalizations over the last year and he should consider going to a facility where he can get assistance with his medications however patient was refusing this. He has reponded to treatment and is now 176-250's the first night. Eating well. Still has occasional too high or too low and we've adjusted as needed. Plan: D10 stopped after 24 hours. Initially on a reduced dose of lantus to 15 units but glucose too high and I went back to original 30 he was on 08/18 I think he made a mistake at home at took too much insulin because here he has been too high on the reduced dose. Placed on high sliding scale insulin and still 350's On diabetic diet by 08/19 is on lantus 30 in am and 10 units in pm and fixed sliding novolog 10 units actid 08/23 he was 484, 202, 168 and 163 08/24 299, 126, 88 08/25 211 and 200 today, then in the 30's this afternoon. change ac novolog. Qualifiers: Diabetes mellitus type: type 1 (3) Leukocytosis Conclusion/Plan: Patient has leukocytosis on presentation. Resolved. the patient's WBC is 16.6 on presentation. The patient does tend to have elevated WBC on previous hospitalizations however it does return to normal. It appears the patient likely has a reactive leukocytosis due to his hypoglycemia. The patient does not show any signs or symptoms of infection. He is 9.2 0n 08/17. No further monitoring needed. Qualifiers: Leukocytosis type: leukemoid reaction Qualified Code(s): D72.823 - Leukemoid reaction (4) CHF (congestive heart failure) Conclusion/Plan: Patient has cardiomyopathy with an ejection fraction of 30-35% on most recent echocardiogram. The patient is on optimal medication with metoprolol, lisinopril and spironolactone. Currently the patient's fluid status appears to be stable. No fluid overload noted with his D10 drip. Qualifiers: Congestive heart failure type: systolic (5) History of coronary artery disease Conclusion/Plan: Patient has history of coronary artery disease and is on optimal treatment with aspirin, Plavix, Lipitor and metoprolol. The patient had 3 stents placed in the last year and therefore will need to continue on his Plavix. We will continue his home medications while he is hospitalized. (6) Hypothyroidism Conclusion/Plan: Patient has a history of hypothyroidism and he appears stable. TSH 3.82. continue synthroid. (7) Hypoglycemia Impression: resolved. Reason for his admission. While here definitely NOT a problem. so he may have accidentally taken too much at home. The patient presented with altered mental status and was found to have a blood glucose of 19 at home. The patient states that he has been having fluctuating blood sugars at home. He states that sometimes his blood sugar will be 300 and then it will be 30. He states that he has not changed his regimen and states that the only thing he does forit when it does get low is he eats more. He states that day before admission his blood glucose was as low as 32. The patient has been on the same regimen of 30 units of Lantus and 10 units of NovoLog with meals for some time now. The patient has not been exercising any more than normal he does not appear to have any signs or symptoms of infection. The patient states that his blood glucose is always very volatilie and difficult to control. In the emergency department the patient was placed on D5 drip but blood glucose dropped down to 39 in the emergency department and patient had to be given D50 and placed on a D10 drip and placed in observation. Given the history the patient's cause of hypoglycemia is not completely clear. We checked a cortisol level one morning to see that patient had not developed adrenal insufficiency. Cortisol was normal. The patient did not appear to be septic and does not appear to have hepatic or renal failure at this time. Off of D10 and eating well. no further episodes. (8) History of hemorrhagic stroke with residual hemiplegia Impression: and poor safety awareness. 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 he's just a roommate. He states he's willing to move to [place] for permanent placement and Social Service is working on that. But tentative date for transfer is 08/23.
[2017-08-25] MEDS ORDERED: DEXTROSE 50% ABBOJECT 25 GM/50 ML SYRINGE IVP ONE (15:53)
[2017-08-25] MEDS ORDERED: DEXTROSE 5% 50 ML IV ONE (15:57)
[2017-08-25] MEDS ORDERED: DEXTROSE 50% ABBOJECT 25 GM/50 ML SYRINGE ONE (15:58)
[2017-08-25] MEDS ORDERED: SODIUM CHLORIDE FLUSH 0.9% 10 ML SYRINGE IVP ONE (16:03)
[2017-08-25] MEDS: DULoxetine 30 MG CAPSULE PO SCH ×2 (21:06→22:01)
[2017-08-25] MEDS: ATORVASTATIN 40 MG TABLET PO SCH ×2 (21:06→22:01)
[2017-08-26] MEDS: MORPHINE IR 15 MG TABLET PO PRN ×3 (00:25→09:24)
[2017-08-26] MEDS: IBUPROFEN 400 MG TABLET PO PRN ×2 (03:52→09:23)
[2017-08-26] MEDS: LEVOTHYROXINE 25 MCG TABLET PO SCH (05:22)
[2017-08-26] MEDS: PANTOPRAZOLE 40 MG TABLET PO SCH (06:34)
[2017-08-26] MEDS: DOCUSATE SODIUM 250 MG CAPSULE PO SCH (08:22)
[2017-08-26] MEDS: ASPIRIN 325 MG TABLET PO SCH (08:22)
[2017-08-26] MEDS: LISINOPRIL 5 MG TABLET PO SCH (08:22)
[2017-08-26] MEDS: CLOPIDOGREL 75 MG TABLET PO SCH (08:23)
[2017-08-26] MEDS: SPIRONOLACTONE 25 MG TABLET PO SCH (08:23)
[2017-08-26] MEDS: SENNA 8.6 MG TABLET PO SCH (08:23)
[2017-08-26] MEDS: METOPROLOL SUCCINATE 25 MG TABLET PO SCH (08:24)
[2017-08-26] MEDS: POLYETHYLENE GLYCOL 3350 17 GM PACKET PO SCH (08:24)
[2017-08-26] MEDS: ENOXAPARIN 40 MG/0.4 ML SYRINGE SUBQ SCH (08:24)
[2017-08-26] MEDS: INSULIN GLARGINE 300 UNIT/3 ML PEN SUBQ SCH (08:25)
[2017-08-26] MEDS: NICOTINE 14 MG PATCH TOP SCH (08:25)
[2017-08-26] MEDS: INSULIN ASPART 300 UNIT/3 ML PEN SUBQ SCH ×2 (08:27)
[2017-08-26] MEDS: ZINC OXIDE 20% OINT 28.35 GM TUBE TOP SCH (08:27)
[2017-08-26 08:35] VITALS: BP 104/90
[2017-08-26] MEDS: clonazePAM 0.5 MG TABLET PO PRN (09:23)
--- NOTE | 2017-08-27 11:49 | DISCHARGE SUMMARY ---
DATE OF ADMISSION: 08/16/2017 DATE OF DISCHARGE: 08/26/2017 PRIMARY CARE PROVIDER: Daria Chávez PA-C DISCHARGE DIAGNOSES 1. Uncontrolled type 1 diabetes mellitus, with complications with long-term use of insulin. 2. Hypoglycemia, severe. 3. Leukocytosis. 4. Chronic systolic congestive heart failure. 5. Hypothyroidism. 6. Noncompliance with safety measures. 7. History of coronary artery disease. 8. History of stroke with residual right hemiplegia, dysarthria. MEDICATIONS 1. Acetaminophen 650 mg p.o. q.6h. p.r.n. fever or pain, headache. 2. Aspirin 325 mg p.o. daily. 3. Atorvastatin 80 mg p.o. daily. 4. Bacitracin ointment 1 gram topically p.r.n. itching. 5. Clonazepam 0.5 mg p.o. daily for anxiety, followed by 0.5 mg p.o. b.i.d. p.r.n. anxiety. 6. Plavix 75 mg daily. 7. Duloxetine 60 mg daily. 8. NovoLog 10 units 6 dosing subcu after meals t.i.d.. 9. Lantus 10 units subcutaneous p.m. and Lantus 30 units subcutaneous a.m. 10. Levothyroxine 50 mcg daily. 11. Lisinopril 2.5 mg daily. 12. Metoprolol succinate extended release 25 mg daily. 13. Morphine sulfate IR 30 mg p.o. t.i.d. p.r.n. pain. 14. Nicotine patch 14 mg a day. 15. Omeprazole 20 mg p.o. b.i.d.. 16. Spironolactone 12.5 mg p.o. daily. HOSPITAL COURSE: The patient is a 61-year-old white male who lives in his own apartment with a roommate. The roommate in no way helps him with regard to his disabilities or giving him his medications. He is there strictly to share costs with. He has type 1 diabetes mellitus with multiple hospitalizations for DKA. He also has a past medical history of a stroke and has residual right-sided weakness, dysarthria, occasional dysphasia. He has had 3 stents placed for coronary artery disease, has a low ejection fraction of 30% with ischemic cardiomyopathy, and chronic kidney disease stage III. He has severe depression with chronic back pain, hypertension, and hypothyroidism who presents to the emergency room with altered mental status. He was found down in his home by his roommate. Glucose was 19 and he was given D50 by EMS, and an IV of D5 was placed en route to the emergency department. Over the last few days the patient stated that he had fluctuating blood glucose that had been up and down. Blood glucoses have been down as low as 32 before admission. He changed how much to eats to treat his hypoglycemia. He has not changed his insulin regimen, which was 30 units in the morning and 10 units of NovoLog with meals. He has had no antecedent fever, chills, cough, nausea, abdominal pain, urgency, frequency, dysuria, or hematuria. He has not felt ill. Examination in the emergency room, he was afebrile. Vital signs were within normal limits. By the time he had been in the emergency room, he was alert and back to baseline. Baseline includes a right hemiplegia, right facial droop from his previous stroke. He was placed in observation for his hypoglycemia. On the day after observation, we again worked with the patient with regard to his living situation. He lives in his own apartment, and he gets disability income. He has a large share of costs, and in order to get [employer] providers to help him, almost all of his disability income will go toward paying the MA[employer] providers. He has been refusing to do that. He has been in multiple care home facilities in the area because of his hypoglycemia and debilitated status, but always leaves when he states that he has reached his maximum functional stay with PT. He did not want to have permanent placement in a SNF, even though that would most likely be the best scenario for him because of his disabilities and erratic blood sugars. As such, the patient stated in observation. We had a couple of episodes of hypoglycemia on varying doses of insulin. When he was first admitted his sugar went back to 331. Insulin was discontinued except for NovoLog sliding scale. His sugars gradually went back up. In essence Lantus was started and increased slowly as well as NovoLog. He continued to have episodes of hypoglycemia, mainly in the late afternoon. Again, insulin was adjusted. He peaked at 505 on 08/23/2017. Over the course of the into the glucose was again brought down and he was 37 and 36 on the morning of the . It is unclear why this patient gets hypoglycemic when meals are eaten, insulin was given appropriately. He will need to be watched carefully in the outpatient setting. On the day of discharge, his 4 a.m. glucose was 75, 7 a.m. was 91 and 8 a.m. was 112. When he was first placed in observation, his white cell count was 16.6. The next day without any treatment other than stabilization of his sugars his white cell count was 9.2. He had no further fevers. Blood pressure remained stable. He did have a recurrence of his chronic back pain, and he has to go back on his usual morphine and that was resumed. His chronic systolic congestive heart failure remained compensated and stable. He did not need treatment for that. Hypothyroidism was checked and TSH was 3.82. Cortisol levels were checked to make sure there was no adrenal insufficiency or hyperactivity and cortisol level was 15.2 fasting in the morning. During his stay, he had no angina, no shortness of breath. He is transferred in stable condition to [facility] for permanent placement. He is accepting that his disability income will go towards that. Temperature is 37.2, pulse is 86, blood pressure 104/90, respirations 18, and he is 99% on room air. He is a thin, alert, expressive, middle-aged white male who looks older than his stated age. Bearded, poor dentition. Slightly slurred speech between the stroke and his teeth. He has a facial droop on the right. Neck is supple with shotty adenopathy. Lungs are clear to auscultation and percussion and he has no increased respiratory effort with talking spontaneously and at length. PMI is normally placed with a regular rate and rhythm. Soft systolic ejection murmur left lower sternal border that is nonradiating. The abdomen is soft, scaphoid, nontender. No organomegaly with normal bowel sounds. He has a right hemiplegia that is partial but not complete. He is still able to use his arm a little bit and the right facial droop. He is alert and oriented to person, place and time. He is capable of making his own decisions, even if they can sometimes be poor decisions. Greater than 30 minutes was spent in coordinating discharge. I wished him luck. I hope that his placement in this new facility will be favorable to him to keep him safe. JOB #: [id number] EXT JOB #:[id number] JOSHUA
== END 2017-08-26 09:24 ==
LOC: EDUNIT# → EDBD → ED 15:13 → OBS 19:41
PROVIDERS: ADMIT Internal Medicine; ATTEND Specialist
DX: E10.649 Type 1 diabetes mellitus with hypoglycemia without coma (principal); E10.65 Type 1 diabetes mellitus with hyperglycemia; Z79.4 Long term (current) use of insulin; D72.829 Elevated white blood cell count, unspecified; I13.0 Hypertensive heart and chronic kidney disease with heart failure and stage 1 through stage 4 chronic kidney disease, or unspecified chronic kidney disease; I50.22 Chronic systolic (congestive) heart failure; N18.3 Chronic kidney disease, stage 3 (moderate); E10.22 Type 1 diabetes mellitus with diabetic chronic kidney disease; Z87.891 Personal history of nicotine dependence; E03.9 Hypothyroidism, unspecified; Z91.19 Patient's noncompliance with other medical treatment and regimen; I25.10 Atherosclerotic heart disease of native coronary artery without angina pectoris; Z95.5 Presence of coronary angioplasty implant and graft; I69.351 Hemiplegia and hemiparesis following cerebral infarction affecting right dominant side; I69.322 Dysarthria following cerebral infarction; I69.392 Facial weakness following cerebral infarction; I69.321 Dysphasia following cerebral infarction; E87.1 Hypo-osmolality and hyponatremia; K21.9 Gastro-esophageal reflux disease without esophagitis; F41.9 Anxiety disorder, unspecified; M54.5 Low back pain; G89.29 Other chronic pain; E78.5 Hyperlipidemia, unspecified; K59.09 Other constipation; M25.511 Pain in right shoulder; Z79.02 Long term (current) use of antithrombotics/antiplatelets; Z79.82 Long term (current) use of aspirin; Z79.899 Other long term (current) drug therapy; Z79.891 Long term (current) use of opiate analgesic; Z99.3 Dependence on wheelchair; I25.2 Old myocardial infarction; F32.9 Major depressive disorder, single episode, unspecified
CPT/HCPCS: 36415; 80053; 82009; 82330; 82533; 82803; 83036; 83690; 84443; 85025; 85027; 96360; 96361; 96372; 97162; 99284; 99285; A9270; G0378; G8981; G8982; G8983; J1650; J1815